=== PATIENT | female | born 1995 | race Caucasian/White ===

== ENCOUNTER 2019-02-15 20:11 | Observation (INO) | payer MEDICARE, MEDICAID, SELFPAY ==
[2019-02-15 20:12] VITALS: BP 148/94; PULSE 126; RESP 24; TEMP 37.6; O2SAT 94
[2019-02-15 21:48] VITALS: BP 148/99; PULSE 118; PULSE 119; RESP 18; TEMP 38.1; O2SAT 100; O2SAT 98
[2019-02-15 21:54] VITALS: O2SAT 97
[2019-02-15 22:20] VITALS: BP 120/81; PULSE 136; RESP 23; O2SAT 100
--- NOTE | 2019-02-15 22:22 | ED.DCSUM_ITS ---
- ER Visit Summary Date of Service: 02/15/19 Chief Complaint: cough and shortness of breath History of Present Illness: The patient is a 24 F with history of Down syndrome who presents for 1 day of shortness of breath and cough. Yesterday patient began having a cough and was given DayQuil by her caregiver. It helped initially, but she has continued to have worsening cough and shortness of breath today. She is complaining of a sore throat and now her voice is hoarse. She is also having chest discomfort associated with the cough. She has had a measured fever at home. She has history of Down syndrome and hypothyroidism. No history of DVT or PE. No known sick contacts. Physical Examination: Vital signs: Febrile at 100.5, heart rate 119, blood pressure 148/99, 100% on room air, no hypoxia General: well nourished, well developed, Down syndrome morphology, recurrent cough and hoarse voice noted Skin: warm, dry, no rash, no pallor the cheeks are flushed HEENT: normocephalic and atraumatic; PERRL, EOMI, moist mucous membranes, unable to visualize the posterior oropharynx due to the size of the tongue and patient unable to cooperate with the exam with a tongue depressor, neck is supple, no lymphadenopathy noted, no masses appreciated Cardiovascular: Tachycardic rate and rhythm without murmurs, no peripheral edema, 2+ pulses all distal extremities Respiratory: Mild tachypnea, lungs are clear to auscultation bilaterally, no rales, rhonchi or wheezing, exam limited by patient difficulty cooperating with the exam Abdominal: Abdomen is soft, nontender with normoactive bowel sounds, no guarding or rebound, no masses MSK: Moves all extremities, no deformities, normal strength Neuro: Awake and alert, oriented ?4. No facial droop, sensation and motor function intact and symmetric Test Results: Abnormal Lab Results 02/15/19 02/15/19 02/15/19 22:45 22:45 22:45 WBC 4.0 L RBC 4.42 Hgb 14.1 Hct 43.0 MCV 97.3 MCH 31.9 MCHC 32.8 RDW 14.8 H RDW Differential 52.9 H Plt Count 228 MPV 10.0 Immature Gran % (Auto) 0.300 Neut % (Auto) 69.2 Lymph % (Auto) 19.9 [place] % (Auto) 9.8 Eos % (Auto) 0.3 Baso % (Auto) 0.5 Absolute Neuts (auto) 2.8 Absolute Lymphs (auto) 0.79 L Total Counted Not Reportable PT 14.5 INR 1.2 APTT 39.3 H Sodium 144 Potassium 3.9 Chloride 112 H Carbon Dioxide 29.0 Anion Gap 3 L BUN 14 Creatinine 0.94 Estim Creat Clear Calc 122.09 Est GFR (MDRD) Af Amer 93 Est GFR (MDRD) Non-Af 77 BUN/Creatinine Ratio 15.0 Glucose 112 H Lactic Acid Calcium 8.5 Total Bilirubin 0.10 L AST 21 ALT 20 Alkaline Phosphatase 65 Total Protein 7.5 Albumin 2.9 L Globulin 4.6 H Albumin/Globulin Ratio 0.6 L 02/15/19 22:45 WBC RBC Hgb Hct MCV MCH MCHC RDW RDW Differential Plt Count MPV Immature Gran % (Auto) Neut % (Auto) Lymph % (Auto) [place] % (Auto) Eos % (Auto) Baso % (Auto) Absolute Neuts (auto) Absolute Lymphs (auto) Total Counted PT INR APTT Sodium Potassium Chloride Carbon Dioxide Anion Gap BUN Creatinine Estim Creat Clear Calc Est GFR (MDRD) Af Amer Est GFR (MDRD) Non-Af BUN/Creatinine Ratio Glucose Lactic Acid 1.4 Calcium Total Bilirubin AST ALT Alkaline Phosphatase Total Protein Albumin Globulin Albumin/Globulin Ratio Clinical Impression(s) from Imaging Studies Chest X-Ray 02/15/19 23:35 IMPRESSION: Normal x-ray examination of the chest. Electronically Signed: Antoine Martines MD at 23:53 EDT , Service support , Medications Given Albuterol Sulfate (Ventolin Hfa (Sp)) 2 puff INHALATION Q4H PRN PRN PRN Reason: WHEEZING Sodium Chloride () 1,000 mls @ 999 mls/hr IV .Q1H1M [place] Last Admin: 02/16/19 01:11 Dose: Not Given Admin: 02/16/19 01:03 Dose: Not Given Admin: 02/15/19 22:57 Dose: 999 mls/hr Discontinued Medications Acetaminophen (Tylenol Liquid) 500 mg PO X1 ONE Stop: 02/15/19 22:22 Last Admin: 02/15/19 22:58 Dose: 500 mg Albuterol/Ipratropium (Duoneb) 3 ml INHALATION X1 ONE Stop: 02/15/19 22:25 Last Admin: 02/15/19 23:00 Dose: 3 ml Oseltamivir Phosphate (Tamiflu Susp) 75 mg PO NOW STA Stop: 02/16/19 00:36 Last Admin: 02/16/19 01:02 Dose: 75 mg Emergency Department Course and Treatment: Patient was given a breathing treatment and had improvement of her cough. She is febrile, tachycardic, and has underlying respiratory issues at baseline with only one nostril that moves air. Thus workup was performed for underlying infectious cause of her shortness of breath and cough. Chest x-ray showed no sign of pneumonia. Patient had no leukocytosis. Lactate normal. Flu was positive. She was given Tamiflu. Patient was reevaluated and initially was feeling better after the breathing treatment and receiving some Tylenol for fever. However on subsequent evaluation, she was persistently tachycardic at 120s-130s. Temperature was back up to 101.9. Patient was ambulated on pulse oximetry and became very dyspneic after a very short walk, with O2 sat of 90% and heart rate in the 160s. This is concerning that patient will fail outpatient management. Discussed with the guardian patient's current condition and it was agreed she would benefit from close monitoring and continued medical management in the hospital since she is having shortness of breath with mild exertion and significant tachycardia. Patient will be discussed with the hospitalist for admission. Treatment Plan: [] Disposition: [] Impression: Influenza A, shortness of breath, tachycardia with mild exertion, Down syndrome This note was generated with [employer] software. It may contain incorrect words, spelling, and punctuation that were not noted in review of the chart prior to signing ED Disposition - Plan for ED Patient: Referrals: Elena Zheng MD [Primary Care Provider] -
[2019-02-15] MEDS: 0.9% Normal Saline 1,000 ML 999 ML IV (22:57)
[2019-02-15 22:58] LABS: Absolute Lymphocyte Count 0.79 X10^3/ul (0.83-4.51); Absolute Neutrophil Count 2.8 X10^3/uL (2.0-7.7); Basophil# 0.02 X10^3/uL; Basophil% 0.5 % (0-1); Eosinophil# 0.01 X10^3/uL; Eosinophils% 0.3 % (0-5); Hemoglobin 14.1 g/dl (12.0-15.0); Lymphocyte # 0.79 X10^3/ul (4.0); Lymphocyte % 19.9 % (19-41); Mean Corp Hgb Conc 32.8 g/gl (32-36); Mean Corpuscular Hgb 31.9 pg (27.0-32.0); Mean Corpuscular Volume 97.3 fL (81-99); Monocyte# 0.39 X10^3/uL; Monocyte% 9.8 % (0-10); Neutrophil # 2.75 X10^3/uL (2.7-7.7); Neutrophil % 69.2 % (47-70); Platelet Count 228 K/mm3 (150-450); RBC Distribution Width CV 14.8 % (11.6-14.6); RBC Distribution Width SD 52.9 fl (35.1-43.9); Red Blood Count 4.42 M/mm3 (4.2-5.4)
[2019-02-15] MEDS: Acetaminophen 160 MG/5 ML UDC 500 MG PO (22:58)
[2019-02-15] MEDS: Ipratropium/Albuterol Sulfate 3 ML AMPUL.NEB INHALATION (23:00)
[2019-02-15 23:03] VITALS: BP 120/81; PULSE 133; RESP 22; TEMP 36.9; O2SAT 100
[2019-02-15 23:06] VITALS: PULSE 135; RESP 20
[2019-02-15 23:09] LABS: POSITIVE COUNT NO; POSITIVE DIFFERENTIAL NO; POSITIVE MORPHOLOGY NO
[2019-02-15 23:15] LABS: International Normalized Ratio 1.2; Partial Thromboplast Time 39.3 Seconds (24.1-36.2); Prothrombin Time (Protime)PT. 14.5 SECONDS (11.7-14.9)
[2019-02-15 23:17] LABS: ALB/GLOB Ratio 0.6 RATIO (0.9-2.4); AST(SGOT) 21 U/L (15-37); Alanine Aminotransfer ALT/SGPT 20 U/L (13-56); Albumin, Serum 2.9 g/dL (3.2-5.0); Alkaline Phosphatase 65 U/L (45-117); Anion Gap 3 (5-15); BUN 14 mg/dL (7-18); Calcium,Total 8.5 mg/dL (8.5-10.1); Chloride 112 mmol/L (98-107); Creatinine, Serum 0.94 mg/dL (0.55-1.02); EST Glomerular Filtration Rate 77 mL/min (>60); Est Glom Filt Rate - Afr Amer 93 mL/min (>60); Estimated Creatinine Clearance 122.09 ml/min; Globulin 4.6 g/dL (2.2-4.2); Glucose 112 mg/dL (74-106); Potassium 3.9 mmol/L (3.5-5.1); Protein, Total 7.5 g/dL (6.4-8.2); Sodium Level 144 mmol/L (136-145)
[2019-02-15 23:20] LABS: Lactic Acid 1.4 mmol/L (0.4-2.0)
--- NOTE | 2019-02-15 23:35 | RAD_ITS ---
STUDY: X-RAY CHEST REASON FOR EXAM: Female, 24 years old. Fever and cough. TECHNIQUE: Frontal and lateral views of the chest. COMPARISON: None. FINDINGS: The lungs are clear and expanded. There is no demonstrated pleural abnormality. Normal size heart. Normal mediastinum and chloe. Normal visualized pulmonary arteries. Normal visualized aortic arch and descending thoracic aorta. Normal visualized thoracic spine. Normal visualized ribs, clavicles, and shoulders. There is no demonstrated abnormality of the visualized soft tissue structures of the upper abdomen. RAD/Chest PA and Lateral IMPRESSION: Normal x-ray examination of the chest. Electronically Signed: Antoine Martines MD at 23:53 EDT , Service support ,
[2019-02-16] VITALS (17 sets, daily range): BP systolic 102–145; BP diastolic 58–91; PULSE 91–129; RESP 14–28; TEMP 36.6–38.4; O2SAT 92–99; BMI 27.5; BMI 33.8
[2019-02-16] MEDS: OSELTAMIVIR PHOSPHATE 6 MG/ML BOTTLE 75 MG PO (01:02)
--- NOTE | 2019-02-16 01:35 | ED.RN ---
PT FELT WARM WHEN THIS RN AMBULATED PT. PT HR INCREASED TO 164, PT BECAME SOB. AXILLARY TEMP. 101.2. DR. THOMAS INFORMED. AWAITING FURTHER ORDERS.
[2019-02-16] MEDS: Albuterol 2.5 MG/3 ML VIAL.NEB. INHALATION (01:41)
[2019-02-16] MEDS: Acetaminophen 160 MG/5 ML UDC 500 MG PO (02:10)
--- NOTE | 2019-02-16 02:17 | HP.PCM_ITS ---
Problem List (1) Nonproductive cough Status: Acute (2) Shortness of breath Status: Acute (3) Fever Status: Acute Qualifiers: Fever type: unspecified Qualified Code(s): R50.9 - Fever, unspecified History of Present Illness Date of Admission: 02/16/19 Chief Complaint: Shortness of breath, nonproductive cough, fever The patient is a 24 year old F who was seen in the emergency room at [facility] with a chief complaint of nonproductive cough, fever, and shortness of breath times 48 hours. Patient has Down syndrome and a reliable review of systems could not be obtained from the patient-patient's sister was present in the emergency room and gave medical information. Workup in the emergency room included a CBC which showed a reduced white blood cell count at 4, patient's chemistry panel was unremarkable, and her chest x-ray did not show any infiltrates. Patient was tachycardic, the emergency room physician stated that when the patient was walked, her pulse ox on room air dropped to 90 and she became more tachycardic. The emergency room physician was uncomfortable with discharging the patient home and requested the hospitalist service place the patient into observation status. Patient will be placed and observation status for influenza A, she will be given IV fluids, and Tamiflu. Past Medical History Allergies No Known Allergies Allergy (Verified 02/15/19 20:17) Home Medications: Ambulatory Orders Medication Instructions Recorded Levothyroxine [Synthroid] 125 mcg PO DAILY 02/15/19 Loratadine [Claritin] 10 mg PO DAILY PRN 02/15/19 Multivitamin [Daily Doug] 1 each PO DAILY 02/15/19 Surgical History: tonsillectomy, - - Tubes in her ears, surgery for ankyloglossia Psychiatric History: - - Down syndrome [employer] History: No pertinent [employer] history Lives: With Family Smoking Status: Never smoker Tobacco Use: Non-smoker Alcohol: None Drugs: None - *Family History Maternal History Items: No pertinent history Paternal History Items: No pertinent history Review of Systems Comment: Review of systems was unobtainable from the patient due to her Down's syndrome, information was obtained from the patient's sister who was present at the time of the patient's examination VTE Information - Inpt Only VTE Present on Admission: No VTE Mechan Device Prophylaxis: None VTE Pharm Prophylaxis ordered?: No Reason prophylaxis not ordered:: Treatment Not Indicated Patient Problems: Active and Suspected Problems Nonproductive cough (Acute) Shortness of breath (Acute) Fever (Acute) - Physical Exam General: Alert, Oriented x3, Cooperative, No apparent distress, Well developed, Well nourished, - - Short stature, apparent cognitive impairment HEENT: Atraumatic, PERRLA, EOMI, Normocephalic Oral: Moist Mucosa Neck: Supple, No JVD, Negative Carotid Bruits, No Nuchal Rigidity, Trachea Midline, Thyroid Normal Size and Texture Lungs: Clear to auscultation, Normal air movement, No rhonchi, No wheeze, No rales Cardiovascular: Regular rate, Regular Rhythm, Normal S1, Normal S2, No murmurs, No Ectopic Activity, PMI Normal, No rub noted, No Gallop, Tachycardic Abdomen: Bowel Sounds Present, Soft, Non Tender, Non-Distended, No hernias noted Extremities: No clubbing, No cyanosis, No edema, Capillary Refill Less than 3 Seconds Skin: No rashes, No breakdown Neurological: Cranial nerves II-XII grossly intact, Neuro grossly intact, Sensory exam intact to light touch and pain Psych/Mental Status: Normal Affect, - - Signs of obvious cognitive impairment, Downs syndrome facies Vital Signs Temp Pulse Resp BP Pulse Ox 101.2 F H 124 H 28 H 121/71 H 92 02/16/19 01:31 02/16/19 02:08 02/16/19 02:08 02/16/19 02:08 02/16/19 02:08 Oxygen Flow Rate (L/min) 2 Oxygen Delivery Method Nasal Cannula Weight: 85.275 kg Body Mass Index (BMI) 0.0 Microbiology Past 72 Hours 02/15/19 23:10 Influenza Types A,B Direct FA (AMARIS) - Final Mucosa - Nasopharyngeal Influenzae A Laboratory Tests Past 24 Hrs 02/15/19 02/15/19 02/15/19 22:45 22:45 22:45 WBC 4.0 L RBC 4.42 Hgb 14.1 Hct 43.0 MCV 97.3 MCH 31.9 MCHC 32.8 RDW 14.8 H RDW Differential 52.9 H Plt Count 228 MPV 10.0 Immature Gran % (Auto) 0.300 Neut % (Auto) 69.2 Lymph % (Auto) 19.9 Thomas % (Auto) 9.8 Eos % (Auto) 0.3 Baso % (Auto) 0.5 Absolute Neuts (auto) 2.8 Absolute Lymphs (auto) 0.79 L Total Counted Not Reportable PT 14.5 INR 1.2 APTT 39.3 H Sodium 144 Potassium 3.9 Chloride 112 H Carbon Dioxide 29.0 Anion Gap 3 L BUN 14 Creatinine 0.94 Estim Creat Clear Calc 122.09 Est GFR (MDRD) Af Amer 93 Est GFR (MDRD) Non-Af 77 BUN/Creatinine Ratio 15.0 Glucose 112 H Lactic Acid Calcium 8.5 Total Bilirubin 0.10 L AST 21 ALT 20 Alkaline Phosphatase 65 Total Protein 7.5 Albumin 2.9 L Globulin 4.6 H Albumin/Globulin Ratio 0.6 L 02/15/19 22:45 WBC RBC Hgb Hct MCV MCH MCHC RDW RDW Differential Plt Count MPV Immature Gran % (Auto) Neut % (Auto) Lymph % (Auto) Thomas % (Auto) Eos % (Auto) Baso % (Auto) Absolute Neuts (auto) Absolute Lymphs (auto) Total Counted PT INR APTT Sodium Potassium Chloride Carbon Dioxide Anion Gap BUN Creatinine Estim Creat Clear Calc Est GFR (MDRD) Af Amer Est GFR (MDRD) Non-Af BUN/Creatinine Ratio Glucose Lactic Acid 1.4 Calcium Total Bilirubin AST ALT Alkaline Phosphatase Total Protein Albumin Globulin Albumin/Globulin Ratio Assessment/Plan All Active Problems Nonproductive cough (Acute) Shortness of breath (Acute) Fever (Acute) #1 influenza A with tachycardia and dyspnea-patient will be placed and observation status on [facility], I have decided not to administer aerosol treatments for the patient-on my examination, patient did not have any audible wheezing or rhonchi. Patient will be given IV fluids and monitored. Patient will be given Tamiflu #2 Down syndrome #3 hypothyroidism-patient will continue on her present medication Code Visit OBSV E&M: 43399 Initial observation care L3
[2019-02-16] MEDS: 0.9% Normal Saline 1,000 ML 100 ML IV ×3 (03:26→21:04)
[2019-02-16] MEDS: Levothyroxine 125 MCG Tablet PO (05:55)
[2019-02-16] MEDS: Oseltamivir Phosphate 75 MG Capsule PO ×2 (11:18→21:00)
--- NOTE | 2019-02-16 11:20 | NURSING ---
1120 pt resting in bed. pox checked 98% on RA. no resp distress noted. will monitor Ed Morocho
--- NOTE | 2019-02-16 15:02 | PCM.PN.HOSP ---
Patient Problems: Active and Suspected Problems Nonproductive cough (Acute) Shortness of breath (Acute) Fever (Acute) Subjective: Patient was admitted yesterday. Influenza A positive. Patient has nonproductive cough, fever, shortness of breath and bronchial wheezing. Has Down syndrome and answers questions in yes or no. Currently pulse ox 98% on 6 L of oxygen. Vitals/I&O's: Vital Signs Temp Pulse Resp BP Pulse Ox 98 F 91 20 H 117/87 H 96 02/16/19 09:00 02/16/19 09:00 02/16/19 09:00 02/16/19 09:00 02/16/19 13:20 Oxygen Flow Rate (L/min) 6 Oxygen Delivery Method Room Air Weight: 191 lb 2.252 oz Body Mass Index (BMI) 33.8 Intake and Output for Last 24 Hours 02/14/19 02/15/19 02/16/19 23:59 23:59 23:59 Intake Total 1270 / 1270 Balance 1270 / 1270 General: Cooperative, - - Awake. Mild to moderate cognitive impairment. Hard to assess orientation questions. HEENT: Atraumatic, PERRLA, EOMI Neck: Supple, No JVD, Negative Carotid Bruits, Negative Hepatojugular Reflux Lungs: Diminished - Air entry is diminished, Rhonchi, Wheezes Cardiovascular: Regular rate, Normal S1, Normal S2, No murmurs Abdomen: Bowel Sounds Present, Soft, Non Tender, Non-Distended Extremities: No cyanosis, No edema, Capillary Refill Less than 3 Seconds Skin: No rashes, No breakdown Musculoskeletal: No Tenderness to Palpation of Joints or Extremities Lymphatic: No Cervical, Supraclavicular, or Inguinal Adenopathy Neurological: Cranial nerves II-XII grossly intact, - - Short webbed neCK, short of stature of Down syndrome Microbiology Past 72 Hours 02/15/19 23:10 Mucosa - Nasopharyngeal Influenza Types A,B Direct FA (AMARIS) - Final Influenzae A Laboratory Results 02/15/19 22:45: WBC 4.0 L, RBC 4.42, Hgb 14.1, Hct 43.0, MCV 97.3, MCH 31.9, MCHC 32.8, RDW 14.8 H, RDW Differential 52.9 H, Plt Count 228, MPV 10.0, Immature Gran % (Auto) 0.300, Neut % (Auto) 69.2, Lymph % (Auto) 19.9, [place] % (Auto) 9.8, Eos % (Auto) 0.3, Baso % (Auto) 0.5, Absolute Neuts (auto) 2.8, Absolute Lymphs (auto) 0.79 L, Total Counted Not Reportable 02/15/19 22:45: PT 14.5, INR 1.2, APTT 39.3 H 02/15/19 22:45: Sodium 144, Potassium 3.9, Chloride 112 H, Carbon Dioxide 29.0, Anion Gap 3 L, BUN 14, Creatinine 0.94, Estim Creat Clear Calc 122.09, Est GFR (MDRD) Af Amer 93, Est GFR (MDRD) Non-Af 77, BUN/Creatinine Ratio 15.0, Glucose 112 H, Calcium 8.5, Total Bilirubin 0.10 L, AST 21, ALT 20, Alkaline Phosphatase 65, Total Protein 7.5, Albumin 2.9 L, Globulin 4.6 H, Albumin/Globulin Ratio 0.6 L 02/15/19 22:45: Lactic Acid 1.4 Current Medications Acetaminophen (Tylenol) 650 mg PO Q6H PRN PRN PRN Reason: Mild Pain (1-3)/Temp > 100.7 F Albuterol/Ipratropium (Duoneb) 3 ml INHALATION Q4H PRN PRN Reason: sob Sodium Chloride () 1,000 mls @ 100 mls/hr IV .Q10H [facility] Last Admin: 02/16/19 12:29 Dose: 100 mls/hr Levothyroxine Sodium (Synthroid) 125 mcg PO MoTuWeThFrSa@0600 [facility] Last Admin: 02/16/19 05:55 Dose: 125 mcg Levothyroxine Sodium (Synthroid) 62.5 mcg PO Bales@0600 [facility] Loratadine (Claritin) 10 mg PO DAILY PRN PRN PRN Reason: ALLERGIES Oseltamivir Phosphate (Tamiflu) 75 mg PO BID [facility] Stop: 02/20/19 22:01 Last Admin: 02/16/19 11:18 Dose: 75 mg Sodium Chloride () 5 - 15 ml IV UD PRN PRN Reason: SALINE FLUSH Medical Necessity - Tobacco Use Smoking Status: Never smoker Tobacco Use: Non-smoker Assessment/Plan All Active Problems Nonproductive cough (Acute) Shortness of breath (Acute) Fever (Acute) This is a 24-year-old female who was admitted for nonproductive cough, fever, shortness of breath for more than 48 hours. She has Down syndrome and her caregiver is her sister. Patient has found tachycardic, tachypneic and hypoxic in ED and therefore was admitted. Patient found positive of influenza A. 1. Acute hypoxia secondary to influenza A bronchitis: Oxygen therapy as needed. On Tamiflu. Bronchodilator as needed. Mucinex. 2. Down syndrome: Patient can feed herself. Patient does not have feeding tube or Gomez catheter. 3. Hypothyroidism: Continue home medication
--- NOTE | 2019-02-16 15:07 | PN_ITS ---
Patient Problems: Active and Suspected Problems Nonproductive cough (Acute) Shortness of breath (Acute) Fever (Acute) Subjective: Patient was admitted yesterday. Influenza A positive. Patient has nonproductive cough, fever, shortness of breath and bronchial wheezing. Has Down syndrome and answers questions in yes or no. Currently pulse ox 98% on 6 L of oxygen. Vitals/I&O's: Vital Signs Temp Pulse Resp BP Pulse Ox 98 F 91 20 H 117/87 H 96 02/16/19 09:00 02/16/19 09:00 02/16/19 09:00 02/16/19 09:00 02/16/19 13:20 Oxygen Flow Rate (L/min) 6 Oxygen Delivery Method Room Air Weight: 191 lb 2.252 oz Body Mass Index (BMI) 33.8 Intake and Output for Last 24 Hours 02/14/19 02/15/19 02/16/19 23:59 23:59 23:59 Intake Total 1270 / 1270 Balance 1270 / 1270 General: Cooperative, - - Awake. Mild to moderate cognitive impairment. Hard to assess orientation questions. HEENT: Atraumatic, PERRLA, EOMI Neck: Supple, No JVD, Negative Carotid Bruits, Negative Hepatojugular Reflux Lungs: Diminished - Air entry is diminished, Rhonchi, Wheezes Cardiovascular: Regular rate, Normal S1, Normal S2, No murmurs Abdomen: Bowel Sounds Present, Soft, Non Tender, Non-Distended Extremities: No cyanosis, No edema, Capillary Refill Less than 3 Seconds Skin: No rashes, No breakdown Musculoskeletal: No Tenderness to Palpation of Joints or Extremities Lymphatic: No Cervical, Supraclavicular, or Inguinal Adenopathy Neurological: Cranial nerves II-XII grossly intact, - - Short webbed neCK, short of stature of Down syndrome Microbiology Past 72 Hours 02/15/19 23:10 Mucosa - Nasopharyngeal Influenza Types A,B Direct FA (AMARIS) - Final Influenzae A Laboratory Results 02/15/19 22:45: WBC 4.0 L, RBC 4.42, Hgb 14.1, Hct 43.0, MCV 97.3, MCH 31.9, MCHC 32.8, RDW 14.8 H, RDW Differential 52.9 H, Plt Count 228, MPV 10.0, Immature Gran % (Auto) 0.300, Neut % (Auto) 69.2, Lymph % (Auto) 19.9, Lyon % (Auto) 9.8, Eos % (Auto) 0.3, Baso % (Auto) 0.5, Absolute Neuts (auto) 2.8, Absolute Lymphs (auto) 0.79 L, Total Counted Not Reportable 02/15/19 22:45: PT 14.5, INR 1.2, APTT 39.3 H 02/15/19 22:45: Sodium 144, Potassium 3.9, Chloride 112 H, Carbon Dioxide 29.0, Anion Gap 3 L, BUN 14, Creatinine 0.94, Estim Creat Clear Calc 122.09, Est GFR (MDRD) Af Amer 93, Est GFR (MDRD) Non-Af 77, BUN/Creatinine Ratio 15.0, Glucose 112 H, Calcium 8.5, Total Bilirubin 0.10 L, AST 21, ALT 20, Alkaline Phosphatase 65, Total Protein 7.5, Albumin 2.9 L, Globulin 4.6 H, Albumin/Globulin Ratio 0.6 L 02/15/19 22:45: Lactic Acid 1.4 Current Medications Acetaminophen (Tylenol) 650 mg PO Q6H PRN PRN PRN Reason: Mild Pain (1-3)/Temp > 100.7 F Albuterol/Ipratropium (Duoneb) 3 ml INHALATION Q4H PRN PRN Reason: sob Sodium Chloride () 1,000 mls @ 100 mls/hr IV .Q10H [facility] Last Admin: 02/16/19 12:29 Dose: 100 mls/hr Levothyroxine Sodium (Synthroid) 125 mcg PO MoTuWeThFrSa@0600 [facility] Last Admin: 02/16/19 05:55 Dose: 125 mcg Levothyroxine Sodium (Synthroid) 62.5 mcg PO Bales@0600 [facility] Loratadine (Claritin) 10 mg PO DAILY PRN PRN PRN Reason: ALLERGIES Oseltamivir Phosphate (Tamiflu) 75 mg PO BID [facility] Stop: 02/20/19 22:01 Last Admin: 02/16/19 11:18 Dose: 75 mg Sodium Chloride () 5 - 15 ml IV UD PRN PRN Reason: SALINE FLUSH Medical Necessity - Tobacco Use Smoking Status: Never smoker Tobacco Use: Non-smoker Assessment/Plan All Active Problems Nonproductive cough (Acute) Shortness of breath (Acute) Fever (Acute) This is a 24-year-old female who was admitted for nonproductive cough, fever, shortness of breath for more than 48 hours. She has Down syndrome and her caregiver is her sister. Patient has found tachycardic, tachypneic and hypoxic in ED and therefore was admitted. Patient found positive of influenza A. 1. Acute hypoxia secondary to influenza A bronchitis: Oxygen therapy as needed. On Tamiflu. Bronchodilator as needed. Mucinex. 2. Down syndrome: Patient can feed herself. Patient does not have feeding tube or Gomez catheter. 3. Hypothyroidism: Continue home medication
[2019-02-17 03:00] VITALS: BP 119/70; PULSE 118; RESP 20; TEMP 37.7; O2SAT 94
[2019-02-17] MEDS: Levothyroxine 125 MCG Tablet 62.5 MCG PO (06:23)
[2019-02-17] MEDS: Acetaminophen 325 MG Tablet 650 MG PO (06:26)
[2019-02-17 06:51] VITALS: TEMP 38.2
[2019-02-17 07:27] VITALS: O2SAT 94
[2019-02-17 07:34] VITALS: BP 103/61; PULSE 103; RESP 18; TEMP 36.8; O2SAT 94
--- NOTE | 2019-02-17 07:55 | RAD_ITS ---
STUDY: X-RAY CHEST REASON FOR EXAM: Female, 24 years old. Fever and cough TECHNIQUE: PA and lateral views of the chest. COMPARISON: 02/15/2019 FINDINGS: The lungs are clear and expanded. There is no demonstrated pleural abnormality. Normal size heart. Normal mediastinum and chloe. Normal visualized pulmonary arteries. Normal visualized aortic arch and descending thoracic aorta. Normal visualized thoracic spine. Normal visualized ribs, clavicles, and shoulders. There is no demonstrated abnormality of the visualized soft tissue structures of the upper abdomen. RAD/Chest PA and Lateral IMPRESSION: Normal x-ray examination of the chest. Electronically Signed: Eduardo Orta MD at 13:42 EDT , Service support ,
--- NOTE | 2019-02-17 08:01 | NURSING ---
off unit via bed for cxr
[2019-02-17] MEDS: 0.9% Normal Saline 1,000 ML 100 ML IV ×2 (08:09→18:29)
[2019-02-17] MEDS: 0.9% NaCl Peripheral Flush Adult/Peds IV (08:10)
[2019-02-17 08:36] LABS: Absolute Lymphocyte Count 0.85 X10^3/ul (0.83-4.51); Absolute Neutrophil Count 4.7 X10^3/uL (2.0-7.7); Basophil# 0.02 X10^3/uL; Basophil% 0.3 % (0-1); Eosinophil# 0.03 X10^3/uL; Eosinophils% 0.5 % (0-5); Hematocrit 42.3 % (37-47); Hemoglobin 13.8 g/dl (12.0-15.0); Lymphocyte # 0.85 X10^3/ul (4.0); Lymphocyte % 13.9 % (19-41); Mean Corp Hgb Conc 32.6 g/gl (32-36); Mean Corpuscular Hgb 31.5 pg (27.0-32.0); Mean Corpuscular Volume 96.6 fL (81-99); Mean Platelet Vol. 10.2 fl (6.2-12.0); Monocyte# 0.51 X10^3/uL; Monocyte% 8.3 % (0-10); Neutrophil # 4.71 X10^3/uL (2.7-7.7); Neutrophil % 76.8 % (47-70); Platelet Count 220 K/mm3 (150-450); RBC Distribution Width CV 14.9 % (11.6-14.6); RBC Distribution Width SD 53.1 fl (35.1-43.9); Red Blood Count 4.38 M/mm3 (4.2-5.4); White Blood Count 6.1 K/mm3 (4.4-11.0)
[2019-02-17 08:37] LABS: POSITIVE COUNT NO; POSITIVE DIFFERENTIAL NO; POSITIVE MORPHOLOGY NO
[2019-02-17 09:12] LABS: Anion Gap 3 (5-15); BUN 11 mg/dL (7-18); BUN/Creat Ratio 14.8 RATIO (10-20); Chloride 108 mmol/L (98-107); Creatinine, Serum 0.74 mg/dL (0.55-1.02); EST Glomerular Filtration Rate 101 mL/min (>60); Est Glom Filt Rate - Afr Amer 122 mL/min (>60); Glucose 92 mg/dL (74-106); Potassium 3.9 mmol/L (3.5-5.1); Sodium Level 138 mmol/L (136-145)
[2019-02-17] MEDS: Oseltamivir Phosphate 75 MG Capsule PO ×2 (09:42→20:59)
--- NOTE | 2019-02-17 10:10 | PCM.PN.HOSP ---
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 Temperature is normal. Mild tachycardia, heart rate 103. RR 20 and public transit trolley driver but 18 now. No hypoxia. Vitals/I&O's: Vital Signs Temp Pulse Resp BP Pulse Ox 98.3 F 103 H 18 103/61 94 02/17/19 07:34 02/17/19 07:34 02/17/19 07:34 02/17/19 07:34 02/17/19 07:34 Oxygen Flow Rate (L/min) 6 Oxygen Delivery Method Room Air Weight: 191 lb 2.252 oz Body Mass Index (BMI) 33.8 Intake and Output for Last 24 Hours 02/15/19 02/16/19 02/17/19 23:59 23:59 23:59 Intake Total 2384 / 2384 Balance 2384 / 2384 General: Alert, Cooperative, - - MRDD Answer only yes or no HEENT: Atraumatic, PERRLA, EOMI, Normocephalic Neck: Supple, No JVD, Negative Carotid Bruits Lungs: Diminished, Rhonchi, Wheezes Cardiovascular: Regular rate, Regular Rhythm, Normal S1, Normal S2, No murmurs Abdomen: Bowel Sounds Present, Soft, Non Tender, Non-Distended Extremities: No edema, Capillary Refill Less than 3 Seconds, Edema Skin: No rashes, No breakdown Musculoskeletal: No Tenderness to Palpation of Joints or Extremities, Arthritic Changes Lymphatic: No Cervical, Supraclavicular, or Inguinal Adenopathy Neurological: Cranial nerves II-XII grossly intact, - - Down syndrome faces Psych/Mental Status: Normal Affect, Appropriate Microbiology Past 72 Hours 02/15/19 23:10 Mucosa - Nasopharyngeal Influenza Types A,B Direct FA (AMARIS) - Final Influenzae A Laboratory Results 02/17/19 08:10: WBC 6.1, RBC 4.38, Hgb 13.8, Hct 42.3, MCV 96.6, MCH 31.5, MCHC 32.6, RDW 14.9 H, RDW Differential 53.1 H, Plt Count 220, MPV 10.2, Immature Gran % (Auto) 0.200, Neut % (Auto) 76.8 H, Lymph % (Auto) 13.9 L, [place] % (Auto) 8.3, Eos % (Auto) 0.5, Baso % (Auto) 0.3, Absolute Neuts (auto) 4.7, Absolute Lymphs (auto) 0.85, Total Counted Not Reportable 02/17/19 08:10: Sodium 138, Potassium 3.9, Chloride 108 H, Carbon Dioxide 27.0, Anion Gap 3 L, BUN 11, Creatinine 0.74, Estim Creat Clear Calc 95.30, Est GFR (MDRD) Af Amer 122, Est GFR (MDRD) Non-Af 101, BUN/Creatinine Ratio 14.8, Glucose 92, Calcium 8.0 L Current Medications Acetaminophen (Tylenol) 650 mg PO Q6H PRN PRN PRN Reason: Mild Pain (1-3)/Temp > 100.7 F Last Admin: 02/17/19 06:26 Dose: 650 mg Albuterol/Ipratropium (Duoneb) 3 ml INHALATION Q4H PRN PRN Reason: sob Sodium Chloride () 1,000 mls @ 100 mls/hr IV .Q10H [facility] Last Admin: 02/17/19 08:09 Dose: 100 mls/hr Levothyroxine Sodium (Synthroid) 125 mcg PO MoTuWeThFrSa@0600 [facility] Last Admin: 02/16/19 05:55 Dose: 125 mcg Levothyroxine Sodium (Synthroid) 62.5 mcg PO Bales@0600 [facility] Last Admin: 02/17/19 06:23 Dose: 62.5 mcg Loratadine (Claritin) 10 mg PO DAILY PRN PRN PRN Reason: ALLERGIES Oseltamivir Phosphate (Tamiflu) 75 mg PO BID [facility] Stop: 02/20/19 22:01 Last Admin: 02/17/19 09:42 Dose: 75 mg Sodium Chloride () 5 - 15 ml IV UD PRN PRN Reason: SALINE FLUSH Last Admin: 02/17/19 08:10 Dose: 10 ml Medical Necessity - Tobacco Use Smoking Status: Never smoker Tobacco Use: Non-smoker Assessment/Plan All Active Problems Nonproductive cough (Acute) Shortness of breath (Acute) Fever (Acute) This is a 24-year-old female who was admitted for nonproductive cough, fever, shortness of breath for more than 48 hours. She has Down syndrome and her caregiver is her sister. Patient has found tachycardic, tachypneic and hypoxic in ED and therefore was admitted. Patient found positive of influenza A. 1. Acute hypoxia secondary to influenza A bronchitis: Oxygen therapy as needed. On Tamiflu. Bronchodilator as needed. Mucinex. Resolved. Low-grade fever mild tachypnea yesterday night probably from influenza A bronchitis. Repeat chest x-ray ordered. Looks normal. 2. Down syndrome: Patient can feed herself. Patient does not have feeding tube or Gomez catheter. 3. Hypothyroidism: Continue home medication Patient sister and power of attorney lawyer for [facility], Rocio was called, phone #[phone] and left message on phone about clinical condition. Patient might need appeals manager to put in a assisted. Clinical Impression(s) from Imaging Studies Chest X-Ray 02/15/19 23:35 IMPRESSION: Normal x-ray examination of the chest. Signout: May discharge tomorrow if she gets assisted. Consult case fitter Code Visit Inpatient E&M: 74135 Subs Hosp L2
--- NOTE | 2019-02-17 10:14 | PN_ITS ---
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 Temperature is normal. Mild tachycardia, heart rate 103. RR 20 and city recorder but 18 now. No hypoxia. Vitals/I&O's: Vital Signs Temp Pulse Resp BP Pulse Ox 98.3 F 103 H 18 103/61 94 02/17/19 07:34 02/17/19 07:34 02/17/19 07:34 02/17/19 07:34 02/17/19 07:34 Oxygen Flow Rate (L/min) 6 Oxygen Delivery Method Room Air Weight: 191 lb 2.252 oz Body Mass Index (BMI) 33.8 Intake and Output for Last 24 Hours 02/15/19 02/16/19 02/17/19 23:59 23:59 23:59 Intake Total 2384 / 2384 Balance 2384 / 2384 General: Alert, Cooperative, - - MRDD Answer only yes or no HEENT: Atraumatic, PERRLA, EOMI, Normocephalic Neck: Supple, No JVD, Negative Carotid Bruits Lungs: Diminished, Rhonchi, Wheezes Cardiovascular: Regular rate, Regular Rhythm, Normal S1, Normal S2, No murmurs Abdomen: Bowel Sounds Present, Soft, Non Tender, Non-Distended Extremities: No edema, Capillary Refill Less than 3 Seconds, Edema Skin: No rashes, No breakdown Musculoskeletal: No Tenderness to Palpation of Joints or Extremities, Arthritic Changes Lymphatic: No Cervical, Supraclavicular, or Inguinal Adenopathy Neurological: Cranial nerves II-XII grossly intact, - - Down syndrome faces Psych/Mental Status: Normal Affect, Appropriate Microbiology Past 72 Hours 02/15/19 23:10 Mucosa - Nasopharyngeal Influenza Types A,B Direct FA (AMARIS) - Final Influenzae A Laboratory Results 02/17/19 08:10: WBC 6.1, RBC 4.38, Hgb 13.8, Hct 42.3, MCV 96.6, MCH 31.5, MCHC 32.6, RDW 14.9 H, RDW Differential 53.1 H, Plt Count 220, MPV 10.2, Immature Gran % (Auto) 0.200, Neut % (Auto) 76.8 H, Lymph % (Auto) 13.9 L, [place] % (Auto) 8.3, Eos % (Auto) 0.5, Baso % (Auto) 0.3, Absolute Neuts (auto) 4.7, Absolute Lymphs (auto) 0.85, Total Counted Not Reportable 02/17/19 08:10: Sodium 138, Potassium 3.9, Chloride 108 H, Carbon Dioxide 27.0, Anion Gap 3 L, BUN 11, Creatinine 0.74, Estim Creat Clear Calc 95.30, Est GFR (MDRD) Af Amer 122, Est GFR (MDRD) Non-Af 101, BUN/Creatinine Ratio 14.8, Glucose 92, Calcium 8.0 L Current Medications Acetaminophen (Tylenol) 650 mg PO Q6H PRN PRN PRN Reason: Mild Pain (1-3)/Temp > 100.7 F Last Admin: 02/17/19 06:26 Dose: 650 mg Albuterol/Ipratropium (Duoneb) 3 ml INHALATION Q4H PRN PRN Reason: sob Sodium Chloride () 1,000 mls @ 100 mls/hr IV .Q10H [facility] Last Admin: 02/17/19 08:09 Dose: 100 mls/hr Levothyroxine Sodium (Synthroid) 125 mcg PO MoTuWeThFrSa@0600 [facility] Last Admin: 02/16/19 05:55 Dose: 125 mcg Levothyroxine Sodium (Synthroid) 62.5 mcg PO Bales@0600 [facility] Last Admin: 02/17/19 06:23 Dose: 62.5 mcg Loratadine (Claritin) 10 mg PO DAILY PRN PRN PRN Reason: ALLERGIES Oseltamivir Phosphate (Tamiflu) 75 mg PO BID [facility] Stop: 02/20/19 22:01 Last Admin: 02/17/19 09:42 Dose: 75 mg Sodium Chloride () 5 - 15 ml IV UD PRN PRN Reason: SALINE FLUSH Last Admin: 02/17/19 08:10 Dose: 10 ml Medical Necessity - Tobacco Use Smoking Status: Never smoker Tobacco Use: Non-smoker Assessment/Plan All Active Problems Nonproductive cough (Acute) Shortness of breath (Acute) Fever (Acute) This is a 24-year-old female who was admitted for nonproductive cough, fever, shortness of breath for more than 48 hours. She has Down syndrome and her caregiver is her sister. Patient has found tachycardic, tachypneic and hypoxic in ED and therefore was admitted. Patient found positive of influenza A. 1. Acute hypoxia secondary to influenza A bronchitis: Oxygen therapy as needed. On Tamiflu. Bronchodilator as needed. Mucinex. Resolved. Low-grade fever mild tachypnea yesterday night probably from influenza A bronchitis. Repeat chest x-ray ordered. Looks normal. 2. Down syndrome: Patient can feed herself. Patient does not have feeding tube or Gomez catheter. 3. Hypothyroidism: Continue home medication Patient sister and power of admitted attorneys for [facility], Rocio was called, phone #[phone] and left message on phone about clinical condition. Patient might need scientific affairs manager to put in a senior living. Clinical Impression(s) from Imaging Studies Chest X-Ray 02/15/19 23:35 IMPRESSION: Normal x-ray examination of the chest. Signout: May discharge tomorrow if she gets senior living. Consult case aide Code Visit Inpatient E&M: 89371 Subs Hosp L2
[2019-02-17 14:00] VITALS: BP 121/55; PULSE 98; RESP 18; TEMP 36.6; O2SAT 94
[2019-02-17 19:40] VITALS: BP 102/61; PULSE 88; RESP 18; TEMP 37.1; O2SAT 97
[2019-02-18 02:59] VITALS: BP 98/71; PULSE 93; RESP 18; TEMP 36.7; O2SAT 99
[2019-02-18] MEDS: 0.9% Normal Saline 1,000 ML 100 ML IV (04:49)
[2019-02-18] MEDS: Levothyroxine 125 MCG Tablet PO (04:50)
--- NOTE | 2019-02-18 09:12 | DCINST_ITS ---
- Discharge Diagnoses Current Active Problems: Current Active and Chronic Problems Nonproductive cough (Acute) Shortness of breath (Acute) Fever (Acute) Reason(s) for Visit for Discharge Instructions: Shortness of breath, cough, fever You will use the following diet at home:: Regular Your food should be the consistency of: Regular Your liquids should be the consistency of: Regular/Thin Discharge Activity: Return to Normal Activity Allergies/Adverse Reactions: Allergies No Known Allergies Allergy (Verified 02/15/19 20:17) Medications to take at Discharge Loratadine [Claritin] 10 mg PO DAILY PRN 02/15/19 Multivitamin [Daily Doug] 1 each PO DAILY 02/15/19 Levothyroxine [Synthroid] 62.5 mcg PO Bales@0600 tablet 02/18/19 Levothyroxine [Synthroid] 125 mcg PO MoTuWeThFrSa@0600 tablet 02/18/19 Oseltamivir Phosphate [Tamiflu] 75 mg PO BID #5 cap 02/18/19 The following prescriptions were given: Oseltamivir Phosphate [Tamiflu] 75 mg PO BID #5 cap Primary Care Physician: Elena Zheng MD [Primary Care Provider] - Please follow up with your Primary Care Physician in: within 1-2 weeks of discharge Test Results: Test results from this visit will be discussed in further detail at your follow- up appointment, if applicable. Proposed Discharge Date: 02/18/19
--- NOTE | 2019-02-18 09:25 | CASEMGMT ---
Addendum entered by Keyonna Mccain 02/18/19 09:43: SW attempted to meet with pt, pt's family not present in room. VINCENT spoke with Charge Nurse who states pt's sister will be transporting pt after she gets off work at 3:00pm today. Charge Nurse states pt's sister has already been in contact with CM at [facility] to get pt placed in fdc. VINCENT informed Charge Nurse that [facility] will need to place pt in fdc and that this worker informed pt's CM at [facility] of pt's family request to place pt in fdc. Original Note: Social Work Note RN BALDEV Back updated this worker that pt's family is wanting fdc for her. VINCENT placed a call to [facility] and spoke with Radha who states pt's CM is Kyra Walker and provided cell phone number ([phone]). VINCENT placed a call to Kyra and updated her that pt will be discharged today and that the family is wanting fdc placement for pt. Kyra states understanding, states she will be in contact with pt's family. Keyonna Mccain HOME HEALTH CNA, INSIDE WIREMAN
[2019-02-18 10:00] VITALS: BP 111/71; PULSE 92; RESP 20; TEMP 36.8; O2SAT 98
[2019-02-18] MEDS: Oseltamivir Phosphate 75 MG Capsule PO (10:03)
--- NOTE | 2019-02-18 11:16 | PCM.DC.SUM ---
Discharge Date and Diagnosis - Problem List Patient Problems: Active and Suspected Problems Nonproductive cough (Acute) Shortness of breath (Acute) Fever (Acute) Date of Admission: 02/16/19 Date of Discharge: 02/18/19 - Primary Discharge Diagnosis Active and Suspected Problems Acute influenza A bronchitis Acute respiratory insufficiency secondary to acute influenza A bronchitis Hospital Course and Treatment Imaging Results: Clinical Impression(s) from Imaging Studies Chest X-Ray 02/15/19 23:35 IMPRESSION: Normal x-ray examination of the chest. Electronically Signed: Antoine Martines MD at 23:53 EDT , Service support , Chest X-Ray 02/17/19 07:55 IMPRESSION: Normal x-ray examination of the chest. Electronically Signed: Eduardo Orta MD at 13:42 EDT , Service support , None Operations: None Procedures: None Summary of Care Provided: The patient is a 24 year old F with past medical history of Down syndrome, resident at home who was brought to the emergency department with shortness of breath, nonproductive cough and fever. Workup in the emergency room showed hypoxia with SPO2 dropping to the 90s on ambulation. Influenza screen was positive for influenza A. Patient was started on IV fluids and Tamiflu admitted to the medical floor. Patient continued to improve and did not require oxygen. She was continued on Tamiflu. sheet metal worker maintenance was consulted to assist with resources for possible placement to a assisted. Resources were reportedly provided to the family. Patient needs to follow-up with a primary care doctor in 1-2 weeks. Patient Problems: Active and Suspected Problems Nonproductive cough (Acute) Shortness of breath (Acute) Fever (Acute) Subjective: On the day of discharge, patient was seen and examined. No acute events overnight. Reportedly, her sister who is a power of machine quilt stuffer for healthcare wanted patient discharged to assisted. sheet metal worker maintenance consulted and resources were given to the sister to contact the [facility] for assistance for placement to assisted. - Physical Exam General: Alert, Cooperative, - - down facies HEENT: Atraumatic, PERRLA, EOMI, Normocephalic Oral: Moist Mucosa Neck: Supple Lungs: Clear to auscultation, Normal air movement Cardiovascular: Regular rate, Regular Rhythm, Normal S1, Normal S2 Abdomen: Bowel Sounds Present, Soft, Non Tender, Non-Distended, No Hepato-splenomegaly Extremities: No edema Skin: No rashes, No breakdown Musculoskeletal: No Tenderness to Palpation of Joints or Extremities Lymphatic: No Cervical, Supraclavicular, or Inguinal Adenopathy Neurological: Cranial nerves II-XII grossly intact, Neuro grossly intact Psych/Mental Status: Normal Affect, Appropriate Vital Signs Temp Pulse Resp BP Pulse Ox 98.3 F 92 20 H 111/71 98 02/18/19 10:00 02/18/19 10:00 02/18/19 10:00 02/18/19 10:00 02/18/19 10:00 Oxygen Flow Rate (L/min) 6 Oxygen Delivery Method Room Air Weight: 86.7 kg Body Mass Index (BMI) 33.8 Intake and Output for Last 24 Hours 02/16/19 02/17/19 02/18/19 23:59 23:59 23:59 Intake Total 2385 / 2385 4040 / 4040 1674 / 1674 Balance 2385 / 2385 4040 / 4040 1674 / 1674 Microbiology Past 72 Hours 02/16/19 01:02 Group A Streptococcus Rapid Screen - Final Mucosa - Nasopharyngeal 02/15/19 22:45 Blood Culture - Preliminary Blood Culture (Wb) - Anticubital Right No growth in 48 hours. 02/15/19 22:45 Blood Culture - Preliminary Blood Culture (Wb) - Left Hand No growth in 48 hours. 02/15/19 23:10 Influenza Types A,B Direct FA (AMARIS) - Final Mucosa - Nasopharyngeal Influenzae A Discharge Diet: No Restrictions Discharge Activity: Return to Normal Activity Home Medications: Medications to take at Discharge Loratadine [Claritin] 10 mg PO DAILY PRN 02/15/19 Multivitamin [Daily Doug] 1 each PO DAILY 02/15/19 Levothyroxine [Synthroid] 62.5 mcg PO Bales@0600 tablet 02/18/19 Levothyroxine [Synthroid] 125 mcg PO MoTuWeThFrSa@0600 tablet 02/18/19 Oseltamivir Phosphate [Tamiflu] 75 mg PO BID #5 cap 02/18/19 Following Prescrptions Were Given to Patient: Oseltamivir Phosphate [Tamiflu] 75 mg PO BID #5 cap Primary Care Physician: Elena Zheng MD [Primary Care Provider] - Please follow up with your Primary Care Physician in: within 1-2 weeks of discharge Disposition: Home Minutes spent on discharge:: 40 Patient Condition:: Stable Medical Necessity - Tobacco Use Smoking Status: Never smoker Tobacco Use: Non-smoker Meaningful Use Info Meaningful Use Diagnoses (Choose all that apply): None applicable Code Visit Inpatient E&M: 73724 Disch Hosp
[2019-02-18 15:45] VITALS: BP 106/65; PULSE 94; RESP 16; TEMP 36.9; O2SAT 98
--- NOTE | 2019-02-18 16:05 | CASEMGMT ---
Social Work Note Pt's CM Kyra Walker from [facility] [employer] [facility] [employer] at [facility]. Charge Nurse updated this worker asked if this worker would stop in to speak to CM. SW met with pt's CM Kyrapete Walker. Kyra confirms that pt's sister has been in contact with her today and the goal is to get pt to fdc tonight. Kyra states that she will need releases sign from pt so that [facility] is able to release informing to Board of [employer] and will need doctor's note stating pt is able to return to work. SW informed Kyra that this worker will update RN/Charge Nurse to get doctor's notes and to get copy of releases once pt signs releases. VINCENT spoke with RN/Charge Nurse Cecille and updated that pt will be filling out release of information forms and that pt will need doctor's note to return to work. EDUARDO Oden states understanding. Keyonna Mccain CRIMINAL PSYCHOLOGIST, CROZE CUTTER
== END 2019-02-18 16:45 | disposition home or self-care (01) ==
LOC: ED 02-16 00:23 → MS2 02-16 02:23
PROVIDERS: Internal Medicine; Admitting Provider Internal Medicine; Emergency Provider Emergency Medicine; Family Provider Internal Medicine; PCP Internal Medicine; Referring Provider Internal Medicine; Visit Provider Internal Medicine
DX: J10.1 Influenza due to other identified influenza virus with other respiratory manifestations (principal); R06.89 Other abnormalities of breathing; Q90.9 Down syndrome, unspecified; E03.9 Hypothyroidism, unspecified; Z79.899 Other long term (current) drug therapy
CPT/HCPCS: 71046; 80048; 80053; 83605; 85025; 85610; 85730; 87040; 87804; 87880; 94640; 96360; 96361; 99218; 99285; J7030; A4216; G0378

== ENCOUNTER → 2020-06-30 08:46 | Outpatient (CLI) | payer MEDICARE, MEDICAID, SELFPAY ==
[2019-02-16 02:50] VITALS: BMI 33.8
--- NOTE | 2020-06-30 08:54 | RAD_ITS ---
STUDY: X-RAY - CERVICAL SPINE REASON FOR EXAM: Female, 25 years old. Atlantoaxial instability TECHNIQUE: 5 view(s) of the cervical spine were obtained including oblique views. COMPARISON: None FINDINGS: Normal anterior atlantoaxial articulation. Normal odontoid process. There is straightening of the normal cervical lordosis. Normal vertebral bodies and endplates. Normal disc space heights. Normal visualized intervertebral neuroforamina. The soft tissue structures are unremarkable. RAD/Cerv Spine 4 or 5 Views IMPRESSION: Straightening of the normal cervical lordosis. Electronically Signed: Collin Alegre, at 11:00 EDT , Service support ,
== END ==
PROVIDERS: PCP Internal Medicine; Referring Provider Internal Medicine; Visit Provider Internal Medicine
DX: M53.2X1 Spinal instabilities, occipito-atlanto-axial region (principal)
CPT/HCPCS: 72050

== ENCOUNTER 2022-01-25 16:15 | Outpatient (CLI) | payer MEDICARE, MEDICAID, SELFPAY ==
[2022-01-25 17:32] LABS: Vitamin D,25 Hydroxy 21.1 ng/mL
[2022-01-25 17:42] LABS: ALB/GLOB Ratio 0.6 RATIO (0.9-2.4); AST(SGOT) 12 U/L (15-37); Alanine Aminotransfer ALT/SGPT 19 U/L (13-56); Alkaline Phosphatase 88 U/L (45-117); Anion Gap 6 (5-15); BUN 13 mg/dL (7-18); Calcium,Total 8.8 mg/dL (8.5-10.1); Chloride 104 mmol/L (98-107); Cholesterol 160 mg/dL (200); Creatinine, Serum 0.72 mg/dL (0.55-1.02); EST Glomerular Filtration Rate 101 mL/min (>60); Est Glom Filt Rate - Afr Amer 123 mL/min (>60); Globulin 4.8 g/dL (2.2-4.2); Glucose 100 mg/dL (74-106); High Density Lipoprotein 33 mg/dL; Potassium 4.3 mmol/L (3.5-5.1); Protein, Total 7.8 g/dL (6.4-8.2); Sodium Level 137 mmol/L (136-145); T4 Free Direct 1.36 ng/dL (0.76-1.46); Triglycerides 96 mg/dL; Very Low Density Lipoprotein 19 mg/dL (5-40)
== END 2022-01-25 23:59 | disposition home or self-care (01) ==
LOC: BIMLAB 16:17
PROVIDERS: PCP Internal Medicine; Referring Provider Internal Medicine Endocrinology, Diabetes & Metabolism; Visit Provider Internal Medicine Endocrinology, Diabetes & Metabolism
DX: R50.9 Fever, unspecified (principal); E03.8 Other specified hypothyroidism; E06.3 Autoimmune thyroiditis; E28.2 Polycystic ovarian syndrome; E55.9 Vitamin D deficiency, unspecified
CPT/HCPCS: 36415; 80053; 80061; 82306; 84439; 84443

== ENCOUNTER → 2023-01-19 | Outpatient (CLI) | payer MEDICARE, MEDICAID, SELFPAY ==
[2023-01-19 17:03] LABS: Vitamin D,25 Hydroxy 75.4 ng/mL
[2023-01-19 17:07] LABS: ALB/GLOB Ratio 0.7 RATIO (0.9-2.4); AST(SGOT) 16 U/L (15-37); Alanine Aminotransfer ALT/SGPT 20 U/L (13-56); Albumin, Serum 3.1 g/dL (3.2-5.0); Alkaline Phosphatase 70 U/L (45-117); Anion Gap 5 (5-15); BUN 16 mg/dL (7-18); BUN/Creat Ratio 20.1 RATIO (10-20); Calcium,Total 9.2 mg/dL (8.5-10.1); Chloride 103 mmol/L (98-107); Cholesterol 168 mg/dL (200); EST Glomerular Filtration Rate 90 mL/min (>60); Est Glom Filt Rate - Afr Amer 109 mL/min (>60); Globulin 4.6 g/dL (2.2-4.2); Glucose 96 mg/dL (74-106); High Density Lipoprotein 34 mg/dL; Potassium 4.1 mmol/L (3.5-5.1); Protein, Total 7.7 g/dL (6.4-8.2); Sodium Level 139 mmol/L (136-145); T4 Free Direct 1.14 ng/dL (0.76-1.46); Thyroid Stim Hormone (TSH) 0.42 uIU/mL (0.358-3.74); Triglycerides 110 mg/dL; Very Low Density Lipoprotein 22 mg/dL (5-40)
== END | disposition home or self-care (01) ==
PROVIDERS: PCP Internal Medicine; Visit Provider Nurse Practitioner Family
DX: E03.8 Other specified hypothyroidism (principal); E06.3 Autoimmune thyroiditis; E28.2 Polycystic ovarian syndrome; R50.9 Fever, unspecified; E55.9 Vitamin D deficiency, unspecified
CPT/HCPCS: 36415; 80053; 80061; 82306; 84439; 84443

== ENCOUNTER → 2024-01-26 | Outpatient (CLI) | payer MEDICARE, MEDICAID, SELFPAY ==
[2024-01-26 12:19] LABS: Absolute Lymphocyte Count 1.15 X10^3/uL (0.83-4.51); Absolute Neutrophil Count 2.9 X10^3/uL (2.0-7.7); Basophil% 2.1 % (0-1); Eosinophil# 0.13 X10^3/uL; Eosinophils% 2.8 % (0-5); Hematocrit 44.2 % (37-47); Hemoglobin 14.1 g/dL (12.0-15.0); Lymphocyte # 1.15 X10^3/ul (0.83-4.51); Lymphocyte % 24.6 % (19-41); Mean Corp Hgb Conc 31.9 g/dL (32-36); Mean Corpuscular Hgb 32.3 pg (27.0-32.0); Mean Corpuscular Volume 101.1 fL (81-99); Mean Platelet Vol. 9.8 fl (6.2-12.0); Monocyte# 0.39 X10^3/uL; Monocyte% 8.3 % (0-10); NRBC Flagged by Analyzer 0 % (0-5); Neutrophil # 2.87 X10^3/uL (2.7-7.7); Neutrophil % 61.3 % (47-70); Platelet Count 303 K/mm3 (150-450); RBC Distribution Width CV 14.1 % (11.6-14.6); RBC Distribution Width SD 52.8 fl (35.1-43.9); Red Blood Count 4.37 M/mm3 (4.2-5.4); White Blood Count 4.7 K/mm3 (4.4-11.0)
--- OUTSIDE RECORDS SUMMARY | 2024-01-26 12:24 | XMS RPT_ITS | CCD ---
Author Name Unknown Address [address] [place] [address] Organization [facility] Care Team Providers Care Director Of Media Name Role Phone Elena Herrera Unavailable Jacqueline Wright Unavailable Cecille Bucio Unavailable Unavailable Unavailable Unavailable Elena Herrera Unavailable Jacqueline Wright Unavailable Cecille Bucio Unavailable Unavailable YOLANDA Taylor Unavailable Unavailable Edison Curiel Unavailable Unavailable Unavailable Unavailable YOLANDA Taylor Unavailable Unavailable Edison Curiel Unavailable Unavailable Unavailable Unavailable Edison Duckworth Unavailable Unavailable Molly Armstrongsea Unavailable Unavailable [facility] Unavailable Elena Herrera Unavailable Edison Gasca Unavailable Unavailable Elena Herrera MD Unavailable Dr. Jacqueline Wright MD Unavailable Juan Ubaldo Myers Unavailable YOLANDA Taylor LPN Unavailable Unavailable Edison Duckworth LPN Unavailable Unavailable Fast DO, Fang A Unavailable Unavailable Unavailable Kita Matamoros Unavailable Unavailable Unavailable Unavailable Unavailable Unavailable Elena Herrera MD Unavailable [phone] Buckley GAGAN Kayela Unavailable Unavailable Manchak THREAD SPOOLER, Monica Unavailable Unavailable Mariano STEEL SHOT HEADER OPERATOR, Teresa Unavailable Unavailable No, Physician Primary Care Provider Unavailabl e Unavailable Unavailable No, Physician Primary Care Provider Unavailabl e Frieda STEEL SHOT HEADER OPERATOR, Jacqueline Unavailable Unavailable Elena Herrera MD Attending Unavailable Elena Herrera MD Referring Unavailable Elena Herrera MD Consulting Unavailable Unavailable Unavailable Edison Gasca Attending Unavailable Marce, Dr. Elena Lee Primary Care Unavail able Edison Gasca Attending Unavailable Marce, Dr. Elena Lee Primary Care Unavail able Elena Herrera MD Primary Care Provider [phone] ELENA HERRERA Primary Care Unavailable QUEENIE LANG Attending Unavailable Meri Higgins MA Unavailable Unavailable Elena Herrera MD Primary Care Provider MIRZA AYALA Referring Unavailable ELENA HERRERA Primary Care Unavailable NO, PHYSICIAN Primary Care Unavailable MICK ANN Attending Unava ilable NO, PHYSICIAN Primary Care Unavailable LUCY JR., MIRZA Attending Unavailable LUCY JR., MIRZA Attending Unavailable NO, PHYSICIAN Primary Care Unavailable LUCY MOID., MIRZA Attending Unavailable NO, PHYSICIAN Primary Care Unavailable ELENA HERRERA Primary Care Unavailable ELENA HERRERA Primary Care Unavailable Allergies Allergy Classification Reported Allergen(s) Allergy Type Date of Onset Reaction(s) Facility (2 sources) ALLERGIES NOT ON FILE; Translations: [ALLERGIES NOT ON FILE] Propensity to adverse reactions (disorder) [facility] Repository Medications Current Medications Medication Drug Class(es) Dates Sig (Normalized) Sig (Original) acetaminophen 325 mg oral capsule (3 sources) acetaminophen (TylenoL) 325 mg cap Take by mouth . 0 Active amoxicillin 80 mg/ml oral suspension (5 sources) Penicillin-class Antibacterial Start: 06-07-2022 take 10 mL by mouth twice daily amoxicillin 400 mg/5 mL oral liquid ; 10 milliliter(s) orally 2 times a day x 10 days Quantity: 200 Refills: 0 Ordered: 07-Jun-2022 Edison Gasca Start: 07-Jun-2022 Generic Substitution Allowed Comments: Expires Finish all this medication unless otherwise directed by prescriber.Refrige rate and shake well. Expires Completed/Discontinued Medications Medication Drug Class(es) Dates Sig (Normalized) Sig (Original) amoxicillin 875 mg / clavulanate 125 mg oral tablet (20 sources) Penicillin-class Antibacterial Start: 11-16-2017 End: 07-17-2018 take 1 tablet by mouth twice daily Augmentin 875-125 MG Oral Tablet 1 (one) Tablet bid for 0 days Quantity: 20 {Tablet} Refills: 0 Ordered: 17-Jul-2018 YOLANDA Taylor LPN Start : 16-Nov-2017 End : 17-Jul-2018 Inactive azithromycin 250 mg oral tablet (8 sources) Macrolide Antimicrobial Start: 05-30-2023 End: 06-04-2023 Zithromax Z-Sampson 250 mg oral tablet 1 (one) tablet as directed on package for 5 days Quantity: 1 {Packet} Refills: 0 Ordered: 30-May-2023 Teresa Quintana LPN Start : 30-May-2023 End : 04-Jun-2023 Inactive Comments: Use as directed on package Problems Active Problems Problem Classification Problem Date Documented Da te Episodic/Chronic Abdominal pain (20 sources) Pain in female perineum; Translations: [Perineum pain, female] 01-02-2023 Episodic Acquired foot deformities (2 sources) Bunion; Translations: [Bunion of left foot] Episodic Acquired foot deformities (2 sources) Bunion; Translations: [Bunion of right foot] Episodic Allergic reactions (2 sources) Allergic rhinitis due to food; Translations: [Allergic rhinitis due to food] Onset: 01-17-2024 Chronic Allergic reactions (20 sources) Allergic condition; Translations: [Allergies] 12-10-2021 Episodic Anxiety disorders (20 sources) Agoraphobia; Translations: [Agoraphobia] 02-14-2022 Chronic Attention-deficit, conduct, and disruptive behavior disorders (2 sources) Conduct disorder, unspecified; Translations: [Conduct disorder, unspecified] Onset: 01-17-2024 Chronic Diabetes mellitus without complication (20 sources) Diabetes mellitus without complication Genitourinary symptoms and ill-defined conditions (6 sources) Dysuria; Translations: [Dysuria] Onset: 05-08-2023 09-15-2023 Episodic Immunizations and screening for infectious disease (20 sources) Contact with and (suspected) exposure to other viral communicable diseases; Translations: [Exposure to the flu] Resolved: 06-17-2021 09-03-2020 Episodic Inflammation; infection of eye (except that caused by tuberculosis or sexually transmitteddisease) (20 sources) Conjunctivitis; Translations: [Conjunctivitis] Onset: 06-07-2022 06-23-2022 Episodic Influenza (20 sources) Influenza due to Influenza A virus; Translations: [Influenza A] Resolved: 04-21-2020 03-01-2019 Episodic Influenza (20 sources) Influenza Malaise and fatigue (2 sources) Other fatigue; Translations: [Other fatigue] Onset: 01-17-2024 Episodic Menstrual disorders (20 sources) Disorder of menstruation; Translations: [Abnormal menses] Resolved: 07-23-2020 06-27-2016 Chronic Past or Other Problems Problem Classification Problem Date Documented Da te Episodic/Chronic Fever of unknown origin (1 source) Fever, unspecified; Translations: [Fever, unspecified] Onset: 06-07-2022 Episodic Other upper respiratory disease (1 source) Nasal congestion; Translations: [Nasal congestion] Onset: 06-07-2022 Episodic Otitis media and related conditions (3 sources) Otitis media; Translations: [Unspecified otitis media] Onset: 06-07-2022 08-27-2021 Episodic Spondylosis; intervertebral disc disorders; other back problems (20 sources) Atlantoaxial instability; 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] Onset: 06-09-2023 06-30-2020 Episodic Results Test Name Value Interpretation Reference Range Facil it Vital Signs Date Time Vital Sign Value Performing Clinician Facility 01-03-2024 09:07-0500 Body temperature 97 [degF] Mirza Ayala Jr., DPM Work Phone: [facility] 01-03-2024 09:07-0500 Diastolic blood pressure 70 mm[Hg] Mirza Ayala Jr., DPM Work Phone: [facility] 01-03-2024 09:07-0500 Heart rate 86 /min Mirza Lucy Jr., DPM Work Phone: [facility] 01-03-2024 09:07-0500 Systolic blood pressure 93 mm[Hg] Mirza Lucy Jr., DPM Work Phone: [facility] 11-29-2023 15:43-0500 Body temperature 97.5 [degF] Mirza Lucy Jr., DPM Work Phone: [facility] 11-29-2023 15:43-0500 Diastolic blood pressure 56 mm[Hg] Mirza Lucy Jr., DPM Work Phone: [facility] 11-29-2023 15:43-0500 Heart rate 55 /min Mirza Lucy Jr., DPM Work Phone: [facility] 11-29-2023 15:43-0500 Systolic blood pressure 83 mm[Hg] Mirza Lucy Jr., DPM Work Phone: [facility] 11-22-2023 11:20-0500 Body temperature 98.29 [degF] Mirza Lucy Jr., DPM Work Phone: [facility] 11-22-2023 11:20-0500 Diastolic blood pressure 67 mm[Hg] Mirza Lucy Jr., DPM Work Phone: [facility] 11-22-2023 11:20-0500 Heart rate 70 /min Mirza Lucy Jr., DPM Work Phone: [facility] 11-22-2023 11:20-0500 Systolic blood pressure 101 mm[Hg] Mirza Lucy Jr., DPM Work Phone: [facility] 09-15-2023 11:51-0400 Body height 162.56 cm Meri Higgins MA [facility]; [facility] Work Phone: 09-15-2023 11:51-0400 Body mass index (BMI) [Ratio] 30.1 kg/m2 Meri Higgins MA [facility]; [facility] Work Phone: 09-15-2023 11:51-0400 Body surface area Derived from formula 1.85 m2 Meri Higgins MA [facility]; [facility] Work Phone: 09-15-2023 11:51-0400 Body temperature 97.6 [degF] Meri Higgins MA [facility]; [facility] Work Phone: 09-15-2023 11:51-0400 Body weight 79.55 kg Meri Higgins MA [facility]; [facility] Work Phone: 09-15-2023 11:51-0400 Diastolic blood pressure 78 mm[Hg] Meri Higgins MA [facility]; [facility] Work Phone: Encounters Encounter Date Encounter Type Care Provider Facility Start: 01-17-2024 End: 01-18-2024 ambulatory ELENA LEE BONEZZI [facility] Start: 01-03-2024 End: 01-03-2024 ambulatory PHYSICIAN NO [facility] Start: 01-03-2024 End: 01-03-2024 Office outpatient visit 15 minutes Mirza EDWARDSM Work Phone: [facility] Procedures Date Procedure Procedure Detail Performing Clinician Start: 01-17-2024 ALLERGEN, FOOD PROFILE IGE ELENA BONEZZI Start: 01-17-2024 C-reactive protein ELENA BONEZZI Start: 01-17-2024 CBC W Auto Differential panel - Blood ELENA BONEZZI Start: 01-17-2024 Comprehensive metabolic 2000 panel - Serum or Plasma ELENA BONEZZI Start: 01-17-2024 Hemoglobin A1c/Hemoglobin.total in Blood ELENA BONEZZI Start: 01-17-2024 IGD ELENA BONEZZI Start: 01-17-2024 IMMUNOGLOBULIN IGE ELENA BONEZZI Start: 01-17-2024 IMMUNOGLOBULINS (IGG, IGA, IGM) ELENA BONEZZI Start: 01-17-2024 Lipid panel ELENA BONEZZI Start: 01-17-2024 Thyrotropin [Units/volume] in Serum or Plasma ELENA BONEZZI Start: 01-17-2024 THYROXINE, FREE ELENA BONEZZI Start: 01-17-2024 VITAMIN D 25-HYDROXY,TOTAL ELENA BONEZZI Start: 01-03-2024 Follow-up visit Follow-up MIRZA AYALA JR. Start: 11-23-2023 VASC US LOWER EXTREMITY VENOUS DUPLEX RIGHT MIRZA AYALA Start: 09-13-2023 VITAMIN D 25-HYDROXY,TOTAL ELENA BONEZZI Start: 09-13-2023 Thyrotropin [Units/volume] in Serum or Plasma Jeff 2 Start: 2023 End: 01-20-2023 Endocrinology Visit Report Procedure Note: See Note; NOTES: [facility] [address] [place] [address] OFFICE VISIT Date of Service: 01/19/23 MR#: [id number] Acct: [id number] Name: MELIA HAZEL Rep #: [id number] : 1995 Provider: Ajay Alvarez Age/Sex: 28/F Location: [facility] [facility] Status: Signed Intake Vital Signs 01/19/23 15:54 Height 4 ft 9 in Weight: 173 lb 6 oz BMI 37.5 BP 100/68 Position Sitting Respiration 20 H Pulse 61 Pulse Source Monitor Temp 96.4 F L Temp Source Temporal Pulse Oximetry (%) 99 Oxygen Delivery Method room air Intake Visit Reasons: 1 Y FU Chief Complaint: Hypothyroidism Rental Sales Representative Required: No Accompanied by: Caregiver Is patient in pain?: Yes (LIPS) Pain scale (1-10): 7 Allergies No Known Allergies Allergy (Verified 01/19/23 16:00) PFSH Medical History Down syndrome History of PCOS 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 Melia has Down's syndrome and primary hypothyroidism. [place]. Her sister is concerned that she doesn't leave the house much. Today, she is communicative and pleasant. She is excited because it is her birthday and she is planning on having 2 pieces of pizza for dinner. Commercial Real Estate Attorney has no concerns. Weight is stable. Exam Const General: cooperative, healthy appearing, comfortable, no acute distress, well developed and not cushingoid Nutritional Appearance: well nourished Orientation: alert, awake and oriented x3 Other: Down's phenotype HENMT Head: normal to inspection Ears: hearing grossly normal bilaterally Nose: external nose normal Mouth: oral mucosae normal Eyes General: appearance normal, both eyes and all related structures Alignment and Position: alignment normal Periorbital: periorbital findings normal Eyelids: eyelids normal Conjunctivae: conjunctivae normal Neck Neck: normal visual inspection Neck mass: No Thyroid: thyroid normal Carotids: no bruits Lymphatic: no lymphadenopathy noted Chest Chest palpation inspection: normal inspection of the chest Resp Effort Inspection: normal respiratory effort, able to speak in complete sentences, symmetric chest movement, no audible wheezes and no cough Auscultation: Bilateral: Clear to Auscultation Cardio Rate: regular rate Rhythm: regular rhythm Pulses: posterior tibial pulses present GI Inspection: normal to inspection Skin General: no rashes or lesions noted Neuro General: patient alert, patient awake and patient oriented x3 Cranial Nerves: CN's II-XI intact bilaterally Cognition: normal cognition Speech: speech normal Gait: normal gait Motor: muscle tone normal throughout Extrem General: no edema Psych Appearance: grossly normal Mental Status: mental status grossly normal Mood: congruent mood Affect: normal affect Speech and Movement: speech and movement normal Attitude: cooperative Thought Process: normal Thought Content: normal Judgment: judgment good Coding Level of Care Code Off vis,est,level 3 Diagnoses 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 Thryoid levels are normal. Vitamin D level is getting high, will reduce supplement. Take levothyroxine on an empty stomach with water at least four hours after eating. Then wait 30-60 minutes before consuming any other food or beverage, especially coffee. Separate levothyroxine from vitamins by at least 4 hours. Stop taking any biotin supplement 4 days prior to having labs drawn. I have spent [25] minutes today reviewing labs, records and history. Time includes coordinating care, interpretation of tests, discussion with patient's other health care providers via telephone. This also includes time I spent with the patient for exam, treatment plan and education as well as documenting clinical information. Orders: Orders Vitamin D,25 Hydroxy 01/19/23 E03.8 - Other specified hypothyroidism, E06.3 - Autoimmune thyroiditis, E28.2 - Polycystic ovarian syndrome, E55.9 - Vitamin D deficiency, unspecified Comprehensive Metabolic Profil 01/19/23 E03.8 - Other specified hypothyroidism, E06.3 - Autoimmune thyroiditis, E28.2 - Polycystic ovarian syndrome Lipid Profile 01/19/23 E03.8 - Other specified hypothyroidism, E06.3 - Autoimmune thyroiditis, E28.2 - Polycystic ovarian syndrome T4 Free Direct 01/19/23 E03.8 - Other specified hypothyroidism, E06.3 - Autoimmune thyroiditis, E28.2 - Polycystic ovarian syndrome, R50.9 - Fever, unspecified Thyroid Stim Hormone (TSH) 01/19/23 E03.8 - Other specified hypothyroidism, E06.3 - Autoimmune thyroiditis, E28.2 - Polycystic ovarian syndrome, R50.9 - Fever, unspecified 01/20/23 0855 <Electronically signed by Alexandr Jaffe MD> Date Alexandr Jaffe MD Cosigner Signature: Date (if applicable) CC: MD Elena Barnett MD Work Phone: Start: 10-10-2022 End: 10-10-2022 Lumbar Spine 2 or 3 Views Procedure Note: See Note; NOTES: [facility] [address] [place] [address] Lumbar Spine 2 or 3 Views MR#: [id number] Acct: [id number] Name: MELIA HAZEL Rep #: [id number] : 1995 F 27 From: Chilo Smith MD PCP: Dr. Elena Herrera MD Status: DEP AMB Study: Lumbar Spine 2 or 3 Views Date of Exam: Exam# [id number] Ordering Dr: Elena Herrera MD STUDY: X-RAY - LUMBAR SPINE REASON FOR EXAM: Female, 27 years old. Pain. TECHNIQUE: 2 view(s) of the lumbar spine were obtained. COMPARISON: None FINDINGS: Normal lumbar lordosis. Mild rotatory dextroscoliosis. There is a normal alignment of the vertebrae. Mild diffuse facet sclerosis. Minimal intervertebral disc space narrowing at L2-3, L3-4 and L4-5. The soft tissue structures are unremarkable. RAD/Lumbar Spine 2 or 3 Views IMPRESSION: Minimal rotatory dextroscoliosis with mild lumbosacral spondylosis. No acute abnormality, evidence of erosive changes/fusion. Electronically Signed: Chilo Smith, at 15:31 EST , CC: Dr. Elena Herrera MD Aerial Photographer: Signed Elena Herrera MD Work Phone: Start: 01-25-2022 End: 01-25-2022 Endocrinology Visit Report Comments: See Note; NOTES: [facility] [address] [place] [address] OFFICE VISIT Date of Service: 01/25/22 MR#: [id number] Acct: [id number] Name: MELIA HAZEL Rep #: [id number] : 1995 Provider: Ajya Alvarez Age/Sex: 27/F Location: [facility] [place] [facility] Status: Signed Intake Vital Signs 01/25/22 15:55 Height 4 ft 9 in Weight: 173 lb BMI 37.4 BP 122/74 H Intake Visit Reasons: [id number] MAILED Allergies No Known Allergies Allergy (Verified 02/15/19 20:17) PFS Medical History (Updated 01/25/22 @ 16:[address] 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 Transferring from another corporate law assistant. She is accompanied by program aide group work and her sister/guardian. She has Down's syndrome with cognitive impairment. Apparently she also has anxiety disorder/PTSD from when her parents were ill and unable to care for her properly. She smiles at me and gives me the thumbs up , but is non-verbal. By report she also has PCOS. Staff reports monthly menses. Exam Const General: cooperative, healthy appearing, comfortable, no acute distress, well developed and not cushingoid Nutritional Appearance: well nourished Orientation: alert and awake Other: epicanthal folds, short stature, non-verbal HENMT Head: normal to inspection Ears: hearing grossly normal bilaterally Nose: external nose normal Mouth: oral mucosae normal Eyes Periorbital: periorbital findings normal Eyelids: eyelids normal Conjunctivae: conjunctivae normal Neck Neck: normal visual inspection Neck mass: No Thyroid: thyroid normal Carotids: no bruits Lymphatic: no lymphadenopathy noted Chest Chest palpation inspection: normal inspection of the chest Resp Effort Inspection: normal respiratory effort, able to speak in complete sentences, symmetric chest movement, no audible wheezes and no cough Auscultation: Bilateral: Clear to Auscultation Cardio Rate: regular rate Rhythm: regular rhythm GI Inspection: normal to inspection Palpation: soft Skin General: no rashes or lesions noted Neuro General: patient alert, patient awake and patient oriented x3 Cranial Nerves: CN's II-XI intact bilaterally Cognition: normal cognition Speech: speech normal Gait: normal gait Motor: muscle tone normal throughout Extrem General: no edema Psych Appearance: well kempt Mood: congruent mood Attitude: cooperative Coding Level of Care Code Off vis,new,level 4 Diagnoses 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 Then wait 30-60 minutes before consuming any other food or beverage, especially coffee. Separate levothyroxine from vitamins by at least 4 hours. Stop taking any biotin supplement 4 days prior to having labs drawn. Check levels today and adjust dose as needed. Send Rx to [place] in [place]. Fax copy of note with labs to ATTN: Angelica [phone] (2) PCOS (polycystic ovarian syndrome): Status: Acute Orders: Orders: Vitamin D,25 Hydroxy Today Comprehensive Metabolic Profil Today Lipid Profile Today T4 Free Direct Today Thyroid Stim Hormone (TSH) Today Plan: Nutritional counseling provided, avoid flour, sugar, and artificial sweeteners. Check glucose. I have spent [46] minutes today reviewing labs, records and history. Time includes coordinating care, interpretation of tests, discussion with patient's other health care providers via telephone. This also includes time I spent with the patient for exam, treatment plan and education as well as documenting clinical information. Plan Details Other Medications: Discontinued: levothyroxine Discontinued Reason: Pt no longer taking 62.5 mcg (1/2 x 125 mcg) PO Bales@0600 0RF Other Orders: Orders: Vitamin D,25 Hydroxy Today E55.9 Lipid Profile Today E88.81 T4 Free Direct Today R50.9 Thyroid Stim Hormone (TSH) Today R50.9 01/25/22 1629 <Electronically signed by Alexandr Jaffe MD> Date Alexandr Jaffe MD Cosigner Signature: Date (if applicable) CC: MD Elena Barnett MD Work Phone: Start: 11-03-2021 Lipid 1996 panel - Serum or Plasma Jeff 2 Start: 06-30-2020 End: 06-30-2020 Cerv Spine 4 or 5 Views Comments: See Note; NOTES: [facility] Imaging Services [address] [place] [id number] Cerv Spine 4 or 5 Views MR#: [id number] Acct: [id number] Name: MELIA HAZEL Rep #: [id number] : 1995 F 25 From: Collin garcia MD PCP: Dr. Elena Herrera MD Status: REG CLI Study: Cerv Spine 4 or 5 Views Date of Exam: 06/30/20 Exam# [id number] Ordering Dr: Elena Herrera MD STUDY: X-RAY - CERVICAL SPINE REASON FOR EXAM: Female, 25 years old. Atlantoaxial instability TECHNIQUE: 5 view(s) of the cervical spine were obtained including oblique views. COMPARISON: None FINDINGS: Normal anterior atlantoaxial articulation. Normal odontoid process. There is straightening of the normal cervical lordosis. Normal vertebral bodies and endplates. Normal disc space heights. Normal visualized intervertebral neuroforamina. The soft tissue structures are unremarkable. RAD/Cerv Spine 4 or 5 Views IMPRESSION: Straightening of the normal cervical lordosis. Electronically Signed: Collin Alegre, at 11:00 EDT , Service support , CC: Dr. Elena Herrera MD Aerial Photographer: Signed Elena Herrera Work Phone: Start: 02-16-2019 End: 02-16-2019 History and Physical Exam Comments: See Note; NOTES: [facility] Medical Records Department [address] [place] [address] History and Physical 02/16/19 0210 MR#: [id number] Acct: [id number] Name: MELAI HAZEL Rep #: [id number] : 1995 24 From: Gaurav Quintana DO PCP: Elena Herrera MD Status: REG ER Y Location: ED Problem List (1) Nonproductive cough Status: Acute (2) Shortness of breath Status: Acute (3) Fever Status: Acute Qualifiers: Fever type: unspecified Qualified Code(s): R50.9 - Fever, unspecified History of Present Illness Date of Admission: 02/16/19 Chief Complaint: Shortness of breath, nonproductive cough, fever The patient is a 24 year old F who was seen in the emergency room at [facility] with a chief complaint of nonproductive cough, fever, and shortness of breath times 48 hours. Patient has Down syndrome and a reliable review of systems could not be obtained from the patient-patient's sister was present in the emergency room and gave medical information. Workup in the emergency room included a CBC which showed a reduced white blood cell count at 4, patient's chemistry panel was unremarkable, and her chest x-ray did not show any infiltrates. Patient was tachycardic, the emergency room physician stated that when the patient was walked, her pulse ox on room air dropped to 90 and she became more tachycardic. The emergency room physician was uncomfortable with discharging the patient home and requested the hospitalist service place the patient into observation status. Patient will be placed and observation status for influenza A, she will be given IV fluids, and Tamiflu. Past Medical History Allergies No Known Allergies Allergy (Verified 02/15/19 20:17) Home Medications: Ambulatory Orders Medication Instructions Recorded Levothyroxine [Synthroid] 125 mcg PO DAILY 02/15/19 Loratadine [Claritin] 10 mg PO DAILY PRN 02/15/19 Multivitamin [Daily Doug] 1 each PO DAILY 02/15/19 Surgical History: tonsillectomy, - - Tubes in her ears, surgery for ankyloglossia Psychiatric History: - - Down syndrome HOME CARE SCHEDULER History: No pertinent HOME CARE SCHEDULER history Lives: With Family Smoking Status: Never smoker Tobacco Use: Non-smoker Alcohol: None Drugs: None - *Family History Maternal History Items: No pertinent history Paternal History Items: No pertinent history Review of Systems Comment: Review of systems was unobtainable from the patient due to her Down's syndrome, information was obtained from the patient's sister who was present at the time of the patient's examination VTE Information - Inpt Only VTE Present on Admission: No VTE Mechan Device Prophylaxis: None VTE Pharm Prophylaxis ordered?: No Reason prophylaxis not ordered:: Treatment Not Indicated Patient Problems: Active and Suspected Problems Nonproductive cough (Acute) Shortness of breath (Acute) Fever (Acute) - Physical Exam General: Alert, Oriented x3, Cooperative, No apparent distress, Well developed, Well nourished, - - Short stature, apparent cognitive impairment HEENT: Atraumatic, PERRLA, EOMI, Normocephalic Oral: Moist Mucosa Neck: Supple, No JVD, Negative Carotid Bruits, No Nuchal Rigidity, Trachea Midline, Thyroid Normal Size and Texture Lungs: Clear to auscultation, Normal air movement, No rhonchi, No wheeze, No rales Cardiovascular: Regular rate, Regular Rhythm, Normal S1, Normal S2, No murmurs, No Ectopic Activity, PMI Normal, No rub noted, No Gallop, Tachycardic Abdomen: Bowel Sounds Present, Soft, Non Tender, Non-Distended, No hernias noted Extremities: No clubbing, No cyanosis, No edema, Capillary Refill Less than 3 Seconds Skin: No rashes, No breakdown Neurological: Cranial nerves II-XII grossly intact, Neuro grossly intact, Sensory exam intact to light touch and pain Psych/Mental Status: Normal Affect, - - Signs of obvious cognitive impairment, Downs syndrome facies Vital Signs Temp Pulse Resp BP Pulse Ox 101.2 F H 124 H 28 H 121/71 H 92 02/16/19 01:31 02/16/19 02:08 02/16/19 02:08 02/16/19 02:08 02/16/19 02:08 Oxygen Flow Rate (L/min) 2 Oxygen Delivery Method Nasal Cannula Weight: 85.275 kg Body Mass Index (BMI) 0.0 Microbiology Past 72 Hours 02/15/19 23:10 Influenza Types A,B Direct FA (AMARIS) - Final Mucosa - Nasopharyngeal Influenzae A Laboratory Tests Past 24 Hrs WBC RBC Hgb Hct MCV MCH MCHC Assessment/Plan All Active Problems Nonproductive cough (Acute) Shortness of breath (Acute) Fever (Acute) #1 influenza A with tachycardia and dyspnea-patient will be placed and observation status on MedSur, I have decided not to administer aerosol treatments for the patient-on my examination, patient did not have any audible wheezing or rhonchi. Patient will be given IV fluids and monitored. Patient will be given Tamiflu #2 Down syndrome #3 hypothyroidism-patient will continue on her present medication Code Visit OBSV E AND M: [id number] Initial observation care L3 02/16/19 0222 <Electronically signed by Gaurav Quintana DO> Date Gaurav Quintana DO Cosign Signature: Date (if applicable) CC: Elena Herrera MD; Gaurav Quintana DO Signed Elena Herrera Start: 02-16-2019 End: 02-16-2019 Emergency Department Summary Comments: See Note; NOTES: [facility] Medical Records Department [address] [place] [address] Emergency Department Summary 02/15/192 MR#: [id number] Acct: [id number] Name: MELIA HAZEL Rep #: [id number] : 1995 24 From: Felipa Quintana MD PCP: Elena Herrera MD Status: REG ER - ER Visit Summary Date of Service: 02/15/19 Chief Complaint: cough and shortness of breath History of Present Illness: The patient is a 24 F with history of Down syndrome who presents for 1 day of shortness of breath and cough. Yesterday patient began having a cough and was given DayQuil by her caregiver. It helped initially, but she has continued to have worsening cough and shortness of breath today. She is complaining of a sore throat and now her voice is hoarse. She is also having chest discomfort associated with the cough. She has had a measured fever at home. She has history of Down syndrome and hypothyroidism. No history of DVT or PE. No known sick contacts. Physical Examination: Vital signs: Febrile at 100.5, heart rate 119, blood pressure 148/99, 100% on room air, no hypoxia General: well nourished, well developed, Down syndrome morphology, recurrent cough and hoarse voice noted Skin: warm, dry, no rash, no pallor the cheeks are flushed HEENT: normocephalic and atraumatic; PERRL, EOMI, moist mucous membranes, unable to visualize the posterior oropharynx due to the size of the tongue and patient unable to cooperate with the exam with a tongue depressor, neck is supple, no lymphadenopathy noted, no masses appreciated Cardiovascular: Tachycardic rate and rhythm without murmurs, no peripheral edema, 2+ pulses all distal extremities Respiratory: Mild tachypnea, lungs are clear to auscultation bilaterally, no rales, rhonchi or wheezing, exam limited by patient difficulty cooperating with the exam Abdominal: Abdomen is soft, nontender with normoactive bowel sounds, no guarding or rebound, no masses MSK: Moves all extremities, no deformities, normal strength Neuro: Awake and alert, oriented 4. No facial droop, sensation and motor function intact and symmetric Test Results: Abnormal Lab Results WBC RBC Hgb Hct MCV MCH MCHC Clinical Impression(s) from Imaging Studies Chest X-Ray 02/15/19 23:35 IMPRESSION: Normal x-ray examination of the chest. Electronically Signed: Antoine Martines MD at 23:53 EDT , Service support , Medications Given Albuterol Sulfate (Ventolin Hfa (Sp)) 2 puff INHALATION Q4H PRN PRN PRN Reason: WHEEZING Sodium Chloride () 1,000 mls @ 999 mls/hr IV .Q1H1M CATALINA Last Admin: 02/16/19 01:11 Dose: Not Given Admin: 02/16/19 01:03 Dose: Not Given Admin: 02/15/19 22:57 Dose: 999 mls/hr Discontinued Medications Acetaminophen (Tylenol Liquid) 500 mg PO X1 ONE Stop: 02/15/19 22:22 Last Admin: 02/15/19 22:58 Dose: 500 mg Albuterol/Ipratropium (Duoneb) 3 ml INHALATION X1 ONE Stop: 02/15/19 22:25 Last Admin: 02/15/19 23:00 Dose: 3 ml Oseltamivir Phosphate (Tamiflu Susp) 75 mg PO NOW STA Stop: 02/16/19 00:36 Last Admin: 02/16/19 01:02 Dose: 75 mg Emergency Department Course and Treatment: Patient was given a breathing treatment and had improvement of her cough. She is febrile, tachycardic, and has underlying respiratory issues at baseline with only one nostril that moves air. Thus workup was performed for underlying infectious cause of her shortness of breath and cough. Chest x-ray showed no sign of pneumonia. Patient had no leukocytosis. Lactate normal. Flu was positive. She was given Tamiflu. Patient was reevaluated and initially was feeling better after the breathing treatment and receiving some Tylenol for fever. However on subsequent evaluation, she was persistently tachycardic at 120s-130s. Temperature was back up to 101.9. Patient was ambulated on pulse oximetry and became very dyspneic after a very short walk, with O2 sat of 90% and heart rate in the 160s. This is concerning that patient will fail outpatient management. Discussed with the guardian patient's current condition and it was agreed she would benefit from close monitoring and continued medical management in the hospital since she is having shortness of breath with mild exertion and significant tachycardia. Patient will be discussed with the hospitalist for admission. Treatment Plan: [] Disposition: [] Impression: Influenza A, shortness of breath, tachycardia with mild exertion, Down syndrome This note was generated with Mc dictation software. It may contain incorrect words, spelling, and punctuation that were not noted in review of the chart prior to signing ED Disposition - Plan for ED Patient: Referrals: Elena Herrera MD [Primary Care Provider] - What to do if you have Problems For any increased pain, shortness of breath, bleeding, nausea or vomiting, chest pain, or any unexpected problems, contact your Primary Care Provider. Call [facility] ([phone]) or report to the closest Emergency Room. Call 911 if necessary. 02/16/19 0208 <Electronically signed by Felipa Quintana MD> Date Felipa Quintana MD Cosigner Signature (If Indicated): Date CC: Elena Herrera Start: 02-15-2019 End: 02-15-2019 Chest PA and Lateral Comments: See Note; NOTES: [facility] Imaging Services [address] [place] [id number] Chest PA and Lateral MR#: [id number] Acct: [id number] Name: MELIA HAZEL Rep #: [id number] : 1995 F 24 From: Antoine Martines MD PCP: Elena Herrera MD Status: REG ER Study: Chest PA and Lateral Date of Exam: 02/15/19 Exam# [id number] Ordering Dr: Felipa Quintana MD STUDY: X-RAY CHEST REASON FOR EXAM: Female, 24 years old. Fever and cough. TECHNIQUE: Frontal and lateral views of the chest. COMPARISON: None. FINDINGS: The lungs are clear and expanded. There is no demonstrated pleural abnormality. Normal size heart. Normal mediastinum and chloe. Normal visualized pulmonary arteries. Normal visualized aortic arch and descending thoracic aorta. Normal visualized thoracic spine. Normal visualized ribs, clavicles, and shoulders. There is no demonstrated abnormality of the visualized soft tissue structures of the upper abdomen. RAD/Chest PA and Lateral IMPRESSION: Normal x-ray examination of the chest. Electronically Signed: Antoine Martines MD at 23:53 EDT , Service support , CC: Elena Herrera MD; Felipa Quintana MD Aerial Photographer: Signed Elena Herrera Tonsilelectomy and adenoids Cecille Bucio Plan of Treatment Date Care Activity Detail Author Start: 2043 Zoster Vaccines (1 of 2) Zoster Vaccines (1 of 2) [facility] Start: 11-03-2026 Lipid panel Lipid Panel [facility] Start: 09-13-2024 Thyroid stimulating hormone measurement TSH Level [facility] Start: 12-22-2023 End: 12-22-2023 Patient encounter procedure 12/22/2023 8:00 AM EST Office Visit [facility] [address] [place] [address] Mirza Ayala Jr., DPM [address] [place] [address] [facility] Start: 11-29-2023 End: 11-29-2023 Patient encounter procedure 11/29/2023 3:45 PM EST Office Visit [facility] [address] [place] [address] Mirza Ayala Jr., DPAjay [address] [place] [address] [facility] Start: 10-27-2023 Culture bacterial quanttative colony count urine URINE WINTER CULTURE-LISA COL COUNT (23289) [facility] Work Phone: Start: 09-15-2023 Procedure Education Eprescribed prescriptions (G8553) [facility]; [facility] Work Phone: Start: 07-21-2023 COVID-19 Vaccine () COVID-19 Vaccine () [facility] Start: 07-21-2023 Influenza vaccination [facility] Start: 06-13-2023 History and physical examination, annual for health maintenance Wellness Visit [facility] Start: 06-09-2023 End: 06-09-2023 ambulatory 06/09/2023 11:30 AM EDT [facility] [address] [place] [address] Elena Herrera MD [address] [place] [id number] Michelle Damian, PT Discharge Disposition: Home [facility] Start: 05-26-2023 Procedure Education Eprescribed prescriptions (G8553) [facility]; [facility] Work Phone: Start: 05-26-2023 Assay of thyroid stimulating hormone tsh TSH (76287) [facility]; [facility] Work Phone: Start: 05-26-2023 25 hydroxy includes fractions if performed CALCIFIDIOL (20226) VIT D 25 [facility]; [facility] Work Phone: Start: 02-13-2023 Procedure Education Eprescribed prescriptions (G8553) [facility]; [facility] Work Phone: Start: 02-13-2023 25 hydroxy includes fractions if performed CALCIFEDIOL (38772) [facility]; [facility] Work Phone: Start: 02-13-2023 Prealbumin PREALBUMIN (67910) [facility]; [facility] Work Phone: Start: 02-13-2023 Sedimentation rate rbc non-automated ESR-F (SED RATE ERYTHROCYTE - FEMALE) (09177) [facility]; [facility] Work Phone: Start: 02-13-2023 Protein total xcpt refractometry urine UPEP (53461) [facility]; [facility] Work Phone: Start: 02-13-2023 Protein electrophoretic fractj&quantj serum SPEP (44448) [facility]; [facility] Work Phone: Start: 01-20-2023 Protein electrophoretic fractj&quantj serum SPEP (54781) [facility]; [facility] Work Phone: Start: 2023 HPV TESTING HPV TESTING [facility] Start: 01-02-2023 Procedure Education Eprescribed prescriptions (G8553) [facility]; [facility] Work Phone: Start: 01-02-2023 Urnls dip stick/tablet rgnt non-auto w/o micrscp Urinalysis, Office (61543) [facility]; [facility] Work Phone: Start: 11-20-2022 DEPRESSION ASSESSMENT DEPRESSION ASSESSMENT [facility] Start: 10-26-2022 End: 10-26-2022 Patient encounter procedure 10/26/2022 Office Visit Podiatry Mirza Ayala Jr., DPM [address] [place] [address] [facility] Start: 10-10-2022 Procedure Education Eprescribed prescriptions (G8553) [facility]; [facility] Work Phone: Start: 07-21-2022 Influenza vaccination Sequential Influenza Vaccine (#1) [facility] Start: 06-13-2022 Procedure Education Eprescribed prescriptions (G8553) [facility]; [facility] Work Phone: Start: 06-13-2022 25 hydroxy includes fractions if performed CALCIFIDIOL (68648) VIT D 25 [facility]; [facility] Work Phone: Start: 06-13-2022 Assay of thyroid stimulating hormone tsh TSH (63587) [facility]; [facility] Work Phone: Start: 02-14-2022 Assay of thyroid stimulating hormone tsh TSH (28545) [facility]; [facility] Work Phone: Start: 02-14-2022 25 hydroxy includes fractions if performed CALCIFIDIOL (73607) VIT D 25 [facility]; [facility] Work Phone: Start: 12-30-2021 COVID-19 Vaccine (3 - Booster for Pfizer series) COVID-19 Vaccine (3 - Booster for Pfizer series) [facility] Start: 09-24-2021 COVID-19 Vaccine (3 - Booster for Pfizer series) COVID-19 Vaccine (3 - Booster for Pfizer series) [facility] Start: 09-24-2021 COVID-19 Vaccine (3 - Pfizer series) COVID-19 Vaccine (3 - Pfizer series) [facility] Start: 09-04-2020 Iaadiadoo influenza 2019 Novel Coronavirus (COVID-19), With Influenz A and B (71301) [facility] Work Phone: Start: 07-23-2020 Testosterone [Mass/Vol] TESTOSTERONE TOTAL (44151) [facility] Work Phone: Immunizations Immunization Date Immunization Notes Care Provider Misael manzano 07-30-2021 COVID-Pfizer (30 MCG/0.3 ML) Elena Herrera MD Work Phone: [facility] Work Phone: 07-09-2021 COVID-Pfizer (30 MCG/0.3 ML) Elena Herrera MD Work Phone: [facility]; [facility] Work Phone: Payers Date Payer Category Payer Unknown [id number] 2021 Medicare [id number] 2018 Medicaid [id number] 2018 Medicaid MEDICAID [facility] MEDICAID [id number] 2018-Present [phone] [address] [place] [address] Medicaid [id number] 2013 Medicare [id number] 2013 Medicare [id number] 1995 Unknown [id number] 1995 Unknown [id number] 1993 Unknown [id number] 1993 Unknown [id number] 1993 Unknown [id number] 1993 Unknown [id number] 1993 Unknown [id number] 1993 Unknown [id number] 1993 Unknown [id number] 1989 Unknown [id number] Unknown Social History Date Type Detail Facility Start: 10-26-2022 End: 11-22-2023 Current Household Members Never smoker [facility] Work Phone: Clinical Notes 06-29-2022 to 01-03-2024 Mirza Ayala Jr., ARNOLDO - 01/03/2024 9:24 AM Mirza Vickers Jr., DPM - 11/29/2023 4:34 PM ESTPatient InstructionsAddendum Note - Mirza Ayala Jr., DPM - 11/22/2023 11:41 AM EST Note Date & Type Note [facility] 01-03-2024 History of Presen t illness Narrative Right leg ultrasound. Patient is a pleasant 28-year-old female following up today with her caregiver for right leg pain. Has been using the topical antibiotic ointment in the last 3 weeks with pretty good compliance and feeling well feeling better much less complaining. Physical Vascular: DP PT pulses remain easily palpable. CFT is fair no edema. Derm: Left anterior leg abrasion present with erythema no streaking no fluctuance or crepitation. Neuro: Intact. Musculoskeletal: No perceived pain to her right leg today seems much better in the last 2 weeks. Assessment and plan: Patient is a pleasant 28-year-old female with negative right leg duplex ruling out a DVT and new onset left leg cellulitis and abrasion. The cellulitic component as well as the laceration component is resolved at this point. Therefore can discontinue the Bactroban and bandage. Follow-up. For this or any new issues. Low medical complexity decision making as her language barrier challenges her differential and diagnosis plan. Primary history was given by her aide. documented in this encounter [facility] 11-29-2023 History of Presen t illness Narrative Right leg ultrasound. Patient is a pleasant 28-year-old female following up today with her caregiver for right leg pain. States that her ultrasound went great no issues. Physical Vascular: DP PT pulses remain easily palpable. CFT is fair no edema. Derm: Left anterior leg abrasion present with erythema no streaking no fluctuance or crepitation. Neuro: Intact. Musculoskeletal: No perceived pain to her right leg today seems much better in the last 2 weeks. Assessment and plan: Patient is a pleasant 28-year-old female with negative right leg duplex ruling out a DVT and new onset left leg cellulitis and abrasion. Continue cefdinir from primary care. Start topical Bactroban twice daily. Called into pharmacy. Apply this twice daily with a Band-Aid follow-up in 3 weeks. documented in this encounter [facility] 11-29-2023 Instructions Mirza Ayala Jr., DPM - 11/29/2023 4:21 PM EST Apply bactroban to leg twice per day with bandaid. F/u in 3 weeks documented in this encounter [facility] 11-22-2023 Note Addended by: MIRZA AYALA on: 11/22/2023 11:41 AM Modules accepted: Orders [facility] 11-22-2023 Miscellaneous Notes Addended by: MIRZA AYALA on: 11/22/2023 11:41 AM Modules accepted: Orders documented in this encounter [facility] 11-22-2023 History of Presen t illness Narrative Vague foot pain. Patient is a pleasant 28-year-old female comes in today with her caregiver for concerns for lower extremity soreness. Patient is nonverbal with a history of Down syndrome and traditionally does not communicate. However they state that she is not walking like she should. No trauma that they can remember. Patient is recently started on cephalexin for concern for anterior leg cellulitis due to some redness at the emergency department. Radiographs reviewed: No obvious fractures dislocations or subluxations seen. DP PT pulses are easily palpable. CFT is fair does have mild calf edema. Derm: Varicosities present to the posterior leg otherwise no erythema no open wounds no ulcers. Does have bilaterally on her ankle right and left 3 streaking abrasions though these are healing and look ultimately well there is no appearance no warmth no lymphangitis. Neuro: Light touch is normal. Musculoskeletal: Muscle strength is 5 out of 5. No loss of power ankle range of motion subtalar full and pain-free. Mild soreness to the calf though minimal facial expressions. Assessment and plan: Patient is a pleasant 28-year-old female with concern for right calf DVT albeit mild. As her history and physical are not superb, would like to order a duplex to rule out clotting as she is with increased varicosities. Should transition shoe gear deal to-new balance. Follow-up on duplex in the next 1 to 2 weeks. documented in this encounter [facility] 11-22-2023 Instructions Mirza Ayala Jr., DPM - 11/22/2023 11:34 AM EST Duplex at [facility] documented in this encounter [facility] 07-18-2023 Note HNO ID: [id number] Author: Queenie Lang APRN.DIRECTOR OF PATIENT CARE Service: ? Author Type: Nurse Practitioner Type: Progress Notes Filed: 07/18/2023 1:01 PM Note Text: Melia is a 28 year old No obstetric history on file. who presents for an annual gynecologic exam with complaints, recurrent skin yeast . Accompanied by healthcare worker. Menses: cycles every month Contraception: none HPV vaccine: unknown Last Pap: never HPV: N/A Last mammogram: never Sexually active: never OB History No obstetric history on file. 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 No pertinent surgical history. FAMILY HISTORY Problem Relation Age of Onset Cancer Mother 71 colon, liver Brain Cancer Father 74 SOCIAL HISTORY Social History Tobacco Use Smoking status: Never Smokeless tobacco: Never Substance Use Topics Alcohol use: Never Drug use: Never REVIEW OF SYSTEMS Abdomen: Denies any belly problems Bladder: No dysuria, gross hematuria, urinary frequency, urinary urgency, or incontinence. Breast: No breast lumps, nipple d/c, overlying skin changes, redness or skin retraction. Allergies and current medication updated:Yes EXAM: BP 110/70 Wt 180 lb 12.8 oz (82.0kg) LMP 07/10/2023 GENERAL: pleasant, female in no apparent distress HEENT: Normocephalic, atraumatic, mucus membranes moist, and no lesions NECK: Supple, full range of motion, no adenopathy, and thyroid normal DERMATOLOGY: Normal, without lesions, non-icteric, and non-hirsute BREAST: soft, non-tender, symmetric, no dominant mass, normal nipple-areolar complex, no lymphadenopathy, and no nipple discharge. CHEST: Normal inspiratory effort ABDOMEN: soft, non-tender, and no masses PELVIC: No internal exam per pt request. external genitalia normal, no outer vulvar lesions, normal appearing perineal body and perianal region. Two areas of folliculitis - one resolving and one beginning. Mild intertriginous area below right pannus. BIMANUAL: deferred RECTOVAGINAL: deferred. NEURO: alert and oriented x3,exam grossly non-focal EXTREMITIES: normal ASSESSMENT/PLAN: 1) Health maintenance: Pap/HPV not done 2) Contraception: none. Contraceptive options reviewed and information provided. 3. Folliculitis - ICD9: 704.8, ICD10: L73.9 - MUPIROCIN 2 % TOPICAL OINTMENT prn 4. Intertrigo - ICD9: 695.89, ICD10: L30.4 - [place]STAT[place] 100,000 UNIT/GRAM TOPICAL POWDER - Gold Mathew Friction Defense to prevent skin irritation. Use daily after cleansing with mild soap, rinsing and drying well. 5) Follow up one year or sooner as needed Queenie Lang APRN.CNP [facility] 07-18-2023 Instructions Queenie Lang APRN.CNP - 07/18/2023 12:08 PM EDT Gold [employer] F[employer] Defense to prevent skin irritation. Use daily after cleansing with mild soap, rinsing and drying well. documented in this encounter [facility] 07-18-2023 History of Presen t illness Narrative Melia is a 28 year old No obstetric history on file. who presents for an annual gynecologic exam with complaints, recurrent skin yeast . Accompanied by healthcare worker. Menses: cycles every month Contraception: none HPV vaccine: unknown Last Pap: never HPV: N/A Last mammogram: never Sexually active: never OB History No obstetric history on file. 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 No pertinent surgical history. FAMILY HISTORY Problem Relation Age of Onset Cancer Mother 71 colon, liver Brain Cancer Father 74 SOCIAL HISTORY Social History Tobacco Use Smoking status: Never Smokeless tobacco: Never Substance Use Topics Alcohol use: Never Drug use: Never REVIEW OF SYSTEMS Abdomen: Denies any belly problems Bladder: No dysuria, gross hematuria, urinary frequency, urinary urgency, or incontinence. Breast: No breast lumps, nipple d/c, overlying skin changes, redness or skin retraction. Allergies and current medication updated:Yes EXAM: BP 110/70 Wt 180 lb 12.8 oz (82.0kg) LMP 07/10/2023 GENERAL: pleasant, female in no apparent distress HEENT: Normocephalic, atraumatic, mucus membranes moist, and no lesions NECK: Supple, full range of motion, no adenopathy, and thyroid normal DERMATOLOGY: Normal, without lesions, non-icteric, and non-hirsute BREAST: soft, non-tender, symmetric, no dominant mass, normal nipple-areolar complex, no lymphadenopathy, and no nipple discharge. CHEST: Normal inspiratory effort ABDOMEN: soft, non-tender, and no masses PELVIC: No internal exam per pt request. external genitalia normal, no outer vulvar lesions, normal appearing perineal body and perianal region. Two areas of folliculitis - one resolving and one beginning. Mild intertriginous area below right pannus. BIMANUAL: deferred RECTOVAGINAL: deferred. NEURO: alert and oriented x3,exam grossly non-focal EXTREMITIES: normal ASSESSMENT/PLAN: 1) Health maintenance: Pap/HPV not done 2) Contraception: none. Contraceptive options reviewed and information provided. 3. Folliculitis - ICD9: 704.8, ICD10: L73.9 - MUPIROCIN 2 % TOPICAL OINTMENT prn 4. Intertrigo - ICD9: 695.89, ICD10: L30.4 - [place]STATIN 100,000 UNIT/GRAM TOPICAL POWDER - Gold Mathew Friction Defense to prevent skin irritation. Use daily after cleansing with mild soap, rinsing and drying well. 5) Follow up one year or sooner as needed Queenie Lang APRN.DIRECTOR OF PATIENT CARE documented in this encounter [facility] 10-26-2022 History of Presen t illness Narrative Patient is a pleasant 27-year-old female who follows up today for bilateral great toe pain. Per the patient and her healthcare record, patient is not having any issues with her inserts. States that her toes feel better wearing them well and pain-free. Physical Vascular: DP PT pulses are easily palpable. CFT is fair no edema. Derm: No open wounds no ulcers no rashes noted nodules. Neuro: Light touch is normal Babinski's is normal. Musculoskeletal: Muscle strength is 5/5 with fair tone. Can easily wiggle toes without any clicking or catching. No pain today to the first MPJ range of motion is full and pain-free. Assessment and plan: Patient a pleasant 27-year-old female with bilateral first MPJ bunion deformity. Orthotics are well fitting at this time and did not need adjusted. Follow-up in 1 year for updated orthotics. documented in this encounter [facility] 06-29-2022 History of Presen t illness Narrative HPI Chief Complaint Patient presents with Foot Pain Bilateral foot pain - pt states that her feet rub - and the pain is all over and it is when she has her shoes on - pt is here today with one of her caregivers - pt cannot tell me how long her feet have been hurting or if she has had an injury or trauma and her caregiver does not know Patient is a pleasant 27-year-old female who comes in today with her caregiver for bilateral foot pain. She points to both of her big toes that this is what hurts. Her caregiver states that she is been complaining of left foot pain and for quite a while but denies any injury no trauma that she can recall. History reviewed. No pertinent past medical history. History reviewed. No pertinent surgical history. Social History Socioeconomic History Marital status: Single Tobacco Use Smoking status: Never Smokeless tobacco: Never Vaping Use Vaping Use: Never used Substance and Sexual Activity Alcohol use: Never Drug use: Never Review of Systems Constitutional: Negative for chills and fever. Respiratory: Negative for chest tightness and shortness of breath. Cardiovascular: Negative for chest pain and palpitations. Gastrointestinal: Negative for diarrhea, nausea and vomiting. Musculoskeletal: Positive for joint swelling. Negative for gait problem. Skin: Negative for wound. Physical Exam -Patient is AOx3. Linear and appropriate humor and thought process. Vascular: DP PT pulses are easily palpable 2-4. CFT is fair minimal edema. Derm: No open wounds no ulcers no rashes no deep nodules. Neuro: Light touch is normal Babinski's is intact. Musculoskeletal: Does have reducible bunion left much worse than right with bilateral pain with compression and range of motion. No clicking or catching across the first MPJ IPJ is additionally full and pain-free. Impression/Plan Problem List Items Addressed This Visit None Visit Diagnoses Bunion of great toe of left foot - Primary Relevant Orders Miscellaneous DME Equipment Bunion of great toe of right foot Relevant Orders Miscellaneous DME Equipment Patient is a pleasant 27-year-old female with bilateral bunion deformities left much worse than right. -Today did prescribe her a set of custom rigid functional orthotics with soft top-cover and first MPJ cut out. -These are medically necessary to control her first MPJ. -She will not qualify for an [id number] device as it will not have enough control will not help her to the degree that she needs as she needs a custom device. -Follow-up in 3 to 4 months to reevaluate orthotics. Low medical complexity decision making based on chronicity. [facility] Chronic bilateral low back pain without sciatica- Primary [facility] Diagnosis Encounter for gynecological examination with abnormal finding- Primary Routine gynecological examination Folliculitis Other specified disease of hair and hair follicles Intertrigo Other specified erythematous condition [facility] Diagnosis Lower extremity edema- Primary Edema Pain of right calf [facility] Diagnosis Localized edema Edema documented in this encounter [facility] Work Phone: Evaluation note* Diagnosis Laceration of left lower extremity, initial encounter- Primary [facility] Diagnosis Laceration of left lower extremity, initial encounter- Primary Lower extremity edema Edema [facility] Name Dates Details Patient Instructions Indication:Down syndrome Start:17-Jun-2021 Instruction Type:Provider Instructions for Treatment How to Access Health Informa tion Online using Patient Portal and [email or web address] Apps Indication:Down syndrome Start:17-Jun-2021 Instruction Type:Patient Education How to access health informa tion online Indication:BMI 31.0-31.9,adult Start:23-Jul-2020 Instruction Type:Patient Education How to access health informa tion online - Detail Indication:BMI 31.0-31.9,adult Start:23-Jul-2020 Instruction Type:Patient Education Patient Instructions Indication:BMI 31.0-31.9,adult Start:23-Jul-2020 Instruction Type:Provider Instructions for Treatment How to access health informa tion online Indication:Hypothyroidism, adult Start:20-Dec-2019 Instruction Type:Patient Education How to access health informa tion online - Detail Indication:Hypothyroidism, adult Start:20-Dec-2019 Instruction Type:Patient Education Patient Instructions Indication:Hypothyroidism, adult Start:20-Dec-2019 Instruction Type:Provider Instructions for Treatment How to access health informa tion online Indication:Current nonsmoker (Renamed from Current non-smoker) Start:06-Sep-2019 Instruction Type:Patient Education How to access health informa tion online - Detail Indication:Current nonsmoker (Renamed from Current non-smoker) Start:06-Sep-2019 Instruction Type:Patient Education Patient Instructions Indication:Current nonsmoker (Renamed from Current non-smoker) Start:06-Sep-2019 Instruction Type:Provider Instructions for Treatment How to access health informa tion online Indication:Hypothyroidism, adult Start:06-Jun-2019 Instruction Type:Patient Education How to access health informa tion online - Detail Indication:Hypothyroidism, adult Start:06-Jun-2019 Instruction Type:Patient Education Patient Instructions Indication:Hypothyroidism, adult Start:06-Jun-2019 Instruction Type:Provider Instructions for Treatment How to access health informa tion online Indication:BMI 33.0-33.9,adult Start:01-Mar-2019 Instruction Type:Patient Education How to access health informa tion online - Detail Indication:BMI 33.0-33.9,adult Start:01-Mar-2019 Instruction Type:Patient Education Patient Instructions Indication:BMI 33.0-33.9,adult Start:01-Mar-2019 Instruction Type:Provider Instructions for Treatment How to access health informa tion online Indication:Current nonsmoker (Renamed from Current non-smoker) Start:26-Nov-2018 Instruction Type:Patient Education How to access health informa tion online - Detail Indication:Current nonsmoker (Renamed from Current non-smoker) Start:26-Nov-2018 Instruction Type:Patient Education Patient Instructions Indication:Current nonsmoker (Renamed from Current non-smoker) Start:26-Nov-2018 Instruction Type:Provider Instructions for Treatment How to access health informa tion online Indication:BMI 31.0-31.9,adult Start:16-Nov-2017 Instruction Type:Patient Education How to access health informa tion online - Detail Indication:BMI 31.0-31.9,adult Start:16-Nov-2017 Instruction Type:Patient Education Patient Instructions Indication:BMI 31.0-31.9,adult Start:16-Nov-2017 Instruction Type:Provider Instructions for Treatment How to access health informa tion online Indication:BMI 32.0-32.9,adult Start:11-Aug-2017 Instruction Type:Patient Education How to access health informa tion online - Detail Indication:BMI 32.0-32.9,adult Start:11-Aug-2017 Instruction Type:Patient Education Patient Instructions Indication:BMI 32.0-32.9,adult Start:11-Aug-2017 Instruction Type:Provider Instructions for Treatment How to access health informa tion online Indication:Hypothyroidism, adult Start:30-Dec-2016 Instruction Type:Patient Education How to access health informa tion online - Detail Indication:Hypothyroidism, adult Start:30-Dec-2016 Instruction Type:Patient Education Patient Instructions Indication:Hypothyroidism, adult Start:30-Dec-2016 Instruction Type:Provider Instructions for Treatment How to access health informa tion online Indication:Current nonsmoker (Renamed from Current non-smoker) Start:27-Jun-2016 Instruction Type:Patient Education How to access health informa tion online - Detail Indication:Current nonsmoker (Renamed from Current non-smoker) Start:27-Jun-2016 Instruction Type:Patient Education Patient Instructions Indication:Current nonsmoker (Renamed from Current non-smoker) Start:27-Jun-2016 Instruction Type:Provider Instructions for Treatment How to access health informa tion online Indication:Hypothyroidism, adult Start:15-Feb-2016 Instruction Type:Patient Education How to access health informa tion online - Detail Indication:Hypothyroidism, adult Start:15-Feb-2016 Instruction Type:Patient Education Patient Instructions Indication:Hypothyroidism, adult Start:15-Feb-2016 Instruction Type:Provider Instructions for Treatment How to access health informa tion online Indication:Obesity, unspecified Start:08-Jun-2015 Instruction Type:Patient Education How to access health informa tion online - Detail Indication:Obesity, unspecified Start:08-Jun-2015 Instruction Type:Patient Education Patient Instructions Indication:Obesity, unspecified Start:08-Jun-2015 Instruction Type:Provider Instructions for Treatment Patient Instructions Indication:Hypothyroidism, adult Start:08-Sep-2014 Instruction Type:Provider Instructions for Treatment Patient Instructions Indication:Hypothyroidism, adult Start:10-Mar-2014 Instruction Type:Provider Instructions for Treatment [facility] Work Phone: Instructions* Name Dates Details Patient Instructions Indication:Down syndrome Start:17-Jun-2021 Instruction Type:Provider Instructions for Treatment How to Access Health Informa tion Online using Patient Portal and [employer]rd [employer] Apps Indication:Down syndrome Start:17-Jun-2021 Instruction Type:Patient Education How to access health informa tion online Indication:BMI 31.0-31.9,adult Start:23-Jul-2020 Instruction Type:Patient Education How to access health informa tion online - Detail Indication:BMI 31.0-31.9,adult Start:23-Jul-2020 Instruction Type:Patient Education Patient Instructions Indication:BMI 31.0-31.9,adult Start:23-Jul-2020 Instruction Type:Provider Instructions for Treatment How to access health informa tion online Indication:Hypothyroidism, adult Start:20-Dec-2019 Instruction Type:Patient Education How to access health informa tion online - Detail Indication:Hypothyroidism, adult Start:20-Dec-2019 Instruction Type:Patient Education Patient Instructions Indication:Hypothyroidism, adult Start:20-Dec-2019 Instruction Type:Provider Instructions for Treatment How to access health informa tion online Indication:Current nonsmoker (Renamed from Current non-smoker) Start:06-Sep-2019 Instruction Type:Patient Education How to access health informa tion online - Detail Indication:Current nonsmoker (Renamed from Current non-smoker) Start:06-Sep-2019 Instruction Type:Patient Education Patient Instructions Indication:Current nonsmoker (Renamed from Current non-smoker) Start:06-Sep-2019 Instruction Type:Provider Instructions for Treatment How to access health informa tion online Indication:Hypothyroidism, adult Start:06-Jun-2019 Instruction Type:Patient Education How to access health informa tion online - Detail Indication:Hypothyroidism, adult Start:06-Jun-2019 Instruction Type:Patient Education Patient Instructions Indication:Hypothyroidism, adult Start:06-Jun-2019 Instruction Type:Provider Instructions for Treatment How to access health informa tion online Indication:BMI 33.0-33.9,adult Start:01-Mar-2019 Instruction Type:Patient Education How to access health informa tion online - Detail Indication:BMI 33.0-33.9,adult Start:01-Mar-2019 Instruction Type:Patient Education Patient Instructions Indication:BMI 33.0-33.9,adult Start:01-Mar-2019 Instruction Type:Provider Instructions for Treatment How to access health informa tion online Indication:Current nonsmoker (Renamed from Current non-smoker) Start:26-Nov-2018 Instruction Type:Patient Education How to access health informa tion online - Detail Indication:Current nonsmoker (Renamed from Current non-smoker) Start:26-Nov-2018 Instruction Type:Patient Education Patient Instructions Indication:Current nonsmoker (Renamed from Current non-smoker) Start:26-Nov-2018 Instruction Type:Provider Instructions for Treatment How to access health informa tion online Indication:BMI 31.0-31.9,adult Start:16-Nov-2017 Instruction Type:Patient Education How to access health informa tion online - Detail Indication:BMI 31.0-31.9,adult Start:16-Nov-2017 Instruction Type:Patient Education Patient Instructions Indication:BMI 31.0-31.9,adult Start:16-Nov-2017 Instruction Type:Provider Instructions for Treatment How to access health informa tion online Indication:BMI 32.0-32.9,adult Start:11-Aug-2017 Instruction Type:Patient Education How to access health informa tion online - Detail Indication:BMI 32.0-32.9,adult Start:11-Aug-2017 Instruction Type:Patient Education Patient Instructions Indication:BMI 32.0-32.9,adult Start:11-Aug-2017 Instruction Type:Provider Instructions for Treatment How to access health informa tion online Indication:Hypothyroidism, adult Start:30-Dec-2016 Instruction Type:Patient Education How to access health informa tion online - Detail Indication:Hypothyroidism, adult Start:30-Dec-2016 Instruction Type:Patient Education Patient Instructions Indication:Hypothyroidism, adult Start:30-Dec-2016 Instruction Type:Provider Instructions for Treatment How to access health informa tion online Indication:Current nonsmoker (Renamed from Current non-smoker) Start:27-Jun-2016 Instruction Type:Patient Education How to access health informa tion online - Detail Indication:Current nonsmoker (Renamed from Current non-smoker) Start:27-Jun-2016 Instruction Type:Patient Education Patient Instructions Indication:Current nonsmoker (Renamed from Current non-smoker) Start:27-Jun-2016 Instruction Type:Provider Instructions for Treatment How to access health informa tion online Indication:Hypothyroidism, adult Start:15-Feb-2016 Instruction Type:Patient Education How to access health informa tion online - Detail Indication:Hypothyroidism, adult Start:15-Feb-2016 Instruction Type:Patient Education Patient Instructions Indication:Hypothyroidism, adult Start:15-Feb-2016 Instruction Type:Provider Instructions for Treatment How to access health informa tion online Indication:Obesity, unspecified Start:08-Jun-2015 Instruction Type:Patient Education How to access health informa tion online - Detail Indication:Obesity, unspecified Start:08-Jun-2015 Instruction Type:Patient Education Patient Instructions Indication:Obesity, unspecified Start:08-Jun-2015 Instruction Type:Provider Instructions for Treatment Patient Instructions Indication:Hypothyroidism, adult Start:08-Sep-2014 Instruction Type:Provider Instructions for Treatment Patient Instructions Indication:Hypothyroidism, adult Start:10-Mar-2014 Instruction Type:Provider Instructions for Treatment [facility] Work Phone: Instructions* Name Dates Details Patient Instructions Indication:Down syndrome Start:17-Jun-2021 Instruction Type:Provider Instructions for Treatment How to Access Health Informa tion Online using Patient Portal and [employer]rd [employer] Apps Indication:Down syndrome Start:17-Jun-2021 Instruction Type:Patient Education How to access health informa tion online Indication:BMI 31.0-31.9,adult Start:23-Jul-2020 Instruction Type:Patient Education How to access health informa tion online - Detail Indication:BMI 31.0-31.9,adult Start:23-Jul-2020 Instruction Type:Patient Education Patient Instructions Indication:BMI 31.0-31.9,adult Start:23-Jul-2020 Instruction Type:Provider Instructions for Treatment How to access health informa tion online Indication:Hypothyroidism, adult Start:20-Dec-2019 Instruction Type:Patient Education How to access health informa tion online - Detail Indication:Hypothyroidism, adult Start:20-Dec-2019 Instruction Type:Patient Education Patient Instructions Indication:Hypothyroidism, adult Start:20-Dec-2019 Instruction Type:Provider Instructions for Treatment How to access health informa tion online Indication:Current nonsmoker (Renamed from Current non-smoker) Start:06-Sep-2019 Instruction Type:Patient Education How to access health informa tion online - Detail Indication:Current nonsmoker (Renamed from Current non-smoker) Start:06-Sep-2019 Instruction Type:Patient Education Patient Instructions Indication:Current nonsmoker (Renamed from Current non-smoker) Start:06-Sep-2019 Instruction Type:Provider Instructions for Treatment How to access health informa tion online Indication:Hypothyroidism, adult Start:06-Jun-2019 Instruction Type:Patient Education How to access health informa tion online - Detail Indication:Hypothyroidism, adult Start:06-Jun-2019 Instruction Type:Patient Education Patient Instructions Indication:Hypothyroidism, adult Start:06-Jun-2019 Instruction Type:Provider Instructions for Treatment How to access health informa tion online Indication:BMI 33.0-33.9,adult Start:01-Mar-2019 Instruction Type:Patient Education How to access health informa tion online - Detail Indication:BMI 33.0-33.9,adult Start:01-Mar-2019 Instruction Type:Patient Education Patient Instructions Indication:BMI 33.0-33.9,adult Start:01-Mar-2019 Instruction Type:Provider Instructions for Treatment How to access health informa tion online Indication:Current nonsmoker (Renamed from Current non-smoker) Start:26-Nov-2018 Instruction Type:Patient Education How to access health informa tion online - Detail Indication:Current nonsmoker (Renamed from Current non-smoker) Start:26-Nov-2018 Instruction Type:Patient Education Patient Instructions Indication:Current nonsmoker (Renamed from Current non-smoker) Start:26-Nov-2018 Instruction Type:Provider Instructions for Treatment How to access health informa tion online Indication:BMI 31.0-31.9,adult Start:16-Nov-2017 Instruction Type:Patient Education How to access health informa tion online - Detail Indication:BMI 31.0-31.9,adult Start:16-Nov-2017 Instruction Type:Patient Education Patient Instructions Indication:BMI 31.0-31.9,adult Start:16-Nov-2017 Instruction Type:Provider Instructions for Treatment How to access health informa tion online Indication:BMI 32.0-32.9,adult Start:11-Aug-2017 Instruction Type:Patient Education How to access health informa tion online - Detail Indication:BMI 32.0-32.9,adult Start:11-Aug-2017 Instruction Type:Patient Education Patient Instructions Indication:BMI 32.0-32.9,adult Start:11-Aug-2017 Instruction Type:Provider Instructions for Treatment How to access health informa tion online Indication:Hypothyroidism, adult Start:30-Dec-2016 Instruction Type:Patient Education How to access health informa tion online - Detail Indication:Hypothyroidism, adult Start:30-Dec-2016 Instruction Type:Patient Education Patient Instructions Indication:Hypothyroidism, adult Start:30-Dec-2016 Instruction Type:Provider Instructions for Treatment How to access health informa tion online Indication:Current nonsmoker (Renamed from Current non-smoker) Start:27-Jun-2016 Instruction Type:Patient Education How to access health informa tion online - Detail Indication:Current nonsmoker (Renamed from Current non-smoker) Start:27-Jun-2016 Instruction Type:Patient Education Patient Instructions Indication:Current nonsmoker (Renamed from Current non-smoker) Start:27-Jun-2016 Instruction Type:Provider Instructions for Treatment How to access health informa tion online Indication:Hypothyroidism, adult Start:15-Feb-2016 Instruction Type:Patient Education How to access health informa tion online - Detail Indication:Hypothyroidism, adult Start:15-Feb-2016 Instruction Type:Patient Education Patient Instructions Indication:Hypothyroidism, adult Start:15-Feb-2016 Instruction Type:Provider Instructions for Treatment How to access health informa tion online Indication:Obesity, unspecified Start:08-Jun-2015 Instruction Type:Patient Education How to access health informa tion online - Detail Indication:Obesity, unspecified Start:08-Jun-2015 Instruction Type:Patient Education Patient Instructions Indication:Obesity, unspecified Start:08-Jun-2015 Instruction Type:Provider Instructions for Treatment Patient Instructions Indication:Hypothyroidism, adult Start:08-Sep-2014 Instruction Type:Provider Instructions for Treatment Patient Instructions Indication:Hypothyroidism, adult Start:10-Mar-2014 Instruction Type:Provider Instructions for Treatment [facility]; [facility] Work Phone: Instructions* Name Dates Details Patient Instructions Indication:Down syndrome Start:17-Jun-2021 Instruction Type:Provider Instructions for Treatment How to Access Health Informa tion Online using Patient Portal and [email or web address] Apps Indication:Down syndrome Start:17-Jun-2021 Instruction Type:Patient Education How to access health informa tion online Indication:BMI 31.0-31.9,adult Start:23-Jul-2020 Instruction Type:Patient Education How to access health informa tion online - Detail Indication:BMI 31.0-31.9,adult Start:23-Jul-2020 Instruction Type:Patient Education Patient Instructions Indication:BMI 31.0-31.9,adult Start:23-Jul-2020 Instruction Type:Provider Instructions for Treatment How to access health informa tion online Indication:Hypothyroidism, adult Start:20-Dec-2019 Instruction Type:Patient Education How to access health informa tion online - Detail Indication:Hypothyroidism, adult Start:20-Dec-2019 Instruction Type:Patient Education Patient Instructions Indication:Hypothyroidism, adult Start:20-Dec-2019 Instruction Type:Provider Instructions for Treatment How to access health informa tion online Indication:Current nonsmoker (Renamed from Current non-smoker) Start:06-Sep-2019 Instruction Type:Patient Education How to access health informa tion online - Detail Indication:Current nonsmoker (Renamed from Current non-smoker) Start:06-Sep-2019 Instruction Type:Patient Education Patient Instructions Indication:Current nonsmoker (Renamed from Current non-smoker) Start:06-Sep-2019 Instruction Type:Provider Instructions for Treatment How to access health informa tion online Indication:Hypothyroidism, adult Start:06-Jun-2019 Instruction Type:Patient Education How to access health informa tion online - Detail Indication:Hypothyroidism, adult Start:06-Jun-2019 Instruction Type:Patient Education Patient Instructions Indication:Hypothyroidism, adult Start:06-Jun-2019 Instruction Type:Provider Instructions for Treatment How to access health informa tion online Indication:BMI 33.0-33.9,adult Start:01-Mar-2019 Instruction Type:Patient Education How to access health informa tion online - Detail Indication:BMI 33.0-33.9,adult Start:01-Mar-2019 Instruction Type:Patient Education Patient Instructions Indication:BMI 33.0-33.9,adult Start:01-Mar-2019 Instruction Type:Provider Instructions for Treatment How to access health informa tion online Indication:Current nonsmoker (Renamed from Current non-smoker) Start:26-Nov-2018 Instruction Type:Patient Education How to access health informa tion online - Detail Indication:Current nonsmoker (Renamed from Current non-smoker) Start:26-Nov-2018 Instruction Type:Patient Education Patient Instructions Indication:Current nonsmoker (Renamed from Current non-smoker) Start:26-Nov-2018 Instruction Type:Provider Instructions for Treatment How to access health informa tion online Indication:BMI 31.0-31.9,adult Start:16-Nov-2017 Instruction Type:Patient Education How to access health informa tion online - Detail Indication:BMI 31.0-31.9,adult Start:16-Nov-2017 Instruction Type:Patient Education Patient Instructions Indication:BMI 31.0-31.9,adult Start:16-Nov-2017 Instruction Type:Provider Instructions for Treatment How to access health informa tion online Indication:BMI 32.0-32.9,adult Start:11-Aug-2017 Instruction Type:Patient Education How to access health informa tion online - Detail Indication:BMI 32.0-32.9,adult Start:11-Aug-2017 Instruction Type:Patient Education Patient Instructions Indication:BMI 32.0-32.9,adult Start:11-Aug-2017 Instruction Type:Provider Instructions for Treatment How to access health informa tion online Indication:Hypothyroidism, adult Start:30-Dec-2016 Instruction Type:Patient Education How to access health informa tion online - Detail Indication:Hypothyroidism, adult Start:30-Dec-2016 Instruction Type:Patient Education Patient Instructions Indication:Hypothyroidism, adult Start:30-Dec-2016 Instruction Type:Provider Instructions for Treatment How to access health informa tion online Indication:Current nonsmoker (Renamed from Current non-smoker) Start:27-Jun-2016 Instruction Type:Patient Education How to access health informa tion online - Detail Indication:Current nonsmoker (Renamed from Current non-smoker) Start:27-Jun-2016 Instruction Type:Patient Education Patient Instructions Indication:Current nonsmoker (Renamed from Current non-smoker) Start:27-Jun-2016 Instruction Type:Provider Instructions for Treatment How to access health informa tion online Indication:Hypothyroidism, adult Start:15-Feb-2016 Instruction Type:Patient Education How to access health informa tion online - Detail Indication:Hypothyroidism, adult Start:15-Feb-2016 Instruction Type:Patient Education Patient Instructions Indication:Hypothyroidism, adult Start:15-Feb-2016 Instruction Type:Provider Instructions for Treatment How to access health informa tion online Indication:Obesity, unspecified Start:08-Jun-2015 Instruction Type:Patient Education How to access health informa tion online - Detail Indication:Obesity, unspecified Start:08-Jun-2015 Instruction Type:Patient Education Patient Instructions Indication:Obesity, unspecified Start:08-Jun-2015 Instruction Type:Provider Instructions for Treatment Patient Instructions Indication:Hypothyroidism, adult Start:08-Sep-2014 Instruction Type:Provider Instructions for Treatment Patient Instructions Indication:Hypothyroidism, adult Start:10-Mar-2014 Instruction Type:Provider Instructions for Treatment [facility]; [facility] Work Phone: Instructions* Name Dates Details Patient Instructions Indication:Down syndrome Start:17-Jun-2021 Instruction Type:Provider Instructions for Treatment How to Access Health Informa tion Online using Patient Portal and [employer] Apps Indication:Down syndrome Start:17-Jun-2021 Instruction Type:Patient Education How to access health informa tion online Indication:BMI 31.0-31.9,adult Start:23-Jul-2020 Instruction Type:Patient Education How to access health informa tion online - Detail Indication:BMI 31.0-31.9,adult Start:23-Jul-2020 Instruction Type:Patient Education Patient Instructions Indication:BMI 31.0-31.9,adult Start:23-Jul-2020 Instruction Type:Provider Instructions for Treatment How to access health informa tion online Indication:Hypothyroidism, adult Start:20-Dec-2019 Instruction Type:Patient Education How to access health informa tion online - Detail Indication:Hypothyroidism, adult Start:20-Dec-2019 Instruction Type:Patient Education Patient Instructions Indication:Hypothyroidism, adult Start:20-Dec-2019 Instruction Type:Provider Instructions for Treatment How to access health informa tion online Indication:Current nonsmoker (Renamed from Current non-smoker) Start:06-Sep-2019 Instruction Type:Patient Education How to access health informa tion online - Detail Indication:Current nonsmoker (Renamed from Current non-smoker) Start:06-Sep-2019 Instruction Type:Patient Education Patient Instructions Indication:Current nonsmoker (Renamed from Current non-smoker) Start:06-Sep-2019 Instruction Type:Provider Instructions for Treatment How to access health informa tion online Indication:Hypothyroidism, adult Start:06-Jun-2019 Instruction Type:Patient Education How to access health informa tion online - Detail Indication:Hypothyroidism, adult Start:06-Jun-2019 Instruction Type:Patient Education Patient Instructions Indication:Hypothyroidism, adult Start:06-Jun-2019 Instruction Type:Provider Instructions for Treatment How to access health informa tion online Indication:BMI 33.0-33.9,adult Start:01-Mar-2019 Instruction Type:Patient Education How to access health informa tion online - Detail Indication:BMI 33.0-33.9,adult Start:01-Mar-2019 Instruction Type:Patient Education Patient Instructions Indication:BMI 33.0-33.9,adult Start:01-Mar-2019 Instruction Type:Provider Instructions for Treatment How to access health informa tion online Indication:Current nonsmoker (Renamed from Current non-smoker) Start:26-Nov-2018 Instruction Type:Patient Education How to access health informa tion online - Detail Indication:Current nonsmoker (Renamed from Current non-smoker) Start:26-Nov-2018 Instruction Type:Patient Education Patient Instructions Indication:Current nonsmoker (Renamed from Current non-smoker) Start:26-Nov-2018 Instruction Type:Provider Instructions for Treatment How to access health informa tion online Indication:BMI 31.0-31.9,adult Start:16-Nov-2017 Instruction Type:Patient Education How to access health informa tion online - Detail Indication:BMI 31.0-31.9,adult Start:16-Nov-2017 Instruction Type:Patient Education Patient Instructions Indication:BMI 31.0-31.9,adult Start:16-Nov-2017 Instruction Type:Provider Instructions for Treatment How to access health informa tion online Indication:BMI 32.0-32.9,adult Start:11-Aug-2017 Instruction Type:Patient Education How to access health informa tion online - Detail Indication:BMI 32.0-32.9,adult Start:11-Aug-2017 Instruction Type:Patient Education Patient Instructions Indication:BMI 32.0-32.9,adult Start:11-Aug-2017 Instruction Type:Provider Instructions for Treatment How to access health informa tion online Indication:Hypothyroidism, adult Start:30-Dec-2016 Instruction Type:Patient Education How to access health informa tion online - Detail Indication:Hypothyroidism, adult Start:30-Dec-2016 Instruction Type:Patient Education Patient Instructions Indication:Hypothyroidism, adult Start:30-Dec-2016 Instruction Type:Provider Instructions for Treatment How to access health informa tion online Indication:Current nonsmoker (Renamed from Current non-smoker) Start:27-Jun-2016 Instruction Type:Patient Education How to access health informa tion online - Detail Indication:Current nonsmoker (Renamed from Current non-smoker) Start:27-Jun-2016 Instruction Type:Patient Education Patient Instructions Indication:Current nonsmoker (Renamed from Current non-smoker) Start:27-Jun-2016 Instruction Type:Provider Instructions for Treatment How to access health informa tion online Indication:Hypothyroidism, adult Start:15-Feb-2016 Instruction Type:Patient Education How to access health informa tion online - Detail Indication:Hypothyroidism, adult Start:15-Feb-2016 Instruction Type:Patient Education Patient Instructions Indication:Hypothyroidism, adult Start:15-Feb-2016 Instruction Type:Provider Instructions for Treatment How to access health informa tion online Indication:Obesity, unspecified Start:08-Jun-2015 Instruction Type:Patient Education How to access health informa tion online - Detail Indication:Obesity, unspecified Start:08-Jun-2015 Instruction Type:Patient Education Patient Instructions Indication:Obesity, unspecified Start:08-Jun-2015 Instruction Type:Provider Instructions for Treatment Patient Instructions Indication:Hypothyroidism, adult Start:08-Sep-2014 Instruction Type:Provider Instructions for Treatment Patient Instructions Indication:Hypothyroidism, adult Start:10-Mar-2014 Instruction Type:Provider Instructions for Treatment [facility]; [facility] Work Phone: Instructions* Name Dates Details Patient Instructions Indication:Down syndrome Start:17-Jun-2021 Instruction Type:Provider Instructions for Treatment How to Access Health Informa tion Online using Patient Portal and [email or web address] Apps Indication:Down syndrome Start:17-Jun-2021 Instruction Type:Patient Education How to access health informa tion online Indication:BMI 31.0-31.9,adult Start:23-Jul-2020 Instruction Type:Patient Education How to access health informa tion online - Detail Indication:BMI 31.0-31.9,adult Start:23-Jul-2020 Instruction Type:Patient Education Patient Instructions Indication:BMI 31.0-31.9,adult Start:23-Jul-2020 Instruction Type:Provider Instructions for Treatment How to access health informa tion online Indication:Hypothyroidism, adult Start:20-Dec-2019 Instruction Type:Patient Education How to access health informa tion online - Detail Indication:Hypothyroidism, adult Start:20-Dec-2019 Instruction Type:Patient Education Patient Instructions Indication:Hypothyroidism, adult Start:20-Dec-2019 Instruction Type:Provider Instructions for Treatment How to access health informa tion online Indication:Current nonsmoker (Renamed from Current non-smoker) Start:06-Sep-2019 Instruction Type:Patient Education How to access health informa tion online - Detail Indication:Current nonsmoker (Renamed from Current non-smoker) Start:06-Sep-2019 Instruction Type:Patient Education Patient Instructions Indication:Current nonsmoker (Renamed from Current non-smoker) Start:06-Sep-2019 Instruction Type:Provider Instructions for Treatment How to access health informa tion online Indication:Hypothyroidism, adult Start:06-Jun-2019 Instruction Type:Patient Education How to access health informa tion online - Detail Indication:Hypothyroidism, adult Start:06-Jun-2019 Instruction Type:Patient Education Patient Instructions Indication:Hypothyroidism, adult Start:06-Jun-2019 Instruction Type:Provider Instructions for Treatment How to access health informa tion online Indication:BMI 33.0-33.9,adult Start:01-Mar-2019 Instruction Type:Patient Education How to access health informa tion online - Detail Indication:BMI 33.0-33.9,adult Start:01-Mar-2019 Instruction Type:Patient Education Patient Instructions Indication:BMI 33.0-33.9,adult Start:01-Mar-2019 Instruction Type:Provider Instructions for Treatment How to access health informa tion online Indication:Current nonsmoker (Renamed from Current non-smoker) Start:26-Nov-2018 Instruction Type:Patient Education How to access health informa tion online - Detail Indication:Current nonsmoker (Renamed from Current non-smoker) Start:26-Nov-2018 Instruction Type:Patient Education Patient Instructions Indication:Current nonsmoker (Renamed from Current non-smoker) Start:26-Nov-2018 Instruction Type:Provider Instructions for Treatment How to access health informa tion online Indication:BMI 31.0-31.9,adult Start:16-Nov-2017 Instruction Type:Patient Education How to access health informa tion online - Detail Indication:BMI 31.0-31.9,adult Start:16-Nov-2017 Instruction Type:Patient Education Patient Instructions Indication:BMI 31.0-31.9,adult Start:16-Nov-2017 Instruction Type:Provider Instructions for Treatment How to access health informa tion online Indication:BMI 32.0-32.9,adult Start:11-Aug-2017 Instruction Type:Patient Education How to access health informa tion online - Detail Indication:BMI 32.0-32.9,adult Start:11-Aug-2017 Instruction Type:Patient Education Patient Instructions Indication:BMI 32.0-32.9,adult Start:11-Aug-2017 Instruction Type:Provider Instructions for Treatment How to access health informa tion online Indication:Hypothyroidism, adult Start:30-Dec-2016 Instruction Type:Patient Education How to access health informa tion online - Detail Indication:Hypothyroidism, adult Start:30-Dec-2016 Instruction Type:Patient Education Patient Instructions Indication:Hypothyroidism, adult Start:30-Dec-2016 Instruction Type:Provider Instructions for Treatment How to access health informa tion online Indication:Current nonsmoker (Renamed from Current non-smoker) Start:27-Jun-2016 Instruction Type:Patient Education How to access health informa tion online - Detail Indication:Current nonsmoker (Renamed from Current non-smoker) Start:27-Jun-2016 Instruction Type:Patient Education Patient Instructions Indication:Current nonsmoker (Renamed from Current non-smoker) Start:27-Jun-2016 Instruction Type:Provider Instructions for Treatment How to access health informa tion online Indication:Hypothyroidism, adult Start:15-Feb-2016 Instruction Type:Patient Education How to access health informa tion online - Detail Indication:Hypothyroidism, adult Start:15-Feb-2016 Instruction Type:Patient Education Patient Instructions Indication:Hypothyroidism, adult Start:15-Feb-2016 Instruction Type:Provider Instructions for Treatment How to access health informa tion online Indication:Obesity, unspecified Start:08-Jun-2015 Instruction Type:Patient Education How to access health informa tion online - Detail Indication:Obesity, unspecified Start:08-Jun-2015 Instruction Type:Patient Education Patient Instructions Indication:Obesity, unspecified Start:08-Jun-2015 Instruction Type:Provider Instructions for Treatment Patient Instructions Indication:Hypothyroidism, adult Start:08-Sep-2014 Instruction Type:Provider Instructions for Treatment Patient Instructions Indication:Hypothyroidism, adult Start:10-Mar-2014 Instruction Type:Provider Instructions for Treatment [facility]; [facility] Work Phone: Instructions* Name Dates Details Patient Instructions Indication:Current nonsmoker (Renamed from Current non-smoker) Start:13-Jun-2022 Instruction Type:Provider Instructions for Treatment How to Access Health Informa tion Online using Patient Portal and [employer] Apps Indication:Current nonsmoker (Renamed from Current non-smoker) Start:13-Jun-2022 Instruction Type:Patient Education Patient Instructions Indication:Down syndrome Start:17-Jun-2021 Instruction Type:Provider Instructions for Treatment How to Access Health Informa tion Online using Patient Portal and [employer] Apps Indication:Down syndrome Start:17-Jun-2021 Instruction Type:Patient Education How to access health informa tion online Indication:BMI 31.0-31.9,adult Start:23-Jul-2020 Instruction Type:Patient Education How to access health informa tion online - Detail Indication:BMI 31.0-31.9,adult Start:23-Jul-2020 Instruction Type:Patient Education Patient Instructions Indication:BMI 31.0-31.9,adult Start:23-Jul-2020 Instruction Type:Provider Instructions for Treatment How to access health informa tion online Indication:Hypothyroidism, adult Start:20-Dec-2019 Instruction Type:Patient Education How to access health informa tion online - Detail Indication:Hypothyroidism, adult Start:20-Dec-2019 Instruction Type:Patient Education Patient Instructions Indication:Hypothyroidism, adult Start:20-Dec-2019 Instruction Type:Provider Instructions for Treatment How to access health informa tion online Indication:Current nonsmoker (Renamed from Current non-smoker) Start:06-Sep-2019 Instruction Type:Patient Education How to access health informa tion online - Detail Indication:Current nonsmoker (Renamed from Current non-smoker) Start:06-Sep-2019 Instruction Type:Patient Education Patient Instructions Indication:Current nonsmoker (Renamed from Current non-smoker) Start:06-Sep-2019 Instruction Type:Provider Instructions for Treatment How to access health informa tion online Indication:Hypothyroidism, adult Start:06-Jun-2019 Instruction Type:Patient Education How to access health informa tion online - Detail Indication:Hypothyroidism, adult Start:06-Jun-2019 Instruction Type:Patient Education Patient Instructions Indication:Hypothyroidism, adult Start:06-Jun-2019 Instruction Type:Provider Instructions for Treatment How to access health informa tion online Indication:BMI 33.0-33.9,adult Start:01-Mar-2019 Instruction Type:Patient Education How to access health informa tion online - Detail Indication:BMI 33.0-33.9,adult Start:01-Mar-2019 Instruction Type:Patient Education Patient Instructions Indication:BMI 33.0-33.9,adult Start:01-Mar-2019 Instruction Type:Provider Instructions for Treatment How to access health informa tion online Indication:Current nonsmoker (Renamed from Current non-smoker) Start:26-Nov-2018 Instruction Type:Patient Education How to access health informa tion online - Detail Indication:Current nonsmoker (Renamed from Current non-smoker) Start:26-Nov-2018 Instruction Type:Patient Education Patient Instructions Indication:Current nonsmoker (Renamed from Current non-smoker) Start:26-Nov-2018 Instruction Type:Provider Instructions for Treatment How to access health informa tion online Indication:BMI 31.0-31.9,adult Start:16-Nov-2017 Instruction Type:Patient Education How to access health informa tion online - Detail Indication:BMI 31.0-31.9,adult Start:16-Nov-2017 Instruction Type:Patient Education Patient Instructions Indication:BMI 31.0-31.9,adult Start:16-Nov-2017 Instruction Type:Provider Instructions for Treatment How to access health informa tion online Indication:BMI 32.0-32.9,adult Start:11-Aug-2017 Instruction Type:Patient Education How to access health informa tion online - Detail Indication:BMI 32.0-32.9,adult Start:11-Aug-2017 Instruction Type:Patient Education Patient Instructions Indication:BMI 32.0-32.9,adult Start:11-Aug-2017 Instruction Type:Provider Instructions for Treatment How to access health informa tion online Indication:Hypothyroidism, adult Start:30-Dec-2016 Instruction Type:Patient Education How to access health informa tion online - Detail Indication:Hypothyroidism, adult Start:30-Dec-2016 Instruction Type:Patient Education Patient Instructions Indication:Hypothyroidism, adult Start:30-Dec-2016 Instruction Type:Provider Instructions for Treatment How to access health informa tion online Indication:Current nonsmoker (Renamed from Current non-smoker) Start:27-Jun-2016 Instruction Type:Patient Education How to access health informa tion online - Detail Indication:Current nonsmoker (Renamed from Current non-smoker) Start:27-Jun-2016 Instruction Type:Patient Education Patient Instructions Indication:Current nonsmoker (Renamed from Current non-smoker) Start:27-Jun-2016 Instruction Type:Provider Instructions for Treatment How to access health informa tion online Indication:Hypothyroidism, adult Start:15-Feb-2016 Instruction Type:Patient Education How to access health informa tion online - Detail Indication:Hypothyroidism, adult Start:15-Feb-2016 Instruction Type:Patient Education Patient Instructions Indication:Hypothyroidism, adult Start:15-Feb-2016 Instruction Type:Provider Instructions for Treatment How to access health informa tion online Indication:Obesity, unspecified Start:08-Jun-2015 Instruction Type:Patient Education How to access health informa tion online - Detail Indication:Obesity, unspecified Start:08-Jun-2015 Instruction Type:Patient Education Patient Instructions Indication:Obesity, unspecified Start:08-Jun-2015 Instruction Type:Provider Instructions for Treatment Patient Instructions Indication:Hypothyroidism, adult Start:08-Sep-2014 Instruction Type:Provider Instructions for Treatment Patient Instructions Indication:Hypothyroidism, adult Start:10-Mar-2014 Instruction Type:Provider Instructions for Treatment [facility]; [facility] Work Phone: Instructions* Name Dates Details Patient Instructions Indication:Current nonsmoker (Renamed from Current non-smoker) Start:13-Jun-2022 Instruction Type:Provider Instructions for Treatment How to Access Health Informa tion Online using Patient Portal and [employer]rd [employer] Apps Indication:Current nonsmoker (Renamed from Current non-smoker) Start:13-Jun-2022 Instruction Type:Patient Education Patient Instructions Indication:Down syndrome Start:17-Jun-2021 Instruction Type:Provider Instructions for Treatment How to Access Health Informa tion Online using Patient Portal and [employer] Apps Indication:Down syndrome Start:17-Jun-2021 Instruction Type:Patient Education How to access health informa tion online Indication:BMI 31.0-31.9,adult Start:23-Jul-2020 Instruction Type:Patient Education How to access health informa tion online - Detail Indication:BMI 31.0-31.9,adult Start:23-Jul-2020 Instruction Type:Patient Education Patient Instructions Indication:BMI 31.0-31.9,adult Start:23-Jul-2020 Instruction Type:Provider Instructions for Treatment How to access health informa tion online Indication:Hypothyroidism, adult Start:20-Dec-2019 Instruction Type:Patient Education How to access health informa tion online - Detail Indication:Hypothyroidism, adult Start:20-Dec-2019 Instruction Type:Patient Education Patient Instructions Indication:Hypothyroidism, adult Start:20-Dec-2019 Instruction Type:Provider Instructions for Treatment How to access health informa tion online Indication:Current nonsmoker (Renamed from Current non-smoker) Start:06-Sep-2019 Instruction Type:Patient Education How to access health informa tion online - Detail Indication:Current nonsmoker (Renamed from Current non-smoker) Start:06-Sep-2019 Instruction Type:Patient Education Patient Instructions Indication:Current nonsmoker (Renamed from Current non-smoker) Start:06-Sep-2019 Instruction Type:Provider Instructions for Treatment How to access health informa tion online Indication:Hypothyroidism, adult Start:06-Jun-2019 Instruction Type:Patient Education How to access health informa tion online - Detail Indication:Hypothyroidism, adult Start:06-Jun-2019 Instruction Type:Patient Education Patient Instructions Indication:Hypothyroidism, adult Start:06-Jun-2019 Instruction Type:Provider Instructions for Treatment How to access health informa tion online Indication:BMI 33.0-33.9,adult Start:01-Mar-2019 Instruction Type:Patient Education How to access health informa tion online - Detail Indication:BMI 33.0-33.9,adult Start:01-Mar-2019 Instruction Type:Patient Education Patient Instructions Indication:BMI 33.0-33.9,adult Start:01-Mar-2019 Instruction Type:Provider Instructions for Treatment How to access health informa tion online Indication:Current nonsmoker (Renamed from Current non-smoker) Start:26-Nov-2018 Instruction Type:Patient Education How to access health informa tion online - Detail Indication:Current nonsmoker (Renamed from Current non-smoker) Start:26-Nov-2018 Instruction Type:Patient Education Patient Instructions Indication:Current nonsmoker (Renamed from Current non-smoker) Start:26-Nov-2018 Instruction Type:Provider Instructions for Treatment How to access health informa tion online Indication:BMI 31.0-31.9,adult Start:16-Nov-2017 Instruction Type:Patient Education How to access health informa tion online - Detail Indication:BMI 31.0-31.9,adult Start:16-Nov-2017 Instruction Type:Patient Education Patient Instructions Indication:BMI 31.0-31.9,adult Start:16-Nov-2017 Instruction Type:Provider Instructions for Treatment How to access health informa tion online Indication:BMI 32.0-32.9,adult Start:11-Aug-2017 Instruction Type:Patient Education How to access health informa tion online - Detail Indication:BMI 32.0-32.9,adult Start:11-Aug-2017 Instruction Type:Patient Education Patient Instructions Indication:BMI 32.0-32.9,adult Start:11-Aug-2017 Instruction Type:Provider Instructions for Treatment How to access health informa tion online Indication:Hypothyroidism, adult Start:30-Dec-2016 Instruction Type:Patient Education How to access health informa tion online - Detail Indication:Hypothyroidism, adult Start:30-Dec-2016 Instruction Type:Patient Education Patient Instructions Indication:Hypothyroidism, adult Start:30-Dec-2016 Instruction Type:Provider Instructions for Treatment How to access health informa tion online Indication:Current nonsmoker (Renamed from Current non-smoker) Start:27-Jun-2016 Instruction Type:Patient Education How to access health informa tion online - Detail Indication:Current nonsmoker (Renamed from Current non-smoker) Start:27-Jun-2016 Instruction Type:Patient Education Patient Instructions Indication:Current nonsmoker (Renamed from Current non-smoker) Start:27-Jun-2016 Instruction Type:Provider Instructions for Treatment How to access health informa tion online Indication:Hypothyroidism, adult Start:15-Feb-2016 Instruction Type:Patient Education How to access health informa tion online - Detail Indication:Hypothyroidism, adult Start:15-Feb-2016 Instruction Type:Patient Education Patient Instructions Indication:Hypothyroidism, adult Start:15-Feb-2016 Instruction Type:Provider Instructions for Treatment How to access health informa tion online Indication:Obesity, unspecified Start:08-Jun-2015 Instruction Type:Patient Education How to access health informa tion online - Detail Indication:Obesity, unspecified Start:08-Jun-2015 Instruction Type:Patient Education Patient Instructions Indication:Obesity, unspecified Start:08-Jun-2015 Instruction Type:Provider Instructions for Treatment Patient Instructions Indication:Hypothyroidism, adult Start:08-Sep-2014 Instruction Type:Provider Instructions for Treatment Patient Instructions Indication:Hypothyroidism, adult Start:10-Mar-2014 Instruction Type:Provider Instructions for Treatment [facility]; [facility] Work Phone: Instructions* Name Dates Details Patient Instructions Indication:Current nonsmoker (Renamed from Current non-smoker) Start:13-Jun-2022 Instruction Type:Provider Instructions for Treatment How to Access Health Informa tion Online using Patient Portal and [email or web address] Apps Indication:Current nonsmoker (Renamed from Current non-smoker) Start:13-Jun-2022 Instruction Type:Patient Education Patient Instructions Indication:Down syndrome Start:17-Jun-2021 Instruction Type:Provider Instructions for Treatment How to Access Health Informa tion Online using Patient Portal and [email or web address] Apps Indication:Down syndrome Start:17-Jun-2021 Instruction Type:Patient Education How to access health informa tion online Indication:BMI 31.0-31.9,adult Start:23-Jul-2020 Instruction Type:Patient Education How to access health informa tion online - Detail Indication:BMI 31.0-31.9,adult Start:23-Jul-2020 Instruction Type:Patient Education Patient Instructions Indication:BMI 31.0-31.9,adult Start:23-Jul-2020 Instruction Type:Provider Instructions for Treatment How to access health informa tion online Indication:Hypothyroidism, adult Start:20-Dec-2019 Instruction Type:Patient Education How to access health informa tion online - Detail Indication:Hypothyroidism, adult Start:20-Dec-2019 Instruction Type:Patient Education Patient Instructions Indication:Hypothyroidism, adult Start:20-Dec-2019 Instruction Type:Provider Instructions for Treatment How to access health informa tion online Indication:Current nonsmoker (Renamed from Current non-smoker) Start:06-Sep-2019 Instruction Type:Patient Education How to access health informa tion online - Detail Indication:Current nonsmoker (Renamed from Current non-smoker) Start:06-Sep-2019 Instruction Type:Patient Education Patient Instructions Indication:Current nonsmoker (Renamed from Current non-smoker) Start:06-Sep-2019 Instruction Type:Provider Instructions for Treatment How to access health informa tion online Indication:Hypothyroidism, adult Start:06-Jun-2019 Instruction Type:Patient Education How to access health informa tion online - Detail Indication:Hypothyroidism, adult Start:06-Jun-2019 Instruction Type:Patient Education Patient Instructions Indication:Hypothyroidism, adult Start:06-Jun-2019 Instruction Type:Provider Instructions for Treatment How to access health informa tion online Indication:BMI 33.0-33.9,adult Start:01-Mar-2019 Instruction Type:Patient Education How to access health informa tion online - Detail Indication:BMI 33.0-33.9,adult Start:01-Mar-2019 Instruction Type:Patient Education Patient Instructions Indication:BMI 33.0-33.9,adult Start:01-Mar-2019 Instruction Type:Provider Instructions for Treatment How to access health informa tion online Indication:Current nonsmoker (Renamed from Current non-smoker) Start:26-Nov-2018 Instruction Type:Patient Education How to access health informa tion online - Detail Indication:Current nonsmoker (Renamed from Current non-smoker) Start:26-Nov-2018 Instruction Type:Patient Education Patient Instructions Indication:Current nonsmoker (Renamed from Current non-smoker) Start:26-Nov-2018 Instruction Type:Provider Instructions for Treatment How to access health informa tion online Indication:BMI 31.0-31.9,adult Start:16-Nov-2017 Instruction Type:Patient Education How to access health informa tion online - Detail Indication:BMI 31.0-31.9,adult Start:16-Nov-2017 Instruction Type:Patient Education Patient Instructions Indication:BMI 31.0-31.9,adult Start:16-Nov-2017 Instruction Type:Provider Instructions for Treatment How to access health informa tion online Indication:BMI 32.0-32.9,adult Start:11-Aug-2017 Instruction Type:Patient Education How to access health informa tion online - Detail Indication:BMI 32.0-32.9,adult Start:11-Aug-2017 Instruction Type:Patient Education Patient Instructions Indication:BMI 32.0-32.9,adult Start:11-Aug-2017 Instruction Type:Provider Instructions for Treatment How to access health informa tion online Indication:Hypothyroidism, adult Start:30-Dec-2016 Instruction Type:Patient Education How to access health informa tion online - Detail Indication:Hypothyroidism, adult Start:30-Dec-2016 Instruction Type:Patient Education Patient Instructions Indication:Hypothyroidism, adult Start:30-Dec-2016 Instruction Type:Provider Instructions for Treatment How to access health informa tion online Indication:Current nonsmoker (Renamed from Current non-smoker) Start:27-Jun-2016 Instruction Type:Patient Education How to access health informa tion online - Detail Indication:Current nonsmoker (Renamed from Current non-smoker) Start:27-Jun-2016 Instruction Type:Patient Education Patient Instructions Indication:Current nonsmoker (Renamed from Current non-smoker) Start:27-Jun-2016 Instruction Type:Provider Instructions for Treatment How to access health informa tion online Indication:Hypothyroidism, adult Start:15-Feb-2016 Instruction Type:Patient Education How to access health informa tion online - Detail Indication:Hypothyroidism, adult Start:15-Feb-2016 Instruction Type:Patient Education Patient Instructions Indication:Hypothyroidism, adult Start:15-Feb-2016 Instruction Type:Provider Instructions for Treatment How to access health informa tion online Indication:Obesity, unspecified Start:08-Jun-2015 Instruction Type:Patient Education How to access health informa tion online - Detail Indication:Obesity, unspecified Start:08-Jun-2015 Instruction Type:Patient Education Patient Instructions Indication:Obesity, unspecified Start:08-Jun-2015 Instruction Type:Provider Instructions for Treatment Patient Instructions Indication:Hypothyroidism, adult Start:08-Sep-2014 Instruction Type:Provider Instructions for Treatment Patient Instructions Indication:Hypothyroidism, adult Start:10-Mar-2014 Instruction Type:Provider Instructions for Treatment [facility]; [facility] Work Phone: Instructions* Name Dates Details Patient Instructions Indication:BMI 30.0-30.9,adult Start:10-Oct-2022 Instruction Type:Provider Instructions for Treatment How to Access Health Informa tion Online using Patient Portal and [employer] Apps Indication:BMI 30.0-30.9,adult Start:10-Oct-2022 Instruction Type:Patient Education Patient Instructions Indication:Current nonsmoker (Renamed from Current non-smoker) Start:13-Jun-2022 Instruction Type:Provider Instructions for Treatment How to Access Health Informa tion Online using Patient Portal and [employer] Apps Indication:Current nonsmoker (Renamed from Current non-smoker) Start:13-Jun-2022 Instruction Type:Patient Education Patient Instructions Indication:Down syndrome Start:17-Jun-2021 Instruction Type:Provider Instructions for Treatment How to Access Health Informa tion Online using Patient Portal and [employer] Apps Indication:Down syndrome Start:17-Jun-2021 Instruction Type:Patient Education How to access health informa tion online Indication:BMI 31.0-31.9,adult Start:23-Jul-2020 Instruction Type:Patient Education How to access health informa tion online - Detail Indication:BMI 31.0-31.9,adult Start:23-Jul-2020 Instruction Type:Patient Education Patient Instructions Indication:BMI 31.0-31.9,adult Start:23-Jul-2020 Instruction Type:Provider Instructions for Treatment How to access health informa tion online Indication:Hypothyroidism, adult Start:20-Dec-2019 Instruction Type:Patient Education How to access health informa tion online - Detail Indication:Hypothyroidism, adult Start:20-Dec-2019 Instruction Type:Patient Education Patient Instructions Indication:Hypothyroidism, adult Start:20-Dec-2019 Instruction Type:Provider Instructions for Treatment How to access health informa tion online Indication:Current nonsmoker (Renamed from Current non-smoker) Start:06-Sep-2019 Instruction Type:Patient Education How to access health informa tion online - Detail Indication:Current nonsmoker (Renamed from Current non-smoker) Start:06-Sep-2019 Instruction Type:Patient Education Patient Instructions Indication:Current nonsmoker (Renamed from Current non-smoker) Start:06-Sep-2019 Instruction Type:Provider Instructions for Treatment How to access health informa tion online Indication:Hypothyroidism, adult Start:06-Jun-2019 Instruction Type:Patient Education How to access health informa tion online - Detail Indication:Hypothyroidism, adult Start:06-Jun-2019 Instruction Type:Patient Education Patient Instructions Indication:Hypothyroidism, adult Start:06-Jun-2019 Instruction Type:Provider Instructions for Treatment How to access health informa tion online Indication:BMI 33.0-33.9,adult Start:01-Mar-2019 Instruction Type:Patient Education How to access health informa tion online - Detail Indication:BMI 33.0-33.9,adult Start:01-Mar-2019 Instruction Type:Patient Education Patient Instructions Indication:BMI 33.0-33.9,adult Start:01-Mar-2019 Instruction Type:Provider Instructions for Treatment How to access health informa tion online Indication:Current nonsmoker (Renamed from Current non-smoker) Start:26-Nov-2018 Instruction Type:Patient Education How to access health informa tion online - Detail Indication:Current nonsmoker (Renamed from Current non-smoker) Start:26-Nov-2018 Instruction Type:Patient Education Patient Instructions Indication:Current nonsmoker (Renamed from Current non-smoker) Start:26-Nov-2018 Instruction Type:Provider Instructions for Treatment How to access health informa tion online Indication:BMI 31.0-31.9,adult Start:16-Nov-2017 Instruction Type:Patient Education How to access health informa tion online - Detail Indication:BMI 31.0-31.9,adult Start:16-Nov-2017 Instruction Type:Patient Education Patient Instructions Indication:BMI 31.0-31.9,adult Start:16-Nov-2017 Instruction Type:Provider Instructions for Treatment How to access health informa tion online Indication:BMI 32.0-32.9,adult Start:11-Aug-2017 Instruction Type:Patient Education How to access health informa tion online - Detail Indication:BMI 32.0-32.9,adult Start:11-Aug-2017 Instruction Type:Patient Education Patient Instructions Indication:BMI 32.0-32.9,adult Start:11-Aug-2017 Instruction Type:Provider Instructions for Treatment How to access health informa tion online Indication:Hypothyroidism, adult Start:30-Dec-2016 Instruction Type:Patient Education How to access health informa tion online - Detail Indication:Hypothyroidism, adult Start:30-Dec-2016 Instruction Type:Patient Education Patient Instructions Indication:Hypothyroidism, adult Start:30-Dec-2016 Instruction Type:Provider Instructions for Treatment How to access health informa tion online Indication:Current nonsmoker (Renamed from Current non-smoker) Start:27-Jun-2016 Instruction Type:Patient Education How to access health informa tion online - Detail Indication:Current nonsmoker (Renamed from Current non-smoker) Start:27-Jun-2016 Instruction Type:Patient Education Patient Instructions Indication:Current nonsmoker (Renamed from Current non-smoker) Start:27-Jun-2016 Instruction Type:Provider Instructions for Treatment How to access health informa tion online Indication:Hypothyroidism, adult Start:15-Feb-2016 Instruction Type:Patient Education How to access health informa tion online - Detail Indication:Hypothyroidism, adult Start:15-Feb-2016 Instruction Type:Patient Education Patient Instructions Indication:Hypothyroidism, adult Start:15-Feb-2016 Instruction Type:Provider Instructions for Treatment How to access health informa tion online Indication:Obesity, unspecified Start:08-Jun-2015 Instruction Type:Patient Education How to access health informa tion online - Detail Indication:Obesity, unspecified Start:08-Jun-2015 Instruction Type:Patient Education Patient Instructions Indication:Obesity, unspecified Start:08-Jun-2015 Instruction Type:Provider Instructions for Treatment Patient Instructions Indication:Hypothyroidism, adult Start:08-Sep-2014 Instruction Type:Provider Instructions for Treatment Patient Instructions Indication:Hypothyroidism, adult Start:10-Mar-2014 Instruction Type:Provider Instructions for Treatment [facility]; [facility] Work Phone: Instructions* Name Dates Details Patient Instructions Indication:BMI 30.0-30.9,adult Start:10-Oct-2022 Instruction Type:Provider Instructions for Treatment How to Access Health Informa tion Online using Patient Portal and [employer] Apps Indication:BMI 30.0-30.9,adult Start:10-Oct-2022 Instruction Type:Patient Education Patient Instructions Indication:Current nonsmoker (Renamed from Current non-smoker) Start:13-Jun-2022 Instruction Type:Provider Instructions for Treatment How to Access Health Informa tion Online using Patient Portal and [employer] Apps Indication:Current nonsmoker (Renamed from Current non-smoker) Start:13-Jun-2022 Instruction Type:Patient Education Patient Instructions Indication:Down syndrome Start:17-Jun-2021 Instruction Type:Provider Instructions for Treatment How to Access Health Informa tion Online using Patient Portal and [employer] Apps Indication:Down syndrome Start:17-Jun-2021 Instruction Type:Patient Education How to access health informa tion online Indication:BMI 31.0-31.9,adult Start:23-Jul-2020 Instruction Type:Patient Education How to access health informa tion online - Detail Indication:BMI 31.0-31.9,adult Start:23-Jul-2020 Instruction Type:Patient Education Patient Instructions Indication:BMI 31.0-31.9,adult Start:23-Jul-2020 Instruction Type:Provider Instructions for Treatment How to access health informa tion online Indication:Hypothyroidism, adult Start:20-Dec-2019 Instruction Type:Patient Education How to access health informa tion online - Detail Indication:Hypothyroidism, adult Start:20-Dec-2019 Instruction Type:Patient Education Patient Instructions Indication:Hypothyroidism, adult Start:20-Dec-2019 Instruction Type:Provider Instructions for Treatment How to access health informa tion online Indication:Current nonsmoker (Renamed from Current non-smoker) Start:06-Sep-2019 Instruction Type:Patient Education How to access health informa tion online - Detail Indication:Current nonsmoker (Renamed from Current non-smoker) Start:06-Sep-2019 Instruction Type:Patient Education Patient Instructions Indication:Current nonsmoker (Renamed from Current non-smoker) Start:06-Sep-2019 Instruction Type:Provider Instructions for Treatment How to access health informa tion online Indication:Hypothyroidism, adult Start:06-Jun-2019 Instruction Type:Patient Education How to access health informa tion online - Detail Indication:Hypothyroidism, adult Start:06-Jun-2019 Instruction Type:Patient Education Patient Instructions Indication:Hypothyroidism, adult Start:06-Jun-2019 Instruction Type:Provider Instructions for Treatment How to access health informa tion online Indication:BMI 33.0-33.9,adult Start:01-Mar-2019 Instruction Type:Patient Education How to access health informa tion online - Detail Indication:BMI 33.0-33.9,adult Start:01-Mar-2019 Instruction Type:Patient Education Patient Instructions Indication:BMI 33.0-33.9,adult Start:01-Mar-2019 Instruction Type:Provider Instructions for Treatment How to access health informa tion online Indication:Current nonsmoker (Renamed from Current non-smoker) Start:26-Nov-2018 Instruction Type:Patient Education How to access health informa tion online - Detail Indication:Current nonsmoker (Renamed from Current non-smoker) Start:26-Nov-2018 Instruction Type:Patient Education Patient Instructions Indication:Current nonsmoker (Renamed from Current non-smoker) Start:26-Nov-2018 Instruction Type:Provider Instructions for Treatment How to access health informa tion online Indication:BMI 31.0-31.9,adult Start:16-Nov-2017 Instruction Type:Patient Education How to access health informa tion online - Detail Indication:BMI 31.0-31.9,adult Start:16-Nov-2017 Instruction Type:Patient Education Patient Instructions Indication:BMI 31.0-31.9,adult Start:16-Nov-2017 Instruction Type:Provider Instructions for Treatment How to access health informa tion online Indication:BMI 32.0-32.9,adult Start:11-Aug-2017 Instruction Type:Patient Education How to access health informa tion online - Detail Indication:BMI 32.0-32.9,adult Start:11-Aug-2017 Instruction Type:Patient Education Patient Instructions Indication:BMI 32.0-32.9,adult Start:11-Aug-2017 Instruction Type:Provider Instructions for Treatment How to access health informa tion online Indication:Hypothyroidism, adult Start:30-Dec-2016 Instruction Type:Patient Education How to access health informa tion online - Detail Indication:Hypothyroidism, adult Start:30-Dec-2016 Instruction Type:Patient Education Patient Instructions Indication:Hypothyroidism, adult Start:30-Dec-2016 Instruction Type:Provider Instructions for Treatment How to access health informa tion online Indication:Current nonsmoker (Renamed from Current non-smoker) Start:27-Jun-2016 Instruction Type:Patient Education How to access health informa tion online - Detail Indication:Current nonsmoker (Renamed from Current non-smoker) Start:27-Jun-2016 Instruction Type:Patient Education Patient Instructions Indication:Current nonsmoker (Renamed from Current non-smoker) Start:27-Jun-2016 Instruction Type:Provider Instructions for Treatment How to access health informa tion online Indication:Hypothyroidism, adult Start:15-Feb-2016 Instruction Type:Patient Education How to access health informa tion online - Detail Indication:Hypothyroidism, adult Start:15-Feb-2016 Instruction Type:Patient Education Patient Instructions Indication:Hypothyroidism, adult Start:15-Feb-2016 Instruction Type:Provider Instructions for Treatment How to access health informa tion online Indication:Obesity, unspecified Start:08-Jun-2015 Instruction Type:Patient Education How to access health informa tion online - Detail Indication:Obesity, unspecified Start:08-Jun-2015 Instruction Type:Patient Education Patient Instructions Indication:Obesity, unspecified Start:08-Jun-2015 Instruction Type:Provider Instructions for Treatment Patient Instructions Indication:Hypothyroidism, adult Start:08-Sep-2014 Instruction Type:Provider Instructions for Treatment Patient Instructions Indication:Hypothyroidism, adult Start:10-Mar-2014 Instruction Type:Provider Instructions for Treatment [facility]; [facility] Medicine Work Phone: Instructions* Name Dates Details Patient Instructions Indication:Current nonsmoker (Renamed from Current non-smoker) Start:02-Jan-2023 Instruction Type:Provider Instructions for Treatment How to Access Health Informa tion Online using Patient Portal and [employer] Apps Indication:Current nonsmoker (Renamed from Current non-smoker) Start:02-Jan-2023 Instruction Type:Patient Education Patient Instructions Indication:BMI 30.0-30.9,adult Start:10-Oct-2022 Instruction Type:Provider Instructions for Treatment How to Access Health Informa tion Online using Patient Portal and [employer] Apps Indication:BMI 30.0-30.9,adult Start:10-Oct-2022 Instruction Type:Patient Education Patient Instructions Indication:Current nonsmoker (Renamed from Current non-smoker) Start:13-Jun-2022 Instruction Type:Provider Instructions for Treatment How to Access Health Informa tion Online using Patient Portal and [employer] Apps Indication:Current nonsmoker (Renamed from Current non-smoker) Start:13-Jun-2022 Instruction Type:Patient Education Patient Instructions Indication:Down syndrome Start:17-Jun-2021 Instruction Type:Provider Instructions for Treatment How to Access Health Informa tion Online using Patient Portal and [employer] Apps Indication:Down syndrome Start:17-Jun-2021 Instruction Type:Patient Education How to access health informa tion online Indication:BMI 31.0-31.9,adult Start:23-Jul-2020 Instruction Type:Patient Education How to access health informa tion online - Detail Indication:BMI 31.0-31.9,adult Start:23-Jul-2020 Instruction Type:Patient Education Patient Instructions Indication:BMI 31.0-31.9,adult Start:23-Jul-2020 Instruction Type:Provider Instructions for Treatment How to access health informa tion online Indication:Hypothyroidism, adult Start:20-Dec-2019 Instruction Type:Patient Education How to access health informa tion online - Detail Indication:Hypothyroidism, adult Start:20-Dec-2019 Instruction Type:Patient Education Patient Instructions Indication:Hypothyroidism, adult Start:20-Dec-2019 Instruction Type:Provider Instructions for Treatment How to access health informa tion online Indication:Current nonsmoker (Renamed from Current non-smoker) Start:06-Sep-2019 Instruction Type:Patient Education How to access health informa tion online - Detail Indication:Current nonsmoker (Renamed from Current non-smoker) Start:06-Sep-2019 Instruction Type:Patient Education Patient Instructions Indication:Current nonsmoker (Renamed from Current non-smoker) Start:06-Sep-2019 Instruction Type:Provider Instructions for Treatment How to access health informa tion online Indication:Hypothyroidism, adult Start:06-Jun-2019 Instruction Type:Patient Education How to access health informa tion online - Detail Indication:Hypothyroidism, adult Start:06-Jun-2019 Instruction Type:Patient Education Patient Instructions Indication:Hypothyroidism, adult Start:06-Jun-2019 Instruction Type:Provider Instructions for Treatment How to access health informa tion online Indication:BMI 33.0-33.9,adult Start:01-Mar-2019 Instruction Type:Patient Education How to access health informa tion online - Detail Indication:BMI 33.0-33.9,adult Start:01-Mar-2019 Instruction Type:Patient Education Patient Instructions Indication:BMI 33.0-33.9,adult Start:01-Mar-2019 Instruction Type:Provider Instructions for Treatment How to access health informa tion online Indication:Current nonsmoker (Renamed from Current non-smoker) Start:26-Nov-2018 Instruction Type:Patient Education How to access health informa tion online - Detail Indication:Current nonsmoker (Renamed from Current non-smoker) Start:26-Nov-2018 Instruction Type:Patient Education Patient Instructions Indication:Current nonsmoker (Renamed from Current non-smoker) Start:26-Nov-2018 Instruction Type:Provider Instructions for Treatment How to access health informa tion online Indication:BMI 31.0-31.9,adult Start:16-Nov-2017 Instruction Type:Patient Education How to access health informa tion online - Detail Indication:BMI 31.0-31.9,adult Start:16-Nov-2017 Instruction Type:Patient Education Patient Instructions Indication:BMI 31.0-31.9,adult Start:16-Nov-2017 Instruction Type:Provider Instructions for Treatment How to access health informa tion online Indication:BMI 32.0-32.9,adult Start:11-Aug-2017 Instruction Type:Patient Education How to access health informa tion online - Detail Indication:BMI 32.0-32.9,adult Start:11-Aug-2017 Instruction Type:Patient Education Patient Instructions Indication:BMI 32.0-32.9,adult Start:11-Aug-2017 Instruction Type:Provider Instructions for Treatment How to access health informa tion online Indication:Hypothyroidism, adult Start:30-Dec-2016 Instruction Type:Patient Education How to access health informa tion online - Detail Indication:Hypothyroidism, adult Start:30-Dec-2016 Instruction Type:Patient Education Patient Instructions Indication:Hypothyroidism, adult Start:30-Dec-2016 Instruction Type:Provider Instructions for Treatment How to access health informa tion online Indication:Current nonsmoker (Renamed from Current non-smoker) Start:27-Jun-2016 Instruction Type:Patient Education How to access health informa tion online - Detail Indication:Current nonsmoker (Renamed from Current non-smoker) Start:27-Jun-2016 Instruction Type:Patient Education Patient Instructions Indication:Current nonsmoker (Renamed from Current non-smoker) Start:27-Jun-2016 Instruction Type:Provider Instructions for Treatment How to access health informa tion online Indication:Hypothyroidism, adult Start:15-Feb-2016 Instruction Type:Patient Education How to access health informa tion online - Detail Indication:Hypothyroidism, adult Start:15-Feb-2016 Instruction Type:Patient Education Patient Instructions Indication:Hypothyroidism, adult Start:15-Feb-2016 Instruction Type:Provider Instructions for Treatment How to access health informa tion online Indication:Obesity, unspecified Start:08-Jun-2015 Instruction Type:Patient Education How to access health informa tion online - Detail Indication:Obesity, unspecified Start:08-Jun-2015 Instruction Type:Patient Education Patient Instructions Indication:Obesity, unspecified Start:08-Jun-2015 Instruction Type:Provider Instructions for Treatment Patient Instructions Indication:Hypothyroidism, adult Start:08-Sep-2014 Instruction Type:Provider Instructions for Treatment Patient Instructions Indication:Hypothyroidism, adult Start:10-Mar-2014 Instruction Type:Provider Instructions for Treatment [facility]; [facility] Work Phone: Instructions* Name Dates Details Patient Instructions Indication:Current nonsmoker (Renamed from Current non-smoker) Start:02-Jan-2023 Instruction Type:Provider Instructions for Treatment How to Access Health Informa tion Online using Patient Portal and [employer] Apps Indication:Current nonsmoker (Renamed from Current non-smoker) Start:02-Jan-2023 Instruction Type:Patient Education Patient Instructions Indication:BMI 30.0-30.9,adult Start:10-Oct-2022 Instruction Type:Provider Instructions for Treatment How to Access Health Informa tion Online using Patient Portal and [employer] Apps Indication:BMI 30.0-30.9,adult Start:10-Oct-2022 Instruction Type:Patient Education Patient Instructions Indication:Current nonsmoker (Renamed from Current non-smoker) Start:13-Jun-2022 Instruction Type:Provider Instructions for Treatment How to Access Health Informa tion Online using Patient Portal and [employer] Apps Indication:Current nonsmoker (Renamed from Current non-smoker) Start:13-Jun-2022 Instruction Type:Patient Education Patient Instructions Indication:Down syndrome Start:17-Jun-2021 Instruction Type:Provider Instructions for Treatment How to Access Health Informa tion Online using Patient Portal and [employer] Apps Indication:Down syndrome Start:17-Jun-2021 Instruction Type:Patient Education How to access health informa tion online Indication:BMI 31.0-31.9,adult Start:23-Jul-2020 Instruction Type:Patient Education How to access health informa tion online - Detail Indication:BMI 31.0-31.9,adult Start:23-Jul-2020 Instruction Type:Patient Education Patient Instructions Indication:BMI 31.0-31.9,adult Start:23-Jul-2020 Instruction Type:Provider Instructions for Treatment How to access health informa tion online Indication:Hypothyroidism, adult Start:20-Dec-2019 Instruction Type:Patient Education How to access health informa tion online - Detail Indication:Hypothyroidism, adult Start:20-Dec-2019 Instruction Type:Patient Education Patient Instructions Indication:Hypothyroidism, adult Start:20-Dec-2019 Instruction Type:Provider Instructions for Treatment How to access health informa tion online Indication:Current nonsmoker (Renamed from Current non-smoker) Start:06-Sep-2019 Instruction Type:Patient Education How to access health informa tion online - Detail Indication:Current nonsmoker (Renamed from Current non-smoker) Start:06-Sep-2019 Instruction Type:Patient Education Patient Instructions Indication:Current nonsmoker (Renamed from Current non-smoker) Start:06-Sep-2019 Instruction Type:Provider Instructions for Treatment How to access health informa tion online Indication:Hypothyroidism, adult Start:06-Jun-2019 Instruction Type:Patient Education How to access health informa tion online - Detail Indication:Hypothyroidism, adult Start:06-Jun-2019 Instruction Type:Patient Education Patient Instructions Indication:Hypothyroidism, adult Start:06-Jun-2019 Instruction Type:Provider Instructions for Treatment How to access health informa tion online Indication:BMI 33.0-33.9,adult Start:01-Mar-2019 Instruction Type:Patient Education How to access health informa tion online - Detail Indication:BMI 33.0-33.9,adult Start:01-Mar-2019 Instruction Type:Patient Education Patient Instructions Indication:BMI 33.0-33.9,adult Start:01-Mar-2019 Instruction Type:Provider Instructions for Treatment How to access health informa tion online Indication:Current nonsmoker (Renamed from Current non-smoker) Start:26-Nov-2018 Instruction Type:Patient Education How to access health informa tion online - Detail Indication:Current nonsmoker (Renamed from Current non-smoker) Start:26-Nov-2018 Instruction Type:Patient Education Patient Instructions Indication:Current nonsmoker (Renamed from Current non-smoker) Start:26-Nov-2018 Instruction Type:Provider Instructions for Treatment How to access health informa tion online Indication:BMI 31.0-31.9,adult Start:16-Nov-2017 Instruction Type:Patient Education How to access health informa tion online - Detail Indication:BMI 31.0-31.9,adult Start:16-Nov-2017 Instruction Type:Patient Education Patient Instructions Indication:BMI 31.0-31.9,adult Start:16-Nov-2017 Instruction Type:Provider Instructions for Treatment How to access health informa tion online Indication:BMI 32.0-32.9,adult Start:11-Aug-2017 Instruction Type:Patient Education How to access health informa tion online - Detail Indication:BMI 32.0-32.9,adult Start:11-Aug-2017 Instruction Type:Patient Education Patient Instructions Indication:BMI 32.0-32.9,adult Start:11-Aug-2017 Instruction Type:Provider Instructions for Treatment How to access health informa tion online Indication:Hypothyroidism, adult Start:30-Dec-2016 Instruction Type:Patient Education How to access health informa tion online - Detail Indication:Hypothyroidism, adult Start:30-Dec-2016 Instruction Type:Patient Education Patient Instructions Indication:Hypothyroidism, adult Start:30-Dec-2016 Instruction Type:Provider Instructions for Treatment How to access health informa tion online Indication:Current nonsmoker (Renamed from Current non-smoker) Start:27-Jun-2016 Instruction Type:Patient Education How to access health informa tion online - Detail Indication:Current nonsmoker (Renamed from Current non-smoker) Start:27-Jun-2016 Instruction Type:Patient Education Patient Instructions Indication:Current nonsmoker (Renamed from Current non-smoker) Start:27-Jun-2016 Instruction Type:Provider Instructions for Treatment How to access health informa tion online Indication:Hypothyroidism, adult Start:15-Feb-2016 Instruction Type:Patient Education How to access health informa tion online - Detail Indication:Hypothyroidism, adult Start:15-Feb-2016 Instruction Type:Patient Education Patient Instructions Indication:Hypothyroidism, adult Start:15-Feb-2016 Instruction Type:Provider Instructions for Treatment How to access health informa tion online Indication:Obesity, unspecified Start:08-Jun-2015 Instruction Type:Patient Education How to access health informa tion online - Detail Indication:Obesity, unspecified Start:08-Jun-2015 Instruction Type:Patient Education Patient Instructions Indication:Obesity, unspecified Start:08-Jun-2015 Instruction Type:Provider Instructions for Treatment Patient Instructions Indication:Hypothyroidism, adult Start:08-Sep-2014 Instruction Type:Provider Instructions for Treatment Patient Instructions Indication:Hypothyroidism, adult Start:10-Mar-2014 Instruction Type:Provider Instructions for Treatment [facility]; [facility] Work Phone: Instructions* Name Dates Details Patient Instructions Indication:Current nonsmoker (Renamed from Current non-smoker) Start:02-Jan-2023 Instruction Type:Provider Instructions for Treatment How to Access Health Informa tion Online using Patient Portal and [employer] Apps Indication:Current nonsmoker (Renamed from Current non-smoker) Start:02-Jan-2023 Instruction Type:Patient Education Patient Instructions Indication:BMI 30.0-30.9,adult Start:10-Oct-2022 Instruction Type:Provider Instructions for Treatment How to Access Health Informa tion Online using Patient Portal and [employer] Apps Indication:BMI 30.0-30.9,adult Start:10-Oct-2022 Instruction Type:Patient Education Patient Instructions Indication:Current nonsmoker (Renamed from Current non-smoker) Start:13-Jun-2022 Instruction Type:Provider Instructions for Treatment How to Access Health Informa tion Online using Patient Portal and [employer] Apps Indication:Current nonsmoker (Renamed from Current non-smoker) Start:13-Jun-2022 Instruction Type:Patient Education Patient Instructions Indication:Down syndrome Start:17-Jun-2021 Instruction Type:Provider Instructions for Treatment How to Access Health Informa tion Online using Patient Portal and [employer] Apps Indication:Down syndrome Start:17-Jun-2021 Instruction Type:Patient Education How to access health informa tion online Indication:BMI 31.0-31.9,adult Start:23-Jul-2020 Instruction Type:Patient Education How to access health informa tion online - Detail Indication:BMI 31.0-31.9,adult Start:23-Jul-2020 Instruction Type:Patient Education Patient Instructions Indication:BMI 31.0-31.9,adult Start:23-Jul-2020 Instruction Type:Provider Instructions for Treatment How to access health informa tion online Indication:Hypothyroidism, adult Start:20-Dec-2019 Instruction Type:Patient Education How to access health informa tion online - Detail Indication:Hypothyroidism, adult Start:20-Dec-2019 Instruction Type:Patient Education Patient Instructions Indication:Hypothyroidism, adult Start:20-Dec-2019 Instruction Type:Provider Instructions for Treatment How to access health informa tion online Indication:Current nonsmoker (Renamed from Current non-smoker) Start:06-Sep-2019 Instruction Type:Patient Education How to access health informa tion online - Detail Indication:Current nonsmoker (Renamed from Current non-smoker) Start:06-Sep-2019 Instruction Type:Patient Education Patient Instructions Indication:Current nonsmoker (Renamed from Current non-smoker) Start:06-Sep-2019 Instruction Type:Provider Instructions for Treatment How to access health informa tion online Indication:Hypothyroidism, adult Start:06-Jun-2019 Instruction Type:Patient Education How to access health informa tion online - Detail Indication:Hypothyroidism, adult Start:06-Jun-2019 Instruction Type:Patient Education Patient Instructions Indication:Hypothyroidism, adult Start:06-Jun-2019 Instruction Type:Provider Instructions for Treatment How to access health informa tion online Indication:BMI 33.0-33.9,adult Start:01-Mar-2019 Instruction Type:Patient Education How to access health informa tion online - Detail Indication:BMI 33.0-33.9,adult Start:01-Mar-2019 Instruction Type:Patient Education Patient Instructions Indication:BMI 33.0-33.9,adult Start:01-Mar-2019 Instruction Type:Provider Instructions for Treatment How to access health informa tion online Indication:Current nonsmoker (Renamed from Current non-smoker) Start:26-Nov-2018 Instruction Type:Patient Education How to access health informa tion online - Detail Indication:Current nonsmoker (Renamed from Current non-smoker) Start:26-Nov-2018 Instruction Type:Patient Education Patient Instructions Indication:Current nonsmoker (Renamed from Current non-smoker) Start:26-Nov-2018 Instruction Type:Provider Instructions for Treatment How to access health informa tion online Indication:BMI 31.0-31.9,adult Start:16-Nov-2017 Instruction Type:Patient Education How to access health informa tion online - Detail Indication:BMI 31.0-31.9,adult Start:16-Nov-2017 Instruction Type:Patient Education Patient Instructions Indication:BMI 31.0-31.9,adult Start:16-Nov-2017 Instruction Type:Provider Instructions for Treatment How to access health informa tion online Indication:BMI 32.0-32.9,adult Start:11-Aug-2017 Instruction Type:Patient Education How to access health informa tion online - Detail Indication:BMI 32.0-32.9,adult Start:11-Aug-2017 Instruction Type:Patient Education Patient Instructions Indication:BMI 32.0-32.9,adult Start:11-Aug-2017 Instruction Type:Provider Instructions for Treatment How to access health informa tion online Indication:Hypothyroidism, adult Start:30-Dec-2016 Instruction Type:Patient Education How to access health informa tion online - Detail Indication:Hypothyroidism, adult Start:30-Dec-2016 Instruction Type:Patient Education Patient Instructions Indication:Hypothyroidism, adult Start:30-Dec-2016 Instruction Type:Provider Instructions for Treatment How to access health informa tion online Indication:Current nonsmoker (Renamed from Current non-smoker) Start:27-Jun-2016 Instruction Type:Patient Education How to access health informa tion online - Detail Indication:Current nonsmoker (Renamed from Current non-smoker) Start:27-Jun-2016 Instruction Type:Patient Education Patient Instructions Indication:Current nonsmoker (Renamed from Current non-smoker) Start:27-Jun-2016 Instruction Type:Provider Instructions for Treatment How to access health informa tion online Indication:Hypothyroidism, adult Start:15-Feb-2016 Instruction Type:Patient Education How to access health informa tion online - Detail Indication:Hypothyroidism, adult Start:15-Feb-2016 Instruction Type:Patient Education Patient Instructions Indication:Hypothyroidism, adult Start:15-Feb-2016 Instruction Type:Provider Instructions for Treatment How to access health informa tion online Indication:Obesity, unspecified Start:08-Jun-2015 Instruction Type:Patient Education How to access health informa tion online - Detail Indication:Obesity, unspecified Start:08-Jun-2015 Instruction Type:Patient Education Patient Instructions Indication:Obesity, unspecified Start:08-Jun-2015 Instruction Type:Provider Instructions for Treatment Patient Instructions Indication:Hypothyroidism, adult Start:08-Sep-2014 Instruction Type:Provider Instructions for Treatment Patient Instructions Indication:Hypothyroidism, adult Start:10-Mar-2014 Instruction Type:Provider Instructions for Treatment [facility]; [facility] Work Phone: Instructions* Name Dates Details Patient Instructions Indication:Current nonsmoker (Renamed from Current non-smoker) Start:02-Jan-2023 Instruction Type:Provider Instructions for Treatment How to Access Health Informa tion Online using Patient Portal and [employer] Apps Indication:Current nonsmoker (Renamed from Current non-smoker) Start:02-Jan-2023 Instruction Type:Patient Education Patient Instructions Indication:BMI 30.0-30.9,adult Start:10-Oct-2022 Instruction Type:Provider Instructions for Treatment How to Access Health Informa tion Online using Patient Portal and [employer] Apps Indication:BMI 30.0-30.9,adult Start:10-Oct-2022 Instruction Type:Patient Education Patient Instructions Indication:Current nonsmoker (Renamed from Current non-smoker) Start:13-Jun-2022 Instruction Type:Provider Instructions for Treatment How to Access Health Informa tion Online using Patient Portal and [employer] Apps Indication:Current nonsmoker (Renamed from Current non-smoker) Start:13-Jun-2022 Instruction Type:Patient Education Patient Instructions Indication:Down syndrome Start:17-Jun-2021 Instruction Type:Provider Instructions for Treatment How to Access Health Informa tion Online using Patient Portal and [employer] Apps Indication:Down syndrome Start:17-Jun-2021 Instruction Type:Patient Education How to access health informa tion online Indication:BMI 31.0-31.9,adult Start:23-Jul-2020 Instruction Type:Patient Education How to access health informa tion online - Detail Indication:BMI 31.0-31.9,adult Start:23-Jul-2020 Instruction Type:Patient Education Patient Instructions Indication:BMI 31.0-31.9,adult Start:23-Jul-2020 Instruction Type:Provider Instructions for Treatment How to access health informa tion online Indication:Hypothyroidism, adult Start:20-Dec-2019 Instruction Type:Patient Education How to access health informa tion online - Detail Indication:Hypothyroidism, adult Start:20-Dec-2019 Instruction Type:Patient Education Patient Instructions Indication:Hypothyroidism, adult Start:20-Dec-2019 Instruction Type:Provider Instructions for Treatment How to access health informa tion online Indication:Current nonsmoker (Renamed from Current non-smoker) Start:06-Sep-2019 Instruction Type:Patient Education How to access health informa tion online - Detail Indication:Current nonsmoker (Renamed from Current non-smoker) Start:06-Sep-2019 Instruction Type:Patient Education Patient Instructions Indication:Current nonsmoker (Renamed from Current non-smoker) Start:06-Sep-2019 Instruction Type:Provider Instructions for Treatment How to access health informa tion online Indication:Hypothyroidism, adult Start:06-Jun-2019 Instruction Type:Patient Education How to access health informa tion online - Detail Indication:Hypothyroidism, adult Start:06-Jun-2019 Instruction Type:Patient Education Patient Instructions Indication:Hypothyroidism, adult Start:06-Jun-2019 Instruction Type:Provider Instructions for Treatment How to access health informa tion online Indication:BMI 33.0-33.9,adult Start:01-Mar-2019 Instruction Type:Patient Education How to access health informa tion online - Detail Indication:BMI 33.0-33.9,adult Start:01-Mar-2019 Instruction Type:Patient Education Patient Instructions Indication:BMI 33.0-33.9,adult Start:01-Mar-2019 Instruction Type:Provider Instructions for Treatment How to access health informa tion online Indication:Current nonsmoker (Renamed from Current non-smoker) Start:26-Nov-2018 Instruction Type:Patient Education How to access health informa tion online - Detail Indication:Current nonsmoker (Renamed from Current non-smoker) Start:26-Nov-2018 Instruction Type:Patient Education Patient Instructions Indication:Current nonsmoker (Renamed from Current non-smoker) Start:26-Nov-2018 Instruction Type:Provider Instructions for Treatment How to access health informa tion online Indication:BMI 31.0-31.9,adult Start:16-Nov-2017 Instruction Type:Patient Education How to access health informa tion online - Detail Indication:BMI 31.0-31.9,adult Start:16-Nov-2017 Instruction Type:Patient Education Patient Instructions Indication:BMI 31.0-31.9,adult Start:16-Nov-2017 Instruction Type:Provider Instructions for Treatment How to access health informa tion online Indication:BMI 32.0-32.9,adult Start:11-Aug-2017 Instruction Type:Patient Education How to access health informa tion online - Detail Indication:BMI 32.0-32.9,adult Start:11-Aug-2017 Instruction Type:Patient Education Patient Instructions Indication:BMI 32.0-32.9,adult Start:11-Aug-2017 Instruction Type:Provider Instructions for Treatment How to access health informa tion online Indication:Hypothyroidism, adult Start:30-Dec-2016 Instruction Type:Patient Education How to access health informa tion online - Detail Indication:Hypothyroidism, adult Start:30-Dec-2016 Instruction Type:Patient Education Patient Instructions Indication:Hypothyroidism, adult Start:30-Dec-2016 Instruction Type:Provider Instructions for Treatment How to access health informa tion online Indication:Current nonsmoker (Renamed from Current non-smoker) Start:27-Jun-2016 Instruction Type:Patient Education How to access health informa tion online - Detail Indication:Current nonsmoker (Renamed from Current non-smoker) Start:27-Jun-2016 Instruction Type:Patient Education Patient Instructions Indication:Current nonsmoker (Renamed from Current non-smoker) Start:27-Jun-2016 Instruction Type:Provider Instructions for Treatment How to access health informa tion online Indication:Hypothyroidism, adult Start:15-Feb-2016 Instruction Type:Patient Education How to access health informa tion online - Detail Indication:Hypothyroidism, adult Start:15-Feb-2016 Instruction Type:Patient Education Patient Instructions Indication:Hypothyroidism, adult Start:15-Feb-2016 Instruction Type:Provider Instructions for Treatment How to access health informa tion online Indication:Obesity, unspecified Start:08-Jun-2015 Instruction Type:Patient Education How to access health informa tion online - Detail Indication:Obesity, unspecified Start:08-Jun-2015 Instruction Type:Patient Education Patient Instructions Indication:Obesity, unspecified Start:08-Jun-2015 Instruction Type:Provider Instructions for Treatment Patient Instructions Indication:Hypothyroidism, adult Start:08-Sep-2014 Instruction Type:Provider Instructions for Treatment Patient Instructions Indication:Hypothyroidism, adult Start:10-Mar-2014 Instruction Type:Provider Instructions for Treatment [facility]; [facility] Work Phone: Instructions* Name Dates Details Patient Instructions Indication:Current nonsmoker (Renamed from Current non-smoker) Start:02-Jan-2023 Instruction Type:Provider Instructions for Treatment How to Access Health Informa tion Online using Patient Portal and [employer] Apps Indication:Current nonsmoker (Renamed from Current non-smoker) Start:02-Jan-2023 Instruction Type:Patient Education Patient Instructions Indication:BMI 30.0-30.9,adult Start:10-Oct-2022 Instruction Type:Provider Instructions for Treatment How to Access Health Informa tion Online using Patient Portal and [employer]rd [employer] Apps Indication:BMI 30.0-30.9,adult Start:10-Oct-2022 Instruction Type:Patient Education Patient Instructions Indication:Current nonsmoker (Renamed from Current non-smoker) Start:13-Jun-2022 Instruction Type:Provider Instructions for Treatment How to Access Health Informa tion Online using Patient Portal and [employer]rd [employer] Apps Indication:Current nonsmoker (Renamed from Current non-smoker) Start:13-Jun-2022 Instruction Type:Patient Education Patient Instructions Indication:Down syndrome Start:17-Jun-2021 Instruction Type:Provider Instructions for Treatment How to Access Health Informa tion Online using Patient Portal and [employer]rd [employer] Apps Indication:Down syndrome Start:17-Jun-2021 Instruction Type:Patient Education How to access health informa tion online Indication:BMI 31.0-31.9,adult Start:23-Jul-2020 Instruction Type:Patient Education How to access health informa tion online - Detail Indication:BMI 31.0-31.9,adult Start:23-Jul-2020 Instruction Type:Patient Education Patient Instructions Indication:BMI 31.0-31.9,adult Start:23-Jul-2020 Instruction Type:Provider Instructions for Treatment How to access health informa tion online Indication:Hypothyroidism, adult Start:20-Dec-2019 Instruction Type:Patient Education How to access health informa tion online - Detail Indication:Hypothyroidism, adult Start:20-Dec-2019 Instruction Type:Patient Education Patient Instructions Indication:Hypothyroidism, adult Start:20-Dec-2019 Instruction Type:Provider Instructions for Treatment How to access health informa tion online Indication:Current nonsmoker (Renamed from Current non-smoker) Start:06-Sep-2019 Instruction Type:Patient Education How to access health informa tion online - Detail Indication:Current nonsmoker (Renamed from Current non-smoker) Start:06-Sep-2019 Instruction Type:Patient Education Patient Instructions Indication:Current nonsmoker (Renamed from Current non-smoker) Start:06-Sep-2019 Instruction Type:Provider Instructions for Treatment How to access health informa tion online Indication:Hypothyroidism, adult Start:06-Jun-2019 Instruction Type:Patient Education How to access health informa tion online - Detail Indication:Hypothyroidism, adult Start:06-Jun-2019 Instruction Type:Patient Education Patient Instructions Indication:Hypothyroidism, adult Start:06-Jun-2019 Instruction Type:Provider Instructions for Treatment How to access health informa tion online Indication:BMI 33.0-33.9,adult Start:01-Mar-2019 Instruction Type:Patient Education How to access health informa tion online - Detail Indication:BMI 33.0-33.9,adult Start:01-Mar-2019 Instruction Type:Patient Education Patient Instructions Indication:BMI 33.0-33.9,adult Start:01-Mar-2019 Instruction Type:Provider Instructions for Treatment How to access health informa tion online Indication:Current nonsmoker (Renamed from Current non-smoker) Start:26-Nov-2018 Instruction Type:Patient Education How to access health informa tion online - Detail Indication:Current nonsmoker (Renamed from Current non-smoker) Start:26-Nov-2018 Instruction Type:Patient Education Patient Instructions Indication:Current nonsmoker (Renamed from Current non-smoker) Start:26-Nov-2018 Instruction Type:Provider Instructions for Treatment How to access health informa tion online Indication:BMI 31.0-31.9,adult Start:16-Nov-2017 Instruction Type:Patient Education How to access health informa tion online - Detail Indication:BMI 31.0-31.9,adult Start:16-Nov-2017 Instruction Type:Patient Education Patient Instructions Indication:BMI 31.0-31.9,adult Start:16-Nov-2017 Instruction Type:Provider Instructions for Treatment How to access health informa tion online Indication:BMI 32.0-32.9,adult Start:11-Aug-2017 Instruction Type:Patient Education How to access health informa tion online - Detail Indication:BMI 32.0-32.9,adult Start:11-Aug-2017 Instruction Type:Patient Education Patient Instructions Indication:BMI 32.0-32.9,adult Start:11-Aug-2017 Instruction Type:Provider Instructions for Treatment How to access health informa tion online Indication:Hypothyroidism, adult Start:30-Dec-2016 Instruction Type:Patient Education How to access health informa tion online - Detail Indication:Hypothyroidism, adult Start:30-Dec-2016 Instruction Type:Patient Education Patient Instructions Indication:Hypothyroidism, adult Start:30-Dec-2016 Instruction Type:Provider Instructions for Treatment How to access health informa tion online Indication:Current nonsmoker (Renamed from Current non-smoker) Start:27-Jun-2016 Instruction Type:Patient Education How to access health informa tion online - Detail Indication:Current nonsmoker (Renamed from Current non-smoker) Start:27-Jun-2016 Instruction Type:Patient Education Patient Instructions Indication:Current nonsmoker (Renamed from Current non-smoker) Start:27-Jun-2016 Instruction Type:Provider Instructions for Treatment How to access health informa tion online Indication:Hypothyroidism, adult Start:15-Feb-2016 Instruction Type:Patient Education How to access health informa tion online - Detail Indication:Hypothyroidism, adult Start:15-Feb-2016 Instruction Type:Patient Education Patient Instructions Indication:Hypothyroidism, adult Start:15-Feb-2016 Instruction Type:Provider Instructions for Treatment How to access health informa tion online Indication:Obesity, unspecified Start:08-Jun-2015 Instruction Type:Patient Education How to access health informa tion online - Detail Indication:Obesity, unspecified Start:08-Jun-2015 Instruction Type:Patient Education Patient Instructions Indication:Obesity, unspecified Start:08-Jun-2015 Instruction Type:Provider Instructions for Treatment Patient Instructions Indication:Hypothyroidism, adult Start:08-Sep-2014 Instruction Type:Provider Instructions for Treatment Patient Instructions Indication:Hypothyroidism, adult Start:10-Mar-2014 Instruction Type:Provider Instructions for Treatment [facility]; [facility] Work Phone: Instructions* Name Dates Details Patient Instructions Indication:Current nonsmoker (Renamed from Current non-smoker) Start:02-Jan-2023 Instruction Type:Provider Instructions for Treatment How to Access Health Informa tion Online using Patient Portal and [employer] Apps Indication:Current nonsmoker (Renamed from Current non-smoker) Start:02-Jan-2023 Instruction Type:Patient Education Patient Instructions Indication:BMI 30.0-30.9,adult Start:10-Oct-2022 Instruction Type:Provider Instructions for Treatment How to Access Health Informa tion Online using Patient Portal and [employer] Apps Indication:BMI 30.0-30.9,adult Start:10-Oct-2022 Instruction Type:Patient Education Patient Instructions Indication:Current nonsmoker (Renamed from Current non-smoker) Start:13-Jun-2022 Instruction Type:Provider Instructions for Treatment How to Access Health Informa tion Online using Patient Portal and [employer] Apps Indication:Current nonsmoker (Renamed from Current non-smoker) Start:13-Jun-2022 Instruction Type:Patient Education Patient Instructions Indication:Down syndrome Start:17-Jun-2021 Instruction Type:Provider Instructions for Treatment How to Access Health Informa tion Online using Patient Portal and [employer]rd [employer] Apps Indication:Down syndrome Start:17-Jun-2021 Instruction Type:Patient Education How to access health informa tion online Indication:BMI 31.0-31.9,adult Start:23-Jul-2020 Instruction Type:Patient Education How to access health informa tion online - Detail Indication:BMI 31.0-31.9,adult Start:23-Jul-2020 Instruction Type:Patient Education Patient Instructions Indication:BMI 31.0-31.9,adult Start:23-Jul-2020 Instruction Type:Provider Instructions for Treatment How to access health informa tion online Indication:Hypothyroidism, adult Start:20-Dec-2019 Instruction Type:Patient Education How to access health informa tion online - Detail Indication:Hypothyroidism, adult Start:20-Dec-2019 Instruction Type:Patient Education Patient Instructions Indication:Hypothyroidism, adult Start:20-Dec-2019 Instruction Type:Provider Instructions for Treatment How to access health informa tion online Indication:Current nonsmoker (Renamed from Current non-smoker) Start:06-Sep-2019 Instruction Type:Patient Education How to access health informa tion online - Detail Indication:Current nonsmoker (Renamed from Current non-smoker) Start:06-Sep-2019 Instruction Type:Patient Education Patient Instructions Indication:Current nonsmoker (Renamed from Current non-smoker) Start:06-Sep-2019 Instruction Type:Provider Instructions for Treatment How to access health informa tion online Indication:Hypothyroidism, adult Start:06-Jun-2019 Instruction Type:Patient Education How to access health informa tion online - Detail Indication:Hypothyroidism, adult Start:06-Jun-2019 Instruction Type:Patient Education Patient Instructions Indication:Hypothyroidism, adult Start:06-Jun-2019 Instruction Type:Provider Instructions for Treatment How to access health informa tion online Indication:BMI 33.0-33.9,adult Start:01-Mar-2019 Instruction Type:Patient Education How to access health informa tion online - Detail Indication:BMI 33.0-33.9,adult Start:01-Mar-2019 Instruction Type:Patient Education Patient Instructions Indication:BMI 33.0-33.9,adult Start:01-Mar-2019 Instruction Type:Provider Instructions for Treatment How to access health informa tion online Indication:Current nonsmoker (Renamed from Current non-smoker) Start:26-Nov-2018 Instruction Type:Patient Education How to access health informa tion online - Detail Indication:Current nonsmoker (Renamed from Current non-smoker) Start:26-Nov-2018 Instruction Type:Patient Education Patient Instructions Indication:Current nonsmoker (Renamed from Current non-smoker) Start:26-Nov-2018 Instruction Type:Provider Instructions for Treatment How to access health informa tion online Indication:BMI 31.0-31.9,adult Start:16-Nov-2017 Instruction Type:Patient Education How to access health informa tion online - Detail Indication:BMI 31.0-31.9,adult Start:16-Nov-2017 Instruction Type:Patient Education Patient Instructions Indication:BMI 31.0-31.9,adult Start:16-Nov-2017 Instruction Type:Provider Instructions for Treatment How to access health informa tion online Indication:BMI 32.0-32.9,adult Start:11-Aug-2017 Instruction Type:Patient Education How to access health informa tion online - Detail Indication:BMI 32.0-32.9,adult Start:11-Aug-2017 Instruction Type:Patient Education Patient Instructions Indication:BMI 32.0-32.9,adult Start:11-Aug-2017 Instruction Type:Provider Instructions for Treatment How to access health informa tion online Indication:Hypothyroidism, adult Start:30-Dec-2016 Instruction Type:Patient Education How to access health informa tion online - Detail Indication:Hypothyroidism, adult Start:30-Dec-2016 Instruction Type:Patient Education Patient Instructions Indication:Hypothyroidism, adult Start:30-Dec-2016 Instruction Type:Provider Instructions for Treatment How to access health informa tion online Indication:Current nonsmoker (Renamed from Current non-smoker) Start:27-Jun-2016 Instruction Type:Patient Education How to access health informa tion online - Detail Indication:Current nonsmoker (Renamed from Current non-smoker) Start:27-Jun-2016 Instruction Type:Patient Education Patient Instructions Indication:Current nonsmoker (Renamed from Current non-smoker) Start:27-Jun-2016 Instruction Type:Provider Instructions for Treatment How to access health informa tion online Indication:Hypothyroidism, adult Start:15-Feb-2016 Instruction Type:Patient Education How to access health informa tion online - Detail Indication:Hypothyroidism, adult Start:15-Feb-2016 Instruction Type:Patient Education Patient Instructions Indication:Hypothyroidism, adult Start:15-Feb-2016 Instruction Type:Provider Instructions for Treatment How to access health informa tion online Indication:Obesity, unspecified Start:08-Jun-2015 Instruction Type:Patient Education How to access health informa tion online - Detail Indication:Obesity, unspecified Start:08-Jun-2015 Instruction Type:Patient Education Patient Instructions Indication:Obesity, unspecified Start:08-Jun-2015 Instruction Type:Provider Instructions for Treatment Patient Instructions Indication:Hypothyroidism, adult Start:08-Sep-2014 Instruction Type:Provider Instructions for Treatment Patient Instructions Indication:Hypothyroidism, adult Start:10-Mar-2014 Instruction Type:Provider Instructions for Treatment [facility]; [facility] Work Phone: Instructions* Name Dates Details Patient Instructions Indication:BMI 30.0-30.9,adult Start:13-Feb-2023 Instruction Type:Provider Instructions for Treatment How to Access Health Informa tion Online using Patient Portal and [employer] Apps Indication:BMI 30.0-30.9,adult Start:13-Feb-2023 Instruction Type:Patient Education Patient Instructions Indication:Current nonsmoker (Renamed from Current non-smoker) Start:02-Jan-2023 Instruction Type:Provider Instructions for Treatment How to Access Health Informa tion Online using Patient Portal and [employer] Apps Indication:Current nonsmoker (Renamed from Current non-smoker) Start:02-Jan-2023 Instruction Type:Patient Education Patient Instructions Indication:BMI 30.0-30.9,adult Start:10-Oct-2022 Instruction Type:Provider Instructions for Treatment How to Access Health Informa tion Online using Patient Portal and [employer] Apps Indication:BMI 30.0-30.9,adult Start:10-Oct-2022 Instruction Type:Patient Education Patient Instructions Indication:Current nonsmoker (Renamed from Current non-smoker) Start:13-Jun-2022 Instruction Type:Provider Instructions for Treatment How to Access Health Informa tion Online using Patient Portal and [employer] Apps Indication:Current nonsmoker (Renamed from Current non-smoker) Start:13-Jun-2022 Instruction Type:Patient Education Patient Instructions Indication:Down syndrome Start:17-Jun-2021 Instruction Type:Provider Instructions for Treatment How to Access Health Informa tion Online using Patient Portal and [employer] Apps Indication:Down syndrome Start:17-Jun-2021 Instruction Type:Patient Education How to access health informa tion online Indication:BMI 31.0-31.9,adult Start:23-Jul-2020 Instruction Type:Patient Education How to access health informa tion online - Detail Indication:BMI 31.0-31.9,adult Start:23-Jul-2020 Instruction Type:Patient Education Patient Instructions Indication:BMI 31.0-31.9,adult Start:23-Jul-2020 Instruction Type:Provider Instructions for Treatment How to access health informa tion online Indication:Hypothyroidism, adult Start:20-Dec-2019 Instruction Type:Patient Education How to access health informa tion online - Detail Indication:Hypothyroidism, adult Start:20-Dec-2019 Instruction Type:Patient Education Patient Instructions Indication:Hypothyroidism, adult Start:20-Dec-2019 Instruction Type:Provider Instructions for Treatment How to access health informa tion online Indication:Current nonsmoker (Renamed from Current non-smoker) Start:06-Sep-2019 Instruction Type:Patient Education How to access health informa tion online - Detail Indication:Current nonsmoker (Renamed from Current non-smoker) Start:06-Sep-2019 Instruction Type:Patient Education Patient Instructions Indication:Current nonsmoker (Renamed from Current non-smoker) Start:06-Sep-2019 Instruction Type:Provider Instructions for Treatment How to access health informa tion online Indication:Hypothyroidism, adult Start:06-Jun-2019 Instruction Type:Patient Education How to access health informa tion online - Detail Indication:Hypothyroidism, adult Start:06-Jun-2019 Instruction Type:Patient Education Patient Instructions Indication:Hypothyroidism, adult Start:06-Jun-2019 Instruction Type:Provider Instructions for Treatment How to access health informa tion online Indication:BMI 33.0-33.9,adult Start:01-Mar-2019 Instruction Type:Patient Education How to access health informa tion online - Detail Indication:BMI 33.0-33.9,adult Start:01-Mar-2019 Instruction Type:Patient Education Patient Instructions Indication:BMI 33.0-33.9,adult Start:01-Mar-2019 Instruction Type:Provider Instructions for Treatment How to access health informa tion online Indication:Current nonsmoker (Renamed from Current non-smoker) Start:26-Nov-2018 Instruction Type:Patient Education How to access health informa tion online - Detail Indication:Current nonsmoker (Renamed from Current non-smoker) Start:26-Nov-2018 Instruction Type:Patient Education Patient Instructions Indication:Current nonsmoker (Renamed from Current non-smoker) Start:26-Nov-2018 Instruction Type:Provider Instructions for Treatment How to access health informa tion online Indication:BMI 31.0-31.9,adult Start:16-Nov-2017 Instruction Type:Patient Education How to access health informa tion online - Detail Indication:BMI 31.0-31.9,adult Start:16-Nov-2017 Instruction Type:Patient Education Patient Instructions Indication:BMI 31.0-31.9,adult Start:16-Nov-2017 Instruction Type:Provider Instructions for Treatment How to access health informa tion online Indication:BMI 32.0-32.9,adult Start:11-Aug-2017 Instruction Type:Patient Education How to access health informa tion online - Detail Indication:BMI 32.0-32.9,adult Start:11-Aug-2017 Instruction Type:Patient Education Patient Instructions Indication:BMI 32.0-32.9,adult Start:11-Aug-2017 Instruction Type:Provider Instructions for Treatment How to access health informa tion online Indication:Hypothyroidism, adult Start:30-Dec-2016 Instruction Type:Patient Education How to access health informa tion online - Detail Indication:Hypothyroidism, adult Start:30-Dec-2016 Instruction Type:Patient Education Patient Instructions Indication:Hypothyroidism, adult Start:30-Dec-2016 Instruction Type:Provider Instructions for Treatment How to access health informa tion online Indication:Current nonsmoker (Renamed from Current non-smoker) Start:27-Jun-2016 Instruction Type:Patient Education How to access health informa tion online - Detail Indication:Current nonsmoker (Renamed from Current non-smoker) Start:27-Jun-2016 Instruction Type:Patient Education Patient Instructions Indication:Current nonsmoker (Renamed from Current non-smoker) Start:27-Jun-2016 Instruction Type:Provider Instructions for Treatment How to access health informa tion online Indication:Hypothyroidism, adult Start:15-Feb-2016 Instruction Type:Patient Education How to access health informa tion online - Detail Indication:Hypothyroidism, adult Start:15-Feb-2016 Instruction Type:Patient Education Patient Instructions Indication:Hypothyroidism, adult Start:15-Feb-2016 Instruction Type:Provider Instructions for Treatment How to access health informa tion online Indication:Obesity, unspecified Start:08-Jun-2015 Instruction Type:Patient Education How to access health informa tion online - Detail Indication:Obesity, unspecified Start:08-Jun-2015 Instruction Type:Patient Education Patient Instructions Indication:Obesity, unspecified Start:08-Jun-2015 Instruction Type:Provider Instructions for Treatment Patient Instructions Indication:Hypothyroidism, adult Start:08-Sep-2014 Instruction Type:Provider Instructions for Treatment Patient Instructions Indication:Hypothyroidism, adult Start:10-Mar-2014 Instruction Type:Provider Instructions for Treatment [facility]; [facility] Work Phone: Instructions* Name Dates Details Patient Instructions Indication:BMI 30.0-30.9,adult Start:13-Feb-2023 Instruction Type:Provider Instructions for Treatment How to Access Health Informa tion Online using Patient Portal and [employer] Indication:BMI 30.0-30.9,adult Start:13-Feb-2023 Instruction Type:Patient Education Patient Instructions Indication:Current nonsmoker (Renamed from Current non-smoker) Start:02-Jan-2023 Instruction Type:Provider Instructions for Treatment How to Access Health Informa tion Online using Patient Portal and [employer] Indication:Current nonsmoker (Renamed from Current non-smoker) Start:02-Jan-2023 Instruction Type:Patient Education Patient Instructions Indication:BMI 30.0-30.9,adult Start:10-Oct-2022 Instruction Type:Provider Instructions for Treatment How to Access Health Informa tion Online using Patient Portal and [employer] Indication:BMI 30.0-30.9,adult Start:10-Oct-2022 Instruction Type:Patient Education Patient Instructions Indication:Current nonsmoker (Renamed from Current non-smoker) Start:13-Jun-2022 Instruction Type:Provider Instructions for Treatment How to Access Health Informa tion Online using Patient Portal and [employer] Indication:Current nonsmoker (Renamed from Current non-smoker) Start:13-Jun-2022 Instruction Type:Patient Education Patient Instructions Indication:Down syndrome Start:17-Jun-2021 Instruction Type:Provider Instructions for Treatment How to Access Health Informa tion Online using Patient Portal and [employer]rd [employer] Apps Indication:Down syndrome Start:17-Jun-2021 Instruction Type:Patient Education How to access health informa tion online Indication:BMI 31.0-31.9,adult Start:23-Jul-2020 Instruction Type:Patient Education How to access health informa tion online - Detail Indication:BMI 31.0-31.9,adult Start:23-Jul-2020 Instruction Type:Patient Education Patient Instructions Indication:BMI 31.0-31.9,adult Start:23-Jul-2020 Instruction Type:Provider Instructions for Treatment How to access health informa tion online Indication:Hypothyroidism, adult Start:20-Dec-2019 Instruction Type:Patient Education How to access health informa tion online - Detail Indication:Hypothyroidism, adult Start:20-Dec-2019 Instruction Type:Patient Education Patient Instructions Indication:Hypothyroidism, adult Start:20-Dec-2019 Instruction Type:Provider Instructions for Treatment How to access health informa tion online Indication:Current nonsmoker (Renamed from Current non-smoker) Start:06-Sep-2019 Instruction Type:Patient Education How to access health informa tion online - Detail Indication:Current nonsmoker (Renamed from Current non-smoker) Start:06-Sep-2019 Instruction Type:Patient Education Patient Instructions Indication:Current nonsmoker (Renamed from Current non-smoker) Start:06-Sep-2019 Instruction Type:Provider Instructions for Treatment How to access health informa tion online Indication:Hypothyroidism, adult Start:06-Jun-2019 Instruction Type:Patient Education How to access health informa tion online - Detail Indication:Hypothyroidism, adult Start:06-Jun-2019 Instruction Type:Patient Education Patient Instructions Indication:Hypothyroidism, adult Start:06-Jun-2019 Instruction Type:Provider Instructions for Treatment How to access health informa tion online Indication:BMI 33.0-33.9,adult Start:01-Mar-2019 Instruction Type:Patient Education How to access health informa tion online - Detail Indication:BMI 33.0-33.9,adult Start:01-Mar-2019 Instruction Type:Patient Education Patient Instructions Indication:BMI 33.0-33.9,adult Start:01-Mar-2019 Instruction Type:Provider Instructions for Treatment How to access health informa tion online Indication:Current nonsmoker (Renamed from Current non-smoker) Start:26-Nov-2018 Instruction Type:Patient Education How to access health informa tion online - Detail Indication:Current nonsmoker (Renamed from Current non-smoker) Start:26-Nov-2018 Instruction Type:Patient Education Patient Instructions Indication:Current nonsmoker (Renamed from Current non-smoker) Start:26-Nov-2018 Instruction Type:Provider Instructions for Treatment How to access health informa tion online Indication:BMI 31.0-31.9,adult Start:16-Nov-2017 Instruction Type:Patient Education How to access health informa tion online - Detail Indication:BMI 31.0-31.9,adult Start:16-Nov-2017 Instruction Type:Patient Education Patient Instructions Indication:BMI 31.0-31.9,adult Start:16-Nov-2017 Instruction Type:Provider Instructions for Treatment How to access health informa tion online Indication:BMI 32.0-32.9,adult Start:11-Aug-2017 Instruction Type:Patient Education How to access health informa tion online - Detail Indication:BMI 32.0-32.9,adult Start:11-Aug-2017 Instruction Type:Patient Education Patient Instructions Indication:BMI 32.0-32.9,adult Start:11-Aug-2017 Instruction Type:Provider Instructions for Treatment How to access health informa tion online Indication:Hypothyroidism, adult Start:30-Dec-2016 Instruction Type:Patient Education How to access health informa tion online - Detail Indication:Hypothyroidism, adult Start:30-Dec-2016 Instruction Type:Patient Education Patient Instructions Indication:Hypothyroidism, adult Start:30-Dec-2016 Instruction Type:Provider Instructions for Treatment How to access health informa tion online Indication:Current nonsmoker (Renamed from Current non-smoker) Start:27-Jun-2016 Instruction Type:Patient Education How to access health informa tion online - Detail Indication:Current nonsmoker (Renamed from Current non-smoker) Start:27-Jun-2016 Instruction Type:Patient Education Patient Instructions Indication:Current nonsmoker (Renamed from Current non-smoker) Start:27-Jun-2016 Instruction Type:Provider Instructions for Treatment How to access health informa tion online Indication:Hypothyroidism, adult Start:15-Feb-2016 Instruction Type:Patient Education How to access health informa tion online - Detail Indication:Hypothyroidism, adult Start:15-Feb-2016 Instruction Type:Patient Education Patient Instructions Indication:Hypothyroidism, adult Start:15-Feb-2016 Instruction Type:Provider Instructions for Treatment How to access health informa tion online Indication:Obesity, unspecified Start:08-Jun-2015 Instruction Type:Patient Education How to access health informa tion online - Detail Indication:Obesity, unspecified Start:08-Jun-2015 Instruction Type:Patient Education Patient Instructions Indication:Obesity, unspecified Start:08-Jun-2015 Instruction Type:Provider Instructions for Treatment Patient Instructions Indication:Hypothyroidism, adult Start:08-Sep-2014 Instruction Type:Provider Instructions for Treatment Patient Instructions Indication:Hypothyroidism, adult Start:10-Mar-2014 Instruction Type:Provider Instructions for Treatment [facility]; [facility] Work Phone: Instructions* Name Dates Details Patient Instructions Indication:BMI 30.0-30.9,adult Start:13-Feb-2023 Instruction Type:Provider Instructions for Treatment How to Access Health Informa tion Online using Patient Portal and [employer]rd [employer] Apps Indication:BMI 30.0-30.9,adult Start:13-Feb-2023 Instruction Type:Patient Education Patient Instructions Indication:Current nonsmoker (Renamed from Current non-smoker) Start:02-Jan-2023 Instruction Type:Provider Instructions for Treatment How to Access Health Informa tion Online using Patient Portal and [employer]rd [employer] Apps Indication:Current nonsmoker (Renamed from Current non-smoker) Start:02-Jan-2023 Instruction Type:Patient Education Patient Instructions Indication:BMI 30.0-30.9,adult Start:10-Oct-2022 Instruction Type:Provider Instructions for Treatment How to Access Health Informa tion Online using Patient Portal and [employer]rd [employer] Apps Indication:BMI 30.0-30.9,adult Start:10-Oct-2022 Instruction Type:Patient Education Patient Instructions Indication:Current nonsmoker (Renamed from Current non-smoker) Start:13-Jun-2022 Instruction Type:Provider Instructions for Treatment How to Access Health Informa tion Online using Patient Portal and [employer]rd [employer] Apps Indication:Current nonsmoker (Renamed from Current non-smoker) Start:13-Jun-2022 Instruction Type:Patient Education Patient Instructions Indication:Down syndrome Start:17-Jun-2021 Instruction Type:Provider Instructions for Treatment How to Access Health Informa tion Online using Patient Portal and [employer]rd [employer] Apps Indication:Down syndrome Start:17-Jun-2021 Instruction Type:Patient Education How to access health informa tion online Indication:BMI 31.0-31.9,adult Start:23-Jul-2020 Instruction Type:Patient Education How to access health informa tion online - Detail Indication:BMI 31.0-31.9,adult Start:23-Jul-2020 Instruction Type:Patient Education Patient Instructions Indication:BMI 31.0-31.9,adult Start:23-Jul-2020 Instruction Type:Provider Instructions for Treatment How to access health informa tion online Indication:Hypothyroidism, adult Start:20-Dec-2019 Instruction Type:Patient Education How to access health informa tion online - Detail Indication:Hypothyroidism, adult Start:20-Dec-2019 Instruction Type:Patient Education Patient Instructions Indication:Hypothyroidism, adult Start:20-Dec-2019 Instruction Type:Provider Instructions for Treatment How to access health informa tion online Indication:Current nonsmoker (Renamed from Current non-smoker) Start:06-Sep-2019 Instruction Type:Patient Education How to access health informa tion online - Detail Indication:Current nonsmoker (Renamed from Current non-smoker) Start:06-Sep-2019 Instruction Type:Patient Education Patient Instructions Indication:Current nonsmoker (Renamed from Current non-smoker) Start:06-Sep-2019 Instruction Type:Provider Instructions for Treatment How to access health informa tion online Indication:Hypothyroidism, adult Start:06-Jun-2019 Instruction Type:Patient Education How to access health informa tion online - Detail Indication:Hypothyroidism, adult Start:06-Jun-2019 Instruction Type:Patient Education Patient Instructions Indication:Hypothyroidism, adult Start:06-Jun-2019 Instruction Type:Provider Instructions for Treatment How to access health informa tion online Indication:BMI 33.0-33.9,adult Start:01-Mar-2019 Instruction Type:Patient Education How to access health informa tion online - Detail Indication:BMI 33.0-33.9,adult Start:01-Mar-2019 Instruction Type:Patient Education Patient Instructions Indication:BMI 33.0-33.9,adult Start:01-Mar-2019 Instruction Type:Provider Instructions for Treatment How to access health informa tion online Indication:Current nonsmoker (Renamed from Current non-smoker) Start:26-Nov-2018 Instruction Type:Patient Education How to access health informa tion online - Detail Indication:Current nonsmoker (Renamed from Current non-smoker) Start:26-Nov-2018 Instruction Type:Patient Education Patient Instructions Indication:Current nonsmoker (Renamed from Current non-smoker) Start:26-Nov-2018 Instruction Type:Provider Instructions for Treatment How to access health informa tion online Indication:BMI 31.0-31.9,adult Start:16-Nov-2017 Instruction Type:Patient Education How to access health informa tion online - Detail Indication:BMI 31.0-31.9,adult Start:16-Nov-2017 Instruction Type:Patient Education Patient Instructions Indication:BMI 31.0-31.9,adult Start:16-Nov-2017 Instruction Type:Provider Instructions for Treatment How to access health informa tion online Indication:BMI 32.0-32.9,adult Start:11-Aug-2017 Instruction Type:Patient Education How to access health informa tion online - Detail Indication:BMI 32.0-32.9,adult Start:11-Aug-2017 Instruction Type:Patient Education Patient Instructions Indication:BMI 32.0-32.9,adult Start:11-Aug-2017 Instruction Type:Provider Instructions for Treatment How to access health informa tion online Indication:Hypothyroidism, adult Start:30-Dec-2016 Instruction Type:Patient Education How to access health informa tion online - Detail Indication:Hypothyroidism, adult Start:30-Dec-2016 Instruction Type:Patient Education Patient Instructions Indication:Hypothyroidism, adult Start:30-Dec-2016 Instruction Type:Provider Instructions for Treatment How to access health informa tion online Indication:Current nonsmoker (Renamed from Current non-smoker) Start:27-Jun-2016 Instruction Type:Patient Education How to access health informa tion online - Detail Indication:Current nonsmoker (Renamed from Current non-smoker) Start:27-Jun-2016 Instruction Type:Patient Education Patient Instructions Indication:Current nonsmoker (Renamed from Current non-smoker) Start:27-Jun-2016 Instruction Type:Provider Instructions for Treatment How to access health informa tion online Indication:Hypothyroidism, adult Start:15-Feb-2016 Instruction Type:Patient Education How to access health informa tion online - Detail Indication:Hypothyroidism, adult Start:15-Feb-2016 Instruction Type:Patient Education Patient Instructions Indication:Hypothyroidism, adult Start:15-Feb-2016 Instruction Type:Provider Instructions for Treatment How to access health informa tion online Indication:Obesity, unspecified Start:08-Jun-2015 Instruction Type:Patient Education How to access health informa tion online - Detail Indication:Obesity, unspecified Start:08-Jun-2015 Instruction Type:Patient Education Patient Instructions Indication:Obesity, unspecified Start:08-Jun-2015 Instruction Type:Provider Instructions for Treatment Patient Instructions Indication:Hypothyroidism, adult Start:08-Sep-2014 Instruction Type:Provider Instructions for Treatment Patient Instructions Indication:Hypothyroidism, adult Start:10-Mar-2014 Instruction Type:Provider Instructions for Treatment [facility]; [facility] Work Phone: Instructions* Name Dates Details Patient Instructions Indication:BMI 30.0-30.9,adult Start:13-Feb-2023 Instruction Type:Provider Instructions for Treatment How to Access Health Informa tion Online using Patient Portal and [employer] Apps Indication:BMI 30.0-30.9,adult Start:13-Feb-2023 Instruction Type:Patient Education Patient Instructions Indication:Current nonsmoker (Renamed from Current non-smoker) Start:02-Jan-2023 Instruction Type:Provider Instructions for Treatment How to Access Health Informa tion Online using Patient Portal and [email or web address] Apps Indication:Current nonsmoker (Renamed from Current non-smoker) Start:02-Jan-2023 Instruction Type:Patient Education Patient Instructions Indication:BMI 30.0-30.9,adult Start:10-Oct-2022 Instruction Type:Provider Instructions for Treatment How to Access Health Informa tion Online using Patient Portal and [employer] Apps Indication:BMI 30.0-30.9,adult Start:10-Oct-2022 Instruction Type:Patient Education Patient Instructions Indication:Current nonsmoker (Renamed from Current non-smoker) Start:13-Jun-2022 Instruction Type:Provider Instructions for Treatment How to Access Health Informa tion Online using Patient Portal and [employer] Apps Indication:Current nonsmoker (Renamed from Current non-smoker) Start:13-Jun-2022 Instruction Type:Patient Education Patient Instructions Indication:Down syndrome Start:17-Jun-2021 Instruction Type:Provider Instructions for Treatment How to Access Health Informa tion Online using Patient Portal and [employer]rd [employer] Apps Indication:Down syndrome Start:17-Jun-2021 Instruction Type:Patient Education How to access health informa tion online Indication:BMI 31.0-31.9,adult Start:23-Jul-2020 Instruction Type:Patient Education How to access health informa tion online - Detail Indication:BMI 31.0-31.9,adult Start:23-Jul-2020 Instruction Type:Patient Education Patient Instructions Indication:BMI 31.0-31.9,adult Start:23-Jul-2020 Instruction Type:Provider Instructions for Treatment How to access health informa tion online Indication:Hypothyroidism, adult Start:20-Dec-2019 Instruction Type:Patient Education How to access health informa tion online - Detail Indication:Hypothyroidism, adult Start:20-Dec-2019 Instruction Type:Patient Education Patient Instructions Indication:Hypothyroidism, adult Start:20-Dec-2019 Instruction Type:Provider Instructions for Treatment How to access health informa tion online Indication:Current nonsmoker (Renamed from Current non-smoker) Start:06-Sep-2019 Instruction Type:Patient Education How to access health informa tion online - Detail Indication:Current nonsmoker (Renamed from Current non-smoker) Start:06-Sep-2019 Instruction Type:Patient Education Patient Instructions Indication:Current nonsmoker (Renamed from Current non-smoker) Start:06-Sep-2019 Instruction Type:Provider Instructions for Treatment How to access health informa tion online Indication:Hypothyroidism, adult Start:06-Jun-2019 Instruction Type:Patient Education How to access health informa tion online - Detail Indication:Hypothyroidism, adult Start:06-Jun-2019 Instruction Type:Patient Education Patient Instructions Indication:Hypothyroidism, adult Start:06-Jun-2019 Instruction Type:Provider Instructions for Treatment How to access health informa tion online Indication:BMI 33.0-33.9,adult Start:01-Mar-2019 Instruction Type:Patient Education How to access health informa tion online - Detail Indication:BMI 33.0-33.9,adult Start:01-Mar-2019 Instruction Type:Patient Education Patient Instructions Indication:BMI 33.0-33.9,adult Start:01-Mar-2019 Instruction Type:Provider Instructions for Treatment How to access health informa tion online Indication:Current nonsmoker (Renamed from Current non-smoker) Start:26-Nov-2018 Instruction Type:Patient Education How to access health informa tion online - Detail Indication:Current nonsmoker (Renamed from Current non-smoker) Start:26-Nov-2018 Instruction Type:Patient Education Patient Instructions Indication:Current nonsmoker (Renamed from Current non-smoker) Start:26-Nov-2018 Instruction Type:Provider Instructions for Treatment How to access health informa tion online Indication:BMI 31.0-31.9,adult Start:16-Nov-2017 Instruction Type:Patient Education How to access health informa tion online - Detail Indication:BMI 31.0-31.9,adult Start:16-Nov-2017 Instruction Type:Patient Education Patient Instructions Indication:BMI 31.0-31.9,adult Start:16-Nov-2017 Instruction Type:Provider Instructions for Treatment How to access health informa tion online Indication:BMI 32.0-32.9,adult Start:11-Aug-2017 Instruction Type:Patient Education How to access health informa tion online - Detail Indication:BMI 32.0-32.9,adult Start:11-Aug-2017 Instruction Type:Patient Education Patient Instructions Indication:BMI 32.0-32.9,adult Start:11-Aug-2017 Instruction Type:Provider Instructions for Treatment How to access health informa tion online Indication:Hypothyroidism, adult Start:30-Dec-2016 Instruction Type:Patient Education How to access health informa tion online - Detail Indication:Hypothyroidism, adult Start:30-Dec-2016 Instruction Type:Patient Education Patient Instructions Indication:Hypothyroidism, adult Start:30-Dec-2016 Instruction Type:Provider Instructions for Treatment How to access health informa tion online Indication:Current nonsmoker (Renamed from Current non-smoker) Start:27-Jun-2016 Instruction Type:Patient Education How to access health informa tion online - Detail Indication:Current nonsmoker (Renamed from Current non-smoker) Start:27-Jun-2016 Instruction Type:Patient Education Patient Instructions Indication:Current nonsmoker (Renamed from Current non-smoker) Start:27-Jun-2016 Instruction Type:Provider Instructions for Treatment How to access health informa tion online Indication:Hypothyroidism, adult Start:15-Feb-2016 Instruction Type:Patient Education How to access health informa tion online - Detail Indication:Hypothyroidism, adult Start:15-Feb-2016 Instruction Type:Patient Education Patient Instructions Indication:Hypothyroidism, adult Start:15-Feb-2016 Instruction Type:Provider Instructions for Treatment How to access health informa tion online Indication:Obesity, unspecified Start:08-Jun-2015 Instruction Type:Patient Education How to access health informa tion online - Detail Indication:Obesity, unspecified Start:08-Jun-2015 Instruction Type:Patient Education Patient Instructions Indication:Obesity, unspecified Start:08-Jun-2015 Instruction Type:Provider Instructions for Treatment Patient Instructions Indication:Hypothyroidism, adult Start:08-Sep-2014 Instruction Type:Provider Instructions for Treatment Patient Instructions Indication:Hypothyroidism, adult Start:10-Mar-2014 Instruction Type:Provider Instructions for Treatment [facility]; [facility] Work Phone: Instructions* Name Dates Details Patient Instructions Indication:BMI 30.0-30.9,adult Start:13-Feb-2023 Instruction Type:Provider Instructions for Treatment How to Access Health Informa tion Online using Patient Portal and [employer] Apps Indication:BMI 30.0-30.9,adult Start:13-Feb-2023 Instruction Type:Patient Education Patient Instructions Indication:Current nonsmoker (Renamed from Current non-smoker) Start:02-Jan-2023 Instruction Type:Provider Instructions for Treatment How to Access Health Informa tion Online using Patient Portal and [employer] Apps Indication:Current nonsmoker (Renamed from Current non-smoker) Start:02-Jan-2023 Instruction Type:Patient Education Patient Instructions Indication:BMI 30.0-30.9,adult Start:10-Oct-2022 Instruction Type:Provider Instructions for Treatment How to Access Health Informa tion Online using Patient Portal and [employer] Apps Indication:BMI 30.0-30.9,adult Start:10-Oct-2022 Instruction Type:Patient Education Patient Instructions Indication:Current nonsmoker (Renamed from Current non-smoker) Start:13-Jun-2022 Instruction Type:Provider Instructions for Treatment How to Access Health Informa tion Online using Patient Portal and [employer] Apps Indication:Current nonsmoker (Renamed from Current non-smoker) Start:13-Jun-2022 Instruction Type:Patient Education Patient Instructions Indication:Down syndrome Start:17-Jun-2021 Instruction Type:Provider Instructions for Treatment How to Access Health Informa tion Online using Patient Portal and [employer] Apps Indication:Down syndrome Start:17-Jun-2021 Instruction Type:Patient Education How to access health informa tion online Indication:BMI 31.0-31.9,adult Start:23-Jul-2020 Instruction Type:Patient Education How to access health informa tion online - Detail Indication:BMI 31.0-31.9,adult Start:23-Jul-2020 Instruction Type:Patient Education Patient Instructions Indication:BMI 31.0-31.9,adult Start:23-Jul-2020 Instruction Type:Provider Instructions for Treatment How to access health informa tion online Indication:Hypothyroidism, adult Start:20-Dec-2019 Instruction Type:Patient Education How to access health informa tion online - Detail Indication:Hypothyroidism, adult Start:20-Dec-2019 Instruction Type:Patient Education Patient Instructions Indication:Hypothyroidism, adult Start:20-Dec-2019 Instruction Type:Provider Instructions for Treatment How to access health informa tion online Indication:Current nonsmoker (Renamed from Current non-smoker) Start:06-Sep-2019 Instruction Type:Patient Education How to access health informa tion online - Detail Indication:Current nonsmoker (Renamed from Current non-smoker) Start:06-Sep-2019 Instruction Type:Patient Education Patient Instructions Indication:Current nonsmoker (Renamed from Current non-smoker) Start:06-Sep-2019 Instruction Type:Provider Instructions for Treatment How to access health informa tion online Indication:Hypothyroidism, adult Start:06-Jun-2019 Instruction Type:Patient Education How to access health informa tion online - Detail Indication:Hypothyroidism, adult Start:06-Jun-2019 Instruction Type:Patient Education Patient Instructions Indication:Hypothyroidism, adult Start:06-Jun-2019 Instruction Type:Provider Instructions for Treatment How to access health informa tion online Indication:BMI 33.0-33.9,adult Start:01-Mar-2019 Instruction Type:Patient Education How to access health informa tion online - Detail Indication:BMI 33.0-33.9,adult Start:01-Mar-2019 Instruction Type:Patient Education Patient Instructions Indication:BMI 33.0-33.9,adult Start:01-Mar-2019 Instruction Type:Provider Instructions for Treatment How to access health informa tion online Indication:Current nonsmoker (Renamed from Current non-smoker) Start:26-Nov-2018 Instruction Type:Patient Education How to access health informa tion online - Detail Indication:Current nonsmoker (Renamed from Current non-smoker) Start:26-Nov-2018 Instruction Type:Patient Education Patient Instructions Indication:Current nonsmoker (Renamed from Current non-smoker) Start:26-Nov-2018 Instruction Type:Provider Instructions for Treatment How to access health informa tion online Indication:BMI 31.0-31.9,adult Start:16-Nov-2017 Instruction Type:Patient Education How to access health informa tion online - Detail Indication:BMI 31.0-31.9,adult Start:16-Nov-2017 Instruction Type:Patient Education Patient Instructions Indication:BMI 31.0-31.9,adult Start:16-Nov-2017 Instruction Type:Provider Instructions for Treatment How to access health informa tion online Indication:BMI 32.0-32.9,adult Start:11-Aug-2017 Instruction Type:Patient Education How to access health informa tion online - Detail Indication:BMI 32.0-32.9,adult Start:11-Aug-2017 Instruction Type:Patient Education Patient Instructions Indication:BMI 32.0-32.9,adult Start:11-Aug-2017 Instruction Type:Provider Instructions for Treatment How to access health informa tion online Indication:Hypothyroidism, adult Start:30-Dec-2016 Instruction Type:Patient Education How to access health informa tion online - Detail Indication:Hypothyroidism, adult Start:30-Dec-2016 Instruction Type:Patient Education Patient Instructions Indication:Hypothyroidism, adult Start:30-Dec-2016 Instruction Type:Provider Instructions for Treatment How to access health informa tion online Indication:Current nonsmoker (Renamed from Current non-smoker) Start:27-Jun-2016 Instruction Type:Patient Education How to access health informa tion online - Detail Indication:Current nonsmoker (Renamed from Current non-smoker) Start:27-Jun-2016 Instruction Type:Patient Education Patient Instructions Indication:Current nonsmoker (Renamed from Current non-smoker) Start:27-Jun-2016 Instruction Type:Provider Instructions for Treatment How to access health informa tion online Indication:Hypothyroidism, adult Start:15-Feb-2016 Instruction Type:Patient Education How to access health informa tion online - Detail Indication:Hypothyroidism, adult Start:15-Feb-2016 Instruction Type:Patient Education Patient Instructions Indication:Hypothyroidism, adult Start:15-Feb-2016 Instruction Type:Provider Instructions for Treatment How to access health informa tion online Indication:Obesity, unspecified Start:08-Jun-2015 Instruction Type:Patient Education How to access health informa tion online - Detail Indication:Obesity, unspecified Start:08-Jun-2015 Instruction Type:Patient Education Patient Instructions Indication:Obesity, unspecified Start:08-Jun-2015 Instruction Type:Provider Instructions for Treatment Patient Instructions Indication:Hypothyroidism, adult Start:08-Sep-2014 Instruction Type:Provider Instructions for Treatment Patient Instructions Indication:Hypothyroidism, adult Start:10-Mar-2014 Instruction Type:Provider Instructions for Treatment [facility]; [facility] Work Phone: Instructions* Name Dates Details Patient Instructions Indication:BMI 30.0-30.9,adult Start:13-Feb-2023 Instruction Type:Provider Instructions for Treatment How to Access Health Informa tion Online using Patient Portal and [employer]rd [employer] Apps Indication:BMI 30.0-30.9,adult Start:13-Feb-2023 Instruction Type:Patient Education Patient Instructions Indication:Current nonsmoker (Renamed from Current non-smoker) Start:02-Jan-2023 Instruction Type:Provider Instructions for Treatment How to Access Health Informa tion Online using Patient Portal and [employer]rd [employer] Apps Indication:Current nonsmoker (Renamed from Current non-smoker) Start:02-Jan-2023 Instruction Type:Patient Education Patient Instructions Indication:BMI 30.0-30.9,adult Start:10-Oct-2022 Instruction Type:Provider Instructions for Treatment How to Access Health Informa tion Online using Patient Portal and [employer]rd [employer] Apps Indication:BMI 30.0-30.9,adult Start:10-Oct-2022 Instruction Type:Patient Education Patient Instructions Indication:Current nonsmoker (Renamed from Current non-smoker) Start:13-Jun-2022 Instruction Type:Provider Instructions for Treatment How to Access Health Informa tion Online using Patient Portal and [employer]rd [employer] Apps Indication:Current nonsmoker (Renamed from Current non-smoker) Start:13-Jun-2022 Instruction Type:Patient Education Patient Instructions Indication:Down syndrome Start:17-Jun-2021 Instruction Type:Provider Instructions for Treatment How to Access Health Informa tion Online using Patient Portal and 3rd [employer] Apps Indication:Down syndrome Start:17-Jun-2021 Instruction Type:Patient Education How to access health informa tion online Indication:BMI 31.0-31.9,adult Start:23-Jul-2020 Instruction Type:Patient Education How to access health informa tion online - Detail Indication:BMI 31.0-31.9,adult Start:23-Jul-2020 Instruction Type:Patient Education Patient Instructions Indication:BMI 31.0-31.9,adult Start:23-Jul-2020 Instruction Type:Provider Instructions for Treatment How to access health informa tion online Indication:Hypothyroidism, adult Start:20-Dec-2019 Instruction Type:Patient Education How to access health informa tion online - Detail Indication:Hypothyroidism, adult Start:20-Dec-2019 Instruction Type:Patient Education Patient Instructions Indication:Hypothyroidism, adult Start:20-Dec-2019 Instruction Type:Provider Instructions for Treatment How to access health informa tion online Indication:Current nonsmoker (Renamed from Current non-smoker) Start:06-Sep-2019 Instruction Type:Patient Education How to access health informa tion online - Detail Indication:Current nonsmoker (Renamed from Current non-smoker) Start:06-Sep-2019 Instruction Type:Patient Education Patient Instructions Indication:Current nonsmoker (Renamed from Current non-smoker) Start:06-Sep-2019 Instruction Type:Provider Instructions for Treatment How to access health informa tion online Indication:Hypothyroidism, adult Start:06-Jun-2019 Instruction Type:Patient Education How to access health informa tion online - Detail Indication:Hypothyroidism, adult Start:06-Jun-2019 Instruction Type:Patient Education Patient Instructions Indication:Hypothyroidism, adult Start:06-Jun-2019 Instruction Type:Provider Instructions for Treatment How to access health informa tion online Indication:BMI 33.0-33.9,adult Start:01-Mar-2019 Instruction Type:Patient Education How to access health informa tion online - Detail Indication:BMI 33.0-33.9,adult Start:01-Mar-2019 Instruction Type:Patient Education Patient Instructions Indication:BMI 33.0-33.9,adult Start:01-Mar-2019 Instruction Type:Provider Instructions for Treatment How to access health informa tion online Indication:Current nonsmoker (Renamed from Current non-smoker) Start:26-Nov-2018 Instruction Type:Patient Education How to access health informa tion online - Detail Indication:Current nonsmoker (Renamed from Current non-smoker) Start:26-Nov-2018 Instruction Type:Patient Education Patient Instructions Indication:Current nonsmoker (Renamed from Current non-smoker) Start:26-Nov-2018 Instruction Type:Provider Instructions for Treatment How to access health informa tion online Indication:BMI 31.0-31.9,adult Start:16-Nov-2017 Instruction Type:Patient Education How to access health informa tion online - Detail Indication:BMI 31.0-31.9,adult Start:16-Nov-2017 Instruction Type:Patient Education Patient Instructions Indication:BMI 31.0-31.9,adult Start:16-Nov-2017 Instruction Type:Provider Instructions for Treatment How to access health informa tion online Indication:BMI 32.0-32.9,adult Start:11-Aug-2017 Instruction Type:Patient Education How to access health informa tion online - Detail Indication:BMI 32.0-32.9,adult Start:11-Aug-2017 Instruction Type:Patient Education Patient Instructions Indication:BMI 32.0-32.9,adult Start:11-Aug-2017 Instruction Type:Provider Instructions for Treatment How to access health informa tion online Indication:Hypothyroidism, adult Start:30-Dec-2016 Instruction Type:Patient Education How to access health informa tion online - Detail Indication:Hypothyroidism, adult Start:30-Dec-2016 Instruction Type:Patient Education Patient Instructions Indication:Hypothyroidism, adult Start:30-Dec-2016 Instruction Type:Provider Instructions for Treatment How to access health informa tion online Indication:Current nonsmoker (Renamed from Current non-smoker) Start:27-Jun-2016 Instruction Type:Patient Education How to access health informa tion online - Detail Indication:Current nonsmoker (Renamed from Current non-smoker) Start:27-Jun-2016 Instruction Type:Patient Education Patient Instructions Indication:Current nonsmoker (Renamed from Current non-smoker) Start:27-Jun-2016 Instruction Type:Provider Instructions for Treatment How to access health informa tion online Indication:Hypothyroidism, adult Start:15-Feb-2016 Instruction Type:Patient Education How to access health informa tion online - Detail Indication:Hypothyroidism, adult Start:15-Feb-2016 Instruction Type:Patient Education Patient Instructions Indication:Hypothyroidism, adult Start:15-Feb-2016 Instruction Type:Provider Instructions for Treatment How to access health informa tion online Indication:Obesity, unspecified Start:08-Jun-2015 Instruction Type:Patient Education How to access health informa tion online - Detail Indication:Obesity, unspecified Start:08-Jun-2015 Instruction Type:Patient Education Patient Instructions Indication:Obesity, unspecified Start:08-Jun-2015 Instruction Type:Provider Instructions for Treatment Patient Instructions Indication:Hypothyroidism, adult Start:08-Sep-2014 Instruction Type:Provider Instructions for Treatment Patient Instructions Indication:Hypothyroidism, adult Start:10-Mar-2014 Instruction Type:Provider Instructions for Treatment [facility]; [facility] Work Phone: Instructions* Name Dates Details Patient Instructions Indication:BMI 30.0-30.9,adult Start:13-Feb-2023 Instruction Type:Provider Instructions for Treatment How to Access Health Informa tion Online using Patient Portal and [employer]rd [employer] Apps Indication:BMI 30.0-30.9,adult Start:13-Feb-2023 Instruction Type:Patient Education Patient Instructions Indication:Current nonsmoker (Renamed from Current non-smoker) Start:02-Jan-2023 Instruction Type:Provider Instructions for Treatment How to Access Health Informa tion Online using Patient Portal and [employer]rd [employer] Apps Indication:Current nonsmoker (Renamed from Current non-smoker) Start:02-Jan-2023 Instruction Type:Patient Education Patient Instructions Indication:BMI 30.0-30.9,adult Start:10-Oct-2022 Instruction Type:Provider Instructions for Treatment How to Access Health Informa tion Online using Patient Portal and [employer]rd [employer] Apps Indication:BMI 30.0-30.9,adult Start:10-Oct-2022 Instruction Type:Patient Education Patient Instructions Indication:Current nonsmoker (Renamed from Current non-smoker) Start:13-Jun-2022 Instruction Type:Provider Instructions for Treatment How to Access Health Informa tion Online using Patient Portal and [employer]rd [employer] Apps Indication:Current nonsmoker (Renamed from Current non-smoker) Start:13-Jun-2022 Instruction Type:Patient Education Patient Instructions Indication:Down syndrome Start:17-Jun-2021 Instruction Type:Provider Instructions for Treatment How to Access Health Informa tion Online using Patient Portal and [employer]rd [employer] Apps Indication:Down syndrome Start:17-Jun-2021 Instruction Type:Patient Education How to access health informa tion online Indication:BMI 31.0-31.9,adult Start:23-Jul-2020 Instruction Type:Patient Education How to access health informa tion online - Detail Indication:BMI 31.0-31.9,adult Start:23-Jul-2020 Instruction Type:Patient Education Patient Instructions Indication:BMI 31.0-31.9,adult Start:23-Jul-2020 Instruction Type:Provider Instructions for Treatment How to access health informa tion online Indication:Hypothyroidism, adult Start:20-Dec-2019 Instruction Type:Patient Education How to access health informa tion online - Detail Indication:Hypothyroidism, adult Start:20-Dec-2019 Instruction Type:Patient Education Patient Instructions Indication:Hypothyroidism, adult Start:20-Dec-2019 Instruction Type:Provider Instructions for Treatment How to access health informa tion online Indication:Current nonsmoker (Renamed from Current non-smoker) Start:06-Sep-2019 Instruction Type:Patient Education How to access health informa tion online - Detail Indication:Current nonsmoker (Renamed from Current non-smoker) Start:06-Sep-2019 Instruction Type:Patient Education Patient Instructions Indication:Current nonsmoker (Renamed from Current non-smoker) Start:06-Sep-2019 Instruction Type:Provider Instructions for Treatment How to access health informa tion online Indication:Hypothyroidism, adult Start:06-Jun-2019 Instruction Type:Patient Education How to access health informa tion online - Detail Indication:Hypothyroidism, adult Start:06-Jun-2019 Instruction Type:Patient Education Patient Instructions Indication:Hypothyroidism, adult Start:06-Jun-2019 Instruction Type:Provider Instructions for Treatment How to access health informa tion online Indication:BMI 33.0-33.9,adult Start:01-Mar-2019 Instruction Type:Patient Education How to access health informa tion online - Detail Indication:BMI 33.0-33.9,adult Start:01-Mar-2019 Instruction Type:Patient Education Patient Instructions Indication:BMI 33.0-33.9,adult Start:01-Mar-2019 Instruction Type:Provider Instructions for Treatment How to access health informa tion online Indication:Current nonsmoker (Renamed from Current non-smoker) Start:26-Nov-2018 Instruction Type:Patient Education How to access health informa tion online - Detail Indication:Current nonsmoker (Renamed from Current non-smoker) Start:26-Nov-2018 Instruction Type:Patient Education Patient Instructions Indication:Current nonsmoker (Renamed from Current non-smoker) Start:26-Nov-2018 Instruction Type:Provider Instructions for Treatment How to access health informa tion online Indication:BMI 31.0-31.9,adult Start:16-Nov-2017 Instruction Type:Patient Education How to access health informa tion online - Detail Indication:BMI 31.0-31.9,adult Start:16-Nov-2017 Instruction Type:Patient Education Patient Instructions Indication:BMI 31.0-31.9,adult Start:16-Nov-2017 Instruction Type:Provider Instructions for Treatment How to access health informa tion online Indication:BMI 32.0-32.9,adult Start:11-Aug-2017 Instruction Type:Patient Education How to access health informa tion online - Detail Indication:BMI 32.0-32.9,adult Start:11-Aug-2017 Instruction Type:Patient Education Patient Instructions Indication:BMI 32.0-32.9,adult Start:11-Aug-2017 Instruction Type:Provider Instructions for Treatment How to access health informa tion online Indication:Hypothyroidism, adult Start:30-Dec-2016 Instruction Type:Patient Education How to access health informa tion online - Detail Indication:Hypothyroidism, adult Start:30-Dec-2016 Instruction Type:Patient Education Patient Instructions Indication:Hypothyroidism, adult Start:30-Dec-2016 Instruction Type:Provider Instructions for Treatment How to access health informa tion online Indication:Current nonsmoker (Renamed from Current non-smoker) Start:27-Jun-2016 Instruction Type:Patient Education How to access health informa tion online - Detail Indication:Current nonsmoker (Renamed from Current non-smoker) Start:27-Jun-2016 Instruction Type:Patient Education Patient Instructions Indication:Current nonsmoker (Renamed from Current non-smoker) Start:27-Jun-2016 Instruction Type:Provider Instructions for Treatment How to access health informa tion online Indication:Hypothyroidism, adult Start:15-Feb-2016 Instruction Type:Patient Education How to access health informa tion online - Detail Indication:Hypothyroidism, adult Start:15-Feb-2016 Instruction Type:Patient Education Patient Instructions Indication:Hypothyroidism, adult Start:15-Feb-2016 Instruction Type:Provider Instructions for Treatment How to access health informa tion online Indication:Obesity, unspecified Start:08-Jun-2015 Instruction Type:Patient Education How to access health informa tion online - Detail Indication:Obesity, unspecified Start:08-Jun-2015 Instruction Type:Patient Education Patient Instructions Indication:Obesity, unspecified Start:08-Jun-2015 Instruction Type:Provider Instructions for Treatment Patient Instructions Indication:Hypothyroidism, adult Start:08-Sep-2014 Instruction Type:Provider Instructions for Treatment Patient Instructions Indication:Hypothyroidism, adult Start:10-Mar-2014 Instruction Type:Provider Instructions for Treatment [facility]; [facility] Work Phone: Instructions* Name Dates Details Patient Instructions Indication:BMI 30.0-30.9,adult Start:13-Feb-2023 Instruction Type:Provider Instructions for Treatment How to Access Health Informa tion Online using Patient Portal and [employer]rd [employer] Apps Indication:BMI 30.0-30.9,adult Start:13-Feb-2023 Instruction Type:Patient Education Patient Instructions Indication:Current nonsmoker (Renamed from Current non-smoker) Start:02-Jan-2023 Instruction Type:Provider Instructions for Treatment How to Access Health Informa tion Online using Patient Portal and [employer]rd [employer] Apps Indication:Current nonsmoker (Renamed from Current non-smoker) Start:02-Jan-2023 Instruction Type:Patient Education Patient Instructions Indication:BMI 30.0-30.9,adult Start:10-Oct-2022 Instruction Type:Provider Instructions for Treatment How to Access Health Informa tion Online using Patient Portal and [employer]rd [employer] Apps Indication:BMI 30.0-30.9,adult Start:10-Oct-2022 Instruction Type:Patient Education Patient Instructions Indication:Current nonsmoker (Renamed from Current non-smoker) Start:13-Jun-2022 Instruction Type:Provider Instructions for Treatment How to Access Health Informa tion Online using Patient Portal and [employer]rd [employer] Apps Indication:Current nonsmoker (Renamed from Current non-smoker) Start:13-Jun-2022 Instruction Type:Patient Education Patient Instructions Indication:Down syndrome Start:17-Jun-2021 Instruction Type:Provider Instructions for Treatment How to Access Health Informa tion Online using Patient Portal and [employer]rd [employer] Apps Indication:Down syndrome Start:17-Jun-2021 Instruction Type:Patient Education How to access health informa tion online Indication:BMI 31.0-31.9,adult Start:23-Jul-2020 Instruction Type:Patient Education How to access health informa tion online - Detail Indication:BMI 31.0-31.9,adult Start:23-Jul-2020 Instruction Type:Patient Education Patient Instructions Indication:BMI 31.0-31.9,adult Start:23-Jul-2020 Instruction Type:Provider Instructions for Treatment How to access health informa tion online Indication:Hypothyroidism, adult Start:20-Dec-2019 Instruction Type:Patient Education How to access health informa tion online - Detail Indication:Hypothyroidism, adult Start:20-Dec-2019 Instruction Type:Patient Education Patient Instructions Indication:Hypothyroidism, adult Start:20-Dec-2019 Instruction Type:Provider Instructions for Treatment How to access health informa tion online Indication:Current nonsmoker (Renamed from Current non-smoker) Start:06-Sep-2019 Instruction Type:Patient Education How to access health informa tion online - Detail Indication:Current nonsmoker (Renamed from Current non-smoker) Start:06-Sep-2019 Instruction Type:Patient Education Patient Instructions Indication:Current nonsmoker (Renamed from Current non-smoker) Start:06-Sep-2019 Instruction Type:Provider Instructions for Treatment How to access health informa tion online Indication:Hypothyroidism, adult Start:06-Jun-2019 Instruction Type:Patient Education How to access health informa tion online - Detail Indication:Hypothyroidism, adult Start:06-Jun-2019 Instruction Type:Patient Education Patient Instructions Indication:Hypothyroidism, adult Start:06-Jun-2019 Instruction Type:Provider Instructions for Treatment How to access health informa tion online Indication:BMI 33.0-33.9,adult Start:01-Mar-2019 Instruction Type:Patient Education How to access health informa tion online - Detail Indication:BMI 33.0-33.9,adult Start:01-Mar-2019 Instruction Type:Patient Education Patient Instructions Indication:BMI 33.0-33.9,adult Start:01-Mar-2019 Instruction Type:Provider Instructions for Treatment How to access health informa tion online Indication:Current nonsmoker (Renamed from Current non-smoker) Start:26-Nov-2018 Instruction Type:Patient Education How to access health informa tion online - Detail Indication:Current nonsmoker (Renamed from Current non-smoker) Start:26-Nov-2018 Instruction Type:Patient Education Patient Instructions Indication:Current nonsmoker (Renamed from Current non-smoker) Start:26-Nov-2018 Instruction Type:Provider Instructions for Treatment How to access health informa tion online Indication:BMI 31.0-31.9,adult Start:16-Nov-2017 Instruction Type:Patient Education How to access health informa tion online - Detail Indication:BMI 31.0-31.9,adult Start:16-Nov-2017 Instruction Type:Patient Education Patient Instructions Indication:BMI 31.0-31.9,adult Start:16-Nov-2017 Instruction Type:Provider Instructions for Treatment How to access health informa tion online Indication:BMI 32.0-32.9,adult Start:11-Aug-2017 Instruction Type:Patient Education How to access health informa tion online - Detail Indication:BMI 32.0-32.9,adult Start:11-Aug-2017 Instruction Type:Patient Education Patient Instructions Indication:BMI 32.0-32.9,adult Start:11-Aug-2017 Instruction Type:Provider Instructions for Treatment How to access health informa tion online Indication:Hypothyroidism, adult Start:30-Dec-2016 Instruction Type:Patient Education How to access health informa tion online - Detail Indication:Hypothyroidism, adult Start:30-Dec-2016 Instruction Type:Patient Education Patient Instructions Indication:Hypothyroidism, adult Start:30-Dec-2016 Instruction Type:Provider Instructions for Treatment How to access health informa tion online Indication:Current nonsmoker (Renamed from Current non-smoker) Start:27-Jun-2016 Instruction Type:Patient Education How to access health informa tion online - Detail Indication:Current nonsmoker (Renamed from Current non-smoker) Start:27-Jun-2016 Instruction Type:Patient Education Patient Instructions Indication:Current nonsmoker (Renamed from Current non-smoker) Start:27-Jun-2016 Instruction Type:Provider Instructions for Treatment How to access health informa tion online Indication:Hypothyroidism, adult Start:15-Feb-2016 Instruction Type:Patient Education How to access health informa tion online - Detail Indication:Hypothyroidism, adult Start:15-Feb-2016 Instruction Type:Patient Education Patient Instructions Indication:Hypothyroidism, adult Start:15-Feb-2016 Instruction Type:Provider Instructions for Treatment How to access health informa tion online Indication:Obesity, unspecified Start:08-Jun-2015 Instruction Type:Patient Education How to access health informa tion online - Detail Indication:Obesity, unspecified Start:08-Jun-2015 Instruction Type:Patient Education Patient Instructions Indication:Obesity, unspecified Start:08-Jun-2015 Instruction Type:Provider Instructions for Treatment Patient Instructions Indication:Hypothyroidism, adult Start:08-Sep-2014 Instruction Type:Provider Instructions for Treatment Patient Instructions Indication:Hypothyroidism, adult Start:10-Mar-2014 Instruction Type:Provider Instructions for Treatment [facility]; [facility] Work Phone: Instructions* Name Dates Details Patient Instructions Indication:BMI 30.0-30.9,adult Start:13-Feb-2023 Instruction Type:Provider Instructions for Treatment How to Access Health Informa tion Online using Patient Portal and [employer]rd [employer] Apps Indication:BMI 30.0-30.9,adult Start:13-Feb-2023 Instruction Type:Patient Education Patient Instructions Indication:Current nonsmoker (Renamed from Current non-smoker) Start:02-Jan-2023 Instruction Type:Provider Instructions for Treatment How to Access Health Informa tion Online using Patient Portal and [employer]rd [employer] Apps Indication:Current nonsmoker (Renamed from Current non-smoker) Start:02-Jan-2023 Instruction Type:Patient Education Patient Instructions Indication:BMI 30.0-30.9,adult Start:10-Oct-2022 Instruction Type:Provider Instructions for Treatment How to Access Health Informa tion Online using Patient Portal and [employer]rd [employer] Apps Indication:BMI 30.0-30.9,adult Start:10-Oct-2022 Instruction Type:Patient Education Patient Instructions Indication:Current nonsmoker (Renamed from Current non-smoker) Start:13-Jun-2022 Instruction Type:Provider Instructions for Treatment How to Access Health Informa tion Online using Patient Portal and [employer]rd [employer] Apps Indication:Current nonsmoker (Renamed from Current non-smoker) Start:13-Jun-2022 Instruction Type:Patient Education Patient Instructions Indication:Down syndrome Start:17-Jun-2021 Instruction Type:Provider Instructions for Treatment How to Access Health Informa tion Online using Patient Portal and [employer]rd [employer] Apps Indication:Down syndrome Start:17-Jun-2021 Instruction Type:Patient Education How to access health informa tion online Indication:BMI 31.0-31.9,adult Start:23-Jul-2020 Instruction Type:Patient Education How to access health informa tion online - Detail Indication:BMI 31.0-31.9,adult Start:23-Jul-2020 Instruction Type:Patient Education Patient Instructions Indication:BMI 31.0-31.9,adult Start:23-Jul-2020 Instruction Type:Provider Instructions for Treatment How to access health informa tion online Indication:Hypothyroidism, adult Start:20-Dec-2019 Instruction Type:Patient Education How to access health informa tion online - Detail Indication:Hypothyroidism, adult Start:20-Dec-2019 Instruction Type:Patient Education Patient Instructions Indication:Hypothyroidism, adult Start:20-Dec-2019 Instruction Type:Provider Instructions for Treatment How to access health informa tion online Indication:Current nonsmoker (Renamed from Current non-smoker) Start:06-Sep-2019 Instruction Type:Patient Education How to access health informa tion online - Detail Indication:Current nonsmoker (Renamed from Current non-smoker) Start:06-Sep-2019 Instruction Type:Patient Education Patient Instructions Indication:Current nonsmoker (Renamed from Current non-smoker) Start:06-Sep-2019 Instruction Type:Provider Instructions for Treatment How to access health informa tion online Indication:Hypothyroidism, adult Start:06-Jun-2019 Instruction Type:Patient Education How to access health informa tion online - Detail Indication:Hypothyroidism, adult Start:06-Jun-2019 Instruction Type:Patient Education Patient Instructions Indication:Hypothyroidism, adult Start:06-Jun-2019 Instruction Type:Provider Instructions for Treatment How to access health informa tion online Indication:BMI 33.0-33.9,adult Start:01-Mar-2019 Instruction Type:Patient Education How to access health informa tion online - Detail Indication:BMI 33.0-33.9,adult Start:01-Mar-2019 Instruction Type:Patient Education Patient Instructions Indication:BMI 33.0-33.9,adult Start:01-Mar-2019 Instruction Type:Provider Instructions for Treatment How to access health informa tion online Indication:Current nonsmoker (Renamed from Current non-smoker) Start:26-Nov-2018 Instruction Type:Patient Education How to access health informa tion online - Detail Indication:Current nonsmoker (Renamed from Current non-smoker) Start:26-Nov-2018 Instruction Type:Patient Education Patient Instructions Indication:Current nonsmoker (Renamed from Current non-smoker) Start:26-Nov-2018 Instruction Type:Provider Instructions for Treatment How to access health informa tion online Indication:BMI 31.0-31.9,adult Start:16-Nov-2017 Instruction Type:Patient Education How to access health informa tion online - Detail Indication:BMI 31.0-31.9,adult Start:16-Nov-2017 Instruction Type:Patient Education Patient Instructions Indication:BMI 31.0-31.9,adult Start:16-Nov-2017 Instruction Type:Provider Instructions for Treatment How to access health informa tion online Indication:BMI 32.0-32.9,adult Start:11-Aug-2017 Instruction Type:Patient Education How to access health informa tion online - Detail Indication:BMI 32.0-32.9,adult Start:11-Aug-2017 Instruction Type:Patient Education Patient Instructions Indication:BMI 32.0-32.9,adult Start:11-Aug-2017 Instruction Type:Provider Instructions for Treatment How to access health informa tion online Indication:Hypothyroidism, adult Start:30-Dec-2016 Instruction Type:Patient Education How to access health informa tion online - Detail Indication:Hypothyroidism, adult Start:30-Dec-2016 Instruction Type:Patient Education Patient Instructions Indication:Hypothyroidism, adult Start:30-Dec-2016 Instruction Type:Provider Instructions for Treatment How to access health informa tion online Indication:Current nonsmoker (Renamed from Current non-smoker) Start:27-Jun-2016 Instruction Type:Patient Education How to access health informa tion online - Detail Indication:Current nonsmoker (Renamed from Current non-smoker) Start:27-Jun-2016 Instruction Type:Patient Education Patient Instructions Indication:Current nonsmoker (Renamed from Current non-smoker) Start:27-Jun-2016 Instruction Type:Provider Instructions for Treatment How to access health informa tion online Indication:Hypothyroidism, adult Start:15-Feb-2016 Instruction Type:Patient Education How to access health informa tion online - Detail Indication:Hypothyroidism, adult Start:15-Feb-2016 Instruction Type:Patient Education Patient Instructions Indication:Hypothyroidism, adult Start:15-Feb-2016 Instruction Type:Provider Instructions for Treatment How to access health informa tion online Indication:Obesity, unspecified Start:08-Jun-2015 Instruction Type:Patient Education How to access health informa tion online - Detail Indication:Obesity, unspecified Start:08-Jun-2015 Instruction Type:Patient Education Patient Instructions Indication:Obesity, unspecified Start:08-Jun-2015 Instruction Type:Provider Instructions for Treatment Patient Instructions Indication:Hypothyroidism, adult Start:08-Sep-2014 Instruction Type:Provider Instructions for Treatment Patient Instructions Indication:Hypothyroidism, adult Start:10-Mar-2014 Instruction Type:Provider Instructions for Treatment [facility]; [facility] Work Phone: Instructions* Name Dates Details Patient Instructions Indication:BMI 30.0-30.9,adult Start:26-May-2023 Instruction Type:Provider Instructions for Treatment How to Access Health Informa tion Online using Patient Portal and [employer]rd [employer] Apps Indication:BMI 30.0-30.9,adult Start:26-May-2023 Instruction Type:Patient Education Patient Instructions Indication:BMI 30.0-30.9,adult Start:13-Feb-2023 Instruction Type:Provider Instructions for Treatment How to Access Health Informa tion Online using Patient Portal and [employer]rd [employer] Apps Indication:BMI 30.0-30.9,adult Start:13-Feb-2023 Instruction Type:Patient Education Patient Instructions Indication:Current nonsmoker (Renamed from Current non-smoker) Start:02-Jan-2023 Instruction Type:Provider Instructions for Treatment How to Access Health Informa tion Online using Patient Portal and [employer]rd [employer] Apps Indication:Current nonsmoker (Renamed from Current non-smoker) Start:02-Jan-2023 Instruction Type:Patient Education Patient Instructions Indication:BMI 30.0-30.9,adult Start:10-Oct-2022 Instruction Type:Provider Instructions for Treatment How to Access Health Informa tion Online using Patient Portal and [employer]rd [employer] Apps Indication:BMI 30.0-30.9,adult Start:10-Oct-2022 Instruction Type:Patient Education Patient Instructions Indication:Current nonsmoker (Renamed from Current non-smoker) Start:13-Jun-2022 Instruction Type:Provider Instructions for Treatment How to Access Health Informa tion Online using Patient Portal and [employer]rd [employer] Apps Indication:Current nonsmoker (Renamed from Current non-smoker) Start:13-Jun-2022 Instruction Type:Patient Education Patient Instructions Indication:Down syndrome Start:17-Jun-2021 Instruction Type:Provider Instructions for Treatment How to Access Health Informa tion Online using Patient Portal and [employer]rd [employer] Apps Indication:Down syndrome Start:17-Jun-2021 Instruction Type:Patient Education How to access health informa tion online Indication:BMI 31.0-31.9,adult Start:23-Jul-2020 Instruction Type:Patient Education How to access health informa tion online - Detail Indication:BMI 31.0-31.9,adult Start:23-Jul-2020 Instruction Type:Patient Education Patient Instructions Indication:BMI 31.0-31.9,adult Start:23-Jul-2020 Instruction Type:Provider Instructions for Treatment How to access health informa tion online Indication:Hypothyroidism, adult Start:20-Dec-2019 Instruction Type:Patient Education How to access health informa tion online - Detail Indication:Hypothyroidism, adult Start:20-Dec-2019 Instruction Type:Patient Education Patient Instructions Indication:Hypothyroidism, adult Start:20-Dec-2019 Instruction Type:Provider Instructions for Treatment How to access health informa tion online Indication:Current nonsmoker (Renamed from Current non-smoker) Start:06-Sep-2019 Instruction Type:Patient Education How to access health informa tion online - Detail Indication:Current nonsmoker (Renamed from Current non-smoker) Start:06-Sep-2019 Instruction Type:Patient Education Patient Instructions Indication:Current nonsmoker (Renamed from Current non-smoker) Start:06-Sep-2019 Instruction Type:Provider Instructions for Treatment How to access health informa tion online Indication:Hypothyroidism, adult Start:06-Jun-2019 Instruction Type:Patient Education How to access health informa tion online - Detail Indication:Hypothyroidism, adult Start:06-Jun-2019 Instruction Type:Patient Education Patient Instructions Indication:Hypothyroidism, adult Start:06-Jun-2019 Instruction Type:Provider Instructions for Treatment How to access health informa tion online Indication:BMI 33.0-33.9,adult Start:01-Mar-2019 Instruction Type:Patient Education How to access health informa tion online - Detail Indication:BMI 33.0-33.9,adult Start:01-Mar-2019 Instruction Type:Patient Education Patient Instructions Indication:BMI 33.0-33.9,adult Start:01-Mar-2019 Instruction Type:Provider Instructions for Treatment How to access health informa tion online Indication:Current nonsmoker (Renamed from Current non-smoker) Start:26-Nov-2018 Instruction Type:Patient Education How to access health informa tion online - Detail Indication:Current nonsmoker (Renamed from Current non-smoker) Start:26-Nov-2018 Instruction Type:Patient Education Patient Instructions Indication:Current nonsmoker (Renamed from Current non-smoker) Start:26-Nov-2018 Instruction Type:Provider Instructions for Treatment How to access health informa tion online Indication:BMI 31.0-31.9,adult Start:16-Nov-2017 Instruction Type:Patient Education How to access health informa tion online - Detail Indication:BMI 31.0-31.9,adult Start:16-Nov-2017 Instruction Type:Patient Education Patient Instructions Indication:BMI 31.0-31.9,adult Start:16-Nov-2017 Instruction Type:Provider Instructions for Treatment How to access health informa tion online Indication:BMI 32.0-32.9,adult Start:11-Aug-2017 Instruction Type:Patient Education How to access health informa tion online - Detail Indication:BMI 32.0-32.9,adult Start:11-Aug-2017 Instruction Type:Patient Education Patient Instructions Indication:BMI 32.0-32.9,adult Start:11-Aug-2017 Instruction Type:Provider Instructions for Treatment How to access health informa tion online Indication:Hypothyroidism, adult Start:30-Dec-2016 Instruction Type:Patient Education How to access health informa tion online - Detail Indication:Hypothyroidism, adult Start:30-Dec-2016 Instruction Type:Patient Education Patient Instructions Indication:Hypothyroidism, adult Start:30-Dec-2016 Instruction Type:Provider Instructions for Treatment How to access health informa tion online Indication:Current nonsmoker (Renamed from Current non-smoker) Start:27-Jun-2016 Instruction Type:Patient Education How to access health informa tion online - Detail Indication:Current nonsmoker (Renamed from Current non-smoker) Start:27-Jun-2016 Instruction Type:Patient Education Patient Instructions Indication:Current nonsmoker (Renamed from Current non-smoker) Start:27-Jun-2016 Instruction Type:Provider Instructions for Treatment How to access health informa tion online Indication:Hypothyroidism, adult Start:15-Feb-2016 Instruction Type:Patient Education How to access health informa tion online - Detail Indication:Hypothyroidism, adult Start:15-Feb-2016 Instruction Type:Patient Education Patient Instructions Indication:Hypothyroidism, adult Start:15-Feb-2016 Instruction Type:Provider Instructions for Treatment How to access health informa tion online Indication:Obesity, unspecified Start:08-Jun-2015 Instruction Type:Patient Education How to access health informa tion online - Detail Indication:Obesity, unspecified Start:08-Jun-2015 Instruction Type:Patient Education Patient Instructions Indication:Obesity, unspecified Start:08-Jun-2015 Instruction Type:Provider Instructions for Treatment Patient Instructions Indication:Hypothyroidism, adult Start:08-Sep-2014 Instruction Type:Provider Instructions for Treatment Patient Instructions Indication:Hypothyroidism, adult Start:10-Mar-2014 Instruction Type:Provider Instructions for Treatment [facility]; [facility] Work Phone: Instructions* Name Dates Details Patient Instructions Indication:BMI 30.0-30.9,adult Start:26-May-2023 Instruction Type:Provider Instructions for Treatment How to Access Health Informa tion Online using Patient Portal and [employer]rd [employer] Apps Indication:BMI 30.0-30.9,adult Start:26-May-2023 Instruction Type:Patient Education Patient Instructions Indication:BMI 30.0-30.9,adult Start:13-Feb-2023 Instruction Type:Provider Instructions for Treatment How to Access Health Informa tion Online using Patient Portal and [employer]rd [employer] Apps Indication:BMI 30.0-30.9,adult Start:13-Feb-2023 Instruction Type:Patient Education Patient Instructions Indication:Current nonsmoker (Renamed from Current non-smoker) Start:02-Jan-2023 Instruction Type:Provider Instructions for Treatment How to Access Health Informa tion Online using Patient Portal and [employer]rd [employer] Apps Indication:Current nonsmoker (Renamed from Current non-smoker) Start:02-Jan-2023 Instruction Type:Patient Education Patient Instructions Indication:BMI 30.0-30.9,adult Start:10-Oct-2022 Instruction Type:Provider Instructions for Treatment How to Access Health Informa tion Online using Patient Portal and [employer]rd [employer] Apps Indication:BMI 30.0-30.9,adult Start:10-Oct-2022 Instruction Type:Patient Education Patient Instructions Indication:Current nonsmoker (Renamed from Current non-smoker) Start:13-Jun-2022 Instruction Type:Provider Instructions for Treatment How to Access Health Informa tion Online using Patient Portal and [employer]rd [employer] Apps Indication:Current nonsmoker (Renamed from Current non-smoker) Start:13-Jun-2022 Instruction Type:Patient Education Patient Instructions Indication:Down syndrome Start:17-Jun-2021 Instruction Type:Provider Instructions for Treatment How to Access Health Informa tion Online using Patient Portal and [employer]rd [employer] Apps Indication:Down syndrome Start:17-Jun-2021 Instruction Type:Patient Education How to access health informa tion online Indication:BMI 31.0-31.9,adult Start:23-Jul-2020 Instruction Type:Patient Education How to access health informa tion online - Detail Indication:BMI 31.0-31.9,adult Start:23-Jul-2020 Instruction Type:Patient Education Patient Instructions Indication:BMI 31.0-31.9,adult Start:23-Jul-2020 Instruction Type:Provider Instructions for Treatment How to access health informa tion online Indication:Hypothyroidism, adult Start:20-Dec-2019 Instruction Type:Patient Education How to access health informa tion online - Detail Indication:Hypothyroidism, adult Start:20-Dec-2019 Instruction Type:Patient Education Patient Instructions Indication:Hypothyroidism, adult Start:20-Dec-2019 Instruction Type:Provider Instructions for Treatment How to access health informa tion online Indication:Current nonsmoker (Renamed from Current non-smoker) Start:06-Sep-2019 Instruction Type:Patient Education How to access health informa tion online - Detail Indication:Current nonsmoker (Renamed from Current non-smoker) Start:06-Sep-2019 Instruction Type:Patient Education Patient Instructions Indication:Current nonsmoker (Renamed from Current non-smoker) Start:06-Sep-2019 Instruction Type:Provider Instructions for Treatment How to access health informa tion online Indication:Hypothyroidism, adult Start:06-Jun-2019 Instruction Type:Patient Education How to access health informa tion online - Detail Indication:Hypothyroidism, adult Start:06-Jun-2019 Instruction Type:Patient Education Patient Instructions Indication:Hypothyroidism, adult Start:06-Jun-2019 Instruction Type:Provider Instructions for Treatment How to access health informa tion online Indication:BMI 33.0-33.9,adult Start:01-Mar-2019 Instruction Type:Patient Education How to access health informa tion online - Detail Indication:BMI 33.0-33.9,adult Start:01-Mar-2019 Instruction Type:Patient Education Patient Instructions Indication:BMI 33.0-33.9,adult Start:01-Mar-2019 Instruction Type:Provider Instructions for Treatment How to access health informa tion online Indication:Current nonsmoker (Renamed from Current non-smoker) Start:26-Nov-2018 Instruction Type:Patient Education How to access health informa tion online - Detail Indication:Current nonsmoker (Renamed from Current non-smoker) Start:26-Nov-2018 Instruction Type:Patient Education Patient Instructions Indication:Current nonsmoker (Renamed from Current non-smoker) Start:26-Nov-2018 Instruction Type:Provider Instructions for Treatment How to access health informa tion online Indication:BMI 31.0-31.9,adult Start:16-Nov-2017 Instruction Type:Patient Education How to access health informa tion online - Detail Indication:BMI 31.0-31.9,adult Start:16-Nov-2017 Instruction Type:Patient Education Patient Instructions Indication:BMI 31.0-31.9,adult Start:16-Nov-2017 Instruction Type:Provider Instructions for Treatment How to access health informa tion online Indication:BMI 32.0-32.9,adult Start:11-Aug-2017 Instruction Type:Patient Education How to access health informa tion online - Detail Indication:BMI 32.0-32.9,adult Start:11-Aug-2017 Instruction Type:Patient Education Patient Instructions Indication:BMI 32.0-32.9,adult Start:11-Aug-2017 Instruction Type:Provider Instructions for Treatment How to access health informa tion online Indication:Hypothyroidism, adult Start:30-Dec-2016 Instruction Type:Patient Education How to access health informa tion online - Detail Indication:Hypothyroidism, adult Start:30-Dec-2016 Instruction Type:Patient Education Patient Instructions Indication:Hypothyroidism, adult Start:30-Dec-2016 Instruction Type:Provider Instructions for Treatment How to access health informa tion online Indication:Current nonsmoker (Renamed from Current non-smoker) Start:27-Jun-2016 Instruction Type:Patient Education How to access health informa tion online - Detail Indication:Current nonsmoker (Renamed from Current non-smoker) Start:27-Jun-2016 Instruction Type:Patient Education Patient Instructions Indication:Current nonsmoker (Renamed from Current non-smoker) Start:27-Jun-2016 Instruction Type:Provider Instructions for Treatment How to access health informa tion online Indication:Hypothyroidism, adult Start:15-Feb-2016 Instruction Type:Patient Education How to access health informa tion online - Detail Indication:Hypothyroidism, adult Start:15-Feb-2016 Instruction Type:Patient Education Patient Instructions Indication:Hypothyroidism, adult Start:15-Feb-2016 Instruction Type:Provider Instructions for Treatment How to access health informa tion online Indication:Obesity, unspecified Start:08-Jun-2015 Instruction Type:Patient Education How to access health informa tion online - Detail Indication:Obesity, unspecified Start:08-Jun-2015 Instruction Type:Patient Education Patient Instructions Indication:Obesity, unspecified Start:08-Jun-2015 Instruction Type:Provider Instructions for Treatment Patient Instructions Indication:Hypothyroidism, adult Start:08-Sep-2014 Instruction Type:Provider Instructions for Treatment Patient Instructions Indication:Hypothyroidism, adult Start:10-Mar-2014 Instruction Type:Provider Instructions for Treatment [facility]; [facility] Work Phone: Instructions* Name Dates Details Patient Instructions Indication:BMI 30.0-30.9,adult Start:26-May-2023 Instruction Type:Provider Instructions for Treatment How to Access Health Informa tion Online using Patient Portal and [employer]rd [employer] Apps Indication:BMI 30.0-30.9,adult Start:26-May-2023 Instruction Type:Patient Education Patient Instructions Indication:BMI 30.0-30.9,adult Start:13-Feb-2023 Instruction Type:Provider Instructions for Treatment How to Access Health Informa tion Online using Patient Portal and [employer]rd [employer] Apps Indication:BMI 30.0-30.9,adult Start:13-Feb-2023 Instruction Type:Patient Education Patient Instructions Indication:Current nonsmoker (Renamed from Current non-smoker) Start:02-Jan-2023 Instruction Type:Provider Instructions for Treatment How to Access Health Informa tion Online using Patient Portal and [employer]rd [employer] Apps Indication:Current nonsmoker (Renamed from Current non-smoker) Start:02-Jan-2023 Instruction Type:Patient Education Patient Instructions Indication:BMI 30.0-30.9,adult Start:10-Oct-2022 Instruction Type:Provider Instructions for Treatment How to Access Health Informa tion Online using Patient Portal and [employer]rd [employer] Apps Indication:BMI 30.0-30.9,adult Start:10-Oct-2022 Instruction Type:Patient Education Patient Instructions Indication:Current nonsmoker (Renamed from Current non-smoker) Start:13-Jun-2022 Instruction Type:Provider Instructions for Treatment How to Access Health Informa tion Online using Patient Portal and [employer]rd [employer] Apps Indication:Current nonsmoker (Renamed from Current non-smoker) Start:13-Jun-2022 Instruction Type:Patient Education Patient Instructions Indication:Down syndrome Start:17-Jun-2021 Instruction Type:Provider Instructions for Treatment How to Access Health Informa tion Online using Patient Portal and [email or web address] Apps Indication:Down syndrome Start:17-Jun-2021 Instruction Type:Patient Education How to access health informa tion online Indication:BMI 31.0-31.9,adult Start:23-Jul-2020 Instruction Type:Patient Education How to access health informa tion online - Detail Indication:BMI 31.0-31.9,adult Start:23-Jul-2020 Instruction Type:Patient Education Patient Instructions Indication:BMI 31.0-31.9,adult Start:23-Jul-2020 Instruction Type:Provider Instructions for Treatment How to access health informa tion online Indication:Hypothyroidism, adult Start:20-Dec-2019 Instruction Type:Patient Education How to access health informa tion online - Detail Indication:Hypothyroidism, adult Start:20-Dec-2019 Instruction Type:Patient Education Patient Instructions Indication:Hypothyroidism, adult Start:20-Dec-2019 Instruction Type:Provider Instructions for Treatment How to access health informa tion online Indication:Current nonsmoker (Renamed from Current non-smoker) Start:06-Sep-2019 Instruction Type:Patient Education How to access health informa tion online - Detail Indication:Current nonsmoker (Renamed from Current non-smoker) Start:06-Sep-2019 Instruction Type:Patient Education Patient Instructions Indication:Current nonsmoker (Renamed from Current non-smoker) Start:06-Sep-2019 Instruction Type:Provider Instructions for Treatment How to access health informa tion online Indication:Hypothyroidism, adult Start:06-Jun-2019 Instruction Type:Patient Education How to access health informa tion online - Detail Indication:Hypothyroidism, adult Start:06-Jun-2019 Instruction Type:Patient Education Patient Instructions Indication:Hypothyroidism, adult Start:06-Jun-2019 Instruction Type:Provider Instructions for Treatment How to access health informa tion online Indication:BMI 33.0-33.9,adult Start:01-Mar-2019 Instruction Type:Patient Education How to access health informa tion online - Detail Indication:BMI 33.0-33.9,adult Start:01-Mar-2019 Instruction Type:Patient Education Patient Instructions Indication:BMI 33.0-33.9,adult Start:01-Mar-2019 Instruction Type:Provider Instructions for Treatment How to access health informa tion online Indication:Current nonsmoker (Renamed from Current non-smoker) Start:26-Nov-2018 Instruction Type:Patient Education How to access health informa tion online - Detail Indication:Current nonsmoker (Renamed from Current non-smoker) Start:26-Nov-2018 Instruction Type:Patient Education Patient Instructions Indication:Current nonsmoker (Renamed from Current non-smoker) Start:26-Nov-2018 Instruction Type:Provider Instructions for Treatment How to access health informa tion online Indication:BMI 31.0-31.9,adult Start:16-Nov-2017 Instruction Type:Patient Education How to access health informa tion online - Detail Indication:BMI 31.0-31.9,adult Start:16-Nov-2017 Instruction Type:Patient Education Patient Instructions Indication:BMI 31.0-31.9,adult Start:16-Nov-2017 Instruction Type:Provider Instructions for Treatment How to access health informa tion online Indication:BMI 32.0-32.9,adult Start:11-Aug-2017 Instruction Type:Patient Education How to access health informa tion online - Detail Indication:BMI 32.0-32.9,adult Start:11-Aug-2017 Instruction Type:Patient Education Patient Instructions Indication:BMI 32.0-32.9,adult Start:11-Aug-2017 Instruction Type:Provider Instructions for Treatment How to access health informa tion online Indication:Hypothyroidism, adult Start:30-Dec-2016 Instruction Type:Patient Education How to access health informa tion online - Detail Indication:Hypothyroidism, adult Start:30-Dec-2016 Instruction Type:Patient Education Patient Instructions Indication:Hypothyroidism, adult Start:30-Dec-2016 Instruction Type:Provider Instructions for Treatment How to access health informa tion online Indication:Current nonsmoker (Renamed from Current non-smoker) Start:27-Jun-2016 Instruction Type:Patient Education How to access health informa tion online - Detail Indication:Current nonsmoker (Renamed from Current non-smoker) Start:27-Jun-2016 Instruction Type:Patient Education Patient Instructions Indication:Current nonsmoker (Renamed from Current non-smoker) Start:27-Jun-2016 Instruction Type:Provider Instructions for Treatment How to access health informa tion online Indication:Hypothyroidism, adult Start:15-Feb-2016 Instruction Type:Patient Education How to access health informa tion online - Detail Indication:Hypothyroidism, adult Start:15-Feb-2016 Instruction Type:Patient Education Patient Instructions Indication:Hypothyroidism, adult Start:15-Feb-2016 Instruction Type:Provider Instructions for Treatment How to access health informa tion online Indication:Obesity, unspecified Start:08-Jun-2015 Instruction Type:Patient Education How to access health informa tion online - Detail Indication:Obesity, unspecified Start:08-Jun-2015 Instruction Type:Patient Education Patient Instructions Indication:Obesity, unspecified Start:08-Jun-2015 Instruction Type:Provider Instructions for Treatment Patient Instructions Indication:Hypothyroidism, adult Start:08-Sep-2014 Instruction Type:Provider Instructions for Treatment Patient Instructions Indication:Hypothyroidism, adult Start:10-Mar-2014 Instruction Type:Provider Instructions for Treatment [facility]; [facility] Work Phone: Instructions* Name Dates Details Patient Instructions Indication:BMI 30.0-30.9,adult Start:26-May-2023 Instruction Type:Provider Instructions for Treatment How to Access Health Informa tion Online using Patient Portal and [employer]rd [employer] Apps Indication:BMI 30.0-30.9,adult Start:26-May-2023 Instruction Type:Patient Education Patient Instructions Indication:BMI 30.0-30.9,adult Start:13-Feb-2023 Instruction Type:Provider Instructions for Treatment How to Access Health Informa tion Online using Patient Portal and [employer]rd [employer] Apps Indication:BMI 30.0-30.9,adult Start:13-Feb-2023 Instruction Type:Patient Education Patient Instructions Indication:Current nonsmoker (Renamed from Current non-smoker) Start:02-Jan-2023 Instruction Type:Provider Instructions for Treatment How to Access Health Informa tion Online using Patient Portal and [employer]rd [employer] Apps Indication:Current nonsmoker (Renamed from Current non-smoker) Start:02-Jan-2023 Instruction Type:Patient Education Patient Instructions Indication:BMI 30.0-30.9,adult Start:10-Oct-2022 Instruction Type:Provider Instructions for Treatment How to Access Health Informa tion Online using Patient Portal and [employer]rd [employer] Apps Indication:BMI 30.0-30.9,adult Start:10-Oct-2022 Instruction Type:Patient Education Patient Instructions Indication:Current nonsmoker (Renamed from Current non-smoker) Start:13-Jun-2022 Instruction Type:Provider Instructions for Treatment How to Access Health Informa tion Online using Patient Portal and [email or web address] Apps Indication:Current nonsmoker (Renamed from Current non-smoker) Start:13-Jun-2022 Instruction Type:Patient Education Patient Instructions Indication:Down syndrome Start:17-Jun-2021 Instruction Type:Provider Instructions for Treatment How to Access Health Informa tion Online using Patient Portal and [email or web address] Apps Indication:Down syndrome Start:17-Jun-2021 Instruction Type:Patient Education How to access health informa tion online Indication:BMI 31.0-31.9,adult Start:23-Jul-2020 Instruction Type:Patient Education How to access health informa tion online - Detail Indication:BMI 31.0-31.9,adult Start:23-Jul-2020 Instruction Type:Patient Education Patient Instructions Indication:BMI 31.0-31.9,adult Start:23-Jul-2020 Instruction Type:Provider Instructions for Treatment How to access health informa tion online Indication:Hypothyroidism, adult Start:20-Dec-2019 Instruction Type:Patient Education How to access health informa tion online - Detail Indication:Hypothyroidism, adult Start:20-Dec-2019 Instruction Type:Patient Education Patient Instructions Indication:Hypothyroidism, adult Start:20-Dec-2019 Instruction Type:Provider Instructions for Treatment How to access health informa tion online Indication:Current nonsmoker (Renamed from Current non-smoker) Start:06-Sep-2019 Instruction Type:Patient Education How to access health informa tion online - Detail Indication:Current nonsmoker (Renamed from Current non-smoker) Start:06-Sep-2019 Instruction Type:Patient Education Patient Instructions Indication:Current nonsmoker (Renamed from Current non-smoker) Start:06-Sep-2019 Instruction Type:Provider Instructions for Treatment How to access health informa tion online Indication:Hypothyroidism, adult Start:06-Jun-2019 Instruction Type:Patient Education How to access health informa tion online - Detail Indication:Hypothyroidism, adult Start:06-Jun-2019 Instruction Type:Patient Education Patient Instructions Indication:Hypothyroidism, adult Start:06-Jun-2019 Instruction Type:Provider Instructions for Treatment How to access health informa tion online Indication:BMI 33.0-33.9,adult Start:01-Mar-2019 Instruction Type:Patient Education How to access health informa tion online - Detail Indication:BMI 33.0-33.9,adult Start:01-Mar-2019 Instruction Type:Patient Education Patient Instructions Indication:BMI 33.0-33.9,adult Start:01-Mar-2019 Instruction Type:Provider Instructions for Treatment How to access health informa tion online Indication:Current nonsmoker (Renamed from Current non-smoker) Start:26-Nov-2018 Instruction Type:Patient Education How to access health informa tion online - Detail Indication:Current nonsmoker (Renamed from Current non-smoker) Start:26-Nov-2018 Instruction Type:Patient Education Patient Instructions Indication:Current nonsmoker (Renamed from Current non-smoker) Start:26-Nov-2018 Instruction Type:Provider Instructions for Treatment How to access health informa tion online Indication:BMI 31.0-31.9,adult Start:16-Nov-2017 Instruction Type:Patient Education How to access health informa tion online - Detail Indication:BMI 31.0-31.9,adult Start:16-Nov-2017 Instruction Type:Patient Education Patient Instructions Indication:BMI 31.0-31.9,adult Start:16-Nov-2017 Instruction Type:Provider Instructions for Treatment How to access health informa tion online Indication:BMI 32.0-32.9,adult Start:11-Aug-2017 Instruction Type:Patient Education How to access health informa tion online - Detail Indication:BMI 32.0-32.9,adult Start:11-Aug-2017 Instruction Type:Patient Education Patient Instructions Indication:BMI 32.0-32.9,adult Start:11-Aug-2017 Instruction Type:Provider Instructions for Treatment How to access health informa tion online Indication:Hypothyroidism, adult Start:30-Dec-2016 Instruction Type:Patient Education How to access health informa tion online - Detail Indication:Hypothyroidism, adult Start:30-Dec-2016 Instruction Type:Patient Education Patient Instructions Indication:Hypothyroidism, adult Start:30-Dec-2016 Instruction Type:Provider Instructions for Treatment How to access health informa tion online Indication:Current nonsmoker (Renamed from Current non-smoker) Start:27-Jun-2016 Instruction Type:Patient Education How to access health informa tion online - Detail Indication:Current nonsmoker (Renamed from Current non-smoker) Start:27-Jun-2016 Instruction Type:Patient Education Patient Instructions Indication:Current nonsmoker (Renamed from Current non-smoker) Start:27-Jun-2016 Instruction Type:Provider Instructions for Treatment How to access health informa tion online Indication:Hypothyroidism, adult Start:15-Feb-2016 Instruction Type:Patient Education How to access health informa tion online - Detail Indication:Hypothyroidism, adult Start:15-Feb-2016 Instruction Type:Patient Education Patient Instructions Indication:Hypothyroidism, adult Start:15-Feb-2016 Instruction Type:Provider Instructions for Treatment How to access health informa tion online Indication:Obesity, unspecified Start:08-Jun-2015 Instruction Type:Patient Education How to access health informa tion online - Detail Indication:Obesity, unspecified Start:08-Jun-2015 Instruction Type:Patient Education Patient Instructions Indication:Obesity, unspecified Start:08-Jun-2015 Instruction Type:Provider Instructions for Treatment Patient Instructions Indication:Hypothyroidism, adult Start:08-Sep-2014 Instruction Type:Provider Instructions for Treatment Patient Instructions Indication:Hypothyroidism, adult Start:10-Mar-2014 Instruction Type:Provider Instructions for Treatment [facility]; [facility] Work Phone: Instructions* Name Dates Details Patient Instructions Indication:BMI 30.0-30.9,adult Start:26-May-2023 Instruction Type:Provider Instructions for Treatment How to Access Health Informa tion Online using Patient Portal and [employer]rd [employer] Apps Indication:BMI 30.0-30.9,adult Start:26-May-2023 Instruction Type:Patient Education Patient Instructions Indication:BMI 30.0-30.9,adult Start:13-Feb-2023 Instruction Type:Provider Instructions for Treatment How to Access Health Informa tion Online using Patient Portal and [employer]rd [employer] Apps Indication:BMI 30.0-30.9,adult Start:13-Feb-2023 Instruction Type:Patient Education Patient Instructions Indication:Current nonsmoker (Renamed from Current non-smoker) Start:02-Jan-2023 Instruction Type:Provider Instructions for Treatment How to Access Health Informa tion Online using Patient Portal and [employer]rd [employer] Apps Indication:Current nonsmoker (Renamed from Current non-smoker) Start:02-Jan-2023 Instruction Type:Patient Education Patient Instructions Indication:BMI 30.0-30.9,adult Start:10-Oct-2022 Instruction Type:Provider Instructions for Treatment How to Access Health Informa tion Online using Patient Portal and [employer]rd [employer] Apps Indication:BMI 30.0-30.9,adult Start:10-Oct-2022 Instruction Type:Patient Education Patient Instructions Indication:Current nonsmoker (Renamed from Current non-smoker) Start:13-Jun-2022 Instruction Type:Provider Instructions for Treatment How to Access Health Informa tion Online using Patient Portal and [employer]rd [employer] Apps Indication:Current nonsmoker (Renamed from Current non-smoker) Start:13-Jun-2022 Instruction Type:Patient Education Patient Instructions Indication:Down syndrome Start:17-Jun-2021 Instruction Type:Provider Instructions for Treatment How to Access Health Informa tion Online using Patient Portal and [employer]rd [employer] Apps Indication:Down syndrome Start:17-Jun-2021 Instruction Type:Patient Education How to access health informa tion online Indication:BMI 31.0-31.9,adult Start:23-Jul-2020 Instruction Type:Patient Education How to access health informa tion online - Detail Indication:BMI 31.0-31.9,adult Start:23-Jul-2020 Instruction Type:Patient Education Patient Instructions Indication:BMI 31.0-31.9,adult Start:23-Jul-2020 Instruction Type:Provider Instructions for Treatment How to access health informa tion online Indication:Hypothyroidism, adult Start:20-Dec-2019 Instruction Type:Patient Education How to access health informa tion online - Detail Indication:Hypothyroidism, adult Start:20-Dec-2019 Instruction Type:Patient Education Patient Instructions Indication:Hypothyroidism, adult Start:20-Dec-2019 Instruction Type:Provider Instructions for Treatment How to access health informa tion online Indication:Current nonsmoker (Renamed from Current non-smoker) Start:06-Sep-2019 Instruction Type:Patient Education How to access health informa tion online - Detail Indication:Current nonsmoker (Renamed from Current non-smoker) Start:06-Sep-2019 Instruction Type:Patient Education Patient Instructions Indication:Current nonsmoker (Renamed from Current non-smoker) Start:06-Sep-2019 Instruction Type:Provider Instructions for Treatment How to access health informa tion online Indication:Hypothyroidism, adult Start:06-Jun-2019 Instruction Type:Patient Education How to access health informa tion online - Detail Indication:Hypothyroidism, adult Start:06-Jun-2019 Instruction Type:Patient Education Patient Instructions Indication:Hypothyroidism, adult Start:06-Jun-2019 Instruction Type:Provider Instructions for Treatment How to access health informa tion online Indication:BMI 33.0-33.9,adult Start:01-Mar-2019 Instruction Type:Patient Education How to access health informa tion online - Detail Indication:BMI 33.0-33.9,adult Start:01-Mar-2019 Instruction Type:Patient Education Patient Instructions Indication:BMI 33.0-33.9,adult Start:01-Mar-2019 Instruction Type:Provider Instructions for Treatment How to access health informa tion online Indication:Current nonsmoker (Renamed from Current non-smoker) Start:26-Nov-2018 Instruction Type:Patient Education How to access health informa tion online - Detail Indication:Current nonsmoker (Renamed from Current non-smoker) Start:26-Nov-2018 Instruction Type:Patient Education Patient Instructions Indication:Current nonsmoker (Renamed from Current non-smoker) Start:26-Nov-2018 Instruction Type:Provider Instructions for Treatment How to access health informa tion online Indication:BMI 31.0-31.9,adult Start:16-Nov-2017 Instruction Type:Patient Education How to access health informa tion online - Detail Indication:BMI 31.0-31.9,adult Start:16-Nov-2017 Instruction Type:Patient Education Patient Instructions Indication:BMI 31.0-31.9,adult Start:16-Nov-2017 Instruction Type:Provider Instructions for Treatment How to access health informa tion online Indication:BMI 32.0-32.9,adult Start:11-Aug-2017 Instruction Type:Patient Education How to access health informa tion online - Detail Indication:BMI 32.0-32.9,adult Start:11-Aug-2017 Instruction Type:Patient Education Patient Instructions Indication:BMI 32.0-32.9,adult Start:11-Aug-2017 Instruction Type:Provider Instructions for Treatment How to access health informa tion online Indication:Hypothyroidism, adult Start:30-Dec-2016 Instruction Type:Patient Education How to access health informa tion online - Detail Indication:Hypothyroidism, adult Start:30-Dec-2016 Instruction Type:Patient Education Patient Instructions Indication:Hypothyroidism, adult Start:30-Dec-2016 Instruction Type:Provider Instructions for Treatment How to access health informa tion online Indication:Current nonsmoker (Renamed from Current non-smoker) Start:27-Jun-2016 Instruction Type:Patient Education How to access health informa tion online - Detail Indication:Current nonsmoker (Renamed from Current non-smoker) Start:27-Jun-2016 Instruction Type:Patient Education Patient Instructions Indication:Current nonsmoker (Renamed from Current non-smoker) Start:27-Jun-2016 Instruction Type:Provider Instructions for Treatment How to access health informa tion online Indication:Hypothyroidism, adult Start:15-Feb-2016 Instruction Type:Patient Education How to access health informa tion online - Detail Indication:Hypothyroidism, adult Start:15-Feb-2016 Instruction Type:Patient Education Patient Instructions Indication:Hypothyroidism, adult Start:15-Feb-2016 Instruction Type:Provider Instructions for Treatment How to access health informa tion online Indication:Obesity, unspecified Start:08-Jun-2015 Instruction Type:Patient Education How to access health informa tion online - Detail Indication:Obesity, unspecified Start:08-Jun-2015 Instruction Type:Patient Education Patient Instructions Indication:Obesity, unspecified Start:08-Jun-2015 Instruction Type:Provider Instructions for Treatment Patient Instructions Indication:Hypothyroidism, adult Start:08-Sep-2014 Instruction Type:Provider Instructions for Treatment Patient Instructions Indication:Hypothyroidism, adult Start:10-Mar-2014 Instruction Type:Provider Instructions for Treatment [facility]; [facility] Work Phone: Instructions* Name Dates Details How to Access Health Informa tion Online using Patient Portal and [email or web address] Apps Indication:Current nonsmoker (Renamed from Current non-smoker) Start:15-Sep-2023 Instruction Type:Patient Education Patient Instructions Indication:Current nonsmoker (Renamed from Current non-smoker) Start:15-Sep-2023 Instruction Type:Provider Instructions for Treatment Patient Instructions Indication:BMI 30.0-30.9,adult Start:26-May-2023 Instruction Type:Provider Instructions for Treatment How to Access Health Informa tion Online using Patient Portal and [email or web address] Apps Indication:BMI 30.0-30.9,adult Start:26-May-2023 Instruction Type:Patient Education Patient Instructions Indication:BMI 30.0-30.9,adult Start:13-Feb-2023 Instruction Type:Provider Instructions for Treatment How to Access Health Informa tion Online using Patient Portal and [employer]rd [employer] Apps Indication:BMI 30.0-30.9,adult Start:13-Feb-2023 Instruction Type:Patient Education Patient Instructions Indication:Current nonsmoker (Renamed from Current non-smoker) Start:02-Jan-2023 Instruction Type:Provider Instructions for Treatment How to Access Health Informa tion Online using Patient Portal and [employer]rd [employer] Apps Indication:Current nonsmoker (Renamed from Current non-smoker) Start:02-Jan-2023 Instruction Type:Patient Education Patient Instructions Indication:BMI 30.0-30.9,adult Start:10-Oct-2022 Instruction Type:Provider Instructions for Treatment How to Access Health Informa tion Online using Patient Portal and [employer]rd [employer] Apps Indication:BMI 30.0-30.9,adult Start:10-Oct-2022 Instruction Type:Patient Education Patient Instructions Indication:Current nonsmoker (Renamed from Current non-smoker) Start:13-Jun-2022 Instruction Type:Provider Instructions for Treatment How to Access Health Informa tion Online using Patient Portal and [employer]rd [employer] Apps Indication:Current nonsmoker (Renamed from Current non-smoker) Start:13-Jun-2022 Instruction Type:Patient Education Patient Instructions Indication:Down syndrome Start:17-Jun-2021 Instruction Type:Provider Instructions for Treatment How to Access Health Informa tion Online using Patient Portal and [employer]rd [employer] Apps Indication:Down syndrome Start:17-Jun-2021 Instruction Type:Patient Education How to access health informa tion online Indication:BMI 31.0-31.9,adult Start:23-Jul-2020 Instruction Type:Patient Education How to access health informa tion online - Detail Indication:BMI 31.0-31.9,adult Start:23-Jul-2020 Instruction Type:Patient Education Patient Instructions Indication:BMI 31.0-31.9,adult Start:23-Jul-2020 Instruction Type:Provider Instructions for Treatment How to access health informa tion online Indication:Hypothyroidism, adult Start:20-Dec-2019 Instruction Type:Patient Education How to access health informa tion online - Detail Indication:Hypothyroidism, adult Start:20-Dec-2019 Instruction Type:Patient Education Patient Instructions Indication:Hypothyroidism, adult Start:20-Dec-2019 Instruction Type:Provider Instructions for Treatment How to access health informa tion online Indication:Current nonsmoker (Renamed from Current non-smoker) Start:06-Sep-2019 Instruction Type:Patient Education How to access health informa tion online - Detail Indication:Current nonsmoker (Renamed from Current non-smoker) Start:06-Sep-2019 Instruction Type:Patient Education Patient Instructions Indication:Current nonsmoker (Renamed from Current non-smoker) Start:06-Sep-2019 Instruction Type:Provider Instructions for Treatment How to access health informa tion online Indication:Hypothyroidism, adult Start:06-Jun-2019 Instruction Type:Patient Education How to access health informa tion online - Detail Indication:Hypothyroidism, adult Start:06-Jun-2019 Instruction Type:Patient Education Patient Instructions Indication:Hypothyroidism, adult Start:06-Jun-2019 Instruction Type:Provider Instructions for Treatment How to access health informa tion online Indication:BMI 33.0-33.9,adult Start:01-Mar-2019 Instruction Type:Patient Education How to access health informa tion online - Detail Indication:BMI 33.0-33.9,adult Start:01-Mar-2019 Instruction Type:Patient Education Patient Instructions Indication:BMI 33.0-33.9,adult Start:01-Mar-2019 Instruction Type:Provider Instructions for Treatment How to access health informa tion online Indication:Current nonsmoker (Renamed from Current non-smoker) Start:26-Nov-2018 Instruction Type:Patient Education How to access health informa tion online - Detail Indication:Current nonsmoker (Renamed from Current non-smoker) Start:26-Nov-2018 Instruction Type:Patient Education Patient Instructions Indication:Current nonsmoker (Renamed from Current non-smoker) Start:26-Nov-2018 Instruction Type:Provider Instructions for Treatment How to access health informa tion online Indication:BMI 31.0-31.9,adult Start:16-Nov-2017 Instruction Type:Patient Education How to access health informa tion online - Detail Indication:BMI 31.0-31.9,adult Start:16-Nov-2017 Instruction Type:Patient Education Patient Instructions Indication:BMI 31.0-31.9,adult Start:16-Nov-2017 Instruction Type:Provider Instructions for Treatment How to access health informa tion online Indication:BMI 32.0-32.9,adult Start:11-Aug-2017 Instruction Type:Patient Education How to access health informa tion online - Detail Indication:BMI 32.0-32.9,adult Start:11-Aug-2017 Instruction Type:Patient Education Patient Instructions Indication:BMI 32.0-32.9,adult Start:11-Aug-2017 Instruction Type:Provider Instructions for Treatment How to access health informa tion online Indication:Hypothyroidism, adult Start:30-Dec-2016 Instruction Type:Patient Education How to access health informa tion online - Detail Indication:Hypothyroidism, adult Start:30-Dec-2016 Instruction Type:Patient Education Patient Instructions Indication:Hypothyroidism, adult Start:30-Dec-2016 Instruction Type:Provider Instructions for Treatment How to access health informa tion online Indication:Current nonsmoker (Renamed from Current non-smoker) Start:27-Jun-2016 Instruction Type:Patient Education How to access health informa tion online - Detail Indication:Current nonsmoker (Renamed from Current non-smoker) Start:27-Jun-2016 Instruction Type:Patient Education Patient Instructions Indication:Current nonsmoker (Renamed from Current non-smoker) Start:27-Jun-2016 Instruction Type:Provider Instructions for Treatment How to access health informa tion online Indication:Hypothyroidism, adult Start:15-Feb-2016 Instruction Type:Patient Education How to access health informa tion online - Detail Indication:Hypothyroidism, adult Start:15-Feb-2016 Instruction Type:Patient Education Patient Instructions Indication:Hypothyroidism, adult Start:15-Feb-2016 Instruction Type:Provider Instructions for Treatment How to access health informa tion online Indication:Obesity, unspecified Start:08-Jun-2015 Instruction Type:Patient Education How to access health informa tion online - Detail Indication:Obesity, unspecified Start:08-Jun-2015 Instruction Type:Patient Education Patient Instructions Indication:Obesity, unspecified Start:08-Jun-2015 Instruction Type:Provider Instructions for Treatment Patient Instructions Indication:Hypothyroidism, adult Start:08-Sep-2014 Instruction Type:Provider Instructions for Treatment Patient Instructions Indication:Hypothyroidism, adult Start:10-Mar-2014 Instruction Type:Provider Instructions for Treatment [facility]; [facility] Work Phone: Instructions* Name Dates Details How to Access Health Informa tion Online using Patient Portal and [employer] Apps Indication:Current nonsmoker (Renamed from Current non-smoker) Start:15-Sep-2023 Instruction Type:Patient Education Patient Instructions Indication:Current nonsmoker (Renamed from Current non-smoker) Start:15-Sep-2023 Instruction Type:Provider Instructions for Treatment Patient Instructions Indication:BMI 30.0-30.9,adult Start:26-May-2023 Instruction Type:Provider Instructions for Treatment How to Access Health Informa tion Online using Patient Portal and [employer] Apps Indication:BMI 30.0-30.9,adult Start:26-May-2023 Instruction Type:Patient Education Patient Instructions Indication:BMI 30.0-30.9,adult Start:13-Feb-2023 Instruction Type:Provider Instructions for Treatment How to Access Health Informa tion Online using Patient Portal and [employer]rd [employer] Apps Indication:BMI 30.0-30.9,adult Start:13-Feb-2023 Instruction Type:Patient Education Patient Instructions Indication:Current nonsmoker (Renamed from Current non-smoker) Start:02-Jan-2023 Instruction Type:Provider Instructions for Treatment How to Access Health Informa tion Online using Patient Portal and [employer]rd [employer] Apps Indication:Current nonsmoker (Renamed from Current non-smoker) Start:02-Jan-2023 Instruction Type:Patient Education Patient Instructions Indication:BMI 30.0-30.9,adult Start:10-Oct-2022 Instruction Type:Provider Instructions for Treatment How to Access Health Informa tion Online using Patient Portal and [employer]rd [employer] Apps Indication:BMI 30.0-30.9,adult Start:10-Oct-2022 Instruction Type:Patient Education Patient Instructions Indication:Current nonsmoker (Renamed from Current non-smoker) Start:13-Jun-2022 Instruction Type:Provider Instructions for Treatment How to Access Health Informa tion Online using Patient Portal and [employer] Apps Indication:Current nonsmoker (Renamed from Current non-smoker) Start:13-Jun-2022 Instruction Type:Patient Education Patient Instructions Indication:Down syndrome Start:17-Jun-2021 Instruction Type:Provider Instructions for Treatment How to Access Health Informa tion Online using Patient Portal and [employer]rd [employer] Apps Indication:Down syndrome Start:17-Jun-2021 Instruction Type:Patient Education How to access health informa tion online Indication:BMI 31.0-31.9,adult Start:23-Jul-2020 Instruction Type:Patient Education How to access health informa tion online - Detail Indication:BMI 31.0-31.9,adult Start:23-Jul-2020 Instruction Type:Patient Education Patient Instructions Indication:BMI 31.0-31.9,adult Start:23-Jul-2020 Instruction Type:Provider Instructions for Treatment How to access health informa tion online Indication:Hypothyroidism, adult Start:20-Dec-2019 Instruction Type:Patient Education How to access health informa tion online - Detail Indication:Hypothyroidism, adult Start:20-Dec-2019 Instruction Type:Patient Education Patient Instructions Indication:Hypothyroidism, adult Start:20-Dec-2019 Instruction Type:Provider Instructions for Treatment How to access health informa tion online Indication:Current nonsmoker (Renamed from Current non-smoker) Start:06-Sep-2019 Instruction Type:Patient Education How to access health informa tion online - Detail Indication:Current nonsmoker (Renamed from Current non-smoker) Start:06-Sep-2019 Instruction Type:Patient Education Patient Instructions Indication:Current nonsmoker (Renamed from Current non-smoker) Start:06-Sep-2019 Instruction Type:Provider Instructions for Treatment How to access health informa tion online Indication:Hypothyroidism, adult Start:06-Jun-2019 Instruction Type:Patient Education How to access health informa tion online - Detail Indication:Hypothyroidism, adult Start:06-Jun-2019 Instruction Type:Patient Education Patient Instructions Indication:Hypothyroidism, adult Start:06-Jun-2019 Instruction Type:Provider Instructions for Treatment How to access health informa tion online Indication:BMI 33.0-33.9,adult Start:01-Mar-2019 Instruction Type:Patient Education How to access health informa tion online - Detail Indication:BMI 33.0-33.9,adult Start:01-Mar-2019 Instruction Type:Patient Education Patient Instructions Indication:BMI 33.0-33.9,adult Start:01-Mar-2019 Instruction Type:Provider Instructions for Treatment How to access health informa tion online Indication:Current nonsmoker (Renamed from Current non-smoker) Start:26-Nov-2018 Instruction Type:Patient Education How to access health informa tion online - Detail Indication:Current nonsmoker (Renamed from Current non-smoker) Start:26-Nov-2018 Instruction Type:Patient Education Patient Instructions Indication:Current nonsmoker (Renamed from Current non-smoker) Start:26-Nov-2018 Instruction Type:Provider Instructions for Treatment How to access health informa tion online Indication:BMI 31.0-31.9,adult Start:16-Nov-2017 Instruction Type:Patient Education How to access health informa tion online - Detail Indication:BMI 31.0-31.9,adult Start:16-Nov-2017 Instruction Type:Patient Education Patient Instructions Indication:BMI 31.0-31.9,adult Start:16-Nov-2017 Instruction Type:Provider Instructions for Treatment How to access health informa tion online Indication:BMI 32.0-32.9,adult Start:11-Aug-2017 Instruction Type:Patient Education How to access health informa tion online - Detail Indication:BMI 32.0-32.9,adult Start:11-Aug-2017 Instruction Type:Patient Education Patient Instructions Indication:BMI 32.0-32.9,adult Start:11-Aug-2017 Instruction Type:Provider Instructions for Treatment How to access health informa tion online Indication:Hypothyroidism, adult Start:30-Dec-2016 Instruction Type:Patient Education How to access health informa tion online - Detail Indication:Hypothyroidism, adult Start:30-Dec-2016 Instruction Type:Patient Education Patient Instructions Indication:Hypothyroidism, adult Start:30-Dec-2016 Instruction Type:Provider Instructions for Treatment How to access health informa tion online Indication:Current nonsmoker (Renamed from Current non-smoker) Start:27-Jun-2016 Instruction Type:Patient Education How to access health informa tion online - Detail Indication:Current nonsmoker (Renamed from Current non-smoker) Start:27-Jun-2016 Instruction Type:Patient Education Patient Instructions Indication:Current nonsmoker (Renamed from Current non-smoker) Start:27-Jun-2016 Instruction Type:Provider Instructions for Treatment How to access health informa tion online Indication:Hypothyroidism, adult Start:15-Feb-2016 Instruction Type:Patient Education How to access health informa tion online - Detail Indication:Hypothyroidism, adult Start:15-Feb-2016 Instruction Type:Patient Education Patient Instructions Indication:Hypothyroidism, adult Start:15-Feb-2016 Instruction Type:Provider Instructions for Treatment How to access health informa tion online Indication:Obesity, unspecified Start:08-Jun-2015 Instruction Type:Patient Education How to access health informa tion online - Detail Indication:Obesity, unspecified Start:08-Jun-2015 Instruction Type:Patient Education Patient Instructions Indication:Obesity, unspecified Start:08-Jun-2015 Instruction Type:Provider Instructions for Treatment Patient Instructions Indication:Hypothyroidism, adult Start:08-Sep-2014 Instruction Type:Provider Instructions for Treatment Patient Instructions Indication:Hypothyroidism, adult Start:10-Mar-2014 Instruction Type:Provider Instructions for Treatment [facility]; [facility] Work Phone: Family History No Family History Records FoundUnknown Family Member Name Dates Details Brother 1 Comments:Diabetes, Insulin d ep Status:Active Brother 2 Comments:none to report Status:Active Brother 3 Comments:none to report Status:Active Brother 4 Comments:none to report Status:Active Father Comments:none to report Status:Active Maternal Grandfather Comments:prostate cancer Status:Active Maternal Grandmother Comments:unknown Status:Active Mother Comments:hypothyroid, htn, c holesterol, stage 4 colon cancer mets to liver Status:Active Paternal Grandfather Comments:living and healthy Status:Active Paternal Grandmother Comments:living and healthy Status:Active Sister 1 Comments:hypothyroid Status:Active Sister 2 Comments:hypothyoroid Status:Active Sister 3 Comments:none to report Status:Active Unknown Family Member Name Dates Details Brother 1 Comments:Diabetes, Insulin d ep Status:Active Brother 2 Comments:none to report Status:Active Brother 3 Comments:none to report Status:Active Brother 4 Comments:none to report Status:Active Father Comments:none to report Status:Active Maternal Grandfather Comments:prostate cancer Status:Active Maternal Grandmother Comments:unknown Status:Active Mother Comments:hypothyroid, htn, c holesterol, stage 4 colon cancer mets to liver Status:Active Paternal Grandfather Comments:living and healthy Status:Active Paternal Grandmother Comments:living and healthy Status:Active Sister 1 Comments:hypothyroid Status:Active Sister 2 Comments:hypothyoroid Status:Active Sister 3 Comments:none to report Status:Active Unknown Family Member Name Dates Details Brother 1 Comments:Diabetes, Insulin d ep Status:Active Brother 2 Comments:none to report Status:Active Brother 3 Comments:none to report Status:Active Brother 4 Comments:none to report Status:Active Father Comments:none to report Status:Active Maternal Grandfather Comments:prostate cancer Status:Active Maternal Grandmother Comments:unknown Status:Active Mother Comments:hypothyroid, htn, c holesterol, stage 4 colon cancer mets to liver Status:Active Paternal Grandfather Comments:living and healthy Status:Active Paternal Grandmother Comments:living and healthy Status:Active Sister 1 Comments:hypothyroid Status:Active Sister 2 Comments:hypothyoroid Status:Active Sister 3 Comments:none to report Status:Active Unknown Family Member Name Dates Details Brother 1 Comments:Diabetes, Insulin d ep Status:Active Brother 2 Comments:none to report Status:Active Brother 3 Comments:none to report Status:Active Brother 4 Comments:none to report Status:Active Father Comments:none to report Status:Active Maternal Grandfather Comments:prostate cancer Status:Active Maternal Grandmother Comments:unknown Status:Active Mother Comments:hypothyroid, htn, c holesterol, stage 4 colon cancer mets to liver Status:Active Paternal Grandfather Comments:living and healthy Status:Active Paternal Grandmother Comments:living and healthy Status:Active Sister 1 Comments:hypothyroid Status:Active Sister 2 Comments:hypothyoroid Status:Active Sister 3 Comments:none to report Status:Active Unknown Family Member Name Dates Details Brother 1 Comments:Diabetes, Insulin d ep Status:Active Brother 2 Comments:none to report Status:Active Brother 3 Comments:none to report Status:Active Brother 4 Comments:none to report Status:Active Father Comments:none to report Status:Active Maternal Grandfather Comments:prostate cancer Status:Active Maternal Grandmother Comments:unknown Status:Active Mother Comments:hypothyroid, htn, c holesterol, stage 4 colon cancer mets to liver Status:Active Paternal Grandfather Comments:living and healthy Status:Active Paternal Grandmother Comments:living and healthy Status:Active Sister 1 Comments:hypothyroid Status:Active Sister 2 Comments:hypothyoroid Status:Active Sister 3 Comments:none to report Status:Active Unknown Family Member Name Dates Details Brother 1 Comments:Diabetes, Insulin d ep Status:Active Brother 2 Comments:none to report Status:Active Brother 3 Comments:none to report Status:Active Brother 4 Comments:none to report Status:Active Father Comments:none to report Status:Active Maternal Grandfather Comments:prostate cancer Status:Active Maternal Grandmother Comments:unknown Status:Active Mother Comments:hypothyroid, htn, c holesterol, stage 4 colon cancer mets to liver Status:Active Paternal Grandfather Comments:living and healthy Status:Active Paternal Grandmother Comments:living and healthy Status:Active Sister 1 Comments:hypothyroid Status:Active Sister 2 Comments:hypothyoroid Status:Active Sister 3 Comments:none to report Status:Active Unknown Family Member Name Dates Details Brother 1 Comments:Diabetes, Insulin d ep Status:Active Brother 2 Comments:none to report Status:Active Brother 3 Comments:none to report Status:Active Brother 4 Comments:none to report Status:Active Father Comments:none to report Status:Active Maternal Grandfather Comments:prostate cancer Status:Active Maternal Grandmother Comments:unknown Status:Active Mother Comments:hypothyroid, htn, c holesterol, stage 4 colon cancer mets to liver Status:Active Paternal Grandfather Comments:living and healthy Status:Active Paternal Grandmother Comments:living and healthy Status:Active Sister 1 Comments:hypothyroid Status:Active Sister 2 Comments:hypothyoroid Status:Active Sister 3 Comments:none to report Status:Active Unknown Family Member Name Dates Details Brother 1 Comments:Diabetes, Insulin d ep Status:Active Brother 2 Comments:none to report Status:Active Brother 3 Comments:none to report Status:Active Brother 4 Comments:none to report Status:Active Father Comments:none to report Status:Active Maternal Grandfather Comments:prostate cancer Status:Active Maternal Grandmother Comments:unknown Status:Active Mother Comments:hypothyroid, htn, c holesterol, stage 4 colon cancer mets to liver Status:Active Paternal Grandfather Comments:living and healthy Status:Active Paternal Grandmother Comments:living and healthy Status:Active Sister 1 Comments:hypothyroid Status:Active Sister 2 Comments:hypothyoroid Status:Active Sister 3 Comments:none to report Status:Active Unknown Family Member Name Dates Details Brother 1 Comments:Diabetes, Insulin d ep Status:Active Brother 2 Comments:none to report Status:Active Brother 3 Comments:none to report Status:Active Brother 4 Comments:none to report Status:Active Father Comments:none to report Status:Active Maternal Grandfather Comments:prostate cancer Status:Active Maternal Grandmother Comments:unknown Status:Active Mother Comments:hypothyroid, htn, c holesterol, stage 4 colon cancer mets to liver Status:Active Paternal Grandfather Comments:living and healthy Status:Active Paternal Grandmother Comments:living and healthy Status:Active Sister 1 Comments:hypothyroid Status:Active Sister 2 Comments:hypothyoroid Status:Active Sister 3 Comments:none to report Status:Active Unknown Family Member Name Dates Details Brother 1 Comments:Diabetes, Insulin d ep Status:Active Brother 2 Comments:none to report Status:Active Brother 3 Comments:none to report Status:Active Brother 4 Comments:none to report Status:Active Father Comments:none to report Status:Active Maternal Grandfather Comments:prostate cancer Status:Active Maternal Grandmother Comments:unknown Status:Active Mother Comments:hypothyroid, htn, c holesterol, stage 4 colon cancer mets to liver Status:Active Paternal Grandfather Comments:living and healthy Status:Active Paternal Grandmother Comments:living and healthy Status:Active Sister 1 Comments:hypothyroid Status:Active Sister 2 Comments:hypothyoroid Status:Active Sister 3 Comments:none to report Status:Active Unknown Family Member Name Dates Details Brother 1 Comments:Diabetes, Insulin d ep Status:Active Brother 2 Comments:none to report Status:Active Brother 3 Comments:none to report Status:Active Brother 4 Comments:none to report Status:Active Father Comments:none to report Status:Active Maternal Grandfather Comments:prostate cancer Status:Active Maternal Grandmother Comments:unknown Status:Active Mother Comments:hypothyroid, htn, c holesterol, stage 4 colon cancer mets to liver Status:Active Paternal Grandfather Comments:living and healthy Status:Active Paternal Grandmother Comments:living and healthy Status:Active Sister 1 Comments:hypothyroid Status:Active Sister 2 Comments:hypothyoroid Status:Active Sister 3 Comments:none to report Status:Active Unknown Family Member Name Dates Details Brother 1 Comments:Diabetes, Insulin d ep Status:Active Brother 2 Comments:none to report Status:Active Brother 3 Comments:none to report Status:Active Brother 4 Comments:none to report Status:Active Father Comments:none to report Status:Active Maternal Grandfather Comments:prostate cancer Status:Active Maternal Grandmother Comments:unknown Status:Active Mother Comments:hypothyroid, htn, c holesterol, stage 4 colon cancer mets to liver Status:Active Paternal Grandfather Comments:living and healthy Status:Active Paternal Grandmother Comments:living and healthy Status:Active Sister 1 Comments:hypothyroid Status:Active Sister 2 Comments:hypothyoroid Status:Active Sister 3 Comments:none to report Status:Active Unknown Family Member Name Dates Details Brother 1 Comments:Diabetes, Insulin d ep Status:Active Brother 2 Comments:none to report Status:Active Brother 3 Comments:none to report Status:Active Brother 4 Comments:none to report Status:Active Father Comments:none to report Status:Active Maternal Grandfather Comments:prostate cancer Status:Active Maternal Grandmother Comments:unknown Status:Active Mother Comments:hypothyroid, htn, c holesterol, stage 4 colon cancer mets to liver Status:Active Paternal Grandfather Comments:living and healthy Status:Active Paternal Grandmother Comments:living and healthy Status:Active Sister 1 Comments:hypothyroid Status:Active Sister 2 Comments:hypothyoroid Status:Active Sister 3 Comments:none to report Status:Active Unknown Family Member Name Dates Details Brother 1 Comments:Diabetes, Insulin d ep Status:Active Brother 2 Comments:none to report Status:Active Brother 3 Comments:none to report Status:Active Brother 4 Comments:none to report Status:Active Father Comments:none to report Status:Active Maternal Grandfather Comments:prostate cancer Status:Active Maternal Grandmother Comments:unknown Status:Active Mother Comments:hypothyroid, htn, c holesterol, stage 4 colon cancer mets to liver Status:Active Paternal Grandfather Comments:living and healthy Status:Active Paternal Grandmother Comments:living and healthy Status:Active Sister 1 Comments:hypothyroid Status:Active Sister 2 Comments:hypothyoroid Status:Active Sister 3 Comments:none to report Status:Active Unknown Family Member Name Dates Details Brother 1 Comments:Diabetes, Insulin d ep Status:Active Brother 2 Comments:none to report Status:Active Brother 3 Comments:none to report Status:Active Brother 4 Comments:none to report Status:Active Father Comments:none to report Status:Active Maternal Grandfather Comments:prostate cancer Status:Active Maternal Grandmother Comments:unknown Status:Active Mother Comments:hypothyroid, htn, c holesterol, stage 4 colon cancer mets to liver Status:Active Paternal Grandfather Comments:living and healthy Status:Active Paternal Grandmother Comments:living and healthy Status:Active Sister 1 Comments:hypothyroid Status:Active Sister 2 Comments:hypothyoroid Status:Active Sister 3 Comments:none to report Status:Active Unknown Family Member Name Dates Details Brother 1 Comments:Diabetes, Insulin d ep Status:Active Brother 2 Comments:none to report Status:Active Brother 3 Comments:none to report Status:Active Brother 4 Comments:none to report Status:Active Father Comments:none to report Status:Active Maternal Grandfather Comments:prostate cancer Status:Active Maternal Grandmother Comments:unknown Status:Active Mother Comments:hypothyroid, htn, c holesterol, stage 4 colon cancer mets to liver Status:Active Paternal Grandfather Comments:living and healthy Status:Active Paternal Grandmother Comments:living and healthy Status:Active Sister 1 Comments:hypothyroid Status:Active Sister 2 Comments:hypothyoroid Status:Active Sister 3 Comments:none to report Status:Active Unknown Family Member Name Dates Details Brother 1 Comments:Diabetes, Insulin d ep Status:Active Brother 2 Comments:none to report Status:Active Brother 3 Comments:none to report Status:Active Brother 4 Comments:none to report Status:Active Father Comments:none to report Status:Active Maternal Grandfather Comments:prostate cancer Status:Active Maternal Grandmother Comments:unknown Status:Active Mother Comments:hypothyroid, htn, c holesterol, stage 4 colon cancer mets to liver Status:Active Paternal Grandfather Comments:living and healthy Status:Active Paternal Grandmother Comments:living and healthy Status:Active Sister 1 Comments:hypothyroid Status:Active Sister 2 Comments:hypothyoroid Status:Active Sister 3 Comments:none to report Status:Active Unknown Family Member Name Dates Details Brother 1 Comments:Diabetes, Insulin d ep Status:Active Brother 2 Comments:none to report Status:Active Brother 3 Comments:none to report Status:Active Brother 4 Comments:none to report Status:Active Father Comments:none to report Status:Active Maternal Grandfather Comments:prostate cancer Status:Active Maternal Grandmother Comments:unknown Status:Active Mother Comments:hypothyroid, htn, c holesterol, stage 4 colon cancer mets to liver Status:Active Paternal Grandfather Comments:living and healthy Status:Active Paternal Grandmother Comments:living and healthy Status:Active Sister 1 Comments:hypothyroid Status:Active Sister 2 Comments:hypothyoroid Status:Active Sister 3 Comments:none to report Status:Active Unknown Family Member Name Dates Details Brother 1 Comments:Diabetes, Insulin d ep Status:Active Brother 2 Comments:none to report Status:Active Brother 3 Comments:none to report Status:Active Brother 4 Comments:none to report Status:Active Father Comments:none to report Status:Active Maternal Grandfather Comments:prostate cancer Status:Active Maternal Grandmother Comments:unknown Status:Active Mother Comments:hypothyroid, htn, c holesterol, stage 4 colon cancer mets to liver Status:Active Paternal Grandfather Comments:living and healthy Status:Active Paternal Grandmother Comments:living and healthy Status:Active Sister 1 Comments:hypothyroid Status:Active Sister 2 Comments:hypothyoroid Status:Active Sister 3 Comments:none to report Status:Active Unknown Family Member Name Dates Details Brother 1 Comments:Diabetes, Insulin d ep Status:Active Brother 2 Comments:none to report Status:Active Brother 3 Comments:none to report Status:Active Brother 4 Comments:none to report Status:Active Father Comments:none to report Status:Active Maternal Grandfather Comments:prostate cancer Status:Active Maternal Grandmother Comments:unknown Status:Active Mother Comments:hypothyroid, htn, c holesterol, stage 4 colon cancer mets to liver Status:Active Paternal Grandfather Comments:living and healthy Status:Active Paternal Grandmother Comments:living and healthy Status:Active Sister 1 Comments:hypothyroid Status:Active Sister 2 Comments:hypothyoroid Status:Active Sister 3 Comments:none to report Status:Active Unknown Family Member Name Dates Details Brother 1 Comments:Diabetes, Insulin d ep Status:Active Brother 2 Comments:none to report Status:Active Brother 3 Comments:none to report Status:Active Brother 4 Comments:none to report Status:Active Father Comments:none to report Status:Active Maternal Grandfather Comments:prostate cancer Status:Active Maternal Grandmother Comments:unknown Status:Active Mother Comments:hypothyroid, htn, c holesterol, stage 4 colon cancer mets to liver Status:Active Paternal Grandfather Comments:living and healthy Status:Active Paternal Grandmother Comments:living and healthy Status:Active Sister 1 Comments:hypothyroid Status:Active Sister 2 Comments:hypothyoroid Status:Active Sister 3 Comments:none to report Status:Active Unknown Family Member Name Dates Details Brother 1 Comments:Diabetes, Insulin d ep Status:Active Brother 2 Comments:none to report Status:Active Brother 3 Comments:none to report Status:Active Brother 4 Comments:none to report Status:Active Father Comments:none to report Status:Active Maternal Grandfather Comments:prostate cancer Status:Active Maternal Grandmother Comments:unknown Status:Active Mother Comments:hypothyroid, htn, c holesterol, stage 4 colon cancer mets to liver Status:Active Paternal Grandfather Comments:living and healthy Status:Active Paternal Grandmother Comments:living and healthy Status:Active Sister 1 Comments:hypothyroid Status:Active Sister 2 Comments:hypothyoroid Status:Active Sister 3 Comments:none to report Status:Active Unknown Family Member Name Dates Details Brother 1 Comments:Diabetes, Insulin d ep Status:Active Brother 2 Comments:none to report Status:Active Brother 3 Comments:none to report Status:Active Brother 4 Comments:none to report Status:Active Father Comments:none to report Status:Active Maternal Grandfather Comments:prostate cancer Status:Active Maternal Grandmother Comments:unknown Status:Active Mother Comments:hypothyroid, htn, c holesterol, stage 4 colon cancer mets to liver Status:Active Paternal Grandfather Comments:living and healthy Status:Active Paternal Grandmother Comments:living and healthy Status:Active Sister 1 Comments:hypothyroid Status:Active Sister 2 Comments:hypothyoroid Status:Active Sister 3 Comments:none to report Status:Active Unknown Family Member Name Dates Details Brother 1 Comments:Diabetes, Insulin d ep Status:Active Brother 2 Comments:none to report Status:Active Brother 3 Comments:none to report Status:Active Brother 4 Comments:none to report Status:Active Father Comments:none to report Status:Active Maternal Grandfather Comments:prostate cancer Status:Active Maternal Grandmother Comments:unknown Status:Active Mother Comments:hypothyroid, htn, c holesterol, stage 4 colon cancer mets to liver Status:Active Paternal Grandfather Comments:living and healthy Status:Active Paternal Grandmother Comments:living and healthy Status:Active Sister 1 Comments:hypothyroid Status:Active Sister 2 Comments:hypothyoroid Status:Active Sister 3 Comments:none to report Status:Active Unknown Family Member Name Dates Details Brother 1 Comments:Diabetes, Insulin d ep Status:Active Brother 2 Comments:none to report Status:Active Brother 3 Comments:none to report Status:Active Brother 4 Comments:none to report Status:Active Father Comments:none to report Status:Active Maternal Grandfather Comments:prostate cancer Status:Active Maternal Grandmother Comments:unknown Status:Active Mother Comments:hypothyroid, htn, c holesterol, stage 4 colon cancer mets to liver Status:Active Paternal Grandfather Comments:living and healthy Status:Active Paternal Grandmother Comments:living and healthy Status:Active Sister 1 Comments:hypothyroid Status:Active Sister 2 Comments:hypothyoroid Status:Active Sister 3 Comments:none to report Status:Active Unknown Family Member Name Dates Details Brother 1 Comments:Diabetes, Insulin d ep Status:Active Brother 2 Comments:none to report Status:Active Brother 3 Comments:none to report Status:Active Brother 4 Comments:none to report Status:Active Father Comments:none to report Status:Active Maternal Grandfather Comments:prostate cancer Status:Active Maternal Grandmother Comments:unknown Status:Active Mother Comments:hypothyroid, htn, c holesterol, stage 4 colon cancer mets to liver Status:Active Paternal Grandfather Comments:living and healthy Status:Active Paternal Grandmother Comments:living and healthy Status:Active Sister 1 Comments:hypothyroid Status:Active Sister 2 Comments:hypothyoroid Status:Active Sister 3 Comments:none to report Status:Active Unknown Family Member Name Dates Details Brother 1 Comments:Diabetes, Insulin d ep Status:Active Brother 2 Comments:none to report Status:Active Brother 3 Comments:none to report Status:Active Brother 4 Comments:none to report Status:Active Father Comments:none to report Status:Active Maternal Grandfather Comments:prostate cancer Status:Active Maternal Grandmother Comments:unknown Status:Active Mother Comments:hypothyroid, htn, c holesterol, stage 4 colon cancer mets to liver Status:Active Paternal Grandfather Comments:living and healthy Status:Active Paternal Grandmother Comments:living and healthy Status:Active Sister 1 Comments:hypothyroid Status:Active Sister 2 Comments:hypothyoroid Status:Active Sister 3 Comments:none to report Status:Active Unknown Family Member Name Dates Details Brother 1 Comments:Diabetes, Insulin d ep Status:Active Brother 2 Comments:none to report Status:Active Brother 3 Comments:none to report Status:Active Brother 4 Comments:none to report Status:Active Father Comments:none to report Status:Active Maternal Grandfather Comments:prostate cancer Status:Active Maternal Grandmother Comments:unknown Status:Active Mother Comments:hypothyroid, htn, c holesterol, stage 4 colon cancer mets to liver Status:Active Paternal Grandfather Comments:living and healthy Status:Active Paternal Grandmother Comments:living and healthy Status:Active Sister 1 Comments:hypothyroid Status:Active Sister 2 Comments:hypothyoroid Status:Active Sister 3 Comments:none to report Status:Active Unknown Family Member Name Dates Details Brother 1 Comments:Diabetes, Insulin d ep Status:Active Brother 2 Comments:none to report Status:Active Brother 3 Comments:none to report Status:Active Brother 4 Comments:none to report Status:Active Father Comments:none to report Status:Active Maternal Grandfather Comments:prostate cancer Status:Active Maternal Grandmother Comments:unknown Status:Active Mother Comments:hypothyroid, htn, c holesterol, stage 4 colon cancer mets to liver Status:Active Paternal Grandfather Comments:living and healthy Status:Active Paternal Grandmother Comments:living and healthy Status:Active Sister 1 Comments:hypothyroid Status:Active Sister 2 Comments:hypothyoroid Status:Active Sister 3 Comments:none to report Status:Active Unknown Family Member Name Dates Details Brother 1 Comments:Diabetes, Insulin d ep Status:Active Brother 2 Comments:none to report Status:Active Brother 3 Comments:none to report Status:Active Brother 4 Comments:none to report Status:Active Father Comments:none to report Status:Active Maternal Grandfather Comments:prostate cancer Status:Active Maternal Grandmother Comments:unknown Status:Active Mother Comments:hypothyroid, htn, c holesterol, stage 4 colon cancer mets to liver Status:Active Paternal Grandfather Comments:living and healthy Status:Active Paternal Grandmother Comments:living and healthy Status:Active Sister 1 Comments:hypothyroid Status:Active Sister 2 Comments:hypothyoroid Status:Active Sister 3 Comments:none to report Status:Active Unknown Family Member Name Dates Details Brother 1 Comments:Diabetes, Insulin d ep Status:Active Brother 2 Comments:none to report Status:Active Brother 3 Comments:none to report Status:Active Brother 4 Comments:none to report Status:Active Father Comments:none to report Status:Active Maternal Grandfather Comments:prostate cancer Status:Active Maternal Grandmother Comments:unknown Status:Active Mother Comments:hypothyroid, htn, c holesterol, stage 4 colon cancer mets to liver Status:Active Paternal Grandfather Comments:living and healthy Status:Active Paternal Grandmother Comments:living and healthy Status:Active Sister 1 Comments:hypothyroid Status:Active Sister 2 Comments:hypothyoroid Status:Active Sister 3 Comments:none to report Status:Active Unknown Family Member Name Dates Details Brother 1 Comments:Diabetes, Insulin d ep Status:Active Brother 2 Comments:none to report Status:Active Brother 3 Comments:none to report Status:Active Brother 4 Comments:none to report Status:Active Father Comments:none to report Status:Active Maternal Grandfather Comments:prostate cancer Status:Active Maternal Grandmother Comments:unknown Status:Active Mother Comments:hypothyroid, htn, c holesterol, stage 4 colon cancer mets to liver Status:Active Paternal Grandfather Comments:living and healthy Status:Active Paternal Grandmother Comments:living and healthy Status:Active Sister 1 Comments:hypothyroid Status:Active Sister 2 Comments:hypothyoroid Status:Active Sister 3 Comments:none to report Status:Active Unknown Family Member Name Dates Details Brother 1 Comments:Diabetes, Insulin d ep Status:Active Brother 2 Comments:none to report Status:Active Brother 3 Comments:none to report Status:Active Brother 4 Comments:none to report Status:Active Father Comments:none to report Status:Active Maternal Grandfather Comments:prostate cancer Status:Active Maternal Grandmother Comments:unknown Status:Active Mother Comments:hypothyroid, htn, c holesterol, stage 4 colon cancer mets to liver Status:Active Paternal Grandfather Comments:living and healthy Status:Active Paternal Grandmother Comments:living and healthy Status:Active Sister 1 Comments:hypothyroid Status:Active Sister 2 Comments:hypothyoroid Status:Active Sister 3 Comments:none to report Status:Active Unknown Family Member Name Dates Details Brother 1 Comments:Diabetes, Insulin d ep Status:Active Brother 2 Comments:none to report Status:Active Brother 3 Comments:none to report Status:Active Brother 4 Comments:none to report Status:Active Father Comments:none to report Status:Active Maternal Grandfather Comments:prostate cancer Status:Active Maternal Grandmother Comments:unknown Status:Active Mother Comments:hypothyroid, htn, c holesterol, stage 4 colon cancer mets to liver Status:Active Paternal Grandfather Comments:living and healthy Status:Active Paternal Grandmother Comments:living and healthy Status:Active Sister 1 Comments:hypothyroid Status:Active Sister 2 Comments:hypothyoroid Status:Active Sister 3 Comments:none to report Status:Active Unknown Family Member Name Dates Details Brother 1 Comments:Diabetes, Insulin d ep Status:Active Brother 2 Comments:none to report Status:Active Brother 3 Comments:none to report Status:Active Brother 4 Comments:none to report Status:Active Father Comments:none to report Status:Active Maternal Grandfather Comments:prostate cancer Status:Active Maternal Grandmother Comments:unknown Status:Active Mother Comments:hypothyroid, htn, c holesterol, stage 4 colon cancer mets to liver Status:Active Paternal Grandfather Comments:living and healthy Status:Active Paternal Grandmother Comments:living and healthy Status:Active Sister 1 Comments:hypothyroid Status:Active Sister 2 Comments:hypothyoroid Status:Active Sister 3 Comments:none to report Status:Active Unknown Family Member Name Dates Details Brother 1 Comments:Diabetes, Insulin d ep Status:Active Brother 2 Comments:none to report Status:Active Brother 3 Comments:none to report Status:Active Brother 4 Comments:none to report Status:Active Father Comments:none to report Status:Active Maternal Grandfather Comments:prostate cancer Status:Active Maternal Grandmother Comments:unknown Status:Active Mother Comments:hypothyroid, htn, c holesterol, stage 4 colon cancer mets to liver Status:Active Paternal Grandfather Comments:living and healthy Status:Active Paternal Grandmother Comments:living and healthy Status:Active Sister 1 Comments:hypothyroid Status:Active Sister 2 Comments:hypothyoroid Status:Active Sister 3 Comments:none to report Status:Active Unknown Family Member Name Dates Details Brother 1 Comments:Diabetes, Insulin d ep Status:Active Brother 2 Comments:none to report Status:Active Brother 3 Comments:none to report Status:Active Brother 4 Comments:none to report Status:Active Father Comments:none to report Status:Active Maternal Grandfather Comments:prostate cancer Status:Active Maternal Grandmother Comments:unknown Status:Active Mother Comments:hypothyroid, htn, c holesterol, stage 4 colon cancer mets to liver Status:Active Paternal Grandfather Comments:living and healthy Status:Active Paternal Grandmother Comments:living and healthy Status:Active Sister 1 Comments:hypothyroid Status:Active Sister 2 Comments:hypothyoroid Status:Active Sister 3 Comments:none to report Status:Active Unknown Family Member Name Dates Details Brother 1 Comments:Diabetes, Insulin d ep Status:Active Brother 2 Comments:none to report Status:Active Brother 3 Comments:none to report Status:Active Brother 4 Comments:none to report Status:Active Father Comments:none to report Status:Active Maternal Grandfather Comments:prostate cancer Status:Active Maternal Grandmother Comments:unknown Status:Active Mother Comments:hypothyroid, htn, c holesterol, stage 4 colon cancer mets to liver Status:Active Paternal Grandfather Comments:living and healthy Status:Active Paternal Grandmother Comments:living and healthy Status:Active Sister 1 Comments:hypothyroid Status:Active Sister 2 Comments:hypothyoroid Status:Active Sister 3 Comments:none to report Status:Active Unknown Family Member Name Dates Details Brother 1 Comments:Diabetes, Insulin d ep Status:Active Brother 2 Comments:none to report Status:Active Brother 3 Comments:none to report Status:Active Brother 4 Comments:none to report Status:Active Father Comments:none to report Status:Active Maternal Grandfather Comments:prostate cancer Status:Active Maternal Grandmother Comments:unknown Status:Active Mother Comments:hypothyroid, htn, c holesterol, stage 4 colon cancer mets to liver Status:Active Paternal Grandfather Comments:living and healthy Status:Active Paternal Grandmother Comments:living and healthy Status:Active Sister 1 Comments:hypothyroid Status:Active Sister 2 Comments:hypothyoroid Status:Active Sister 3 Comments:none to report Status:Active Unknown Family Member Name Dates Details Brother 1 Comments:Diabetes, Insulin d ep Status:Active Brother 2 Comments:none to report Status:Active Brother 3 Comments:none to report Status:Active Brother 4 Comments:none to report Status:Active Father Comments:none to report Status:Active Maternal Grandfather Comments:prostate cancer Status:Active Maternal Grandmother Comments:unknown Status:Active Mother Comments:hypothyroid, htn, c holesterol, stage 4 colon cancer mets to liver Status:Active Paternal Grandfather Comments:living and healthy Status:Active Paternal Grandmother Comments:living and healthy Status:Active Sister 1 Comments:hypothyroid Status:Active Sister 2 Comments:hypothyoroid Status:Active Sister 3 Comments:none to report Status:Active Unknown Family Member Name Dates Details Brother 1 Comments:Diabetes, Insulin d ep Status:Active Brother 2 Comments:none to report Status:Active Brother 3 Comments:none to report Status:Active Brother 4 Comments:none to report Status:Active Father Comments:none to report Status:Active Maternal Grandfather Comments:prostate cancer Status:Active Maternal Grandmother Comments:unknown Status:Active Mother Comments:hypothyroid, htn, c holesterol, stage 4 colon cancer mets to liver Status:Active Paternal Grandfather Comments:living and healthy Status:Active Paternal Grandmother Comments:living and healthy Status:Active Sister 1 Comments:hypothyroid Status:Active Sister 2 Comments:hypothyoroid Status:Active Sister 3 Comments:none to report Status:Active Unknown Family Member Name Dates Details Brother 1 Comments:Diabetes, Insulin d ep Status:Active Brother 2 Comments:none to report Status:Active Brother 3 Comments:none to report Status:Active Brother 4 Comments:none to report Status:Active Father Comments:none to report Status:Active Maternal Grandfather Comments:prostate cancer Status:Active Maternal Grandmother Comments:unknown Status:Active Mother Comments:hypothyroid, htn, c holesterol, stage 4 colon cancer mets to liver Status:Active Paternal Grandfather Comments:living and healthy Status:Active Paternal Grandmother Comments:living and healthy Status:Active Sister 1 Comments:hypothyroid Status:Active Sister 2 Comments:hypothyoroid Status:Active Sister 3 Comments:none to report Status:Active Unknown Family Member Name Dates Details Brother 1 Comments:Diabetes, Insulin d ep Status:Active Brother 2 Comments:none to report Status:Active Brother 3 Comments:none to report Status:Active Brother 4 Comments:none to report Status:Active Father Comments:none to report Status:Active Maternal Grandfather Comments:prostate cancer Status:Active Maternal Grandmother Comments:unknown Status:Active Mother Comments:hypothyroid, htn, c holesterol, stage 4 colon cancer mets to liver Status:Active Paternal Grandfather Comments:living and healthy Status:Active Paternal Grandmother Comments:living and healthy Status:Active Sister 1 Comments:hypothyroid Status:Active Sister 2 Comments:hypothyoroid Status:Active Sister 3 Comments:none to report Status:Active Unknown Family Member Name Dates Details Brother 1 Comments:Diabetes, Insulin d ep Status:Active Brother 2 Comments:none to report Status:Active Brother 3 Comments:none to report Status:Active Brother 4 Comments:none to report Status:Active Father Comments:none to report Status:Active Maternal Grandfather Comments:prostate cancer Status:Active Maternal Grandmother Comments:unknown Status:Active Mother Comments:hypothyroid, htn, c holesterol, stage 4 colon cancer mets to liver Status:Active Paternal Grandfather Comments:living and healthy Status:Active Paternal Grandmother Comments:living and healthy Status:Active Sister 1 Comments:hypothyroid Status:Active Sister 2 Comments:hypothyoroid Status:Active Sister 3 Comments:none to report Status:Active Unknown Family Member Name Dates Details Brother 1 Comments:Diabetes, Insulin d ep Status:Active Brother 2 Comments:none to report Status:Active Brother 3 Comments:none to report Status:Active Brother 4 Comments:none to report Status:Active Father Comments:none to report Status:Active Maternal Grandfather Comments:prostate cancer Status:Active Maternal Grandmother Comments:unknown Status:Active Mother Comments:hypothyroid, htn, c holesterol, stage 4 colon cancer mets to liver Status:Active Paternal Grandfather Comments:living and healthy Status:Active Paternal Grandmother Comments:living and healthy Status:Active Sister 1 Comments:hypothyroid Status:Active Sister 2 Comments:hypothyoroid Status:Active Sister 3 Comments:none to report Status:Active Instructions Name Dates Details Current nonsmoker (Renamed f rom Current non-smoker) : How to access health information online Indication:Current nonsmoker (Renamed from Current non-smoker) Current nonsmoker (Renamed f rom Current non-smoker) : How to access health information online - Detail Indication:Current nonsmoker (Renamed from Current non-smoker) Current nonsmoker (Renamed f rom Current non-smoker) : Patient Instructions Indication:Current nonsmoker (Renamed from Current non-smoker) BMI 31.0-31.9,adult : How to access health information online Indication:BMI 31.0-31.9,adult BMI 31.0-31.9,adult : How to access health information online - Detail Indication:BMI 31.0-31.9,adult BMI 31.0-31.9,adult : Patien t Instructions Indication:BMI 31.0-31.9,adult BMI 32.0-32.9,adult : How to access health information online Indication:BMI 32.0-32.9,adult BMI 32.0-32.9,adult : How to access health information online - Detail Indication:BMI 32.0-32.9,adult BMI 32.0-32.9,adult : Patien t Instructions Indication:BMI 32.0-32.9,adult Hypothyroidism, adult : How to access health information online Indication:Hypothyroidism, adult Hypothyroidism, adult : How to access health information online - Detail Indication:Hypothyroidism, adult Hypothyroidism, adult : Shilpa ent Instructions Indication:Hypothyroidism, adult Obesity, unspecified : How t o access health information online Indication:Obesity, unspecified Obesity, unspecified : How t o access health information online - Detail Indication:Obesity, unspecified Obesity, unspecified : Patie nt Instructions Indication:Obesity, unspecified Name Dates Details BMI 33.0-33.9,adult : How to access health information online Indication:BMI 33.0-33.9,adult BMI 33.0-33.9,adult : How to access health information online - Detail Indication:BMI 33.0-33.9,adult BMI 33.0-33.9,adult : Patien t Instructions Indication:BMI 33.0-33.9,adult Current nonsmoker (Renamed f rom Current non-smoker) : How to access health information online Indication:Current nonsmoker (Renamed from Current non-smoker) Current nonsmoker (Renamed f rom Current non-smoker) : How to access health information online - Detail Indication:Current nonsmoker (Renamed from Current non-smoker) Current nonsmoker (Renamed f rom Current non-smoker) : Patient Instructions Indication:Current nonsmoker (Renamed from Current non-smoker) BMI 31.0-31.9,adult : How to access health information online Indication:BMI 31.0-31.9,adult BMI 31.0-31.9,adult : How to access health information online - Detail Indication:BMI 31.0-31.9,adult BMI 31.0-31.9,adult : Patien t Instructions Indication:BMI 31.0-31.9,adult BMI 32.0-32.9,adult : How to access health information online Indication:BMI 32.0-32.9,adult BMI 32.0-32.9,adult : How to access health information online - Detail Indication:BMI 32.0-32.9,adult BMI 32.0-32.9,adult : Patien t Instructions Indication:BMI 32.0-32.9,adult Hypothyroidism, adult : How to access health information online Indication:Hypothyroidism, adult Hypothyroidism, adult : How to access health information online - Detail Indication:Hypothyroidism, adult Hypothyroidism, adult : Shilpa ent Instructions Indication:Hypothyroidism, adult Obesity, unspecified : How t o access health information online Indication:Obesity, unspecified Obesity, unspecified : How t o access health information online - Detail Indication:Obesity, unspecified Obesity, unspecified : Patie nt Instructions Indication:Obesity, unspecified Name Dates Details BMI 33.0-33.9,adult : How to access health information online Indication:BMI 33.0-33.9,adult BMI 33.0-33.9,adult : How to access health information online - Detail Indication:BMI 33.0-33.9,adult BMI 33.0-33.9,adult : Patien t Instructions Indication:BMI 33.0-33.9,adult Current nonsmoker (Renamed f rom Current non-smoker) : How to access health information online Indication:Current nonsmoker (Renamed from Current non-smoker) Current nonsmoker (Renamed f rom Current non-smoker) : How to access health information online - Detail Indication:Current nonsmoker (Renamed from Current non-smoker) Current nonsmoker (Renamed f rom Current non-smoker) : Patient Instructions Indication:Current nonsmoker (Renamed from Current non-smoker) BMI 31.0-31.9,adult : How to access health information online Indication:BMI 31.0-31.9,adult BMI 31.0-31.9,adult : How to access health information online - Detail Indication:BMI 31.0-31.9,adult BMI 31.0-31.9,adult : Patien t Instructions Indication:BMI 31.0-31.9,adult BMI 32.0-32.9,adult : How to access health information online Indication:BMI 32.0-32.9,adult BMI 32.0-32.9,adult : How to access health information online - Detail Indication:BMI 32.0-32.9,adult BMI 32.0-32.9,adult : Patien t Instructions Indication:BMI 32.0-32.9,adult Hypothyroidism, adult : How to access health information online Indication:Hypothyroidism, adult Hypothyroidism, adult : How to access health information online - Detail Indication:Hypothyroidism, adult Hypothyroidism, adult : Shilpa ent Instructions Indication:Hypothyroidism, adult Obesity, unspecified : How t o access health information online Indication:Obesity, unspecified Obesity, unspecified : How t o access health information online - Detail Indication:Obesity, unspecified Obesity, unspecified : Patie nt Instructions Indication:Obesity, unspecified Name Dates Details How to access health informa tion online Indication:Hypothyroidism, adult Start:06-Jun-2019 Instruction Type:Patient Education How to access health informa tion online - Detail Indication:Hypothyroidism, adult Start:06-Jun-2019 Instruction Type:Patient Education Patient Instructions Indication:Hypothyroidism, adult Start:06-Jun-2019 Instruction Type:Provider Instructions for Treatment How to access health informa tion online Indication:BMI 33.0-33.9,adult Start:01-Mar-2019 Instruction Type:Patient Education How to access health informa tion online - Detail Indication:BMI 33.0-33.9,adult Start:01-Mar-2019 Instruction Type:Patient Education Patient Instructions Indication:BMI 33.0-33.9,adult Start:01-Mar-2019 Instruction Type:Provider Instructions for Treatment How to access health informa tion online Indication:Current nonsmoker (Renamed from Current non-smoker) Start:26-Nov-2018 Instruction Type:Patient Education How to access health informa tion online - Detail Indication:Current nonsmoker (Renamed from Current non-smoker) Start:26-Nov-2018 Instruction Type:Patient Education Patient Instructions Indication:Current nonsmoker (Renamed from Current non-smoker) Start:26-Nov-2018 Instruction Type:Provider Instructions for Treatment How to access health informa tion online Indication:BMI 31.0-31.9,adult Start:16-Nov-2017 Instruction Type:Patient Education How to access health informa tion online - Detail Indication:BMI 31.0-31.9,adult Start:16-Nov-2017 Instruction Type:Patient Education Patient Instructions Indication:BMI 31.0-31.9,adult Start:16-Nov-2017 Instruction Type:Provider Instructions for Treatment How to access health informa tion online Indication:BMI 32.0-32.9,adult Start:11-Aug-2017 Instruction Type:Patient Education How to access health informa tion online - Detail Indication:BMI 32.0-32.9,adult Start:11-Aug-2017 Instruction Type:Patient Education Patient Instructions Indication:BMI 32.0-32.9,adult Start:11-Aug-2017 Instruction Type:Provider Instructions for Treatment How to access health informa tion online Indication:Hypothyroidism, adult Start:30-Dec-2016 Instruction Type:Patient Education How to access health informa tion online - Detail Indication:Hypothyroidism, adult Start:30-Dec-2016 Instruction Type:Patient Education Patient Instructions Indication:Hypothyroidism, adult Start:30-Dec-2016 Instruction Type:Provider Instructions for Treatment How to access health informa tion online Indication:Current nonsmoker (Renamed from Current non-smoker) Start:27-Jun-2016 Instruction Type:Patient Education How to access health informa tion online - Detail Indication:Current nonsmoker (Renamed from Current non-smoker) Start:27-Jun-2016 Instruction Type:Patient Education Patient Instructions Indication:Current nonsmoker (Renamed from Current non-smoker) Start:27-Jun-2016 Instruction Type:Provider Instructions for Treatment How to access health informa tion online Indication:Hypothyroidism, adult Start:15-Feb-2016 Instruction Type:Patient Education How to access health informa tion online - Detail Indication:Hypothyroidism, adult Start:15-Feb-2016 Instruction Type:Patient Education Patient Instructions Indication:Hypothyroidism, adult Start:15-Feb-2016 Instruction Type:Provider Instructions for Treatment How to access health informa tion online Indication:Obesity, unspecified Start:08-Jun-2015 Instruction Type:Patient Education How to access health informa tion online - Detail Indication:Obesity, unspecified Start:08-Jun-2015 Instruction Type:Patient Education Patient Instructions Indication:Obesity, unspecified Start:08-Jun-2015 Instruction Type:Provider Instructions for Treatment Patient Instructions Indication:Hypothyroidism, adult Start:08-Sep-2014 Instruction Type:Provider Instructions for Treatment Patient Instructions Indication:Hypothyroidism, adult Start:10-Mar-2014 Instruction Type:Provider Instructions for Treatment Name Dates Details How to access health informa tion online Indication:Hypothyroidism, adult Start:06-Jun-2019 Instruction Type:Patient Education How to access health informa tion online - Detail Indication:Hypothyroidism, adult Start:06-Jun-2019 Instruction Type:Patient Education Patient Instructions Indication:Hypothyroidism, adult Start:06-Jun-2019 Instruction Type:Provider Instructions for Treatment How to access health informa tion online Indication:BMI 33.0-33.9,adult Start:01-Mar-2019 Instruction Type:Patient Education How to access health informa tion online - Detail Indication:BMI 33.0-33.9,adult Start:01-Mar-2019 Instruction Type:Patient Education Patient Instructions Indication:BMI 33.0-33.9,adult Start:01-Mar-2019 Instruction Type:Provider Instructions for Treatment How to access health informa tion online Indication:Current nonsmoker (Renamed from Current non-smoker) Start:26-Nov-2018 Instruction Type:Patient Education How to access health informa tion online - Detail Indication:Current nonsmoker (Renamed from Current non-smoker) Start:26-Nov-2018 Instruction Type:Patient Education Patient Instructions Indication:Current nonsmoker (Renamed from Current non-smoker) Start:26-Nov-2018 Instruction Type:Provider Instructions for Treatment How to access health informa tion online Indication:BMI 31.0-31.9,adult Start:16-Nov-2017 Instruction Type:Patient Education How to access health informa tion online - Detail Indication:BMI 31.0-31.9,adult Start:16-Nov-2017 Instruction Type:Patient Education Patient Instructions Indication:BMI 31.0-31.9,adult Start:16-Nov-2017 Instruction Type:Provider Instructions for Treatment How to access health informa tion online Indication:BMI 32.0-32.9,adult Start:11-Aug-2017 Instruction Type:Patient Education How to access health informa tion online - Detail Indication:BMI 32.0-32.9,adult Start:11-Aug-2017 Instruction Type:Patient Education Patient Instructions Indication:BMI 32.0-32.9,adult Start:11-Aug-2017 Instruction Type:Provider Instructions for Treatment How to access health informa tion online Indication:Hypothyroidism, adult Start:30-Dec-2016 Instruction Type:Patient Education How to access health informa tion online - Detail Indication:Hypothyroidism, adult Start:30-Dec-2016 Instruction Type:Patient Education Patient Instructions Indication:Hypothyroidism, adult Start:30-Dec-2016 Instruction Type:Provider Instructions for Treatment How to access health informa tion online Indication:Current nonsmoker (Renamed from Current non-smoker) Start:27-Jun-2016 Instruction Type:Patient Education How to access health informa tion online - Detail Indication:Current nonsmoker (Renamed from Current non-smoker) Start:27-Jun-2016 Instruction Type:Patient Education Patient Instructions Indication:Current nonsmoker (Renamed from Current non-smoker) Start:27-Jun-2016 Instruction Type:Provider Instructions for Treatment How to access health informa tion online Indication:Hypothyroidism, adult Start:15-Feb-2016 Instruction Type:Patient Education How to access health informa tion online - Detail Indication:Hypothyroidism, adult Start:15-Feb-2016 Instruction Type:Patient Education Patient Instructions Indication:Hypothyroidism, adult Start:15-Feb-2016 Instruction Type:Provider Instructions for Treatment How to access health informa tion online Indication:Obesity, unspecified Start:08-Jun-2015 Instruction Type:Patient Education How to access health informa tion online - Detail Indication:Obesity, unspecified Start:08-Jun-2015 Instruction Type:Patient Education Patient Instructions Indication:Obesity, unspecified Start:08-Jun-2015 Instruction Type:Provider Instructions for Treatment Patient Instructions Indication:Hypothyroidism, adult Start:08-Sep-2014 Instruction Type:Provider Instructions for Treatment Patient Instructions Indication:Hypothyroidism, adult Start:10-Mar-2014 Instruction Type:Provider Instructions for Treatment Name Dates Details How to access health informa tion online Indication:Hypothyroidism, adult Start:20-Dec-2019 Instruction Type:Patient Education How to access health informa tion online - Detail Indication:Hypothyroidism, adult Start:20-Dec-2019 Instruction Type:Patient Education Patient Instructions Indication:Hypothyroidism, adult Start:20-Dec-2019 Instruction Type:Provider Instructions for Treatment How to access health informa tion online Indication:Current nonsmoker (Renamed from Current non-smoker) Start:06-Sep-2019 Instruction Type:Patient Education How to access health informa tion online - Detail Indication:Current nonsmoker (Renamed from Current non-smoker) Start:06-Sep-2019 Instruction Type:Patient Education Patient Instructions Indication:Current nonsmoker (Renamed from Current non-smoker) Start:06-Sep-2019 Instruction Type:Provider Instructions for Treatment How to access health informa tion online Indication:Hypothyroidism, adult Start:06-Jun-2019 Instruction Type:Patient Education How to access health informa tion online - Detail Indication:Hypothyroidism, adult Start:06-Jun-2019 Instruction Type:Patient Education Patient Instructions Indication:Hypothyroidism, adult Start:06-Jun-2019 Instruction Type:Provider Instructions for Treatment How to access health informa tion online Indication:BMI 33.0-33.9,adult Start:01-Mar-2019 Instruction Type:Patient Education How to access health informa tion online - Detail Indication:BMI 33.0-33.9,adult Start:01-Mar-2019 Instruction Type:Patient Education Patient Instructions Indication:BMI 33.0-33.9,adult Start:01-Mar-2019 Instruction Type:Provider Instructions for Treatment How to access health informa tion online Indication:Current nonsmoker (Renamed from Current non-smoker) Start:26-Nov-2018 Instruction Type:Patient Education How to access health informa tion online - Detail Indication:Current nonsmoker (Renamed from Current non-smoker) Start:26-Nov-2018 Instruction Type:Patient Education Patient Instructions Indication:Current nonsmoker (Renamed from Current non-smoker) Start:26-Nov-2018 Instruction Type:Provider Instructions for Treatment How to access health informa tion online Indication:BMI 31.0-31.9,adult Start:16-Nov-2017 Instruction Type:Patient Education How to access health informa tion online - Detail Indication:BMI 31.0-31.9,adult Start:16-Nov-2017 Instruction Type:Patient Education Patient Instructions Indication:BMI 31.0-31.9,adult Start:16-Nov-2017 Instruction Type:Provider Instructions for Treatment How to access health informa tion online Indication:BMI 32.0-32.9,adult Start:11-Aug-2017 Instruction Type:Patient Education How to access health informa tion online - Detail Indication:BMI 32.0-32.9,adult Start:11-Aug-2017 Instruction Type:Patient Education Patient Instructions Indication:BMI 32.0-32.9,adult Start:11-Aug-2017 Instruction Type:Provider Instructions for Treatment How to access health informa tion online Indication:Hypothyroidism, adult Start:30-Dec-2016 Instruction Type:Patient Education How to access health informa tion online - Detail Indication:Hypothyroidism, adult Start:30-Dec-2016 Instruction Type:Patient Education Patient Instructions Indication:Hypothyroidism, adult Start:30-Dec-2016 Instruction Type:Provider Instructions for Treatment How to access health informa tion online Indication:Current nonsmoker (Renamed from Current non-smoker) Start:27-Jun-2016 Instruction Type:Patient Education How to access health informa tion online - Detail Indication:Current nonsmoker (Renamed from Current non-smoker) Start:27-Jun-2016 Instruction Type:Patient Education Patient Instructions Indication:Current nonsmoker (Renamed from Current non-smoker) Start:27-Jun-2016 Instruction Type:Provider Instructions for Treatment How to access health informa tion online Indication:Hypothyroidism, adult Start:15-Feb-2016 Instruction Type:Patient Education How to access health informa tion online - Detail Indication:Hypothyroidism, adult Start:15-Feb-2016 Instruction Type:Patient Education Patient Instructions Indication:Hypothyroidism, adult Start:15-Feb-2016 Instruction Type:Provider Instructions for Treatment How to access health informa tion online Indication:Obesity, unspecified Start:08-Jun-2015 Instruction Type:Patient Education How to access health informa tion online - Detail Indication:Obesity, unspecified Start:08-Jun-2015 Instruction Type:Patient Education Patient Instructions Indication:Obesity, unspecified Start:08-Jun-2015 Instruction Type:Provider Instructions for Treatment Patient Instructions Indication:Hypothyroidism, adult Start:08-Sep-2014 Instruction Type:Provider Instructions for Treatment Patient Instructions Indication:Hypothyroidism, adult Start:10-Mar-2014 Instruction Type:Provider Instructions for Treatment Name Dates Details How to access health informa tion online Indication:Hypothyroidism, adult Start:20-Dec-2019 Instruction Type:Patient Education How to access health informa tion online - Detail Indication:Hypothyroidism, adult Start:20-Dec-2019 Instruction Type:Patient Education Patient Instructions Indication:Hypothyroidism, adult Start:20-Dec-2019 Instruction Type:Provider Instructions for Treatment How to access health informa tion online Indication:Current nonsmoker (Renamed from Current non-smoker) Start:06-Sep-2019 Instruction Type:Patient Education How to access health informa tion online - Detail Indication:Current nonsmoker (Renamed from Current non-smoker) Start:06-Sep-2019 Instruction Type:Patient Education Patient Instructions Indication:Current nonsmoker (Renamed from Current non-smoker) Start:06-Sep-2019 Instruction Type:Provider Instructions for Treatment How to access health informa tion online Indication:Hypothyroidism, adult Start:06-Jun-2019 Instruction Type:Patient Education How to access health informa tion online - Detail Indication:Hypothyroidism, adult Start:06-Jun-2019 Instruction Type:Patient Education Patient Instructions Indication:Hypothyroidism, adult Start:06-Jun-2019 Instruction Type:Provider Instructions for Treatment How to access health informa tion online Indication:BMI 33.0-33.9,adult Start:01-Mar-2019 Instruction Type:Patient Education How to access health informa tion online - Detail Indication:BMI 33.0-33.9,adult Start:01-Mar-2019 Instruction Type:Patient Education Patient Instructions Indication:BMI 33.0-33.9,adult Start:01-Mar-2019 Instruction Type:Provider Instructions for Treatment How to access health informa tion online Indication:Current nonsmoker (Renamed from Current non-smoker) Start:26-Nov-2018 Instruction Type:Patient Education How to access health informa tion online - Detail Indication:Current nonsmoker (Renamed from Current non-smoker) Start:26-Nov-2018 Instruction Type:Patient Education Patient Instructions Indication:Current nonsmoker (Renamed from Current non-smoker) Start:26-Nov-2018 Instruction Type:Provider Instructions for Treatment How to access health informa tion online Indication:BMI 31.0-31.9,adult Start:16-Nov-2017 Instruction Type:Patient Education How to access health informa tion online - Detail Indication:BMI 31.0-31.9,adult Start:16-Nov-2017 Instruction Type:Patient Education Patient Instructions Indication:BMI 31.0-31.9,adult Start:16-Nov-2017 Instruction Type:Provider Instructions for Treatment How to access health informa tion online Indication:BMI 32.0-32.9,adult Start:11-Aug-2017 Instruction Type:Patient Education How to access health informa tion online - Detail Indication:BMI 32.0-32.9,adult Start:11-Aug-2017 Instruction Type:Patient Education Patient Instructions Indication:BMI 32.0-32.9,adult Start:11-Aug-2017 Instruction Type:Provider Instructions for Treatment How to access health informa tion online Indication:Hypothyroidism, adult Start:30-Dec-2016 Instruction Type:Patient Education How to access health informa tion online - Detail Indication:Hypothyroidism, adult Start:30-Dec-2016 Instruction Type:Patient Education Patient Instructions Indication:Hypothyroidism, adult Start:30-Dec-2016 Instruction Type:Provider Instructions for Treatment How to access health informa tion online Indication:Current nonsmoker (Renamed from Current non-smoker) Start:27-Jun-2016 Instruction Type:Patient Education How to access health informa tion online - Detail Indication:Current nonsmoker (Renamed from Current non-smoker) Start:27-Jun-2016 Instruction Type:Patient Education Patient Instructions Indication:Current nonsmoker (Renamed from Current non-smoker) Start:27-Jun-2016 Instruction Type:Provider Instructions for Treatment How to access health informa tion online Indication:Hypothyroidism, adult Start:15-Feb-2016 Instruction Type:Patient Education How to access health informa tion online - Detail Indication:Hypothyroidism, adult Start:15-Feb-2016 Instruction Type:Patient Education Patient Instructions Indication:Hypothyroidism, adult Start:15-Feb-2016 Instruction Type:Provider Instructions for Treatment How to access health informa tion online Indication:Obesity, unspecified Start:08-Jun-2015 Instruction Type:Patient Education How to access health informa tion online - Detail Indication:Obesity, unspecified Start:08-Jun-2015 Instruction Type:Patient Education Patient Instructions Indication:Obesity, unspecified Start:08-Jun-2015 Instruction Type:Provider Instructions for Treatment Patient Instructions Indication:Hypothyroidism, adult Start:08-Sep-2014 Instruction Type:Provider Instructions for Treatment Patient Instructions Indication:Hypothyroidism, adult Start:10-Mar-2014 Instruction Type:Provider Instructions for Treatment Name Dates Details How to access health informa tion online Indication:BMI 31.0-31.9,adult Start:23-Jul-2020 Instruction Type:Patient Education How to access health informa tion online - Detail Indication:BMI 31.0-31.9,adult Start:23-Jul-2020 Instruction Type:Patient Education Patient Instructions Indication:BMI 31.0-31.9,adult Start:23-Jul-2020 Instruction Type:Provider Instructions for Treatment How to access health informa tion online Indication:Hypothyroidism, adult Start:20-Dec-2019 Instruction Type:Patient Education How to access health informa tion online - Detail Indication:Hypothyroidism, adult Start:20-Dec-2019 Instruction Type:Patient Education Patient Instructions Indication:Hypothyroidism, adult Start:20-Dec-2019 Instruction Type:Provider Instructions for Treatment How to access health informa tion online Indication:Current nonsmoker (Renamed from Current non-smoker) Start:06-Sep-2019 Instruction Type:Patient Education How to access health informa tion online - Detail Indication:Current nonsmoker (Renamed from Current non-smoker) Start:06-Sep-2019 Instruction Type:Patient Education Patient Instructions Indication:Current nonsmoker (Renamed from Current non-smoker) Start:06-Sep-2019 Instruction Type:Provider Instructions for Treatment How to access health informa tion online Indication:Hypothyroidism, adult Start:06-Jun-2019 Instruction Type:Patient Education How to access health informa tion online - Detail Indication:Hypothyroidism, adult Start:06-Jun-2019 Instruction Type:Patient Education Patient Instructions Indication:Hypothyroidism, adult Start:06-Jun-2019 Instruction Type:Provider Instructions for Treatment How to access health informa tion online Indication:BMI 33.0-33.9,adult Start:01-Mar-2019 Instruction Type:Patient Education How to access health informa tion online - Detail Indication:BMI 33.0-33.9,adult Start:01-Mar-2019 Instruction Type:Patient Education Patient Instructions Indication:BMI 33.0-33.9,adult Start:01-Mar-2019 Instruction Type:Provider Instructions for Treatment How to access health informa tion online Indication:Current nonsmoker (Renamed from Current non-smoker) Start:26-Nov-2018 Instruction Type:Patient Education How to access health informa tion online - Detail Indication:Current nonsmoker (Renamed from Current non-smoker) Start:26-Nov-2018 Instruction Type:Patient Education Patient Instructions Indication:Current nonsmoker (Renamed from Current non-smoker) Start:26-Nov-2018 Instruction Type:Provider Instructions for Treatment How to access health informa tion online Indication:BMI 31.0-31.9,adult Start:16-Nov-2017 Instruction Type:Patient Education How to access health informa tion online - Detail Indication:BMI 31.0-31.9,adult Start:16-Nov-2017 Instruction Type:Patient Education Patient Instructions Indication:BMI 31.0-31.9,adult Start:16-Nov-2017 Instruction Type:Provider Instructions for Treatment How to access health informa tion online Indication:BMI 32.0-32.9,adult Start:11-Aug-2017 Instruction Type:Patient Education How to access health informa tion online - Detail Indication:BMI 32.0-32.9,adult Start:11-Aug-2017 Instruction Type:Patient Education Patient Instructions Indication:BMI 32.0-32.9,adult Start:11-Aug-2017 Instruction Type:Provider Instructions for Treatment How to access health informa tion online Indication:Hypothyroidism, adult Start:30-Dec-2016 Instruction Type:Patient Education How to access health informa tion online - Detail Indication:Hypothyroidism, adult Start:30-Dec-2016 Instruction Type:Patient Education Patient Instructions Indication:Hypothyroidism, adult Start:30-Dec-2016 Instruction Type:Provider Instructions for Treatment How to access health informa tion online Indication:Current nonsmoker (Renamed from Current non-smoker) Start:27-Jun-2016 Instruction Type:Patient Education How to access health informa tion online - Detail Indication:Current nonsmoker (Renamed from Current non-smoker) Start:27-Jun-2016 Instruction Type:Patient Education Patient Instructions Indication:Current nonsmoker (Renamed from Current non-smoker) Start:27-Jun-2016 Instruction Type:Provider Instructions for Treatment How to access health informa tion online Indication:Hypothyroidism, adult Start:15-Feb-2016 Instruction Type:Patient Education How to access health informa tion online - Detail Indication:Hypothyroidism, adult Start:15-Feb-2016 Instruction Type:Patient Education Patient Instructions Indication:Hypothyroidism, adult Start:15-Feb-2016 Instruction Type:Provider Instructions for Treatment How to access health informa tion online Indication:Obesity, unspecified Start:08-Jun-2015 Instruction Type:Patient Education How to access health informa tion online - Detail Indication:Obesity, unspecified Start:08-Jun-2015 Instruction Type:Patient Education Patient Instructions Indication:Obesity, unspecified Start:08-Jun-2015 Instruction Type:Provider Instructions for Treatment Patient Instructions Indication:Hypothyroidism, adult Start:08-Sep-2014 Instruction Type:Provider Instructions for Treatment Patient Instructions Indication:Hypothyroidism, adult Start:10-Mar-2014 Instruction Type:Provider Instructions for Treatment Name Dates Details How to access health informa tion online Indication:BMI 31.0-31.9,adult Start:23-Jul-2020 Instruction Type:Patient Education How to access health informa tion online - Detail Indication:BMI 31.0-31.9,adult Start:23-Jul-2020 Instruction Type:Patient Education Patient Instructions Indication:BMI 31.0-31.9,adult Start:23-Jul-2020 Instruction Type:Provider Instructions for Treatment How to access health informa tion online Indication:Hypothyroidism, adult Start:20-Dec-2019 Instruction Type:Patient Education How to access health informa tion online - Detail Indication:Hypothyroidism, adult Start:20-Dec-2019 Instruction Type:Patient Education Patient Instructions Indication:Hypothyroidism, adult Start:20-Dec-2019 Instruction Type:Provider Instructions for Treatment How to access health informa tion online Indication:Current nonsmoker (Renamed from Current non-smoker) Start:06-Sep-2019 Instruction Type:Patient Education How to access health informa tion online - Detail Indication:Current nonsmoker (Renamed from Current non-smoker) Start:06-Sep-2019 Instruction Type:Patient Education Patient Instructions Indication:Current nonsmoker (Renamed from Current non-smoker) Start:06-Sep-2019 Instruction Type:Provider Instructions for Treatment How to access health informa tion online Indication:Hypothyroidism, adult Start:06-Jun-2019 Instruction Type:Patient Education How to access health informa tion online - Detail Indication:Hypothyroidism, adult Start:06-Jun-2019 Instruction Type:Patient Education Patient Instructions Indication:Hypothyroidism, adult Start:06-Jun-2019 Instruction Type:Provider Instructions for Treatment How to access health informa tion online Indication:BMI 33.0-33.9,adult Start:01-Mar-2019 Instruction Type:Patient Education How to access health informa tion online - Detail Indication:BMI 33.0-33.9,adult Start:01-Mar-2019 Instruction Type:Patient Education Patient Instructions Indication:BMI 33.0-33.9,adult Start:01-Mar-2019 Instruction Type:Provider Instructions for Treatment How to access health informa tion online Indication:Current nonsmoker (Renamed from Current non-smoker) Start:26-Nov-2018 Instruction Type:Patient Education How to access health informa tion online - Detail Indication:Current nonsmoker (Renamed from Current non-smoker) Start:26-Nov-2018 Instruction Type:Patient Education Patient Instructions Indication:Current nonsmoker (Renamed from Current non-smoker) Start:26-Nov-2018 Instruction Type:Provider Instructions for Treatment How to access health informa tion online Indication:BMI 31.0-31.9,adult Start:16-Nov-2017 Instruction Type:Patient Education How to access health informa tion online - Detail Indication:BMI 31.0-31.9,adult Start:16-Nov-2017 Instruction Type:Patient Education Patient Instructions Indication:BMI 31.0-31.9,adult Start:16-Nov-2017 Instruction Type:Provider Instructions for Treatment How to access health informa tion online Indication:BMI 32.0-32.9,adult Start:11-Aug-2017 Instruction Type:Patient Education How to access health informa tion online - Detail Indication:BMI 32.0-32.9,adult Start:11-Aug-2017 Instruction Type:Patient Education Patient Instructions Indication:BMI 32.0-32.9,adult Start:11-Aug-2017 Instruction Type:Provider Instructions for Treatment How to access health informa tion online Indication:Hypothyroidism, adult Start:30-Dec-2016 Instruction Type:Patient Education How to access health informa tion online - Detail Indication:Hypothyroidism, adult Start:30-Dec-2016 Instruction Type:Patient Education Patient Instructions Indication:Hypothyroidism, adult Start:30-Dec-2016 Instruction Type:Provider Instructions for Treatment How to access health informa tion online Indication:Current nonsmoker (Renamed from Current non-smoker) Start:27-Jun-2016 Instruction Type:Patient Education How to access health informa tion online - Detail Indication:Current nonsmoker (Renamed from Current non-smoker) Start:27-Jun-2016 Instruction Type:Patient Education Patient Instructions Indication:Current nonsmoker (Renamed from Current non-smoker) Start:27-Jun-2016 Instruction Type:Provider Instructions for Treatment How to access health informa tion online Indication:Hypothyroidism, adult Start:15-Feb-2016 Instruction Type:Patient Education How to access health informa tion online - Detail Indication:Hypothyroidism, adult Start:15-Feb-2016 Instruction Type:Patient Education Patient Instructions Indication:Hypothyroidism, adult Start:15-Feb-2016 Instruction Type:Provider Instructions for Treatment How to access health informa tion online Indication:Obesity, unspecified Start:08-Jun-2015 Instruction Type:Patient Education How to access health informa tion online - Detail Indication:Obesity, unspecified Start:08-Jun-2015 Instruction Type:Patient Education Patient Instructions Indication:Obesity, unspecified Start:08-Jun-2015 Instruction Type:Provider Instructions for Treatment Patient Instructions Indication:Hypothyroidism, adult Start:08-Sep-2014 Instruction Type:Provider Instructions for Treatment Patient Instructions Indication:Hypothyroidism, adult Start:10-Mar-2014 Instruction Type:Provider Instructions for Treatment Name Dates Details How to access health informa tion online Indication:BMI 31.0-31.9,adult Start:23-Jul-2020 Instruction Type:Patient Education How to access health informa tion online - Detail Indication:BMI 31.0-31.9,adult Start:23-Jul-2020 Instruction Type:Patient Education Patient Instructions Indication:BMI 31.0-31.9,adult Start:23-Jul-2020 Instruction Type:Provider Instructions for Treatment How to access health informa tion online Indication:Hypothyroidism, adult Start:20-Dec-2019 Instruction Type:Patient Education How to access health informa tion online - Detail Indication:Hypothyroidism, adult Start:20-Dec-2019 Instruction Type:Patient Education Patient Instructions Indication:Hypothyroidism, adult Start:20-Dec-2019 Instruction Type:Provider Instructions for Treatment How to access health informa tion online Indication:Current nonsmoker (Renamed from Current non-smoker) Start:06-Sep-2019 Instruction Type:Patient Education How to access health informa tion online - Detail Indication:Current nonsmoker (Renamed from Current non-smoker) Start:06-Sep-2019 Instruction Type:Patient Education Patient Instructions Indication:Current nonsmoker (Renamed from Current non-smoker) Start:06-Sep-2019 Instruction Type:Provider Instructions for Treatment How to access health informa tion online Indication:Hypothyroidism, adult Start:06-Jun-2019 Instruction Type:Patient Education How to access health informa tion online - Detail Indication:Hypothyroidism, adult Start:06-Jun-2019 Instruction Type:Patient Education Patient Instructions Indication:Hypothyroidism, adult Start:06-Jun-2019 Instruction Type:Provider Instructions for Treatment How to access health informa tion online Indication:BMI 33.0-33.9,adult Start:01-Mar-2019 Instruction Type:Patient Education How to access health informa tion online - Detail Indication:BMI 33.0-33.9,adult Start:01-Mar-2019 Instruction Type:Patient Education Patient Instructions Indication:BMI 33.0-33.9,adult Start:01-Mar-2019 Instruction Type:Provider Instructions for Treatment How to access health informa tion online Indication:Current nonsmoker (Renamed from Current non-smoker) Start:26-Nov-2018 Instruction Type:Patient Education How to access health informa tion online - Detail Indication:Current nonsmoker (Renamed from Current non-smoker) Start:26-Nov-2018 Instruction Type:Patient Education Patient Instructions Indication:Current nonsmoker (Renamed from Current non-smoker) Start:26-Nov-2018 Instruction Type:Provider Instructions for Treatment How to access health informa tion online Indication:BMI 31.0-31.9,adult Start:16-Nov-2017 Instruction Type:Patient Education How to access health informa tion online - Detail Indication:BMI 31.0-31.9,adult Start:16-Nov-2017 Instruction Type:Patient Education Patient Instructions Indication:BMI 31.0-31.9,adult Start:16-Nov-2017 Instruction Type:Provider Instructions for Treatment How to access health informa tion online Indication:BMI 32.0-32.9,adult Start:11-Aug-2017 Instruction Type:Patient Education How to access health informa tion online - Detail Indication:BMI 32.0-32.9,adult Start:11-Aug-2017 Instruction Type:Patient Education Patient Instructions Indication:BMI 32.0-32.9,adult Start:11-Aug-2017 Instruction Type:Provider Instructions for Treatment How to access health informa tion online Indication:Hypothyroidism, adult Start:30-Dec-2016 Instruction Type:Patient Education How to access health informa tion online - Detail Indication:Hypothyroidism, adult Start:30-Dec-2016 Instruction Type:Patient Education Patient Instructions Indication:Hypothyroidism, adult Start:30-Dec-2016 Instruction Type:Provider Instructions for Treatment How to access health informa tion online Indication:Current nonsmoker (Renamed from Current non-smoker) Start:27-Jun-2016 Instruction Type:Patient Education How to access health informa tion online - Detail Indication:Current nonsmoker (Renamed from Current non-smoker) Start:27-Jun-2016 Instruction Type:Patient Education Patient Instructions Indication:Current nonsmoker (Renamed from Current non-smoker) Start:27-Jun-2016 Instruction Type:Provider Instructions for Treatment How to access health informa tion online Indication:Hypothyroidism, adult Start:15-Feb-2016 Instruction Type:Patient Education How to access health informa tion online - Detail Indication:Hypothyroidism, adult Start:15-Feb-2016 Instruction Type:Patient Education Patient Instructions Indication:Hypothyroidism, adult Start:15-Feb-2016 Instruction Type:Provider Instructions for Treatment How to access health informa tion online Indication:Obesity, unspecified Start:08-Jun-2015 Instruction Type:Patient Education How to access health informa tion online - Detail Indication:Obesity, unspecified Start:08-Jun-2015 Instruction Type:Patient Education Patient Instructions Indication:Obesity, unspecified Start:08-Jun-2015 Instruction Type:Provider Instructions for Treatment Patient Instructions Indication:Hypothyroidism, adult Start:08-Sep-2014 Instruction Type:Provider Instructions for Treatment Patient Instructions Indication:Hypothyroidism, adult Start:10-Mar-2014 Instruction Type:Provider Instructions for Treatment Name Dates Details How to access health informa tion online Indication:Current nonsmoker (Renamed from Current non-smoker) Start:06-Sep-2019 Instruction Type:Patient Education How to access health informa tion online - Detail Indication:Current nonsmoker (Renamed from Current non-smoker) Start:06-Sep-2019 Instruction Type:Patient Education Patient Instructions Indication:Current nonsmoker (Renamed from Current non-smoker) Start:06-Sep-2019 Instruction Type:Provider Instructions for Treatment How to access health informa tion online Indication:Hypothyroidism, adult Start:06-Jun-2019 Instruction Type:Patient Education How to access health informa tion online - Detail Indication:Hypothyroidism, adult Start:06-Jun-2019 Instruction Type:Patient Education Patient Instructions Indication:Hypothyroidism, adult Start:06-Jun-2019 Instruction Type:Provider Instructions for Treatment How to access health informa tion online Indication:BMI 33.0-33.9,adult Start:01-Mar-2019 Instruction Type:Patient Education How to access health informa tion online - Detail Indication:BMI 33.0-33.9,adult Start:01-Mar-2019 Instruction Type:Patient Education Patient Instructions Indication:BMI 33.0-33.9,adult Start:01-Mar-2019 Instruction Type:Provider Instructions for Treatment How to access health informa tion online Indication:Current nonsmoker (Renamed from Current non-smoker) Start:26-Nov-2018 Instruction Type:Patient Education How to access health informa tion online - Detail Indication:Current nonsmoker (Renamed from Current non-smoker) Start:26-Nov-2018 Instruction Type:Patient Education Patient Instructions Indication:Current nonsmoker (Renamed from Current non-smoker) Start:26-Nov-2018 Instruction Type:Provider Instructions for Treatment How to access health informa tion online Indication:BMI 31.0-31.9,adult Start:16-Nov-2017 Instruction Type:Patient Education How to access health informa tion online - Detail Indication:BMI 31.0-31.9,adult Start:16-Nov-2017 Instruction Type:Patient Education Patient Instructions Indication:BMI 31.0-31.9,adult Start:16-Nov-2017 Instruction Type:Provider Instructions for Treatment How to access health informa tion online Indication:BMI 32.0-32.9,adult Start:11-Aug-2017 Instruction Type:Patient Education How to access health informa tion online - Detail Indication:BMI 32.0-32.9,adult Start:11-Aug-2017 Instruction Type:Patient Education Patient Instructions Indication:BMI 32.0-32.9,adult Start:11-Aug-2017 Instruction Type:Provider Instructions for Treatment How to access health informa tion online Indication:Hypothyroidism, adult Start:30-Dec-2016 Instruction Type:Patient Education How to access health informa tion online - Detail Indication:Hypothyroidism, adult Start:30-Dec-2016 Instruction Type:Patient Education Patient Instructions Indication:Hypothyroidism, adult Start:30-Dec-2016 Instruction Type:Provider Instructions for Treatment How to access health informa tion online Indication:Current nonsmoker (Renamed from Current non-smoker) Start:27-Jun-2016 Instruction Type:Patient Education How to access health informa tion online - Detail Indication:Current nonsmoker (Renamed from Current non-smoker) Start:27-Jun-2016 Instruction Type:Patient Education Patient Instructions Indication:Current nonsmoker (Renamed from Current non-smoker) Start:27-Jun-2016 Instruction Type:Provider Instructions for Treatment How to access health informa tion online Indication:Hypothyroidism, adult Start:15-Feb-2016 Instruction Type:Patient Education How to access health informa tion online - Detail Indication:Hypothyroidism, adult Start:15-Feb-2016 Instruction Type:Patient Education Patient Instructions Indication:Hypothyroidism, adult Start:15-Feb-2016 Instruction Type:Provider Instructions for Treatment How to access health informa tion online Indication:Obesity, unspecified Start:08-Jun-2015 Instruction Type:Patient Education How to access health informa tion online - Detail Indication:Obesity, unspecified Start:08-Jun-2015 Instruction Type:Patient Education Patient Instructions Indication:Obesity, unspecified Start:08-Jun-2015 Instruction Type:Provider Instructions for Treatment Patient Instructions Indication:Hypothyroidism, adult Start:08-Sep-2014 Instruction Type:Provider Instructions for Treatment Patient Instructions Indication:Hypothyroidism, adult Start:10-Mar-2014 Instruction Type:Provider Instructions for Treatment Name Dates Details How to access health informa tion online Indication:BMI 31.0-31.9,adult Start:23-Jul-2020 Instruction Type:Patient Education How to access health informa tion online - Detail Indication:BMI 31.0-31.9,adult Start:23-Jul-2020 Instruction Type:Patient Education Patient Instructions Indication:BMI 31.0-31.9,adult Start:23-Jul-2020 Instruction Type:Provider Instructions for Treatment How to access health informa tion online Indication:Hypothyroidism, adult Start:20-Dec-2019 Instruction Type:Patient Education How to access health informa tion online - Detail Indication:Hypothyroidism, adult Start:20-Dec-2019 Instruction Type:Patient Education Patient Instructions Indication:Hypothyroidism, adult Start:20-Dec-2019 Instruction Type:Provider Instructions for Treatment How to access health informa tion online Indication:Current nonsmoker (Renamed from Current non-smoker) Start:06-Sep-2019 Instruction Type:Patient Education How to access health informa tion online - Detail Indication:Current nonsmoker (Renamed from Current non-smoker) Start:06-Sep-2019 Instruction Type:Patient Education Patient Instructions Indication:Current nonsmoker (Renamed from Current non-smoker) Start:06-Sep-2019 Instruction Type:Provider Instructions for Treatment How to access health informa tion online Indication:Hypothyroidism, adult Start:06-Jun-2019 Instruction Type:Patient Education How to access health informa tion online - Detail Indication:Hypothyroidism, adult Start:06-Jun-2019 Instruction Type:Patient Education Patient Instructions Indication:Hypothyroidism, adult Start:06-Jun-2019 Instruction Type:Provider Instructions for Treatment How to access health informa tion online Indication:BMI 33.0-33.9,adult Start:01-Mar-2019 Instruction Type:Patient Education How to access health informa tion online - Detail Indication:BMI 33.0-33.9,adult Start:01-Mar-2019 Instruction Type:Patient Education Patient Instructions Indication:BMI 33.0-33.9,adult Start:01-Mar-2019 Instruction Type:Provider Instructions for Treatment How to access health informa tion online Indication:Current nonsmoker (Renamed from Current non-smoker) Start:26-Nov-2018 Instruction Type:Patient Education How to access health informa tion online - Detail Indication:Current nonsmoker (Renamed from Current non-smoker) Start:26-Nov-2018 Instruction Type:Patient Education Patient Instructions Indication:Current nonsmoker (Renamed from Current non-smoker) Start:26-Nov-2018 Instruction Type:Provider Instructions for Treatment How to access health informa tion online Indication:BMI 31.0-31.9,adult Start:16-Nov-2017 Instruction Type:Patient Education How to access health informa tion online - Detail Indication:BMI 31.0-31.9,adult Start:16-Nov-2017 Instruction Type:Patient Education Patient Instructions Indication:BMI 31.0-31.9,adult Start:16-Nov-2017 Instruction Type:Provider Instructions for Treatment How to access health informa tion online Indication:BMI 32.0-32.9,adult Start:11-Aug-2017 Instruction Type:Patient Education How to access health informa tion online - Detail Indication:BMI 32.0-32.9,adult Start:11-Aug-2017 Instruction Type:Patient Education Patient Instructions Indication:BMI 32.0-32.9,adult Start:11-Aug-2017 Instruction Type:Provider Instructions for Treatment How to access health informa tion online Indication:Hypothyroidism, adult Start:30-Dec-2016 Instruction Type:Patient Education How to access health informa tion online - Detail Indication:Hypothyroidism, adult Start:30-Dec-2016 Instruction Type:Patient Education Patient Instructions Indication:Hypothyroidism, adult Start:30-Dec-2016 Instruction Type:Provider Instructions for Treatment How to access health informa tion online Indication:Current nonsmoker (Renamed from Current non-smoker) Start:27-Jun-2016 Instruction Type:Patient Education How to access health informa tion online - Detail Indication:Current nonsmoker (Renamed from Current non-smoker) Start:27-Jun-2016 Instruction Type:Patient Education Patient Instructions Indication:Current nonsmoker (Renamed from Current non-smoker) Start:27-Jun-2016 Instruction Type:Provider Instructions for Treatment How to access health informa tion online Indication:Hypothyroidism, adult Start:15-Feb-2016 Instruction Type:Patient Education How to access health informa tion online - Detail Indication:Hypothyroidism, adult Start:15-Feb-2016 Instruction Type:Patient Education Patient Instructions Indication:Hypothyroidism, adult Start:15-Feb-2016 Instruction Type:Provider Instructions for Treatment How to access health informa tion online Indication:Obesity, unspecified Start:08-Jun-2015 Instruction Type:Patient Education How to access health informa tion online - Detail Indication:Obesity, unspecified Start:08-Jun-2015 Instruction Type:Patient Education Patient Instructions Indication:Obesity, unspecified Start:08-Jun-2015 Instruction Type:Provider Instructions for Treatment Patient Instructions Indication:Hypothyroidism, adult Start:08-Sep-2014 Instruction Type:Provider Instructions for Treatment Patient Instructions Indication:Hypothyroidism, adult Start:10-Mar-2014 Instruction Type:Provider Instructions for Treatment Summary Purpose Advance Directives No Advanced Directives Records Found Name Dates Details Immunization Registry [place] - Effective on 07/12/2021. Expiration date unspecified Effective:12-Jul-2021 Name Dates Details Immunization Registry [place] - Effective on 07/12/2021. Expiration date unspecified Effective:12-Jul-2021 Name Dates Details Immunization Registry [place] - Effective on 07/12/2021. Expiration date unspecified Effective:12-Jul-2021 Name Dates Details Immunization Registry [place] - Effective on 07/12/2021. Expiration date unspecified Effective:12-Jul-2021 Name Dates Details Immunization Registry [place] - Effective on 07/12/2021. Expiration date unspecified Effective:12-Jul-2021 Name Dates Details Immunization Registry [place] - Effective on 07/12/2021. Expiration date unspecified Effective:12-Jul-2021 Name Dates Details Immunization Registry [place] - Effective on 07/12/2021. Expiration date unspecified Effective:12-Jul-2021 Name Dates Details Immunization Registry [place] - Effective on 07/12/2021. Expiration date unspecified Effective:12-Jul-2021 Name Dates Details Immunization Registry [place] - Effective on 07/12/2021. Expiration date unspecified Effective:12-Jul-2021 Name Dates Details Immunization Registry [place] - Effective on 07/12/2021. Expiration date unspecified Effective:12-Jul-2021 Name Dates Details Immunization Registry [place] - Effective on 07/12/2021. Expiration date unspecified Effective:12-Jul-2021 Name Dates Details Immunization Registry [place] - Effective on 07/12/2021. Expiration date unspecified Effective:12-Jul-2021 Name Dates Details Immunization Registry [place] - Effective on 07/12/2021. Expiration date unspecified Effective:12-Jul-2021 Name Dates Details Immunization Registry [place] - Effective on 07/12/2021. Expiration date unspecified Effective:12-Jul-2021 Name Dates Details Immunization Registry [place] - Effective on 07/12/2021. Expiration date unspecified Effective:12-Jul-2021 Name Dates Details Immunization Registry [place] - Effective on 07/12/2021. Expiration date unspecified Effective:12-Jul-2021 Name Dates Details Immunization Registry [place] - Effective on 07/12/2021. Expiration date unspecified Effective:12-Jul-2021 Name Dates Details Immunization Registry [place] - Effective on 07/12/2021. Expiration date unspecified Effective:12-Jul-2021 Name Dates Details Immunization Registry [place] - Effective on 07/12/2021. Expiration date unspecified Effective:12-Jul-2021 Name Dates Details Immunization Registry [place] - Effective on 07/12/2021. Expiration date unspecified Effective:12-Jul-2021 Name Dates Details Immunization Registry [place] - Effective on 07/12/2021. Expiration date unspecified Effective:12-Jul-2021 Name Dates Details Immunization Registry [place] - Effective on 07/12/2021. Expiration date unspecified Effective:12-Jul-2021 Name Dates Details Immunization Registry [place] - Effective on 07/12/2021. Expiration date unspecified Effective:12-Jul-2021 Name Dates Details Immunization Registry [place] - Effective on 07/12/2021. Expiration date unspecified Effective:12-Jul-2021 Name Dates Details Immunization Registry [place] - Effective on 07/12/2021. Expiration date unspecified Effective:12-Jul-2021 Name Dates Details Immunization Registry [place] - Effective on 07/12/2021. Expiration date unspecified Effective:12-Jul-2021 Name Dates Details Immunization Registry [place] - Effective on 07/12/2021. Expiration date unspecified Effective:12-Jul-2021 Name Dates Details Immunization Registry [place] - Effective on 07/12/2021. Expiration date unspecified Effective:12-Jul-2021 Name Dates Details Immunization Registry [place] - Effective on 07/12/2021. Expiration date unspecified Effective:12-Jul-2021 Name Dates Details Immunization Registry [place] - Effective on 07/12/2021. Expiration date unspecified Effective:12-Jul-2021 Name Dates Details Immunization Registry [place] - Effective on 07/12/2021. Expiration date unspecified Effective:12-Jul-2021 Name Dates Details Immunization Registry [place] - Effective on 07/12/2021. Expiration date unspecified Effective:12-Jul-2021 Name Dates Details Immunization Registry [place] - Effective on 07/12/2021. Expiration date unspecified Effective:12-Jul-2021 Reason for Referral Specialty Diagnoses / Procedures Referred By Contac t Referred To Contact Rehabilitation Diagnoses Chronic bilateral low back pain without sciatica Elena Herrera MD [address] [id number] Referral ID Status Reason Start Date Expiration Date V isits Requested Visits Authorized [id number] Pending Review 05/29/2023 05/28/2024 1 1 Specialty Diagnoses / Procedures Referred By Contac t Referred To Contact Diagnoses Lower extremity edema Pain of right calf Procedures Ultrasound duplex venous leg right Mirza Ayala Jr., DPM [address] [place] [address] [address] Phone: [phone] Referral ID Status Reason Start Date Expiration Date V isits Requested Visits Authorized [id number] Closed Specialty Services Required/[facility]ilpa ent's Best Interest 11/22/2023 11/21/2024 1 1 Specialty Diagnoses / Procedures Referred By Contac t Referred To Contact Cardiology Diagnoses Localized edema Procedures Vascular US lower extremity venous duplex right Mirza Ayala DPM [address] [place] [address] Referral ID Status Reason Start Date Expiration Date Visits Requested Visits Authorized [id number] Authorized Perform Procedure 11/22/2023 11/21/2024 1 1 Additional Source Comments INFORMATION SOURCE (unrecogn ized section and content) DATE CREATED AUTHOR AUTHOR'S ORGANIZ ATION 02/14/2023 [facility] DATE CREATED AUTHOR AUTHOR'S ORGANIZ ATION 05/10/2023 [facility] DATE CREATED AUTHOR AUTHOR'S ORGANIZ ATION 05/13/2023 [facility] DATE CREATED AUTHOR AUTHOR'S ORGANIZ ATION 07/19/2023 [facility] DATE CREATED AUTHOR AUTHOR'S ORGANIZ ATION 11/30/2023 [facility] DATE CREATED AUTHOR AUTHOR'S ORGANIZ ATION 12/13/2023 [facility] DATE CREATED AUTHOR AUTHOR'S ORGANIZ ATION 01/04/2024 [facility] DATE CREATED AUTHOR AUTHOR'S ORGANIZ ATION 01/22/2024 [facility] <item><item><item><item><item> Privacy Markings (unrecogniz ed section and content) Section Author: Ting Lai PROHIBITION ON REDISCLOSURE OF CONFIDENTIAL INFORMATION This notice accompanies a disclosure of information concerning a client made to you with the consent of such client. Section Author: Ting Lai PROHIBITION ON REDISCLOSURE OF CONFIDENTIAL INFORMATION This notice accompanies a disclosure of information concerning a client made to you with the consent of such client. Section Author: Ting Lia PROHIBITION ON REDISCLOSURE OF CONFIDENTIAL INFORMATION This notice accompanies a disclosure of information concerning a client made to you with the consent of such client. Section Author: Ting Lai PROHIBITION ON REDISCLOSURE OF CONFIDENTIAL INFORMATION This notice accompanies a disclosure of information concerning a client made to you with the consent of such client. Section Author: Ting Lai PROHIBITION ON REDISCLOSURE OF CONFIDENTIAL INFORMATION This notice accompanies a disclosure of information concerning a client made to you with the consent of such client. Reason for Visit (unrecogniz ed section and content) Reason Comments Foot Orthotics Patient is here for foot orthotic evaluation prescribed for her bilateral bunion pain. Patient refuses to wear them. Reason Comments Well Woman Reason Comments Nail Care Patient is her for n ail care. Foot Problem Right foot pain/brui sing. Went to ER 5 days ago with no findings. Foot Pain Right foot and ankle x-rays were taken 11/16/2023. Specialty Diagnoses / Procedures Referred By Contac t Referred To Contact Cardiology Diagnoses Localized edema Procedures Vascular US lower extremity venous duplex right Mirza Ayala DPM [address] [place] [address] Referral ID Status Reason Start Date Expiration Date Visits Requested Visits Authorized [id number] Authorized Perform Procedure 11/22/2023 11/21/2024 1 1 Reason Comments Follow-up Follow up US on righ t leg Reason Comments Follow-up Wound Check Patient presents for three week wound check. Right pinky nail pain Care Teams (unrecognized sec tion and content) Director Of Media Relationship Specialty Start Date End Date No, Physician [facility] PCP - General 06/29/22 Director Of Media Relationship Specialty Start Date End Date No, Physician [facility] PCP - General 06/29/22 Director Of Media Relationship Specialty Start Date End Date Elena Herrera MD [address] [facility] [address] [place], [place] [id number] PCP - General Internal Medicine 02/15/19 Director Of Media Relationship Specialty Start Date End Date No, Physician [facility] PCP General 06/29/22 Director Of Media Relationship Specialty Start Date End Date Elena Herrera MD [address] [facility] [address] [place], [place] [id number] PCP - General 11/20/09 Director Of Media Relationship Specialty Start Date End Date No, Physician [facility] PCP General 06/29/22 Director Of Media Relationship Specialty Start Date End Date No, Physician [facility] PCP General 06/29/22 Source Comments (unrecognize d section and content) In the event this informatio n is protected by the Federal Confidentiality of Alcohol and Drug Abuse Patient Records regulations: The Federal rules restrict any use of the information to criminally investigate or prosecute any alcohol or drug abuse patient.[facility] FOR RECORDS PERTAINING TO PATIENTS WHO ARE OR HAVE BEEN ENROLLED IN A CHEMICAL DEPENDENCY/SUBSTANCEABUSE PROGRAM, SOME INFORMATION MAY BE OMITTED. This clinical summary was aggregated from multiple sources. Caution should be exercised in using it in the provision of clinical care. This summary normalizes information from multiple sources, and as a consequence, information in this document may materially change the coding, format and clinical context of patient data. In addition, data may be omitted in some cases. CLINICAL DECISIONS SHOULD BE BASED ON THE PRIMARY CLINICAL RECORDS. [facility]. provides no warranty or guarantee of the accuracy or completeness of information in this document.
[2024-01-26 12:31] LABS: ALB/GLOB Ratio 0.6 RATIO (0.9-2.4); AST(SGOT) 16 U/L (15-37); Alanine Aminotransfer ALT/SGPT 16 U/L (13-56); Albumin, Serum 2.7 g/dL (3.2-5.0); Alkaline Phosphatase 83 U/L (45-117); Anion Gap 2 (5-15); BUN 15 mg/dL (7-18); BUN/Creat Ratio 20.4 RATIO (10-20); Calcium,Total 8.7 mg/dL (8.5-10.1); Chloride 109 mmol/L (98-107); Creatinine, Serum 0.74 mg/dL (0.55-1.02); EST Glomerular Filtration Rate 98 mL/min (>60); Est Glom Filt Rate - Afr Amer 119 mL/min (>60); Globulin 4.3 g/dL (2.2-4.2); Glucose 66 mg/dL (74-106); Potassium 4.4 mmol/L (3.5-5.1); Sodium Level 141 mmol/L (136-145); Troponin-I HS 3 pg/mL (3.0-54.0)
== END | disposition home or self-care (01) ==
LOC: LABSPEC 11:57
PROVIDERS: PCP Internal Medicine; Referring Provider Internal Medicine; Visit Provider Internal Medicine
DX: R55 Syncope and collapse (principal)
CPT/HCPCS: 80053; 82607; 82746; 84484; 85025

== ENCOUNTER → 2024-05-10 | Outpatient (CLI) | payer MEDICARE, MEDICAID, SELFPAY | END | disposition home or self-care (01) | LOC: SL 20:38 | PROVIDERS: PCP Internal Medicine; Visit Provider Internal Medicine | DX: G47.10 Hypersomnia, unspecified (principal) | CPT/HCPCS: 95810 ==

== ENCOUNTER → 2024-06-14 | Outpatient (CLI) | payer MEDICARE, MEDICAID, SELFPAY | END | disposition home or self-care (01) | LOC: SL 19:52 | PROVIDERS: PCP Internal Medicine; Referring Provider Internal Medicine; Visit Provider Internal Medicine | DX: G47.33 Obstructive sleep apnea (adult) (pediatric) (principal) | CPT/HCPCS: 95811 ==

== ENCOUNTER → 2024-08-09 | Outpatient (CLI) | payer MEDICARE, MEDICAID, SELFPAY ==
--- NOTE | 2024-08-09 08:53 | NM_ITS ---
CLINICAL: 29-year-old female with history of low back discomfort. LIMITED PLANAR 99m Tc MDP RADIONUCLIDE BONE SCINTIGRAPHY COMPARISON: Plain film radiograph report lumbar spine 07/05/2024 FINDINGS: Following the intravenous administration of 26.8 mCi of 99m Tc MDP, limited bone acquisitions of the thoracic and lumbar spine reveal: 1. Increased radiotracer is defined in the second-fifth lumbar vertebra. 2. The remaining skeletal structures are scintigraphically unremarkable with normal-appearing renal images noted bilaterally. NM/Bone Scan Limited Area IMPRESSION: 1. The increase in radiotracer defined in the lumbar spine is commensurate with degenerative arthropathy. 2. There is no scintigraphic evidence of trauma-fracture on the present examination. Electronically Signed: Osman العلي DO at 9:20 EDT ,
== END | disposition home or self-care (01) ==
LOC: NM 08:50
PROVIDERS: PCP Internal Medicine; Referring Provider Internal Medicine; Visit Provider Internal Medicine
DX: M54.50 Low back pain, unspecified (principal)
CPT/HCPCS: 78300; A9503

== ENCOUNTER → 2024-08-23 | Outpatient (CLI) | payer MEDICARE, MEDICAID, SELFPAY ==
--- NOTE | 2024-08-23 10:19 | CT_ITS ---
STUDY: CT ABDOMEN AND PELVIS WITH AND WITHOUT CONTRAST REASON FOR EXAM: Female, 29 years old. Abd pain -- R10.9 RADIATION DOSAGE (If Supplied By Facility): CTDIvol = ( 23.47 ) mGy, DLP = ( 1916.91 ) mGycm TECHNIQUE: Transaxial images were obtained from the dome of the diaphragm to the symphysis pubis without oral contrast. isovue 300 100 ml was administered. Sagittal and coronal images were reconstructed. Individualized dose optimization techniques were used for this CT. COMPARISON: None. FINDINGS: The visualized lung bases are unremarkable. The visualized portions of the heart are within normal limits. Normal liver. Normal gallbladder and extrahepatic biliary system. Normal spleen. Normal pancreas. Normal bilateral adrenal glands. Normal right kidney. Normal left kidney. Normal visualized stomach. Normal small intestine. Normal colon. The appendix is visualized and appears normal. Normal abdominal aorta. Normal inferior vena cava. Normal retroperitoneum. Normal urinary bladder. Increased markings in the subcutaneous fat overlying the posterior lumbar spine in the midline suggestive of a possible subcutaneous changes due to history of recent fall. There are mild degenerative changes of the visualized lumbar spine. Central disc bulge causing minimal deformity of the anterior thecal sac at the L4-L5 level. No significant stenosis is seen. CT/CT Abd/Pelvis W/WO Contrast IMPRESSION: Increased markings in the subcutaneous fat overlying the posterior lumbar spine in the midline suggestive of possible subcutaneous changes due to history of recent fall. Central disc bulge at the L4-L5 level causing minimal deformity of the anterior thecal sac. Electronically Signed: Collin Alegre MD at 11:35 EDT ,
== END | disposition home or self-care (01) ==
PROVIDERS: PCP Internal Medicine; Referring Provider Internal Medicine; Visit Provider Internal Medicine
DX: R10.9 Unspecified abdominal pain (principal)
CPT/HCPCS: 74178; Q9967; A4216

== ENCOUNTER 2024-09-03 11:00 | Outpatient (RCR) | payer MEDICARE, MEDICAID, SELFPAY ==
--- NOTE | 2024-08-07 18:48 | HP.PTEVAL_ITS ---
Patient's Visit Information Visit Information Visit Information: MELIA HAZEL is a 29 year old F referred to Physical Therapy by Dr. Elena Zheng MD with a diagnosis of LBP. Date of Evaluation: 08/07/24 Physical Therapist: KATY Andres Visit Plan Frequency: 2x /Week Duration: 2 Months Plan: 2X/ week for 8 weeks for AT for core stability, LE strength, gait and balance training. Caregiver will see if they have a rollator and see if that helps Subjective Subjective: She has had back for at least 3 years and it is getting worse. She was seeing a chiropractor and they did exercises that show DDD. She hurts when she stands up and when she walks. She does not walk long distances. Her ankles are recently swelling and she has shaking. She has no blood clots. It is not her toenails. Marce and angle Brown has ruled out the nasty stuff. She can do steps and needs a railing. If she does not have her glasses on she can only see 6 inches in front of her face. They have not tried a rollator or walker to take the pressure off the spine. Pt will not talk unless she is comfortable with the person and sometimes won't tell the staff. Objective Objective: Gait: Walks with WBOS, short stride and likes to hold onto caregiver Had the patient walk with a rollator and she was walking with smaller GURPREET, faster pace and was looking around. (wonder if this helps with taking the pressure off her spine as well as gives her confidence with her balance??) When the caregiver asked she said yes to less back pain with walking with the rollator Trunk AROM: flexion 100%, Ext neutral, Rotation B 50%, SB NT LE MMT: B hip flex 2-/5, B knee ext 3+/5, B knee flex NT Pt was able to side step along the valencia rail with 2 hands on the railing Balance/Special Test Scores Oswestry Low Back Score: 28 Goals Goal 1:: I HEP with caregiver help Goal Time Frame: 6-8 Weeks Goal 2:: Caregivers to report that pt is complaining of less back pain thr oughout the day Goal Time Frame: 6-8 Weeks Goal 3:: Pt to be able to walk with smaller GURPREET and increase stride length back to the treatment room Goal Time Frame: 6-8 Weeks Rehabilitation Potential Rehabilitation Potential: Good Anticipated Interventions Patient/Client Instruction: Educate patient on: Condition and Plan of Care For the Purpose of:: To decrease pain, To decrease swelling/inflammation, To increase ROM, To improve nutrient delivery to tissue, To improve muscle performance and motor function, To improve ability to perform ADL's, To increase tolerance to activity/condition/position, To improve performance and independence with ADL's, To decrease level of supervision to perform tasks, To improve ability of physical actions for home/community/work/leisure, To improve gait and locomotor functions, To improve endurance, To improve balance and To improve safety with gait Therapeutic Exercise to Include: Strength training, Endurance training, Balance training, Postural training, Gait and locomotor training, Neuromotor development, In an aquatic setting, Active ROM and Dynamic Lumbar Stabilization For the Purpose of:: To decrease pain, To increase ROM, To improve nutrient delivery to tissue, To improve muscle performance and motor function, To improve ability to perform ADL's, To increase tolerance to activity/condition/position, To improve performance and independence with ADL's, To improve gait and locomotor functions, To improve endurance, To improve balance and To improve safety with gait Functional Training to Include: Gait training For the Purpose of:: To improve gait and locomotor functions and To improve safety with gait Text: Thank you for the opportunity to evaluate your patient. For Medicare and Medicare HMO plans, please review the plan of care and approve it. It will need to be FAXED BACK to us at [phone] for Medicare purposes. For Medicare only, by signing this I certify the plan of care. Please let me know if there are questions or concerns regarding this plan of care. Physician Signature: Date:
--- NOTE | 2024-09-03 11:40 | HP.PT.NRP ---
Patient Information Patient Information: MELIA HAZEL was seen in my office for initial evaluation on 08/07/24. The following Plan of Care was established for this patient: POC Established Initial Frequency: 2x /Week Initial Duration: 2 Months Anticipated Interventions Patient/Client Instruction: Educate patient on: Condition and Plan of Care For the Purpose of:: To decrease pain, To decrease swelling/inflammation, To increase ROM, To improve nutrient delivery to tissue, To improve muscle performance and motor function, To improve ability to perform ADL's, To increase tolerance to activity/condition/position, To improve performance and independence with ADL's, To decrease level of supervision to perform tasks, To improve ability of physical actions for home/community/work/leisure, To improve gait and locomotor functions, To improve endurance, To improve balance and To improve safety with gait Therapeutic Exercise to Include: Strength training, Endurance training, Balance training, Postural training, Gait and locomotor training, Neuromotor development, In an aquatic setting, Active ROM and Dynamic Lumbar Stabilization For the Purpose of:: To decrease pain, To increase ROM, To improve nutrient delivery to tissue, To improve muscle performance and motor function, To improve ability to perform ADL's, To increase tolerance to activity/condition/position, To improve performance and independence with ADL's, To improve gait and locomotor functions, To improve endurance, To improve balance and To improve safety with gait Functional Training to Include: Gait training For the Purpose of:: To improve gait and locomotor functions and To improve safety with gait Last Seen Last Seen: This patient was last seen in our office . Pertinent comments regarding their Physical therapy will appear below: At this point I will be discontinuing this patient from physical therapy. I would be happy to see this patient again in the future if found appropriate by the physician. Thank you! Jacqueline Davis, MPT Balance/Gait/Functional tests Balance/Special Test Scores Oswestry Low Back Score: 28
== END 2024-09-03 19:00 | disposition home or self-care (01) ==
LOC: PT 11:00
PROVIDERS: PCP Internal Medicine; Referring Provider Internal Medicine; Visit Provider Internal Medicine
DX: M54.50 Low back pain, unspecified (principal)
CPT/HCPCS: 97113; 97161